=== PATIENT | female | born 1940 | race Caucasian/White ===

== ENCOUNTER 2016-07-20 22:42 | Inpatient (IN) ==
--- NOTE | 2016-07-20 23:07 | Emergency Department Note ---
Sp Vigil Brittany, am scribing for, and in the presence of, Callum Diaz MD 23:05. Joe Vigil Robert M, MD, personally performed the services described in this documentation, ascribed by Jocelyn Snowden in my presence, and it is both accurate and complete . Arrival - Arrival Chief Complaint: Shortness of Breath Stated Complaint: Shortness of Breath ED Nursing Triage Note: Patient is a transfer from [facility] for further evaluation of shortness of breath. Patient has a hx of CHF. Recieved 80mg lasix IV at [facility]. Patient has O2 saturation of 88% on 6L O2 and respiration rate of 22 upon triage. Mode of Arrival: Stretcher Limitations: No Limitations Source: Patient, RN Notes Reviewed - History of Present Illness HPI Narrative: Patient is a 75 y/o female presenting to the ED by EMS from [facility] ER for further evaluation of shortness of breath. Patient in room is unable to recall exactly where she was transferred from and is unable to provide much of any history. She does have a history significant for CHF. While at [facility] patient received 80 mg of Lasix IV. In room she has an oxygen saturation of 88% on 6L of oxygen via NC. She has a blood pressure of 151/90 mmHg. Patient in room appears to be in no acute distress. She denies having any associated chest pain with this. No other complaint/pain in the ED. Patient complains of shortness of breath. She was sent from [facility] for further evaluation of her respiratory failure. At that institution she was worked up and found to be in pulmonary edema but did not require intubation. She was given Lasix intravenously and has since begun to diurese. She denies any chest pain nausea or vomiting. She does seem slightly altered but history is overall relatively reliable. Date of Last Menstrual Period: hysterectomy Review of System - Review of System 12 point system: reviewed and no additional remarkable complaints except as stated - Review of System Constitutional: Absent: chills, fever Eyes: Absent: vision change Respiratory: Present: respiratory distress Cardiovascular: Absent: chest pain Gastrointestinal: Absent: abdominal pain, nausea, vomiting, diarrhea Genitourinary female: Absent: dysuria, frequency, urgency Musculoskeletal: Absent: arm pain, back pain, leg pain, neck pain Skin: Absent: rash Neurological: Absent: headache Psychiatric: Absent: anxiety, depression Endocrine: Absent: fatigue Hematological/Lymphatic: Absent: easy bleeding, easy bruising Medical,Surgical,& Family Hx - Medical History Cardio: History of: CHF, Hypertension - Surgical History Reproductive Surgeries: Surgical HX of;: Hysterectomy - Social History Smoking Status: Never smoker Frequency of Alcohol Use: None Type of Drug Use: None Exam Vital Signs: Vital Signs Temperature 97.8 F 07/20/16 22:43 Pulse Rate 90 07/20/16 22:43 Respiratory Rate 22 07/20/16 22:43 Blood Pressure 184/83 07/20/16 22:43 O2 Sat by Pulse Oximetry 88 L 07/20/16 22:43 - General General appearance: alert, in no apparent distress - Head Head exam: Present: atraumatic, normocephalic, normal inspection - Eye Eye exam: Present: normal appearance, PERRL, EOMI - ENT ENT exam: Present: normal exam, normal oropharynx - Neck Neck exam: Present: normal inspection, full ROM, trachea midline - Chest Chest inspection: Present: normal inspection, symmetric chest wall rise - Respiratory Respiratory exam: Present: rales (diffuse rales bilaterally), rhonchi (diffuse rhonchi bilaterally). Absent: normal lung sounds bilaterally - Cardiovascular Cardiovascular exam: Present: regular rate, normal rhythm, normal heart sounds. Absent: murmur, rubs, gallop - Abdominal Exam Abdominal exam: Present: soft, normal bowel sounds. Absent: distention, tenderness - Extremities Exam Extremities exam: Present: normal inspection - Back Exam Back exam: Present: normal inspection - Neurological Exam Neurological exam: Present: alert, oriented X3, CN II-XII intact. Absent: motor sensory deficit - Psychiatric Psychiatric exam: Present: normal affect - Skin Skin exam: Present: warm, dry Course - Consultations Consultation #1: Simran the family nurse practitioner for the hospitalist service will evaluate and admit the patient. Time: 23:06 Disposition Clinical Impression: Pulmonary edema, CHF (congestive heart failure) Case discussed with: patient, patient's family Disposition: Still a Patient Condition: Stable Time of Disposition: 23:07
[2016-07-20] MEDS ORDERED: ONDANSETRON 4 MG/2 ML VIAL IV PRN (23:25)
--- NOTE | 2016-07-20 23:37 | Hospitalist History & Physical ---
Assessment and Plan (1) CHF (congestive heart failure) Status: Acute Assessment and plan: Will most likely repeat Lasix in AM after BNP results. Will monitor UOP. Obtain labs and ECHO in AM. Current Visit: Yes (2) Pulmonary edema Status: Acute Assessment and plan: Continue diuresis; obtain CXR in AM. Current Visit: Yes History of Present Illness Chief complaint: CHF exacerbation History of present illness: This is a 75 year old female that presented to the ED as a lateral transfer from [facility] for CHF exacerbation. She has a rather impressive medical history of breast cancer, hypertension, congestive heart failure, overactive bladder, congestive heart failure, and dementia. Apparently, the patient presented to the ED on this afternoon with a chief complaint of shortness of breath. Chest radiograph at [facility] suggested pulmonary edema. She was given Lasix 80 mg IV and a lafleur catheter was inserted. She was transferred to [facility] for continuation of care. At the time of presentation, the patient was hypoxic with oxygen saturations in the low 80's; however she was arousable. Labs were obtained prior to her departure from [facility] which revealed a Pro-BNP of 4249.0. She is a poor historian. She is unable to give any information at the time of presentation. I am uncertain if this is her baseline. After speaking with Dr. Diaz; it was decided that the patient would be admitted under the hospitalists service for continuation of care. Home Medications Medication Instructions Recorded Confirmed Type Unable To Obtain [Unable to Obtain] 07/20/16 07/20/16 History Allergies Allergy/AdvReac Type Severity Reaction Status Date / Time No Known Allergies Allergy Unverified 07/20/16 23:49 Medical,Surgical,& Family Hx - Medical History Cardio: History of: CHF, Hypertension Psychological: History of: Psychiatric Problems (Dementia) Genitourinary: History of: Problems (Overactive Bladder) Reproductive: History of: Breast Cancer - Surgical History Reproductive Surgeries: Surgical HX of;: Hysterectomy - Social History Smoking Status: Never smoker Have you smoked in the last 12 months: No Frequency of Alcohol Use: Unknown Type of Drug Use: Unknown Marital Status: Single Lives With:: Alone ROS unobtainable: due to mental status Exam - Constitutional Vitals: Period Temp Pulse Resp BP Sys/Norman Pulse Ox Last 24 Hr 97.8 F-97.8 F 90-90 22-22 184-184/83-83 88-88 General appearance: normal weight, no acute distress - Head Head exam: Present: normal inspection, normocephalic - Eye Eye exam: Present: EOMI. Absent: conjunctival injection, nystagmus, scleral icterus, laceration to eyelids Pupils: Present: AR, normal accommodation - ENT ENT exam: Present: normal exam - Neck Neck exam: Absent: lymphadenopathy, meningismus, tenderness, thyromegaly - Respiratory Respiratory exam: Present: decreased breath sounds. Absent: rales, rhonchi, stridor, wheezes - Cardiovascular Cardiovascular exam: Present: regular rate and rhythm. Absent: diastolic murmur , gallop, JVD, systolic murmur, tachycardia - GI/Abdominal GI/Abdominal exam: Present: normal bowel sounds, soft. Absent: hyperactive bowel sounds, hypoactive bowel sounds, mass, Paul's sign, tenderness - Extremities Exam Extremities exam: Present: normal inspection, edema - Back Exam Back exam: Present: normal inspection - Neurological Exam Neurological exam: Present: alert, altered - Psychiatric Psychiatric exam: Present: flat affect - Skin Skin exam: Present: normal color, warm, dry Quality Measures - VTE Deep Vein Thrombosis/Pulmonary Embolism Present on Admission: No
[2016-07-21] MEDS: ENOXAPARIN 40 MG/0.4 ML SYRINGE SUBCUT SCH ×2 (01:59→23:35)
[2016-07-21 03:47] LABS: ABG HCO3 46.1 MMOL/L (20-26); ABG Oxygen Saturation 69.8 % (95-100); ABG PH 7.305 (7.35-7.45); ABG PO2 41.6 MM HG (80-95)
[2016-07-21] MEDS ORDERED: PROPOFOL 200 MG/20 ML VIAL IV ONE (03:52)
[2016-07-21] MEDS ORDERED: SUCCINYLCHOLINE 200 MG/10 ML VIAL ONE (03:52)
[2016-07-21] MEDS ORDERED: PROPOFOL 1,000 MG/100 ML BOTTLE IV ONE (03:52)
[2016-07-21] MEDS ORDERED: ETOMIDATE 20 MG/10 ML VIAL IV ONE (03:53)
[2016-07-21] MEDS: PROPOFOL 1,000 MG/100 ML BOTTLE IV SCH ×7 (04:00→20:51)
--- NOTE | 2016-07-21 04:08 | Event Note ---
Addendum entered and electronically signed by Eduardo Rose CNP 07/21/16 04 :25: Will obtain CT of the head to evaluate for altered mental status. Original Note: I was called by the nursing staff on the Telemetry unit regarding patient status. Per nursing staff; patient has become more confused; disrobing attempting to remove invasive lines; with noted decrease in SPO2. SPO2 74% at time of arrival. Decreased breath sounds noted; with labored respiratory effort. She is ashen and does not look well. She will eventually tire out. ABG obtained. She is grossly hypercapnic at 119.0. Transfer to ICU and electively intubate. Family at beside; spoke with them in great detail regarding the patient's status.
[2016-07-21 04:35] LABS: Basophils % 0.3 % (0.0-0.8); Hematocrit 56.8 VOL% (35.7-47.0); Hemoglobin 16.4 GM/DL (12.0-16.0); Immature Granulocytes % 0.4 %; Immature Granulocytes Absolute 0.04 #; Lymphocytes # 0.7 10*3/uL (1.4-4.0); Lymphocytes % 7.2 % (21.3-54.2); Mean Corpuscular HGB Conc 28.9 GM/DL (32-36); Mean Corpuscular Hemoglobin 27 PG (27-34); Mean Corpuscular Volume 94.2 FL (87-102); Mean Platelet Volume 11.3 FL (9.6-12.0); Monocytes # 0.7 10*3/uL (0.11-0.8); Monocytes % 6.8 % (1.7-12.7); Neutrophils # 8.2 10*3/uL (1.4-7.4); Neutrophils % 85.3 % (38.7-73.9); Platelet Count 182 T/CUMM (130-400); Red Blood Count 6.03 MC/CUMM (3.8-5.5); Red Cell Distribution Width 16.8 % (9.3-17.3); White Blood Count 9.6 T/CUMM (4-12)
[2016-07-21 05:07] LABS: Alanine Aminotransferase 32 U/L (13-56); Albumin 3.5 G/DL (3.4-5.0); Alkaline Phosphatase 89 U/L (45-117); Aspartate Amino Transferase 20 U/L (0-37); Calcium 9.2 MG/DL (8.5-10.1); Phosphorous 5.4 MG/DL (2.5-4.9); Total Protein 7.1 G/DL (6.4-8.3)
[2016-07-21 05:08] LABS: Blood Urea Nitrogen 16 MG/DL (7-18); Cholesterol 142 MG/DL (50-200); Glucose 154 MG/DL (74-106); HDL Cholesterol 55 MG/DL (40-60); Potassium 3.6 MMOL/L (3.5-5.1); Risk Ratio 2.58; Sodium 136 MMOL/L (136-145); Triglycerides 76 MG/DL (2-150); VLDL CHOLESTEROL 15.2 MG/DL
[2016-07-21] MEDS: PANTOPRAZOLE 40 MG VIAL IV SCH (05:30)
[2016-07-21 05:46] LABS: ABG Base Excess 23.8 MMOL/L (-2.5-2.5); ABG HCO3 49.3 MMOL/L (20-26); ABG Oxygen Saturation 97.7 % (95-100); ABG PCO2 57.8 MM HG (35-48); ABG PH 7.563 (7.35-7.45); ABG PO2 81.4 MM HG (80-95); ABG TCO2 42.7 MMOL/L (23-27); Allen Test Positive; Pt O2 Delivery Device Ventilator
[2016-07-21 06:03] LABS: Hypochromasia 1+
[2016-07-21 06:04] LABS: Macrocytosis Slight; Polychromasia Slight
[2016-07-21 06:05] LABS: Platelet Estimate Adequate
--- NOTE | 2016-07-21 07:08 | Pulmonology Consult Note ---
Assessment and Plan (1) Hypertension Status: Acute Assessment and plan: Patient apparently has a history of hypertension and may have some cardiac dysfunction Current Visit: Yes (2) Dementia Status: Acute Assessment and plan: Apparently the patient is developing dementia Current Visit: Yes (3) Acute hypercapnic respiratory failure Status: Acute Assessment and plan: Patient had worsening respiratory distress and she has significant CO2 retention. She has a metabolic alkalosis now. Current Visit: Yes (4) CHF (congestive heart failure) Status: Acute Assessment and plan: Her chest x-ray looks like a mild CHF. Her cardiac status will be evaluated Current Visit: Yes History of Present Illness Chief complaint: Ventilator management History of present illness: Ms. Fontana is a 75 year old female that was transferred from [facility] with increased shortness of breath. She apparently has a history of dementia and hypertension along with possible heart failure. She has a history of having breast cancer. She went to the hospital shortness of breath and was felt to have heart failure. She was transferred and admitted to telemetry. She developed worsening shortness of breath and hypoxemia and had to be moved to the ICU and intubated. She had a PCO2 of 119. She has no history of having any previous lung problems. She apparently is a non-smoker. She is stable on the ventilator at present Home Medications Medication Instructions Recorded Confirmed Type Acetaminophen 1,000 mg PO Q6H PRN 07/21/16 07/21/16 History Clopidogrel [Plavix] 75 mg PO DAILY 07/21/16 07/21/16 History Dexlansoprazole [Dexilant] 60 mg PO DAILY 07/21/16 07/21/16 History Digoxin Tab [Lanoxin Tab] 0.25 mg PO DAILY 07/21/16 07/21/16 History Docusate Sodium Cap [Colace Cap] 100 mg PO BID 07/21/16 07/21/16 History Ergocalciferol (Vitamin D2) 50,000 unit PO Q7D 07/21/16 07/21/16 History [Vitamin D2] Furosemide Tab [Lasix Tab] 40 mg PO BID DIURETIC 07/21/16 07/21/16 History Letrozole 2.5 mg PO DAILY 07/21/16 07/21/16 History Linagliptin [Tradjenta] 5 mg PO DAILY 07/21/16 07/21/16 History Lovastatin 40 mg PO DAILY W/SUPPER 07/21/16 07/21/16 History Magnesium Oxide [Magox 400] 2,000 mg PO BID 07/21/16 07/21/16 History Memantine HCl [Namenda XR] 28 mg PO DAILY 07/21/16 07/21/16 History Multivit-Min/FA/Lycopene/Lut 1 tablet PO DAILY 07/21/16 07/21/16 History [Centrum Silver Tablet] Solifenacin Succinate [Vesicare] 10 mg PO DAILY 07/21/16 07/21/16 History Spironolactone [Aldactone] 50 mg PO DAILY 07/21/16 07/21/16 History metOLazone [Metolazone] 10 mg PO BID 07/21/16 07/21/16 History Allergies Allergy/AdvReac Type Severity Reaction Status Date / Time No Known Allergies Allergy Unverified 07/20/16 23:49 ROS unobtainable: due to endotracheal tube (She is unable to give any history) Exam (Pulmonay) H&P - Constitutional Vitals: Period Temp Pulse Resp BP Sys/Norman Pulse Ox Last 24 Hr 97.8 F 65-94 14-20 117-181/50-88 90-95 General appearance: normal weight, no acute distress (She is sedated on the ventilator at present) - Head Head exam: Present: normal inspection, normocephalic - Eye Eye exam: Present: EOMI. Absent: scleral icterus Pupils: Present: AR - ENT ENT exam: Present: normal exam, other (ET tube is in good position) - Neck Neck exam: Present: normal inspection. Absent: lymphadenopathy, thyromegaly - Respiratory Respiratory exam: Present: decreased breath sounds, rhonchi (She has good breath sounds bilaterally with some mild rhonchi.). Absent: accessory muscle use - Cardiovascular Cardiovascular exam: Present: regular rate and rhythm. Absent: gallop, systolic murmur - GI/Abdominal GI/Abdominal exam: Present: normal bowel sounds, soft. Absent: organomegaly, tenderness - Extremities Exam Extremities exam: Absent: calf tenderness, edema - Neurological Exam Neurological exam: Present: altered (She is sedated on the ventilator at present ) - Skin Skin exam: Present: warm, dry Medical,Surgical,& Family Hx - Medical History Cardio: History of: CHF, Hypertension Psychological: History of: Psychiatric Problems (Dementia) Respiratory: History of: COPD Genitourinary: History of: Problems (Overactive Bladder) Reproductive: History of: Breast Cancer - Surgical History Thoracic Surgeries: Patient denies;: Lobectomy Reproductive Surgeries: Surgical HX of;: Hysterectomy - Social History Smoking Status: Never smoker Frequency of Alcohol Use: None Type of Drug Use: None Results - Labs CBC & BMP: 07/21/16 04:15 07/21/16 04:15 Labs: Her PO2 is 81 with a PCO2 of 57 and a pH of 7.56 - Diagnostic Findings Procedure: Chest x-ray: image reviewed by me, report reviewed by me (Chest x- ray shows cardiomegaly with some mild CHF) Quality Measures - VTE Deep Vein Thrombosis/Pulmonary Embolism Present on Admission: No
--- NOTE | 2016-07-21 07:41 | EKG Report ---
Stationary ECG Study [facility] ER Test Date: 07/20/2016 10:53:59 PM Pat Name: BRIT GRIJALVA Department: Room: 124 Gender: F [employer]: JOSHUA : 1940 Requested by: Callum Diaz Order Number: [id number] Reading MD: MARYBETH BARRERA Intervals [place] Rate: 88 P: 70 WV: 162 QRS: 99 QRSD: 101 T: 45 QT: 288 QTc: 333 Interpretive Statements SINUS RHYTHM RIGHT ATRIAL ENLARGEMENT BORDERLINE RIGHT AXIS DEVIATION Electronically Signed On 07-24-16 14:32:17 CDT by MARYBETH BARRERA [email or web address]
--- NOTE | 2016-07-21 07:43 | XRay Report ---
History short of breath ventilator management Comparison 07/20/2016 The heart is enlarged. An ET tube is in place with the tip at T4. The right Mediport remains There remained a mild diffuse bilateral interstitial opacities similar on the prior study. Elevation right diaphragm with blunting of the right costophrenic angle remains. Impression: 1. Interval intubation 2. Mild diffuse bilateral interstitial edema PROCEDURE INTERPRETED AT [facility] DEPARTMENT OF RADIOLOGY Final Report Signed by: Dr. Rebeca Jones
[2016-07-21] MEDS ORDERED: PANTOPRAZOLE 40 MG TABLET PO SCH (09:00)
[2016-07-21] MEDS: methylPREDNISolone SOD SUC 40 MG/1 ML VIAL IV SCH ×2 (10:34→19:18)
[2016-07-21] MEDS: FUROSEMIDE 40 MG/4 ML VIAL IV SCH (10:34)
[2016-07-21] MEDS ORDERED: GLUCAGON 1 MG VIAL IM PRN (10:54)
--- NOTE | 2016-07-21 10:55 | Hospitalist Progress Note ---
Assessment and Plan - Time spent with patient Time spent with patient: Greater than 30 minutes (Time spent 8.30am-10.10am) (1) Acute hypercapnic respiratory failure Status: Acute Assessment and plan: patient was intubated over night for respiratory distress and PCo2 of 119. Her obesity may also be contributing to this Plan continue vent support, steroids, will add IV antibiotics, nebs treatment panculture -follow Pulm consult ABGs, cardiac enzymes, D-dimers, CT chest Current Visit: Yes (2) CHF (congestive heart failure) Status: Acute Assessment and plan: will continue with IV diurese, give some ASA, ACEI and bblocker if bp permits -cardiac enzymes -Echocardiogram Current Visit: Yes (3) Altered mental status Status: Acute Assessment and plan: This is most likely due to the respiratory failurevs underlying Dementia. Follow CT head report. Current Visit: Yes (4) Hypertension Status: Acute Assessment and plan: stable Current Visit: Yes (5) History of breast cancer Status: Acute Assessment and plan: continue outpatient management Follow CT chest to r/o metastasis Current Visit: Yes (6) Dementia Status: Acute Assessment and plan: with some psychiatry issue. Plan We will address when patient is more stable. Current Visit: Yes Hospitalist: Subjective Interval history: 75yr old who was admitted for CHF exacerbation yesterday became short of breath overnight and was transferred to the unit and intubated. This am, she was stable on the vent.No new issues. Exam - Constitutional Vitals: Period Temp Pulse Resp BP Sys/Norman Pulse Ox Last 24 Hr 97.8 F-97.8 F 65-94 14-20 112-181/50-88 90-97 General appearance: no acute distress, morbidly obese, other (intubated and sedated) - Respiratory Respiratory exam: Present: decreased breath sounds - Cardiovascular Cardiovascular exam: Present: regular rate and rhythm - GI/Abdominal GI/Abdominal exam: Present: normal bowel sounds - Extremities Exam Extremities exam: Present: normal inspection - Neurological Exam Neurological exam: Present: alert, oriented X3 Results - Labs CBC & BMP: 07/21/16 04:15 07/21/16 04:15 Lab Results: I have reviewed the past 24 hour labs Quality Measures - VTE Deep Vein Thrombosis/Pulmonary Embolism Present on Admission: No
[2016-07-21] MEDS ORDERED: ALBUTEROL/IPRATROPIUM 3 ML NEB RESP TX PRN (10:58)
[2016-07-21] MEDS ORDERED: cefTRIAXone 1,000 MG in SODIUM CHLORIDE 0.9% 100 ML IV SCH (11:00)
[2016-07-21] MEDS: DOCUSATE SODIUM 100 MG CAPSULE PO SCH ×2 (11:21→20:44)
[2016-07-21 12:34] LABS: Troponin I Only 0.024 NG/ML (0.00-0.045)
--- NOTE | 2016-07-21 12:44 | Physician Query Form ---
CLICK EDIT DOCUMENT TO SELECT QUERY ANSWER --> OK --> SIGN Tami Sanchez RN Clinical Horticultural Farmworker W) [phone] (f) [phone] [email or web address] PROVIDERS: Make your selection(s) from the choices in EACH section by typing an "x" and enter comments in the comment section. Please use your independent medical judgment in providing your response. This request does not imply that any particular answer is desired or expected. CLINICAL INDICATORS: (Providers should not edit this section) Based on documentation of "unable to recall exactly where she was transferred from" "became more confused" "Disrobing. Attempting to remove invasive lines" History of dementia. Oxygen SATS 88% on Oxygen at 6L. Oxygen SATS down to 74%. "Acute hypercapnic respiratory failure" "Acute AMS most like to respiratory failure" ACUITY: (x ) Acute ( ) Acute on Chronic ( ) Chronic ( ) Clinically unable to determine NATURE: ( ) Delirium due to general medical condition ( ) Dementia (x ) Encephalopathy ( ) Unconscious ( ) Transient level of awareness ( ) Comatose ( ) Locked-in State ( ) Persistent Vegetative State ( ) Other, please specify: ( ) Clinically unable to determine Please indicate the underlying cause of the altered mental status (CHECK ALL THAT APPLY): (x ) Baseline dementia ( ) Alzheimer's disease ( ) Parkinson's disease ( ) Lewy body dementia ( ) Acute stroke ( ) Late effect of stroke ( ) Reactive (from emotional stress, psychological trauma) ( ) Due to narcotics/other drugs ( ) Post procedural delirium ( ) Transient ischemic attack ( ) Generalized cerebral edema ( ) Normal pressure hydrocephalus ( ) Psychiatric illness ( ) Other, please specify: ( ) Clinically unable to determine Please indicate if there is an infection, sepsis, dehydration or specific organ failure that is causing the dementia. Be specific with clarifying the relationship between that process and the mental status change. COMMENTS: Use of terms such as suspected, likely, or probable (associated with a specific diagnosis that is being evaluated, monitored, or treated as if it exists) are acceptable and can be restated in the discharge summary if not ruled out. MTDD
[2016-07-21] MEDS: DOXYCYCLINE HYCLATE INJ 100 MG in SODIUM CHLORIDE 0.9% 100 ML IV SCH (13:02)
[2016-07-21] MEDS: ASPIRIN 325 MG TABLET PO SCH (13:02)
[2016-07-21] MEDS: CARVEDILOL 3.125 MG TABLET PO SCH ×2 (13:02→20:44)
[2016-07-21] MEDS: LISINOPRIL 2.5 MG TABLET PO SCH (13:02)
[2016-07-21] MEDS: INSULIN REGULAR 100 UNIT/ML SUBCUT SCH ×2 (13:03→19:18)
--- NOTE | 2016-07-21 16:14 | CT Report ---
CT head/brain wo con Indication: Altered mental status. CT BRAIN WITHOUT CONTRAST DLP: 998 mGy*cm. One or more of the following dose reduction techniques was used: Automated exposure control, adjustment of the mA and/or kV according the patient size, or use of iterative reconstruction techniques. Comparison: None. Date of admission: 07/20/2016. Technique: Axial noncontrast CT images of the brain were obtained. Findings: Chronic lacunar infarct of the left anterior internal capsule noted. No acute ischemic change shown. Colon-white junction is maintained throughout. No hemorrhage, mass or mass effect. No volume loss. No bone lesions. Visualized sinuses and mastoid air cells are clear. Impression: No acute intracranial pathology. Chronic lacunar infarct left anterior internal capsule. PROCEDURE INTERPRETED AT [facility] DEPARTMENT OF RADIOLOGY Final Report Signed by: Truong Patrick M.D.
--- NOTE | 2016-07-21 16:18 | CT Report ---
CT chest PE study Indication: Shortness of breath. CT CHEST WITH CONTRAST, PE PROTOCOL DLP: 1695 mGy*cm. One or more of the following dose reduction techniques was used: Automated exposure control, adjustment of the mA and/or kV according the patient size, or use of iterative reconstruction techniques. Comparison: None Technique: Axial CT images of the chest were obtained during the pulmonary arterial phase of contrast injection. Coronal reconstructions were provided. Omnipaque 350, 80 cc. Findings: Endotracheal tube and NG tube are present. Endotracheal tube terminates just above the ramana and should be withdrawn slightly. No pulmonary artery filling defects are identified to the segmental level. Main pulmonary artery is 38 mm diameter, dilated, and there is pulmonary vascular congestion noted. Calcified atheromatous disease and tortuosity aorta noted. Cardiomegaly is present. No lymphadenopathy. Dependent atelectasis and bibasilar infiltrates are present with multiple air bronchograms. Trace pleural fluid on the right. Right hemidiaphragm is elevated and there is diffuse fatty infiltration of the liver. Upper abdomen is otherwise unremarkable. Impression: 1. No evidence of PE. 2. Cardiomegaly and pulmonary vascular congestion consistent with CHF. 3. Bibasilar pneumonia. 4. Fatty infiltration of the liver. 5. Endotracheal tube terminating just above the ramana. Consider withdrawing slightly. PROCEDURE INTERPRETED AT [facility] DEPARTMENT OF RADIOLOGY Final Report Signed by: Truong Patrick M.D.
--- NOTE | 2016-07-21 18:25 | ECHO Report ---
Akiko Fontana Exam Date: 07/21/2016 09:22 Referring Physician: Technologist: Destiny Busch RDCS Age: 75 Ht (in): 72 Wt (lb): 275 Gender: F Exam Location: [facility] Echo Indications: Essential (primary) hypertension, Dementia, Acute respiratory failure with hypercapnia, Heart failure, unspecified, Shortness of breath, COPD, hx Breast CA BP: 112 / 55 HR: 78 Rhythm: Sinus Technical Quality: IMPRESSIONS Normal left ventricular cavity size. Mild left ventricular hypertrophy. There is abnormal septal motion. Left ventricular ejection fraction is estimated at 55 %. Grade 1 diastolic dysfunction. The right ventricle is mildly dilated, with normal systolic function. Mild pulmonary hypertension. Mild biatrial enlargement. Mild aortic valve sclerosis, without stenosis or regurgitation. Trace pericardial effusion. MEASUREMENTS (Male / Female) Normal Values 2D ECHO LV Diastolic Diameter PLAX 4.2 cm 4.2 - 5.9 / 3.9 - 5.3 cm LV Systolic Diameter PLAX 2.2 cm LV Fractional Shortening PLAX 46.9 % IVS Diastolic Thickness 1.1 cm 0.6 - 1.0 / 0.6 - 0.9 cm LVPW Diastolic Thickness 1.2 cm 0.6 - 1.0 / 0.6 - 0.9 cm RV Internal Dim ED PLAX 3.6 cm Aortic Root Diameter 3.4 cm LA Systolic Diameter LX 4.7 cm 3.0 - 4.0 / 2.7 - 3.8 cm DOPPLER TR Peak Velocity 289.0 cm/s TR Peak Gradient 33.4 mmHg FINDINGS Left Ventricle Normal left ventricular cavity size. Mild left ventricular hypertrophy. There is abnormal septal motion. Left ventricular ejection fraction is estimated at 55 %. Grade 1 diastolic dysfunction. Right Ventricle The right ventricle is mildly dilated, with normal systolic function. Right Atrium Mild right atrial enlargement. Left Atrium Mild left atrial enlargement. Mitral Valve Morphologically normal mitral valve, without significant stenosis or prolapse. There is no mitral regurgitation. Aortic Valve Mild aortic valve sclerosis, without stenosis or regurgitation. Tricuspid Valve Morphologically normal tricuspid valve. Trace to mild tricuspid valve regurgitation. Tricuspid regurgitation velocities suggest a PAP of 43 mmHg. Pulmonic Valve Morphologically normal pulmonic valve without significant stenosis. There is no pulmonic regurgitation. Pericardium Trace pericardial effusion. Aorta Normal ascending aorta dimension. Raj Chaidez (Electronically Signed) Final Date: 21 July 2016 18:24
[2016-07-22] MEDS: DOXYCYCLINE HYCLATE INJ 100 MG in SODIUM CHLORIDE 0.9% 100 ML IV SCH (00:02)
[2016-07-22] MEDS: PROPOFOL 1,000 MG/100 ML BOTTLE IV SCH ×5 (00:03→20:37)
[2016-07-22] MEDS: methylPREDNISolone SOD SUC 40 MG/1 ML VIAL IV SCH ×3 (00:52→18:36)
[2016-07-22] MEDS: INSULIN REGULAR 100 UNIT/ML SUBCUT SCH ×4 (00:55→18:37)
[2016-07-22 03:37] LABS: Allen Test Positive; Pt O2 Delivery Device Ventilator
[2016-07-22 03:39] LABS: ABG Base Excess 17.8 MMOL/L (-2.5-2.5); ABG HCO3 42.2 MMOL/L (20-26); ABG Oxygen Saturation 95.8 % (95-100); ABG PCO2 46.4 MM HG (35-48); ABG PH 7.577 (7.35-7.45); ABG PO2 73.3 MM HG (80-95); ABG TCO2 35.2 MMOL/L (23-27)
[2016-07-22 04:35] LABS: Hematocrit 50.9 VOL% (35.7-47.0); Hemoglobin 15.9 GM/DL (12.0-16.0); Immature Granulocytes % 0.3 %; Immature Granulocytes Absolute 0.03 #; Lymphocytes # 0.4 10*3/uL (1.4-4.0); Lymphocytes % 4.8 % (21.3-54.2); Mean Corpuscular HGB Conc 31.2 GM/DL (32-36); Mean Corpuscular Hemoglobin 27 PG (27-34); Monocytes # 0.2 10*3/uL (0.11-0.8); Monocytes % 2.6 % (1.7-12.7); Neutrophils # 8.2 10*3/uL (1.4-7.4); Neutrophils % 92.3 % (38.7-73.9); Platelet Count 215 T/CUMM (130-400); Red Blood Count 5.99 MC/CUMM (3.8-5.5); Red Cell Distribution Width 17.7 % (9.3-17.3); White Blood Count 8.9 T/CUMM (4-12)
[2016-07-22 05:07] LABS: Calcium 8.6 MG/DL (8.5-10.1); Magnesium 2.2 MG/DL (1.8-2.4); Osmolality,Calculated 274.5 MOS/KG (273-304); Potassium 3.1 MMOL/L (3.5-5.1)
[2016-07-22 05:30] LABS: Hypochromasia 1+; Lymphocytes 5 % (20-55); Microcytosis 1+; Platelet Estimate Adequate; Polychromasia Slight; Segmented Neutrophils 94 % (50-85); Total Cells Counted 100
[2016-07-22] MEDS: PANTOPRAZOLE 40 MG VIAL IV SCH (05:40)
[2016-07-22] MEDS ORDERED: POTASSIUM CHLORIDE RIDER 20 MEQ in PREMIX 1 EACH IV ONE (09:24)
[2016-07-22] MEDS ORDERED: MAGNESIUM SULF RIDER 2 GM in PREMIX 1 EACH IV PRN (09:25)
[2016-07-22] MEDS: DOCUSATE SODIUM 100 MG CAPSULE PO SCH ×2 (09:44→20:15)
[2016-07-22] MEDS: LISINOPRIL 2.5 MG TABLET PO SCH (09:44)
[2016-07-22] MEDS: ASPIRIN 325 MG TABLET PO SCH (09:44)
[2016-07-22] MEDS: CARVEDILOL 3.125 MG TABLET PO SCH ×2 (09:44→20:15)
[2016-07-22] MEDS: FUROSEMIDE 40 MG/4 ML VIAL IV SCH (09:45)
[2016-07-22] MEDS: MULTIVITAMIN LIQUID (CENTRUM) 60 ML BOTTLE NG SCH (10:05)
--- NOTE | 2016-07-22 10:14 | Pulmonology Progress Note ---
Pulmonary - PN: Subj Interval history: This is a 75-year-old female whom I am seeing for Dr. Blake Miner. This patient's on mechanical ventilation. Chest x-ray admission (07/21/2016) showed pulmonary edema. There is no chest x- ray for today CT of the head is been reviewed. Patient has no pulmonary emboli. This is read as bibasilar infiltrates but it looks like pulmonary edema to me Doppler venograms. No evidence of deep venous CT head. Chronic lacunar infarcts in the anterior left internal capsule Microbiology. Gram-positive cocci in the blood culture from 07/21/2016. This is not been identified there are no sensitivity. Patient is on good antibiotic coverage. I have reviewed her medicines per Lab. White count is 8900 with 92 segs. H&H is 15.9/50.9. Platelets of 215, 000. Sodium is low at 132. Potassium is low at 3.1. Chloride is low at 81. Creatinine is 1.0 up from 0.75 BUN is 21. Admit nitrated peptide was elevated at 402. This is dropped to 73 Physical exam. Vital signs. See below Chest. Fairly clear. Heart. Lateral PMI Abdomen. Nondistended. Few bowel sounds were heard Extremities. Nothing to suggest deep venous thrombophlebitis. Neck. Symmetrical. No meningismus Lymphatics. No submandibular cervical supraclavicular or epitrochlear adenopathy. The remainder the exam is noncontributory. Plan. 1. Daily chest x-ray and ABGs and lab 2. Weaning protocol 3. Physical therapy protocol while on mechanical ventilation 4. Deep venous thrombophlebitis prevention protocol 5. Proton pump inhibitor protocol Exam (Progress Note) - Constitutional Vitals: Period Temp Pulse Resp BP Sys/Norman Pulse Ox Last 24 Hr 97.1 F-98.9 F 63-92 12-141 94-132/43-68 93-100 Results - Labs CBC & BMP: 07/22/16 03:44 07/22/16 03:44
--- NOTE | 2016-07-22 10:36 | Hospitalist Progress Note ---
Assessment and Plan (1) Bacteremia Status: Acute Assessment and plan: Patient has gram-positive bacteremia yet to be identified. Will repeat blood cultures one from the port one from peripheral draw. I have modified the antibiotic coverage to include vancomycin 1 g IV every 12 hours and cefepime 1 g IV every 8. Discontinue doxycycline and did not discontinue the Zosyn. Should mitigate salt overloading and avoid worsening of pulmonary edema. There were noted gram-positive cocci should be able to cover with antibiotics that have been introduced. Current Visit: Yes (2) Acute hypercapnic respiratory failure Status: Acute Assessment and plan: Follow ABGs Current Visit: Yes (3) Pulmonary edema Status: Acute Assessment and plan: We will judiciously use diuresis so the patient is in the unit and observe respiratory status. Vital signs closely. Current Visit: Yes Hospitalist: Subjective Interval history: Patient has been seen and examined. She is intubated on incommunicado. She is sedated. Hospital to this hospital with acute respiratory failure and pulmonary edema. Overnight she is found to have a positive blood cultures from the port. Peripheral culture did not grow. We will repeat blood cultures from the port and one peripheral to evaluate for possibility of line sepsis. She is currently on ceftriaxone 1 g IV every 24 hours may have to add antistaphylococcal treatment. Exam - Constitutional Vitals: Period Temp Pulse Resp BP Sys/Norman Pulse Ox Last 24 Hr 97.1 F-98.9 F 63-92 12-141 94-132/42-68 93-100 General appearance: over weight - Head Head exam: Present: normal inspection - Eye Eye exam: Present: EOMI Pupils: Present: AR - ENT ENT exam: Present: other (Intubated) - Neck Neck exam: Present: normal inspection - Respiratory Respiratory exam: Present: clear to auscultation bilaterally, other - Cardiovascular Cardiovascular exam: Present: regular rate and rhythm - GI/Abdominal GI/Abdominal exam: Present: normal bowel sounds, soft - Extremities Exam Extremities exam: Present: other (Patient does have LIVAN hose on no obvious edema no cyanosis) - Neurological Exam Neurological exam: Present: other (Patient is sedated and no obvious focal neurologic deficits) - Psychiatric Psychiatric exam: Present: other (Sedated) - Skin Skin exam: Present: normal color, warm, dry Results - Labs CBC & BMP: 07/22/16 03:44 07/22/16 03:44 Lab Results: I have reviewed the past 24 hour labs (Noted hypokalemia mild hyponatremia) Quality Measures - VTE Deep Vein Thrombosis/Pulmonary Embolism Present on Admission: No
[2016-07-22] MEDS: CEFEPIME 1,000 MG in SODIUM CHLORIDE 0.9% 100 ML IV SCH ×2 (14:29→21:19)
[2016-07-22] MEDS: VANCOMYCIN INJ 1,750 MG in SODIUM CHLORIDE 0.9% 500 ML IV SCH (16:19)
[2016-07-22] MEDS: DESITIN 4OZ/NYSTATIN 15 GRAM MIXTURE PASTE TOP SCH (20:19)
[2016-07-22] MEDS: ENOXAPARIN 40 MG/0.4 ML SYRINGE SUBCUT SCH (23:17)
[2016-07-23] MEDS: PROPOFOL 1,000 MG/100 ML BOTTLE IV SCH ×6 (00:16→22:38)
[2016-07-23] MEDS: INSULIN REGULAR 100 UNIT/ML SUBCUT SCH ×4 (00:37→18:11)
[2016-07-23] MEDS: methylPREDNISolone SOD SUC 40 MG/1 ML VIAL IV SCH ×3 (00:37→18:10)
[2016-07-23] MEDS: VANCOMYCIN INJ 1,750 MG in SODIUM CHLORIDE 0.9% 500 ML IV SCH ×2 (03:48→15:29)
[2016-07-23] MEDS: PANTOPRAZOLE 40 MG VIAL IV SCH (04:38)
[2016-07-23 04:45] LABS: ABG Base Excess 12.5 MMOL/L (-2.5-2.5); ABG Oxygen Saturation 98.5 % (95-100); ABG PCO2 40.8 MM HG (35-48); ABG PH 7.563 (7.35-7.45); ABG PO2 111.6 MM HG (80-95); ABG TCO2 37.2 MMOL/L (23-27); Pt O2 Delivery Device Ventilator
[2016-07-23] MEDS: CEFEPIME 1,000 MG in SODIUM CHLORIDE 0.9% 100 ML IV SCH ×3 (05:38→22:14)
[2016-07-23 05:40] LABS: Calcium 8.7 MG/DL (8.5-10.1); Osmolality,Calculated 274.7 MOS/KG (273-304); Potassium 3.2 MMOL/L (3.5-5.1)
[2016-07-23] MEDS ORDERED: INSULIN GLARGINE 100 UNIT/ML SUBCUT ONE (09:00)
--- NOTE | 2016-07-23 09:27 | XRay Report ---
XR chest 1V portable Indication: Intubated. Chest one view: Since 2 days ago, endotracheal tube has been advanced slightly, now 3 cm cephalad. NG tube and Mediport are stable. Cardiomegaly, calcified atheromatous disease, coarsened interstitial markings of the lungs and hazy bibasilar atelectasis or pneumonia appears unchanged. Impression: Slightly adjusted endotracheal tube position. Otherwise no change. PROCEDURE INTERPRETED AT [facility] DEPARTMENT OF RADIOLOGY Final Report Signed by: Truong Patrick M.D.
--- NOTE | 2016-07-23 09:33 | Hospitalist Progress Note ---
Assessment and Plan (1) Bacteremia Status: Acute Assessment and plan: Patient has gram-positive bacteremia yet to be identified. Will repeat blood cultures one from the port one from peripheral draw. I have modified the antibiotic coverage to include vancomycin 1 g IV every 12 hours and cefepime 1 g IV every 8. Discontinue doxycycline and did not discontinue the Zosyn. Should mitigate salt overloading and avoid worsening of pulmonary edema. There were noted gram-positive cocci should be able to cover with antibiotics that have been introduced. Current Visit: Yes (2) Acute hypercapnic respiratory failure Status: Acute Assessment and plan: Follow ABGs Current Visit: Yes (3) Pulmonary edema Status: Acute Assessment and plan: We will judiciously use diuresis so the patient is in the unit and observe respiratory status. Vital signs closely. Current Visit: Yes (4) Hypokalemia Status: Acute Assessment and plan: Supplement per protocol Current Visit: Yes (5) Hyperglycemia Status: Acute Assessment and plan: Start patient on Lantus insulin 10 units now and 15 units at bedtime. Continue with the intermediates NovoLog sliding scale every 6 hours Accu-Cheks Current Visit: Yes Hospitalist: Subjective Interval history: Patient has been seen and examined and chart has been reviewed Patient has gram- positive bacteremia yet to be identified. Will repeat blood cultures one from the port one from peripheral draw. I have modified the antibiotic coverage to include vancomycin 1 g IV every 12 hours and cefepime 1 g IV every 8. Discontinue doxycycline and did not discontinue the Zosyn. Should mitigate salt overloading and avoid worsening of pulmonary edema. There were noted gram- positive cocci should be able to cover with antibiotics that have been introduced. Exam - Constitutional Vitals: Period Temp Pulse Resp BP Sys/Norman Pulse Ox Last 24 Hr 97.1 F-98.2 F 61-73 12-37 94-129/42-64 100-100 General appearance: over weight - Head Head exam: Present: normal inspection - Eye Eye exam: Present: other (Sedated intubated) Pupils: Present: AR - ENT ENT exam: Present: other (Orally intubated) - Neck Neck exam: Present: normal inspection - Respiratory Respiratory exam: Present: clear to auscultation bilaterally - Cardiovascular Cardiovascular exam: Present: regular rate and rhythm - GI/Abdominal GI/Abdominal exam: Present: normal bowel sounds, soft - Extremities Exam Extremities exam: Present: other (Unable to assess patient is sedated) - Neurological Exam Neurological exam: Present: other (Patient is sedated) - Psychiatric Psychiatric exam: Present: other (Patient is sedated) - Skin Skin exam: Present: normal color, warm, dry Results - Labs CBC & BMP: 07/22/16 03:44 07/23/16 04:25 Lab Results: I have reviewed the past 24 hour labs (Noted hypokalemia patient will be supplemented per protocol endorses hyper glycemic is she is going to be started on her basal insulin dosing. Will have to use Lantus insulin) Quality Measures - VTE Deep Vein Thrombosis/Pulmonary Embolism Present on Admission: No
[2016-07-23] MEDS: CARVEDILOL 3.125 MG TABLET PO SCH ×2 (11:03→20:40)
[2016-07-23] MEDS: DOCUSATE SODIUM 100 MG CAPSULE PO SCH ×2 (11:03→20:40)
[2016-07-23] MEDS: FUROSEMIDE 40 MG/4 ML VIAL IV SCH (11:03)
[2016-07-23] MEDS: LISINOPRIL 2.5 MG TABLET PO SCH (11:03)
[2016-07-23] MEDS: ASPIRIN 325 MG TABLET PO SCH (11:03)
[2016-07-23] MEDS: DESITIN 4OZ/NYSTATIN 15 GRAM MIXTURE PASTE TOP SCH ×2 (11:04→20:41)
[2016-07-23] MEDS: MULTIVITAMIN LIQUID (CENTRUM) 60 ML BOTTLE NG SCH (11:06)
--- NOTE | 2016-07-23 12:22 | Pulmonology Progress Note ---
Pulmonary - PN: Subj Interval history: This is a 75-year-old female whom I am seeing for Dr. Blake Miner. This patient's on mechanical ventilation. Chest x-ray admission (07/21/2016) showed pulmonary edema. There is no chest x- ray for today CT of the head is been reviewed. Patient has no pulmonary emboli. This is read as bibasilar infiltrates but it looks like pulmonary edema to me Doppler venograms. No evidence of deep venous CT head. Chronic lacunar infarcts in the anterior left internal capsule Microbiology. Gram-positive cocci in the blood culture from 07/21/2016. This is not been identified there are no sensitivity. Patient is on good antibiotic coverage. I have reviewed her medicines per Lab. White count is 8900 with 92 segs. H&H is 15.9/50.9. Platelets of 215, 000. Sodium is low at 132. Potassium is low at 3.1. Chloride is low at 81. Creatinine is 1.0 up from 0.75 BUN is 21. Admit nitrated peptide was elevated at 402. This is dropped to 73 07/23/2016. Chest x-ray shows bilateral pleural effusions which have decreased in size. There is a left lower lung and left perihilar infiltrate compatible with pneumonia. The inferior right hilum is prominent. Endotracheal tube is in good position. ABGs on PEEP and pressure support and FiO2 of 100% shows a pH of 7.56. PCO2 of 40.8. PO2 of 111.6 and a bicarb of 36. This is acting like adult respiratory distress syndrome. Echocardiogram shows ejection fraction 5055% there is enlargement of the right atrium and right ventricle. Will check Doppler venograms for any evidence of deep venous thrombophlebitis. Pulmonary emboli could be an alternative explanation. Physical exam. Vital signs. See below Chest. Fairly clear. Heart. Lateral PMI Abdomen. Nondistended. Few bowel sounds were heard Extremities. Nothing to suggest deep venous thrombophlebitis. Neck. Symmetrical. No meningismus Lymphatics. No submandibular cervical supraclavicular or epitrochlear adenopathy. The remainder the exam is noncontributory. Plan. 1. Daily chest x-ray and ABGs and lab 2. Weaning protocol 3. Physical therapy protocol while on mechanical ventilation 4. Deep venous thrombophlebitis prevention protocol 5. Proton pump inhibitor protocol 6. 07/23/2016. See my note. Doppler venograms. Exam (Progress Note) - Constitutional Vitals: Period Temp Pulse Resp BP Sys/Norman Pulse Ox Last 24 Hr 97.4 F-98.2 F 61-73 12-22 94-129/43-64 100-100 Results - Labs CBC & BMP: 07/22/16 03:44 07/23/16 04:25
[2016-07-23] MEDS: POTASSIUM CHLORIDE RIDER 20 MEQ in PREMIX 1 EACH IV PRN ×2 (13:54→16:02)
--- NOTE | 2016-07-23 15:06 | Ultrasound Report ---
US venous doppler LE BI Indication: Respiratory distress and CHF. BILATERAL LOWER EXTREMITY VENOUS ULTRASOUND Comparison: 03/21/2012 Findings: Graded grayscale compression, color Doppler and pulsed Doppler ultrasound evaluation of the venous structures performed. Normal compressibility, augmentation and color saturation is present within bilateral common femoral, superficial femoral, popliteal and proximal greater saphenous veins. Impression: No evidence of DVT either lower extremity. PROCEDURE INTERPRETED AT [facility] DEPARTMENT OF RADIOLOGY Final Report Signed by: Truong Patrick M.D.
[2016-07-23] MEDS: LORazepam 2 MG/1 ML VIAL IV PRN (15:47)
[2016-07-23] MEDS: NYSTATIN 500,000 UNIT/5 ML UDCUP SWISH/SWAL SCH (20:41)
[2016-07-23] MEDS ORDERED: INSULIN GLARGINE 100 UNIT/ML SUBCUT SCH (21:00)
[2016-07-23] MEDS: ENOXAPARIN 40 MG/0.4 ML SYRINGE SUBCUT SCH (22:37)
[2016-07-24] MEDS: INSULIN REGULAR 100 UNIT/ML SUBCUT SCH ×5 (00:12→23:45)
[2016-07-24] MEDS: methylPREDNISolone SOD SUC 40 MG/1 ML VIAL IV SCH ×3 (00:12→16:49)
[2016-07-24] MEDS: POTASSIUM CHLORIDE RIDER 20 MEQ in PREMIX 1 EACH IV PRN ×2 (00:16→06:29)
[2016-07-24] MEDS: PROPOFOL 1,000 MG/100 ML BOTTLE IV SCH ×6 (03:06→20:25)
[2016-07-24 03:42] LABS: Allen Test Positive; Pt O2 Delivery Device Ventilator
[2016-07-24 03:43] LABS: ABG Base Excess 8.5 MMOL/L (-2.5-2.5); ABG HCO3 33.2 MMOL/L (20-26); ABG Oxygen Saturation 98.2 % (95-100); ABG PCO2 45.1 MM HG (35-48); ABG PH 7.485 (7.35-7.45); ABG PO2 109.8 MM HG (80-95); ABG TCO2 34.6 MMOL/L (23-27)
[2016-07-24] MEDS: VANCOMYCIN INJ 1,750 MG in SODIUM CHLORIDE 0.9% 500 ML IV SCH ×2 (03:50→16:55)
[2016-07-24] MEDS: PANTOPRAZOLE 40 MG VIAL IV SCH (03:51)
[2016-07-24 05:16] LABS: Calcium 8.1 MG/DL (8.5-10.1); Magnesium 2.2 MG/DL (1.8-2.4); Phosphorous 3.3 MG/DL (2.5-4.9); Potassium 3.5 MMOL/L (3.5-5.1); Prealbumin 23.8 MG/DL (20-40)
[2016-07-24] MEDS: CEFEPIME 1,000 MG in SODIUM CHLORIDE 0.9% 100 ML IV SCH ×3 (06:11→21:30)
--- NOTE | 2016-07-24 07:39 | XRay Report ---
Referring Physician: Franky Suarez Exam: XR chest 1V portable Date: July 24, 2016 at 3:28 AM Reason: Ventilator, respiratory failure Comparison: Chest one view portable July 23, 2016 Findings: A right-sided Mediport, endotracheal tube and feeding tube are again in place. The cardiac silhouette is again enlarged, and there may be mild elevation of the right hemidiaphragm. There are scattered opacities within both lungs. These opacities are most prominent at the lung bases and on the left. This is concerning for pulmonary edema, atelectasis and possibly pneumonia. No pneumothorax is identified, but there is mild bilateral pleural fluid. The osseous structures appear stable. Impression: There has been no significant change. PROCEDURE INTERPRETED AT [facility] DEPARTMENT OF RADIOLOGY Final Report Signed by: Dr. Sohail Burdick
--- NOTE | 2016-07-24 07:40 | Hospitalist Progress Note ---
Assessment and Plan (1) Bacteremia Status: Acute Assessment and plan: Patient has gram-positive bacteremia yet to be identified. Will repeat blood cultures one from the port one from peripheral draw. I have modified the antibiotic coverage to include vancomycin 1 g IV every 12 hours and cefepime 1 g IV every 8. Discontinue doxycycline and did not discontinue the Zosyn. Should mitigate salt overloading and avoid worsening of pulmonary edema. There were noted gram-positive cocci should be able to cover with antibiotics that have been introduced. Current Visit: Yes (2) Acute hypercapnic respiratory failure Status: Acute Assessment and plan: Follow ABGs Current Visit: Yes (3) Pulmonary edema Status: Acute Assessment and plan: We will judiciously use diuresis so the patient is in the unit and observe respiratory status. Vital signs closely. Current Visit: Yes (4) Hypokalemia Status: Acute Assessment and plan: Resolved on today's chemistry. Magnesium was also normal at 2.2 Current Visit: Yes (5) Hyperglycemia Status: Acute Assessment and plan: Raise Lantus to 24 units at bedtime. Continue with the intermediates NovoLog sliding scale every 6 hours Accu-Cheks Current Visit: Yes Hospitalist: Subjective Interval history: Patient has been seen and examined. She remains intubated. She is on SIMV mode with saturation 100% on 50% oxygen. ABGs pH 7.45 CO2 of 45 (patient suggests on chemistry that she must be on chronic CO2 retainer, high hematocrit suggesting secondary polycythemia possibly heavy smoker COPD) Exam - Constitutional Vitals: Period Temp Pulse Resp BP Sys/Norman Pulse Ox Last 24 Hr 97.0 F-98.4 F 60-75 13-26 92-175/20-79 95-100 General appearance: over weight - Head Head exam: Present: normal inspection, normocephalic - Eye Eye exam: Present: other (Sedated) Pupils: Present: AR - ENT ENT exam: Present: other (Orally intubated) - Neck Neck exam: Present: normal inspection - Respiratory Respiratory exam: Present: clear to auscultation bilaterally, other (No wheezing no rales mentating saturation of 100%) - GI/Abdominal GI/Abdominal exam: Present: normal bowel sounds, soft - Extremities Exam Extremities exam: Present: normal inspection - Back Exam Back exam: Present: normal inspection - Neurological Exam Neurological exam: Present: other (Patient is sedated) - Psychiatric Psychiatric exam: Present: other (Sedated) - Skin Skin exam: Present: normal color, warm, dry Results - Labs CBC & BMP: 07/22/16 03:44 07/24/16 04:27 Lab Results: I have reviewed the past 24 hour labs (Noted the polycythemia chronically high bicarbonate. Patient also has hyperglycemia) Quality Measures - VTE Deep Vein Thrombosis/Pulmonary Embolism Present on Admission: No
[2016-07-24] MEDS ORDERED: POTASSIUM CHLORIDE RIDER 100 ML IV ONE (08:49)
[2016-07-24] MEDS: ASPIRIN 325 MG TABLET PO SCH (09:31)
[2016-07-24] MEDS: MULTIVITAMIN LIQUID (CENTRUM) 60 ML BOTTLE NG SCH (09:31)
[2016-07-24] MEDS: FUROSEMIDE 40 MG/4 ML VIAL IV SCH (09:32)
[2016-07-24] MEDS: DESITIN 4OZ/NYSTATIN 15 GRAM MIXTURE PASTE TOP SCH ×2 (09:32→20:26)
[2016-07-24] MEDS: LISINOPRIL 2.5 MG TABLET PO SCH (09:32)
[2016-07-24] MEDS: CARVEDILOL 3.125 MG TABLET PO SCH ×2 (09:32→20:25)
[2016-07-24] MEDS: NYSTATIN 500,000 UNIT/5 ML UDCUP SWISH/SWAL SCH ×4 (09:32→20:25)
[2016-07-24] MEDS: DOCUSATE SODIUM 100 MG CAPSULE PO SCH ×2 (09:32→20:25)
[2016-07-24] MEDS: LORazepam 2 MG/1 ML VIAL IV PRN (09:33)
[2016-07-24] MEDS: ACETAMINOPHEN 325 MG TABLET PO PRN (09:33)
--- NOTE | 2016-07-24 09:56 | Pulmonology Progress Note ---
Pulmonary - PN: Subj Interval history: Patient is a 75-year-old lady that presented with shortness of breath and had to be intubated. She was felt to possibly have mild heart failure. She did have significant CO2 retention. Her PO2 is still on the low side. She has been stable on the ventilator but she does get very restless. She has had fairly good urine output. Her blood pressure has been stable. Exam (Progress Note) - Constitutional Vitals: Period Temp Pulse Resp BP Sys/Norman Pulse Ox Last 24 Hr 97.0 F-98.4 F 60-75 13-26 92-175/20-79 95-100 Exam: General appearance: normal weight, no acute distress (She is sedated on the ventilator but does get very agitated at times. ) - Head Head exam: Present: normal inspection, normocephalic - Eye Eye exam: Present: EOMI. Absent: scleral icterus Pupils: Present: AR - ENT ENT exam: Present: normal exam, other (ET tube is in good position) - Neck Neck exam: Present: normal inspection. Absent: lymphadenopathy, thyromegaly - Respiratory Respiratory exam: Present: She has fairly good air movement now without any definite wheezing. - Cardiovascular Cardiovascular exam: Present: regular rate and rhythm. Absent: gallop, systolic murmur - GI/Abdominal GI/Abdominal exam: Present: normal bowel sounds, soft. Absent: organomegaly, tenderness - Extremities Exam Extremities exam: Absent: calf tenderness, edema - Neurological Exam Neurological exam: Present: altered (She is sedated on the ventilator at present ) - Skin Skin exam: Present: warm, dry Results - Labs CBC & BMP: 07/22/16 03:44 07/24/16 04:27 Labs: PO2 is only 109 today. - Diagnostic Findings Procedure: Chest x-ray: image reviewed by me, report reviewed by me (Chest x- ray shows improving bibasilar infiltrates.) Assessment and Plan (1) Hypertension Status: Acute Assessment and plan: Patient apparently has a history of hypertension but her echo looks okay without significant cardiac dysfunction. Current Visit: Yes (2) Dementia Status: Acute Assessment and plan: Apparently the patient is developing dementia. She does get agitated at times. Current Visit: Yes (3) Acute hypercapnic respiratory failure Status: Acute Assessment and plan: Patient had worsening respiratory distress and she has significant CO2 retention. She has a metabolic alkalosis now. Her pH is better today. She continues to have some significant hypoxemia. Current Visit: Yes (4) CHF (congestive heart failure) Status: Acute Assessment and plan: Her chest x-ray looks like a mild CHF. She has had good urine output but is not clearing completely. Current Visit: Yes
[2016-07-24] MEDS: VANCOMYCIN INJ 1,500 MG in SODIUM CHLORIDE 0.9% 500 ML IV SCH (16:59)
[2016-07-24] MEDS: INSULIN GLARGINE 100 UNIT/ML SUBCUT SCH (20:25)
[2016-07-24] MEDS: ENOXAPARIN 40 MG/0.4 ML SYRINGE SUBCUT SCH (23:12)
[2016-07-25] MEDS: PROPOFOL 1,000 MG/100 ML BOTTLE IV SCH ×5 (00:26→21:00)
[2016-07-25] MEDS: methylPREDNISolone SOD SUC 40 MG/1 ML VIAL IV SCH ×3 (00:26→16:09)
[2016-07-25] MEDS: VANCOMYCIN INJ 1,500 MG in SODIUM CHLORIDE 0.9% 500 ML IV SCH ×2 (04:02→16:09)
[2016-07-25] MEDS: PANTOPRAZOLE 40 MG VIAL IV SCH (04:02)
[2016-07-25 04:18] LABS: ABG Base Excess 5.9 MMOL/L (-2.5-2.5); ABG HCO3 29.7 MMOL/L (20-26); ABG Oxygen Saturation 98.7 % (95-100); ABG PCO2 51.1 MM HG (35-48); ABG PH 7.409 (7.35-7.45); ABG TCO2 26.9 MMOL/L (23-27); Allen Test Positive; Pt O2 Delivery Device Ventilator
[2016-07-25 05:15] LABS: Calcium 8.2 MG/DL (8.5-10.1); Osmolality,Calculated 291.5 MOS/KG (273-304); Potassium 3.3 MMOL/L (3.5-5.1)
[2016-07-25] MEDS: POTASSIUM CHLORIDE RIDER 20 MEQ in PREMIX 1 EACH IV PRN (05:51)
[2016-07-25] MEDS: INSULIN REGULAR 100 UNIT/ML SUBCUT SCH ×3 (05:52→17:24)
[2016-07-25] MEDS: CEFEPIME 1,000 MG in SODIUM CHLORIDE 0.9% 100 ML IV SCH ×3 (06:21→22:40)
--- NOTE | 2016-07-25 06:42 | Pulmonology Progress Note ---
Pulmonary - PN: Subj Interval history: Patient is a 75-year-old lady that presented with shortness of breath and had to be intubated. She was felt to possibly have mild heart failure. She did have significant CO2 retention. Her PO2 is still on the low side. Her family says her O2 runs low at home and she uses home oxygen. She apparently has significant COPD. She is sedated and comfortable on the ventilator now. She still has a large A-a O2 gradient. Her chest x-ray shows mild bibasilar changes. Her vital signs have been fairly stable. Exam (Progress Note) - Constitutional Vitals: Period Temp Pulse Resp BP Sys/Norman Pulse Ox Last 24 Hr 97.8 F-98.1 F 66-113 10-20 103-131/45-70 86-100 Exam: General appearance: normal weight, no acute distress (She is sedated on the ventilator but does get very agitated at times. ) - Head Head exam: Present: normal inspection, normocephalic - Eye Eye exam: Present: EOMI. Absent: scleral icterus Pupils: Present: AR - ENT ENT exam: Present: normal exam, other (ET tube is in good position) - Neck Neck exam: Present: normal inspection. Absent: lymphadenopathy, thyromegaly - Respiratory Respiratory exam: Present: She has fairly good air movement now and her lungs sound a little clearer without definite rales or wheezing. - Cardiovascular Cardiovascular exam: Present: regular rate and rhythm. Absent: gallop, systolic murmur - GI/Abdominal GI/Abdominal exam: Present: normal bowel sounds, soft. Absent: organomegaly, tenderness - Extremities Exam Extremities exam: Absent: calf tenderness, edema - Neurological Exam Neurological exam: Present: altered (She is sedated on the ventilator at present ) - Skin Skin exam: Present: warm, dry Results - Labs CBC & BMP: 07/22/16 03:44 07/25/16 04:20 Labs: Her PO2 is 126 with a PCO2 of 51 and a pH of 7.40. This is on 80% oxygen and PEEP of 10 - Diagnostic Findings Procedure: Chest x-ray: image reviewed by me, report reviewed by me (Chest x- ray shows bibasilar infiltrates.) Assessment and Plan (1) Hypertension Status: Acute Assessment and plan: Patient apparently has a history of hypertension but her echo looks okay without significant cardiac dysfunction. Her blood pressure has been stable. Current Visit: Yes (2) Dementia Status: Acute Assessment and plan: Apparently the patient is developing dementia. She does get agitated at times. Current Visit: Yes (3) Acute hypercapnic respiratory failure Status: Acute Assessment and plan: Patient had worsening respiratory distress and she has significant CO2 retention. She has a metabolic alkalosis now. Her pH is better today. She still requires a large amount of oxygen. We will plan a therapeutic bronchoscopy today. Current Visit: Yes (4) CHF (congestive heart failure) Status: Acute Assessment and plan: Her chest x-ray looks like a mild CHF. She has had good urine output but is not clearing completely. She may have significant lung disease also. Current Visit: Yes
--- NOTE | 2016-07-25 07:06 | XRay Report ---
Referring Physician: Franky Suarez Exam: XR chest 1V portable Date: July 25, 2016 at 3:31 AM Reason: Ventilator, respiratory failure Comparison: Chest one view portable July 24, 2016 Findings: A right-sided Mediport, endotracheal tube and feeding tube are again in place. The cardiac silhouette is again enlarged. There are scattered opacities within both lungs, mainly at the lung bases. This is concerning for pulmonary edema, atelectasis and possibly pneumonia. No pneumothorax is identified, but there is mild bilateral pleural fluid. The osseous structures appear stable. Impression: There is slight improvement aeration of the left upper and mid lung zones. The study is otherwise similar to before. PROCEDURE INTERPRETED AT [facility] DEPARTMENT OF RADIOLOGY Final Report Signed by: Dr. Sohail Burdick
--- NOTE | 2016-07-25 07:40 | Operative Note ---
Date of procedure: 07/25/16 Pre-op diagnosis: Respiratory failure with bilateral infiltrates. Post-op diagnosis: same (Bronchitis with mucous plugging) Procedure: The patient is on the ventilator in ICU with respiratory failure. Bronchoscopy will be done to assess airways and clear airways. She is sedated on the ventilator at present. Procedure: The fiberoptic bronchoscope was passed of the ET tube into the airways. The bronchopulmonary signs were identified and a specimen was obtained. Findings: The ET tube is in good position of the trachea. The main bronchi are open and unremarkable. There is some thick mucus and plugs seen bilaterally. These were washed and cleared and sent for culture. The right upper lobe, right , right lower lobe are all open. The left upper lobe, lingula, and left lower lobe are all open. There are no endobronchial lesions seen. There is bronchitis present. Once the airways were cleared of the procedure was stopped. She tolerated the procedure fairly well without problems. Impression: Bronchitis with mucous plugging. Plan: We will continue weaning from the ventilator. Anesthesia: conscious sedation Surgeon / Physician: Alexi Miner Estimated blood loss: none Specimens: other (Washings were sent for culture.) Condition: stable Disposition: ICU Results - Labs CBC & BMP: 07/22/16 03:44 07/25/16 04:20 Discharge Plan - Discharge Medications No Action Docusate Sodium Cap [Colace Cap] 100 mg PO BID Dexlansoprazole [Dexilant] 60 mg PO DAILY Multivit-Min/FA/Lycopen/Lutein [Centrum Silver Tablet] 1 tablet PO DAILY Clopidogrel [Plavix] 75 mg PO DAILY Lovastatin 40 mg PO DAILY W/SUPPER Furosemide Tab [Lasix Tab] 40 mg PO BID DIURETIC Digoxin Tab [Lanoxin Tab] 0.25 mg PO DAILY Ergocalciferol (Vitamin D2) [Vitamin D2] 50,000 unit PO Q7D Letrozole 2.5 mg PO DAILY Spironolactone [Aldactone] 50 mg PO DAILY Magnesium Oxide [Magox 400] 2,000 mg PO BID Acetaminophen 1,000 mg PO Q6H PRN PRN Reason: Pain Linagliptin [Tradjenta] 5 mg PO DAILY metOLazone [Metolazone] 10 mg PO BID Memantine HCl [Namenda XR] 28 mg PO DAILY Solifenacin Succinate [Vesicare] 10 mg PO DAILY - Follow Up or Referral - Forms/Instructions
--- NOTE | 2016-07-25 11:50 | Hospitalist Progress Note ---
Assessment and Plan (1) Bacteremia Status: Acute Assessment and plan: [id number] bacteremia from admission blood culture turned out to staph epidermidis. Blood cultures have been negative. Because the patient remains tenuous mostly from the respiratory issues on intubation I will give the antibiotics for the meantime. Should reassess need of these antibiotics while the patient is extubated. New microbiologic specimen is sent to the lab is morning should be followed closely. Current Visit: Yes (2) Acute hypercapnic respiratory failure Status: Acute Assessment and plan: Follow ABGs Current Visit: Yes (3) Pulmonary edema Status: Acute Assessment and plan: We will judiciously use diuresis so the patient is in the unit and observe respiratory status. Vital signs closely. Current Visit: Yes (4) Hypokalemia Status: Acute Assessment and plan: Resolved on today's chemistry. Magnesium was also normal at 2.2 Current Visit: Yes (5) Hyperglycemia Status: Acute Assessment and plan: Raise Lantus to 24 units at bedtime. Continue with the intermediates NovoLog sliding scale every 6 hours Accu-Cheks Current Visit: Yes Hospitalist: Subjective Interval history: Patient has been seen and examined. She remains intubated and sedated. Patient had bronchoscopy with lavage is done this morning. Informed and tenacious endobronchial secretions that were taken out. Gram stain does not show any organisms. Moderate white cells noted. Fungal stains and not showing anything related to those elements. Patient admitted to the hospital for hypoxic and hypercapnic respiratory failure she has been difficult to wean. She has a history of CO2 retention most likely baseline COPD. She was transferred to this hospital from [facility]. Exam - Constitutional Vitals: Period Temp Pulse Resp BP Sys/Norman Pulse Ox Last 24 Hr 97.8 F-97.9 F 66-101 10-28 103-138/45-97 86-100 General appearance: over weight - Head Head exam: Present: normocephalic, atraumatic - Eye Pupils: Present: AR - ENT ENT exam: Present: other - Neck Neck exam: Present: normal inspection - Respiratory Respiratory exam: Present: clear to auscultation bilaterally, other (Wheezing rhonchi) - Cardiovascular Cardiovascular exam: Present: regular rate and rhythm - GI/Abdominal GI/Abdominal exam: Present: normal bowel sounds, soft - Extremities Exam Extremities exam: Present: other (No cyanosis no peripheral edema) - Neurological Exam Neurological exam: Present: other (If it is on Diprivan for sedation while intubated) - Psychiatric Psychiatric exam: Present: other (Sedated) - Skin Skin exam: Present: normal color, warm, dry Results - Labs CBC & BMP: 07/22/16 03:44 07/25/16 04:20 Lab Results: I have reviewed the past 24 hour labs (Noted hypokalemia of 3.3 patient will be supplemented per protocol. She also has relative hypoglycemia appropriate diabetes treatment with Nipride) Quality Measures - VTE Deep Vein Thrombosis/Pulmonary Embolism Present on Admission: No
[2016-07-25] MEDS: ASPIRIN 325 MG TABLET PO SCH (12:31)
[2016-07-25] MEDS: NYSTATIN 500,000 UNIT/5 ML UDCUP SWISH/SWAL SCH ×4 (12:32→20:20)
[2016-07-25] MEDS: DESITIN 4OZ/NYSTATIN 15 GRAM MIXTURE PASTE TOP SCH ×2 (12:32→20:21)
[2016-07-25] MEDS: MULTIVITAMIN LIQUID (CENTRUM) 60 ML BOTTLE NG SCH (12:32)
[2016-07-25] MEDS: LISINOPRIL 2.5 MG TABLET PO SCH (12:32)
[2016-07-25] MEDS: CARVEDILOL 3.125 MG TABLET PO SCH ×2 (12:32→20:20)
[2016-07-25] MEDS: DOCUSATE SODIUM 100 MG CAPSULE PO SCH ×2 (12:32→20:20)
[2016-07-25] MEDS: FUROSEMIDE 40 MG/4 ML VIAL IV SCH (12:32)
[2016-07-25] MEDS: INSULIN GLARGINE 100 UNIT/ML SUBCUT SCH (20:21)
[2016-07-26] MEDS: ENOXAPARIN 40 MG/0.4 ML SYRINGE SUBCUT SCH ×2 (00:04→22:55)
[2016-07-26] MEDS: INSULIN REGULAR 100 UNIT/ML SUBCUT SCH ×4 (00:04→18:36)
[2016-07-26] MEDS: methylPREDNISolone SOD SUC 40 MG/1 ML VIAL IV SCH ×3 (00:04→22:55)
[2016-07-26] MEDS: PROPOFOL 1,000 MG/100 ML BOTTLE IV SCH ×5 (02:08→21:52)
[2016-07-26 03:20] LABS: Allen Test Positive; Pt O2 Delivery Device Ventilator
[2016-07-26 03:21] LABS: ABG HCO3 31.7 MMOL/L (20-26); ABG Oxygen Saturation 98.4 % (95-100); ABG PCO2 44.5 MM HG (35-48); ABG PO2 107.6 MM HG (80-95)
[2016-07-26 03:53] LABS: Calcium 8.1 MG/DL (8.5-10.1); Osmolality,Calculated 295.4 MOS/KG (273-304); Potassium 3.7 MMOL/L (3.5-5.1)
[2016-07-26] MEDS: VANCOMYCIN INJ 1,500 MG in SODIUM CHLORIDE 0.9% 500 ML IV SCH (04:02)
[2016-07-26] MEDS: PANTOPRAZOLE 40 MG VIAL IV SCH (04:02)
[2016-07-26] MEDS: CEFEPIME 1,000 MG in SODIUM CHLORIDE 0.9% 100 ML IV SCH ×3 (06:14→22:57)
--- NOTE | 2016-07-26 06:14 | XRay Report ---
Referring Physician: Franky Suarez Exam: XR chest 1V portable Date: July 26, 2016 at 2:47 AM Reason: Ventilator Comparison: Chest one view portable July 25, 2016 Findings: An endotracheal tube, feeding tube and right sided Mediport are again in place. The cardiac silhouette is again enlarged. The interstitial markings are prominent bilaterally, and there are scattered opacities within both lower lung zones. This is concerning for pulmonary edema, atelectasis and possibly pneumonia. No pneumothorax is identified, but there is likely mild bilateral pleural fluid. The osseous structures appear stable. Impression: There may be slight decreased left pleural fluid. The study is otherwise similar to before. PROCEDURE INTERPRETED AT [facility] DEPARTMENT OF RADIOLOGY Final Report Signed by: Dr. Sohail Burdick
[2016-07-26] MEDS: POTASSIUM CHLORIDE RIDER 20 MEQ in PREMIX 1 EACH IV PRN (06:24)
--- NOTE | 2016-07-26 07:16 | Pulmonology Progress Note ---
Pulmonary - PN: Subj Interval history: Patient is a 75-year-old lady that presented with shortness of breath and had to be intubated. She was felt to possibly have mild heart failure. She did have significant CO2 retention. Her PO2 is still on the low side. Her family says her O2 runs low at home and she uses home oxygen. She apparently has significant COPD. She is a former smoker. She is sedated and comfortable on the ventilator now. She still has a very abnormal x-ray with some chronic changes. Her oxygenation is still on the low side. She is slowly getting a little better. Exam (Progress Note) - Constitutional Vitals: Period Temp Pulse Resp BP Sys/Norman Pulse Ox Last 24 Hr 97.3 F-97.6 F 59-92 10-28 103-172/52-97 86-100 Exam: General appearance: normal weight, no acute distress (She is sedated on the ventilator but does get very agitated at times. ) - Head Head exam: Present: normal inspection, normocephalic - Eye Eye exam: Present: EOMI. Absent: scleral icterus Pupils: Present: AR - ENT ENT exam: Present: normal exam, other (ET tube is in good position) - Neck Neck exam: Present: normal inspection. Absent: lymphadenopathy, thyromegaly - Respiratory Respiratory exam: Present: She has fairly good air movement now and her lung galicia are reasonably clear anteriorly. - Cardiovascular Cardiovascular exam: Present: regular rate and rhythm. Absent: gallop, systolic murmur - GI/Abdominal GI/Abdominal exam: Present: normal bowel sounds, soft. Absent: organomegaly, tenderness - Extremities Exam Extremities exam: Absent: calf tenderness, edema - Neurological Exam Neurological exam: Present: altered (She is sedated on the ventilator at present ) - Skin Skin exam: Present: warm, dry Results - Labs CBC & BMP: 07/22/16 03:44 07/26/16 02:59 Labs: Her PO2 is 107 with a PCO2 of 44 and a pH of 7.47 - Diagnostic Findings Procedure: Chest x-ray: image reviewed by me, report reviewed by me (Chest x- ray suggests significant COPD with scarring. She still has bibasilar infiltrates.) Assessment and Plan (1) Hypertension Status: Acute Assessment and plan: Patient apparently has a history of hypertension but her echo looks okay without significant cardiac dysfunction. Her blood pressure has been stable. Current Visit: Yes (2) Dementia Status: Acute Assessment and plan: Apparently the patient is developing dementia. She does get agitated at times. She is comfortable at present Current Visit: Yes (3) Acute hypercapnic respiratory failure Status: Acute Assessment and plan: Patient had worsening respiratory distress and she has significant CO2 retention. She has a metabolic alkalosis now. Her pH is better today. Her PO2 is still only 107 on 70%. She does have severe lung dysfunction. Current Visit: Yes (4) CHF (congestive heart failure) Status: Acute Assessment and plan: Her chest x-ray looks like a mild CHF. She has had good urine output but her oxygenation still is not that good. She does appear to be hemodynamically stable. Current Visit: Yes
[2016-07-26] MEDS ORDERED: methylPREDNISolone SOD SUC 40 MG/1 ML VIAL IV SCH ×2 (07:30→10:30)
--- NOTE | 2016-07-26 07:54 | Hospitalist Progress Note ---
Hospitalist: Subjective Interval history: Nurse reports pt is agitated during sedation holidays. She is weaning well off vent and starting 8-12h consecutive weaning trial today. No fever. No BM. Tolerating tubefeeds. Exam - Constitutional Vitals: Period Temp Pulse Resp BP Sys/Norman Pulse Ox Last 24 Hr 97.3 F-98.6 F 59-92 10-28 103-172/52-86 86-100 Exam: GEN: Pt is intubated and sedated on the vent HEENT: PERRL, sclera clear, conjunctiva pink, nares patent, no discharge or epistaxis noted. O/P small amount of whitish exudate noted more on the lateral aspects of the tongue. NECK: Supple, no JVD. Trachea midline. No LAD appreciated CV: RRR no M LUNGS: CTAB nonlabored ABDOMEN: Soft, NT, ND, +BS Warm no c/c/e. SCDs in place NEURO: Unable to fully assess due to sedation Results - Labs CBC & BMP: 07/22/16 03:44 07/26/16 02:59 Labs: 07/25 FOB- fungal and AFB pending MRSA swab negative Sputum culture x 2 negative 07/21 Blood culture x 2 Staph epi - Impressions * Acute hypoxic and hypercarbic respiratory failure- oxygen, bronchodilators, Wean IV steroids, Cont Cefepime but dc IV Vanc. Serial CXR. Pulm following * Acute exacerbation of COPD- IV steroids, oxygen, pulm toileting, Cont Cefepime but dc IV Vanc * Staph epidermidis bacteremia- Needs recheck of blood culture to ensure clearance of blood stream. Cont IV antibiotics as noted above. Probably ok with dc Vanc. Recent ECHO negative * Hyperglycemia- likely steroid induced. Cont Lantus, accuchecks q6h. Check HgbA1c * Chronic diastolic CHF- on IV Lasix. Cont lisinopril. Coreg. Strict I and O, Daily weights and serial labs * History of dementia presumed Alzheimer's disease * History of stroke * Constipation- Cont Colase. Start Dulcolax suppository. DVT prophylaxis- Lovenox D/W nurse and all questions answered. Will update family when available. less than 30 minutes of time spent with this patient. - Diagnostic Findings Procedure: Chest x-ray: image reviewed by me (slight amount of fluid at left lung base) Quality Measures - VTE Deep Vein Thrombosis/Pulmonary Embolism Present on Admission: No
[2016-07-26] MEDS: LORazepam 2 MG/1 ML VIAL IV PRN (08:45)
[2016-07-26] MEDS: FUROSEMIDE 40 MG/4 ML VIAL IV SCH (08:45)
[2016-07-26] MEDS: NYSTATIN 500,000 UNIT/5 ML UDCUP SWISH/SWAL SCH ×4 (08:45→22:54)
[2016-07-26] MEDS: ASPIRIN 325 MG TABLET PO SCH (08:46)
[2016-07-26] MEDS: DOCUSATE SODIUM 100 MG CAPSULE PO SCH ×2 (08:46→22:55)
[2016-07-26] MEDS: DESITIN 4OZ/NYSTATIN 15 GRAM MIXTURE PASTE TOP SCH ×2 (08:46→22:56)
[2016-07-26] MEDS: LISINOPRIL 2.5 MG TABLET PO SCH (08:46)
[2016-07-26] MEDS: CARVEDILOL 3.125 MG TABLET PO SCH ×2 (08:46→22:55)
[2016-07-26] MEDS: MULTIVITAMIN LIQUID (CENTRUM) 60 ML BOTTLE NG SCH (08:46)
[2016-07-26] MEDS ORDERED: BISACODYL 10 MG SUPP RECTAL ONE (08:49)
[2016-07-26] MEDS ORDERED: BISACODYL 10 MG SUPP RECTAL PRN (08:49)
[2016-07-26] MEDS: ALBUTEROL/IPRATROPIUM 3 ML NEB RESP TX SCH ×3 (11:20→20:20)
[2016-07-26] MEDS: INSULIN GLARGINE 100 UNIT/ML SUBCUT SCH (22:55)
[2016-07-27] MEDS: ALBUTEROL/IPRATROPIUM 3 ML NEB RESP TX SCH ×6 (00:04→20:18)
[2016-07-27] MEDS: PROPOFOL 1,000 MG/100 ML BOTTLE IV SCH ×6 (01:00→19:32)
[2016-07-27] MEDS: INSULIN REGULAR 100 UNIT/ML SUBCUT SCH ×4 (01:20→18:06)
[2016-07-27 03:44] LABS: ABG Base Excess 9.5 MMOL/L (-2.5-2.5); ABG HCO3 33.3 MMOL/L (20-26); ABG Oxygen Saturation 98.1 % (95-100); ABG PCO2 43.3 MM HG (35-48); ABG PH 7.503 (7.35-7.45); ABG PO2 93.1 MM HG (80-95); ABG TCO2 28.2 MMOL/L (23-27); Allen Test Positive; Pt O2 Delivery Device Ventilator
[2016-07-27] MEDS: PANTOPRAZOLE 40 MG VIAL IV SCH (04:19)
[2016-07-27] MEDS: methylPREDNISolone SOD SUC 40 MG/1 ML VIAL IV SCH ×4 (04:19→22:42)
[2016-07-27 05:44] LABS: Calcium 8.4 MG/DL (8.5-10.1); Osmolality,Calculated 296.4 MOS/KG (273-304); Potassium 3.6 MMOL/L (3.5-5.1)
[2016-07-27 06:02] LABS: Magnesium 2.5 MG/DL (1.8-2.4)
[2016-07-27] MEDS: CEFEPIME 1,000 MG in SODIUM CHLORIDE 0.9% 100 ML IV SCH ×3 (06:10→22:43)
--- NOTE | 2016-07-27 06:51 | XRay Report ---
Referring Physician: Alexi Miner MD Exam: XR chest 1V portable Date: July 27, 2016 at 3:23 AM Reason: Ventilator Comparison: Chest one view portable July 26, 2016 Findings: A right-sided Mediport, endotracheal tube and feeding tube are again in place. The cardiac silhouette is again enlarged. The interstitial markings are prominent bilaterally, and there are scattered opacities within both lungs, mainly at the lower lung zones. This is concerning for pulmonary edema, atelectasis and possibly pneumonia. No pneumothorax is identified, but mild bilateral pleural fluid is suspected. The osseous structures appear stable. Impression: There is slight increased haziness at the left lung, which may be related to layering pleural fluid. However, there is decreased atelectasis at the left lower lung zone. The study is otherwise similar to before. PROCEDURE INTERPRETED AT [facility] DEPARTMENT OF RADIOLOGY Final Report Signed by: Dr. Sohail Burdick
--- NOTE | 2016-07-27 08:04 | Pulmonology Progress Note ---
Pulmonary - PN: Subj Interval history: Patient is a 75-year-old lady that presented with shortness of breath and had to be intubated. She was felt to possibly have mild heart failure. She did have significant CO2 retention. Her PO2 is still on the low side. Her family says her O2 runs low at home and she uses home oxygen. She apparently has significant COPD. She is a former smoker. She is sedated and comfortable on the ventilator now. Her oxygenation continues to be on the low side but is better today. Her FiO2 has been decreased a little and she had a fairly good night. Her lungs do look a little better. She is still not ready to come off the ventilator yet. Exam (Progress Note) - Constitutional Vitals: Period Temp Pulse Resp BP Sys/Norman Pulse Ox Last 24 Hr 97.1 F-97.8 F 58-86 10-31 106-136/49-76 94-119 Exam: General appearance: normal weight, no acute distress (She is sedated on the ventilator but does get very agitated at times. She had a fairly comfortable night.) - Head Head exam: Present: normal inspection, normocephalic - Eye Eye exam: Present: EOMI. Absent: scleral icterus Pupils: Present: AR - ENT ENT exam: Present: normal exam, other (ET tube is in good position) - Neck Neck exam: Present: normal inspection. Absent: lymphadenopathy, thyromegaly - Respiratory Respiratory exam: Present: She has fairly good air movement now she still has some rhonchi and coarse breath sounds bilaterally. - Cardiovascular Cardiovascular exam: Present: regular rate and rhythm. Absent: gallop, systolic murmur - GI/Abdominal GI/Abdominal exam: Present: normal bowel sounds, soft. Absent: organomegaly, tenderness - Extremities Exam Extremities exam: Absent: calf tenderness, edema - Neurological Exam Neurological exam: Present: altered (She is sedated on the ventilator at present ) - Skin Skin exam: Present: warm, dry Results - Labs CBC & BMP: 07/22/16 03:44 07/27/16 05:00 Labs: PO2 is 93 on 60% O2 and 10 of PEEP. - Diagnostic Findings Procedure: Chest x-ray: image reviewed by me, report reviewed by me (Chest x- ray still shows bilateral infiltrates.) Assessment and Plan (1) Hypertension Status: Acute Assessment and plan: Patient apparently has a history of hypertension but her echo looks okay without significant cardiac dysfunction. Her blood pressure has been stable. Current Visit: Yes (2) Dementia Status: Acute Assessment and plan: Apparently the patient is developing dementia. She does get agitated at times. She is comfortable at present Current Visit: Yes (3) Acute hypercapnic respiratory failure Status: Acute Assessment and plan: Patient had worsening respiratory distress and she has significant CO2 retention. She has a metabolic alkalosis now. Her pH is 7.5 today. Her PO2 is still on the low side. She is relatively stable at present. Current Visit: Yes (4) CHF (congestive heart failure) Status: Acute Assessment and plan: Her chest x-ray looks like a mild CHF. She has been hard to diurese. Her weight is actually up today. Current Visit: Yes
[2016-07-27] MEDS: ASPIRIN 325 MG TABLET PO SCH (08:33)
[2016-07-27] MEDS: MULTIVITAMIN LIQUID (CENTRUM) 60 ML BOTTLE NG SCH (08:34)
[2016-07-27] MEDS: CARVEDILOL 3.125 MG TABLET PO SCH ×2 (08:34→22:41)
[2016-07-27] MEDS: DOCUSATE SODIUM 100 MG CAPSULE PO SCH ×2 (08:34→22:41)
[2016-07-27] MEDS: LORazepam 2 MG/1 ML VIAL IV PRN (08:35)
[2016-07-27] MEDS: NYSTATIN 500,000 UNIT/5 ML UDCUP SWISH/SWAL SCH ×4 (08:35→22:42)
[2016-07-27] MEDS: FUROSEMIDE 40 MG/4 ML VIAL IV SCH (08:35)
[2016-07-27] MEDS: LISINOPRIL 2.5 MG TABLET PO SCH (08:35)
[2016-07-27] MEDS: DESITIN 4OZ/NYSTATIN 15 GRAM MIXTURE PASTE TOP SCH ×2 (08:36→22:42)
--- NOTE | 2016-07-27 10:33 | Hospitalist Progress Note ---
Hospitalist: Subjective Interval history: Pt doing well on weaning trials per nursing. No fever. She awakens off sedation. Nurse reports she still gets anxious but is consolable. + BM 07/26. Tolerating tubefeeds. Exam - Constitutional Vitals: Period Temp Pulse Resp BP Sys/Norman Pulse Ox Last 24 Hr 97.1 F-97.8 F 58-87 10-31 106-145/49-76 94-100 Exam: GEN: Pt is intubated and sedated on the vent, moving all extremities but is sedated HEENT: PERRL, sclera clear, conjunctiva pink, nares patent, no discharge or epistaxis noted. O/P small amount of whitish exudate noted more on the lateral aspects of the tongue. NECK: Supple, no JVD. Trachea midline. No LAD appreciated CV: RRR no M LUNGS: CTAB nonlabored, diminished at the bases ABDOMEN: Soft, NT, ND, +BS Warm no c/c/e. SCDs in place NEURO: Unable to fully assess due to sedation Results - Labs CBC & BMP: 07/22/16 03:44 07/27/16 05:00 Labs: 07/25 FOB- fungal and AFB pending; Culture negative MRSA swab negative Sputum culture x 2 negative 07/21 Blood culture x 2 Staph epi 07/22 Blood culture x 2- NGTD 07/26 Blood culture x 2- NGTD x 1 day - Impressions - Impressions * Acute hypoxic and hypercarbic respiratory failure- oxygen, bronchodilators, Probably could start to wean IV steroids, Cont Cefepime. Serial CXR. Pulm following * Acute exacerbation of COPD- IV steroids, oxygen, pulm toileting, Cont Cefepime (IV Vanc d/c'd 07/26) * Staph epidermidis bacteremia- Cont IV antibiotics as noted above. F/U repeat Blood cultures 07/26. Recent ECHO negative * DM2 uncontrolled with HgbA1c 8.2/ Steroid induced Hyperglycemia- Increase Lantus to BID, Cont accuchecks q6h. * Chronic diastolic CHF- BNP was normal. Repeat BNP. on IV Lasix/ Diurel. Check albumin level. Cont Lisinopril. Coreg. Strict I and O, Daily weights and serial labs. * History of dementia presumed Alzheimer's disease * History of stroke * Constipation- improved s/p suppository. Cont Colase. DVT prophylaxis- Lovenox D/W nurse and all questions answered. Called at [phone] and left a message. 36 minutes of time spent with this patient. Quality Measures - VTE Deep Vein Thrombosis/Pulmonary Embolism Present on Admission: No
[2016-07-27] MEDS: INSULIN GLARGINE 100 UNIT/ML SUBCUT SCH ×2 (11:46→22:42)
[2016-07-27] MEDS: POTASSIUM CHLORIDE 20 MEQ/15 ML UDCUP PER TUBE PRN ×2 (14:40→18:07)
[2016-07-27] MEDS: ENOXAPARIN 40 MG/0.4 ML SYRINGE SUBCUT SCH (22:41)
[2016-07-28] MEDS: PROPOFOL 1,000 MG/100 ML BOTTLE IV SCH ×5 (00:21→20:30)
[2016-07-28] MEDS: ALBUTEROL/IPRATROPIUM 3 ML NEB RESP TX SCH ×7 (00:46→23:07)
[2016-07-28] MEDS: INSULIN REGULAR 100 UNIT/ML SUBCUT SCH ×5 (02:05→23:40)
[2016-07-28] MEDS: methylPREDNISolone SOD SUC 40 MG/1 ML VIAL IV SCH ×4 (04:18→20:29)
[2016-07-28] MEDS: PANTOPRAZOLE 40 MG VIAL IV SCH (04:18)
[2016-07-28 05:01] LABS: Calcium 8.8 MG/DL (8.5-10.1); Magnesium 2.5 MG/DL (1.8-2.4); Osmolality,Calculated 298.3 MOS/KG (273-304); Potassium 3.9 MMOL/L (3.5-5.1)
[2016-07-28 05:13] LABS: Pt O2 Delivery Device Ventilator
[2016-07-28 05:16] LABS: ABG HCO3 32.7 MMOL/L (20-26); ABG Oxygen Saturation 96.2 % (95-100); ABG PCO2 47.5 MM HG (35-48); ABG PH 7.467 (7.35-7.45); ABG PO2 75.4 MM HG (80-95); ABG TCO2 28.8 MMOL/L (23-27)
[2016-07-28] MEDS: CEFEPIME 1,000 MG in SODIUM CHLORIDE 0.9% 100 ML IV SCH ×3 (06:21→22:29)
--- NOTE | 2016-07-28 07:21 | XRay Report ---
XR chest 1V portable Indication: Ventilator patient Comparison: 27 July 2016 Findings: The heart and mediastinum are stable in size and configuration. Lines and tubes are unchanged in position. The pulmonary vascularity is slightly decreased with improving interstitial lung density. No other lung infiltrates, effusions, pneumothorax or other abnormality is demonstrated. Impression: Findings suggest improving cardiac decompensation. PROCEDURE INTERPRETED AT [facility] DEPARTMENT OF RADIOLOGY Final Report Signed by: Dr. Blayne Aguirre
--- NOTE | 2016-07-28 08:27 | Pulmonology Progress Note ---
Pulmonary - PN: Subj Interval history: Patient is a 75-year-old lady that presented with shortness of breath and had to be intubated. She was felt to possibly have mild heart failure. She did have significant CO2 retention. Her PO2 is still on the low side. Her family says her O2 runs low at home and she uses home oxygen. She apparently has significant COPD. She is a former smoker. She is sedated and comfortable on the ventilator now. She has been reasonably comfortable on the ventilator but her oxygenation is still on the low side. She is still requiring a high FiO2 and PEEP. We will try to adjust this today. Her chest x-ray still shows bilateral infiltrates. She needs to continue ventilatory support for now. Exam (Progress Note) - Constitutional Vitals: Period Temp Pulse Resp BP Sys/Norman Pulse Ox Last 24 Hr 97.2 F-99.7 F 55-89 10-86 102-155/47-80 91-100 Exam: General appearance: normal weight, no acute distress (She is sedated on the ventilator and looks comfortable at present.) - Head Head exam: Present: normal inspection, normocephalic - Eye Eye exam: Present: EOMI. Absent: scleral icterus Pupils: Present: AR - ENT ENT exam: Present: normal exam, other (ET tube is in good position) - Neck Neck exam: Present: normal inspection. Absent: lymphadenopathy, thyromegaly - Respiratory Respiratory exam: Present: She has fairly good air movement now she still has some rhonchi and coarse breath sounds bilaterally. Her lung compliance is okay. - Cardiovascular Cardiovascular exam: Present: regular rate and rhythm. Absent: gallop, systolic murmur - GI/Abdominal GI/Abdominal exam: Present: normal bowel sounds, soft. Absent: organomegaly, tenderness - Extremities Exam Extremities exam: Absent: calf tenderness, edema - Neurological Exam Neurological exam: Present: altered (She is sedated on the ventilator at present ) - Skin Skin exam: Present: warm, dry Results - Labs CBC & BMP: 07/22/16 03:44 07/28/16 04:15 Labs: Her PO2 is 75 with a PCO2 of 47 and pH of 7.46 - Diagnostic Findings Procedure: Chest x-ray: image reviewed by me, report reviewed by me (Chest x- ray shows cardiomegaly and chronic lung disease. She still has bilateral infiltrates.) Assessment and Plan (1) Hypertension Status: Acute Assessment and plan: Patient apparently has a history of hypertension but her echo looks okay without significant cardiac dysfunction. Her blood pressure has been stable. Current Visit: Yes (2) Dementia Status: Acute Assessment and plan: Apparently the patient is developing dementia. She does get agitated at times. She is comfortable at present Current Visit: Yes (3) Acute hypercapnic respiratory failure Status: Acute Assessment and plan: Patient had worsening respiratory distress and she has significant CO2 retention. She has been on the ventilator all week and is slowly improving. She still has bilateral infiltrates and requires considerable oxygen. Will adjust her ventilator. She is not ready to extubate yet. Current Visit: Yes (4) CHF (congestive heart failure) Status: Acute Assessment and plan: Her chest x-ray looks like a mild CHF. She has been hard to diurese. Her weight is actually up today. Her renal function has been stable. Current Visit: Yes (5) Bilateral pulmonary infiltrates on chest x-ray Status: Acute Assessment and plan: Patient may have some pneumonia and she did have positive blood cultures. We may need to adjust her antibiotics. Current Visit: Yes
[2016-07-28] MEDS: LISINOPRIL 2.5 MG TABLET PO SCH (09:51)
[2016-07-28] MEDS: INSULIN GLARGINE 100 UNIT/ML SUBCUT SCH ×2 (09:51→20:28)
[2016-07-28] MEDS: CARVEDILOL 3.125 MG TABLET PO SCH ×2 (09:51→20:29)
[2016-07-28] MEDS: FUROSEMIDE 40 MG/4 ML VIAL IV SCH (09:51)
[2016-07-28] MEDS: ASPIRIN 325 MG TABLET PO SCH (09:51)
[2016-07-28] MEDS: MULTIVITAMIN LIQUID (CENTRUM) 60 ML BOTTLE NG SCH (09:51)
[2016-07-28] MEDS: NYSTATIN 500,000 UNIT/5 ML UDCUP SWISH/SWAL SCH ×4 (09:51→20:28)
[2016-07-28] MEDS: DOCUSATE SODIUM 100 MG CAPSULE PO SCH ×2 (09:51→20:29)
[2016-07-28] MEDS: ACETAMINOPHEN 325 MG TABLET PO PRN (09:52)
[2016-07-28] MEDS: DESITIN 4OZ/NYSTATIN 15 GRAM MIXTURE PASTE TOP SCH ×2 (09:52→20:29)
[2016-07-28] MEDS: POTASSIUM CHLORIDE 20 MEQ/15 ML UDCUP PER TUBE PRN (09:52)
--- NOTE | 2016-07-28 16:03 | Hospitalist Progress Note ---
Hospitalist: Subjective Interval history: Patient still sedated and on the vent. She is having liquid bowel movements and rectal tube is in place. Vent changes have been made due to patient blood gases this morning. Her left arm is swollen today due to IV infiltration. No fever. She did go 12 hours yesterday with the vent weaning trials. Exam - Constitutional Vitals: Period Temp Pulse Resp BP Sys/Norman Pulse Ox Last 24 Hr 97.2 F-99.7 F 55-98 10-34 101-155/45-77 91-100 Exam: GEN: Pt is intubated and sedated on the vent HEENT: PERRL, sclera clear, conjunctiva pink, nares patent, no discharge or epistaxis noted. O/P minimal amount of whitish exudate noted more on the lateral aspects of the tongue. NECK: Supple, no JVD. Trachea midline. No LAD appreciated CV: RRR no M LUNGS: Coarse with decreased breath sounds more on the right than the left, nonlabored breathing noted ABDOMEN: Soft, ND, +BS Warm no c/c/e. SCDs in place NEURO: Unable to fully assess due to sedation Results - Labs CBC & BMP: 07/22/16 03:44 07/28/16 04:15 Labs: 07/25 FOB- fungal and AFB pending; Culture negative MRSA swab negative Sputum culture x 2 negative 07/21 Blood culture x 2 Staph epi 07/22 Blood culture x 2- NGTD 07/26 Blood culture x 2- NGTD x 2 day - Impressions * Acute hypoxic and hypercarbic respiratory failure- oxygen, bronchodilators, IV steroids, IV Cefepime. Serial CXR. Pulm following and managing vent * Acute exacerbation of COPD- IV steroids, oxygen, pulm toileting, Cont Cefepime (IV Vanc d/c'd 07/26) * Staph epidermidis bacteremia- Cont IV antibiotics as noted above. F/U repeat Blood cultures 07/26 (negative so far). Recent ECHO negative * DM2 uncontrolled with HgbA1c 8.2/ Steroid induced Hyperglycemia- Increased Lantus to BID. Cont accuchecks q6h with insulin sliding scale. * Chronic diastolic CHF- BNP was normal. Repeat BNP. on IV Lasix/ Diurel. Cont Lisinopril. Coreg. Strict I and O, Daily weights and serial labs. * History of dementia presumed Alzheimer's disease * History of stroke * Constipation- improved s/p suppository. hold Colase. DVT prophylaxis- Lovenox D/W nurse and all questions answered. No family at bedside. Quality Measures - VTE Deep Vein Thrombosis/Pulmonary Embolism Present on Admission: No
[2016-07-28] MEDS: ENOXAPARIN 40 MG/0.4 ML SYRINGE SUBCUT SCH (23:40)
[2016-07-29] MEDS: ALBUTEROL/IPRATROPIUM 3 ML NEB RESP TX SCH ×5 (02:15→19:36)
[2016-07-29] MEDS: PROPOFOL 1,000 MG/100 ML BOTTLE IV SCH ×4 (03:18→20:32)
[2016-07-29] MEDS: methylPREDNISolone SOD SUC 40 MG/1 ML VIAL IV SCH ×2 (03:40→08:42)
[2016-07-29] MEDS: PANTOPRAZOLE 40 MG VIAL IV SCH (03:40)
[2016-07-29] MEDS: INSULIN REGULAR 100 UNIT/ML SUBCUT SCH ×3 (05:58→18:07)
[2016-07-29] MEDS: CEFEPIME 1,000 MG in SODIUM CHLORIDE 0.9% 100 ML IV SCH ×3 (05:58→22:30)
--- NOTE | 2016-07-29 08:22 | XRay Report ---
Portable chest Date: 07/29/2016 Clinical history: Ventilator Comparison: 07/28/2016 Technique: Portable AP sitting chest Findings: Stable cardiomegaly and support devices. Progressive pleural and parenchymal findings especially at the right lung base. Stable mediastinum and osseous structures. Impression: Progressive CHF/bibasilar pneumonia especially on the right. Stable supportive devices. PROCEDURE INTERPRETED AT [facility] DEPARTMENT OF RADIOLOGY Final Report Signed by: Dr. Katrina Hall
--- NOTE | 2016-07-29 08:26 | Hospitalist Progress Note ---
Hospitalist: Subjective Interval history: Pt diuresed 2L overnight per nurse. Pt has been extubated this am. She is awake and alert and following commands. She was anxious but consolable. No fever. Sats are 87-88% on FM. Exam - Constitutional Vitals: Period Temp Pulse Resp BP Sys/Norman Pulse Ox Last 24 Hr 98.0 F-99.0 F 64-98 10-34 101-162/45-86 63-98 Exam: GEN: Pt is awake, on face mask, weak appearing. HEENT: PERRL, sclera clear, conjunctiva pink, nares patent, no discharge or epistaxis noted. O/P minimal amount of whitish exudate noted more on the lateral aspects of the tongue. NECK: Supple, no JVD. Trachea midline. No LAD appreciated CV: RRR no M LUNGS: Less coarse with better aeration, mild abd retractions ABDOMEN: Soft, ND, +BS, NT Warm no c/c/e. SCDs in place NEURO: 4/5 strength of upper and lower extremities bilaterally. Sensory exam intact. Gait not assessed. Results - Labs CBC & BMP: 07/22/16 03:44 07/28/16 04:15 Labs: 07/25 FOB- fungal and AFB pending; Culture negative MRSA swab negative Sputum culture x 2 negative 07/21 Blood culture x 2 Staph epi 07/22 Blood culture x 2- NGTD 07/26 Blood culture x 2- NGTD x 3 day - Impressions * Acute hypoxic and hypercarbic respiratory failure- oxygen, bronchodilators, IV steroids, IV Cefepime. Serial CXR. Pulm following and managing vent * Acute exacerbation of COPD- IV steroids, oxygen, pulm toileting, Cont Cefepime (IV Vanc d/c'd 07/26). Add IPPB as pt is able to tolerate * Staph epidermidis bacteremia- Cont IV antibiotics as noted above. F/U repeat Blood cultures 07/26 (negative so far). Recent ECHO negative * DM2 uncontrolled with HgbA1c 8.2/ Steroid induced Hyperglycemia- BS controlled on increased Lantus to BID. Cont accuchecks q6h with insulin sliding scale. * Chronic diastolic CHF- BNP was normal. Repeat BNP 238. on IV Lasix/ Diurel. Cont Lisinopril. Coreg. Strict I and O, Daily weights and serial labs. * History of dementia presumed Alzheimer's disease * History of stroke * Constipation- improved s/p suppository. Now has diarrhea but improving with changing tubefeedings yesterday. hold Colase. C Diff and stool culture pending. * Anxiety- wean steroids as clinically possibly Consult PT/OT/ST. NPO for now and cont tubefeeds. Serial labs. DVT prophylaxis- Lovenox D/W nurse and all questions answered. No family at bedside. I will be away several days. One of my associates will follow in my absence. Quality Measures - VTE Deep Vein Thrombosis/Pulmonary Embolism Present on Admission: No
[2016-07-29] MEDS: CARVEDILOL 3.125 MG TABLET PO SCH ×2 (08:41→20:31)
[2016-07-29] MEDS: ASPIRIN 325 MG TABLET PO SCH (08:41)
[2016-07-29] MEDS: MULTIVITAMIN LIQUID (CENTRUM) 60 ML BOTTLE NG SCH (08:41)
[2016-07-29] MEDS: DOCUSATE SODIUM 100 MG CAPSULE PO SCH (08:41)
[2016-07-29] MEDS: LISINOPRIL 2.5 MG TABLET PO SCH (08:42)
[2016-07-29] MEDS: POTASSIUM CHLORIDE 20 MEQ/15 ML UDCUP PER TUBE PRN (08:42)
[2016-07-29] MEDS: ACETAMINOPHEN 325 MG TABLET PO PRN ×2 (08:42→14:26)
[2016-07-29] MEDS: INSULIN GLARGINE 100 UNIT/ML SUBCUT SCH ×2 (08:42→20:31)
[2016-07-29] MEDS: DESITIN 4OZ/NYSTATIN 15 GRAM MIXTURE PASTE TOP SCH ×2 (08:42→20:32)
[2016-07-29] MEDS: FUROSEMIDE 40 MG/4 ML VIAL IV SCH (08:42)
[2016-07-29] MEDS: NYSTATIN 500,000 UNIT/5 ML UDCUP SWISH/SWAL SCH ×4 (08:42→20:31)
--- NOTE | 2016-07-29 09:30 | Pulmonology Progress Note ---
Pulmonary - PN: Subj Interval history: Patient with severe COPD by report, intubated for CHF exacerbation vs COPD exacerbation. Doing well this morning, passed SBT, was awake, extubated without difficulty Exam (Progress Note) - Constitutional Vitals: Period Temp Pulse Resp BP Sys/Norman Pulse Ox Last 24 Hr 98.0 F-99.0 F 64-98 10-34 108-162/49-86 63-98 General appearance: no acute distress, over weight - Head Head exam: Present: normal inspection - ENT ENT exam: Present: normal exam - Neck Neck exam: Present: normal inspection - Respiratory Respiratory exam: Present: clear to auscultation bilaterally - Cardiovascular Cardiovascular exam: Present: regular rate and rhythm Results - Labs CBC & BMP: 07/22/16 03:44 07/28/16 04:15 Lab Results: I have reviewed the past 24 hour labs Assessment and Plan (1) Acute hypercapnic respiratory failure Status: Resolved Assessment and plan: Patient passed SBT this morning, extubated with problems and doing well on oxygen. If able to get NG tube out, can switch oxygen to NC, with goal to keep SpO2 88-92% Current Visit: Yes
[2016-07-29] MEDS: LORazepam 2 MG/1 ML VIAL IV PRN ×2 (10:00→12:57)
[2016-07-29 13:22] LABS: ABG Base Excess 7.2 MMOL/L (-2.5-2.5); ABG HCO3 30.5 MMOL/L (20-26); ABG Oxygen Saturation 82.9 % (95-100); ABG PH 7.324 (7.35-7.45); ABG PO2 52.7 MM HG (80-95); ABG TCO2 31.8 MMOL/L (23-27); Allen Test Positive; Pt O2 Delivery Device Venturi Mask
[2016-07-29 13:25] LABS: ABG PCO2 71.7 MM HG (35-48)
[2016-07-29 14:48] LABS: ABG Base Excess 7.3 MMOL/L (-2.5-2.5); ABG HCO3 30.8 MMOL/L (20-26); ABG Oxygen Saturation 87.3 % (95-100); ABG PCO2 63.8 MM HG (35-48); ABG PH 7.359 (7.35-7.45); ABG PO2 56.5 MM HG (80-95); ABG TCO2 30.6 MMOL/L (23-27)
[2016-07-29] MEDS ORDERED: ETOMIDATE 20 MG/10 ML VIAL IV ONE ×2 (16:06→17:41)
[2016-07-29] MEDS ORDERED: PROPOFOL 1,000 MG/100 ML BOTTLE IV ONE (16:16)
[2016-07-29] MEDS ORDERED: SUCCINYLCHOLINE 200 MG/10 ML VIAL ONE (16:39)
--- NOTE | 2016-07-29 17:00 | Anesthesia ---
Anesthesia Procedures - Intubation Sedative: Etomidate Mg given sedative: 16 Paralytic: Succinylcholine Mg given paralytic: 140 Laryngoscope: Juan ET Tube Size: 7.5 Tube Secured Depth (cm): 23 Tube Secured Location: lips Tube Placement Confirmation: visualized tube passing through cords, equal breath sounds bilaterally, no breath sounds over epigastrium, confirmation by capnometry, confirmation detector color change Patient tolerated procedure intubation: well Intubation Complications: none Additional Commets: I was called by an [employer]LECT[employer] to intubate this pt, which was requested by Dr. Zaldivar.
--- NOTE | 2016-07-29 17:40 | XRay Report ---
Portable chest Date: 07/29/2016 Clinical history: Endotracheal tube placement Comparison: 07/29/2016 Technique: Portable AP sitting chest Findings: Stable cardiomegaly with the supportive devices remaining in satisfactory position. Progressive parenchymal findings with larger pleural effusions. Stable mediastinum and osseous structures. Impression: Progressive CHF/bilateral pneumonia with enlarging pleural effusions. The support devices are in satisfactory position. PROCEDURE INTERPRETED AT [facility] DEPARTMENT OF RADIOLOGY Final Report Signed by: Dr. Katrina Hall
[2016-07-29] MEDS ORDERED: LIDOCAINE 2%/EPI 20 ML VIAL MISC INJ ONE (17:41)
[2016-07-29] MEDS ORDERED: SUCCINYLCHOLINE 200 MG/10 ML VIAL IV ONE (17:43)
[2016-07-29 17:54] LABS: ABG HCO3 32.6 MMOL/L (20-26); ABG PCO2 48.1 MM HG (35-48); ABG PH 7.464 (7.35-7.45); ABG PO2 56.9 MM HG (80-95); ABG TCO2 29.1 MMOL/L (23-27); Allen Test Positive; Pt O2 Delivery Device Ventilator
[2016-07-29] MEDS ORDERED: FUROSEMIDE 40 MG/4 ML VIAL IV ONE (18:05)
[2016-07-29] MEDS: ENOXAPARIN 40 MG/0.4 ML SYRINGE SUBCUT SCH (22:31)
[2016-07-30] MEDS: ALBUTEROL/IPRATROPIUM 3 ML NEB RESP TX SCH ×6 (00:05→20:35)
[2016-07-30] MEDS: ALBUTEROL 2.5 MG/3 ML NEB RESP TX PRN (00:12)
[2016-07-30] MEDS: INSULIN REGULAR 100 UNIT/ML SUBCUT SCH ×4 (00:57→18:11)
[2016-07-30] MEDS: PROPOFOL 1,000 MG/100 ML BOTTLE IV SCH ×7 (01:14→20:43)
[2016-07-30] MEDS: PANTOPRAZOLE 40 MG VIAL IV SCH (05:11)
[2016-07-30] MEDS: CEFEPIME 1,000 MG in SODIUM CHLORIDE 0.9% 100 ML IV SCH ×3 (05:12→22:43)
[2016-07-30 06:26] LABS: Basophils % 0.2 % (0.0-0.8); Eosinophils # 0.1 10*3/uL (0.0-0.87); Eosinophils % 1.1 % (0.00-10.9); Hemoglobin 14.9 GM/DL (12.0-16.0); Immature Granulocytes % 0.6 %; Immature Granulocytes Absolute 0.06 #; Lymphocytes # 1.3 10*3/uL (1.4-4.0); Lymphocytes % 12.1 % (21.3-54.2); Mean Corpuscular HGB Conc 30.4 GM/DL (32-36); Mean Corpuscular Hemoglobin 27 PG (27-34); Mean Corpuscular Volume 88.9 FL (87-102); Monocytes # 0.9 10*3/uL (0.11-0.8); Monocytes % 8.3 % (1.7-12.7); Neutrophils # 8.3 10*3/uL (1.4-7.4); Neutrophils % 77.7 % (38.7-73.9); Platelet Count 143 T/CUMM (130-400); Red Blood Count 5.51 MC/CUMM (3.8-5.5); Red Cell Distribution Width 17.6 % (9.3-17.3); White Blood Count 10.6 T/CUMM (4-12)
[2016-07-30 06:29] LABS: Albumin 2.8 G/DL (3.4-5.0); Calcium 8.5 MG/DL (8.5-10.1); Osmolality,Calculated 300.8 MOS/KG (273-304); Potassium 2.9 MMOL/L (3.5-5.1)
[2016-07-30] MEDS: POTASSIUM CHLORIDE 20 MEQ/15 ML UDCUP PER TUBE PRN ×3 (06:35→10:11)
--- NOTE | 2016-07-30 07:27 | Pulmonology Progress Note ---
Pulmonary - PN: Subj Interval history: Patient extubated yesterday morning without difficulty, did well for most of the day. Got called by nursing later that afternoon that patient was tiring out and using accessory muscles to breath, she was trialed on bipap, didn't recover and decision was made to intubate Exam (Progress Note) - Constitutional Vitals: Period Temp Pulse Resp BP Sys/Norman Pulse Ox Last 24 Hr 97.8 F-98.7 F 61-118 10-34 99-142/47-79 83-96 General appearance: no acute distress, over weight - Head Head exam: Present: normal inspection - ENT ENT exam: Present: normal exam - Respiratory Respiratory exam: Present: clear to auscultation bilaterally - Cardiovascular Cardiovascular exam: Present: regular rate and rhythm - GI/Abdominal GI/Abdominal exam: Present: soft Results - Labs CBC & BMP: 07/30/16 05:45 07/30/16 05:45 Lab Results: I have reviewed the past 24 hour labs - Diagnostic Findings Procedure: Chest x-ray: image reviewed by me (mild blunting of costophrenic angles. mild cephalization) Assessment and Plan (1) Acute hypercapnic respiratory failure Status: Resolved Assessment and plan: Patient with severe COPD, tired out yesterday after extubation, less than 12 hours. She has significant anxiety and this likely played a role in this. Will try and diuerese her a little more, and potentially attempt again tomorrow. However if she fails again, will need to consider trach Current Visit: Yes
--- NOTE | 2016-07-30 08:01 | XRay Report ---
Portable chest Date: 07/30/2016 Clinical history: Respiratory failure Comparison: 07/29/2016 Technique: Portable AP sitting chest Findings: Stable cardiomegaly and supporting devices. Improved pleural-parenchymal findings especially at the lung bases. Decreased hilar density with degenerative changes. Impression: Improved CHF/bilateral pneumonia with smaller pleural effusions. The supportive devices remain in satisfactory position. PROCEDURE INTERPRETED AT [facility] DEPARTMENT OF RADIOLOGY Final Report Signed by: Dr. Katrina Hall
[2016-07-30 08:24] LABS: Hypochromasia Slight
[2016-07-30] MEDS: CARVEDILOL 3.125 MG TABLET PO SCH ×2 (08:24→20:36)
[2016-07-30] MEDS: predniSONE 20 MG TABLET PO SCH (08:24)
[2016-07-30] MEDS: FUROSEMIDE 40 MG/4 ML VIAL IV SCH (08:24)
[2016-07-30] MEDS: ASPIRIN 325 MG TABLET PO SCH (08:24)
[2016-07-30] MEDS: NYSTATIN 500,000 UNIT/5 ML UDCUP SWISH/SWAL SCH ×4 (08:24→20:36)
[2016-07-30] MEDS: MULTIVITAMIN LIQUID (CENTRUM) 60 ML BOTTLE NG SCH (08:24)
[2016-07-30] MEDS: INSULIN GLARGINE 100 UNIT/ML SUBCUT SCH ×2 (08:24→20:36)
[2016-07-30] MEDS: LISINOPRIL 2.5 MG TABLET PO SCH (08:25)
[2016-07-30] MEDS: DESITIN 4OZ/NYSTATIN 15 GRAM MIXTURE PASTE TOP SCH ×2 (08:25→21:04)
[2016-07-30] MEDS: ACETAMINOPHEN 325 MG TABLET PO PRN (08:25)
--- NOTE | 2016-07-30 11:01 | Hospitalist Progress Note ---
Assessment and Plan - Time spent with patient Time spent with patient: Less than 30 minutes (1) Altered mental status Status: Acute Assessment and plan: * Acute hypoxic and hypercarbic respiratory failure- oxygen, bronchodilators, IV steroids, IV Cefepime. Pulm following and managing vent * Acute exacerbation of COPD- IV steroids, oxygen, pulm toileting, Cont Cefepime (IV Vanc d/c'd 07/26). Add IPPB as pt is able to tolerate * Staph epidermidis bacteremia- Cont IV antibiotics as noted above. F/U repeat Blood cultures 07/26 (negative so far). Recent ECHO negative for endocarditis or other source of infection * DM2 uncontrolled with HgbA1c 8.2/ Steroid induced Hyperglycemia- BS controlled on increased Lantus to BID. Cont accuchecks q6h with insulin sliding scale. * Chronic diastolic CHF- BNP was normal. Repeat BNP 238. on IV diuretic therapy. Cont Lisinopril. Coreg. Strict I and O, Daily weights and serial labs. * History of dementia presumed Alzheimer's disease * History of stroke * Anxiety- wean steroids as clinically possibly Consult PT/OT/ST. cont tubefeeds. Serial labs. DVT prophylaxis- Lovenox dispO remains in ICU Current Visit: Yes (2) History of breast cancer Status: Acute Current Visit: Yes (3) Bilateral pulmonary infiltrates on chest x-ray Status: Acute Current Visit: Yes (4) Acute hypercapnic respiratory failure Status: Resolved Current Visit: Yes Hospitalist: Subjective Interval history: pt reintubated yesterday no events overnight appears comfortable on vent case discussed with RN at bedside Exam - Constitutional Vitals: Period Temp Pulse Resp BP Sys/Norman Pulse Ox Last 24 Hr 97.8 F-98.9 F 61-118 10-28 99-142/47-78 87-96 General appearance: no acute distress, other (intubated, sedated) - Head Head exam: Present: normal inspection, normocephalic, atraumatic - Eye Pupils: Present: AR - ENT ENT exam: Present: normal exam - Neck Neck exam: Present: normal inspection - Respiratory Respiratory exam: Present: rales, rhonchi - Cardiovascular Cardiovascular exam: Present: regular rate and rhythm. Absent: irregular rhythm , JVD - GI/Abdominal GI/Abdominal exam: Present: normal bowel sounds, soft. Absent: psoas sign, tenderness, rebound - Extremities Exam Extremities exam: Present: normal inspection, normal capillary refill - Back Exam Back exam: Present: normal inspection - Neurological Exam Neurological exam: Present: altered - Psychiatric Psychiatric exam: Present: flat affect, other - Skin Skin exam: Present: normal color, warm Results - Labs CBC & BMP: 07/30/16 05:45 07/30/16 05:45 Lab Results: I have reviewed the past 24 hour labs Quality Measures - VTE Deep Vein Thrombosis/Pulmonary Embolism Present on Admission: No
[2016-07-30] MEDS: ENOXAPARIN 40 MG/0.4 ML SYRINGE SUBCUT SCH (22:43)
[2016-07-31] MEDS: INSULIN REGULAR 100 UNIT/ML SUBCUT SCH ×4 (00:03→18:54)
[2016-07-31] MEDS: ALBUTEROL/IPRATROPIUM 3 ML NEB RESP TX SCH ×7 (00:15→23:55)
[2016-07-31] MEDS: PROPOFOL 1,000 MG/100 ML BOTTLE IV SCH ×5 (01:58→18:55)
[2016-07-31] MEDS: CEFEPIME 1,000 MG in SODIUM CHLORIDE 0.9% 100 ML IV SCH ×3 (05:00→21:44)
[2016-07-31] MEDS: PANTOPRAZOLE 40 MG VIAL IV SCH (05:01)
[2016-07-31 05:33] LABS: Magnesium 2.3 MG/DL (1.8-2.4); Osmolality,Calculated 304.4 MOS/KG (273-304); Potassium 3.5 MMOL/L (3.5-5.1)
[2016-07-31 05:44] LABS: Phosphorous 3.3 MG/DL (2.5-4.9); Prealbumin 32.4 MG/DL (20-40)
[2016-07-31 06:20] LABS: Basophils % 0.1 % (0.0-0.8); Eosinophils % 0.3 % (0.00-10.9); Hematocrit 50.4 VOL% (35.7-47.0); Hemoglobin 15.3 GM/DL (12.0-16.0); Immature Granulocytes % 0.5 %; Immature Granulocytes Absolute 0.08 #; Lymphocytes # 0.9 10*3/uL (1.4-4.0); Lymphocytes % 6.2 % (21.3-54.2); Mean Corpuscular HGB Conc 30.4 GM/DL (32-36); Mean Corpuscular Hemoglobin 27 PG (27-34); Mean Corpuscular Volume 88.3 FL (87-102); Monocytes # 1.2 10*3/uL (0.11-0.8); Monocytes % 7.9 % (1.7-12.7); Neutrophils # 12.4 10*3/uL (1.4-7.4); Platelet Count 151 T/CUMM (130-400); Red Blood Count 5.71 MC/CUMM (3.8-5.5); Red Cell Distribution Width 18.4 % (9.3-17.3); White Blood Count 14.6 T/CUMM (4-12)
[2016-07-31 06:42] LABS: Platelet Estimate Adequate
--- NOTE | 2016-07-31 08:39 | Hospitalist Progress Note ---
Assessment and Plan (1) CHF (congestive heart failure) Status: Acute Assessment and plan: Impression: 1. Acute on chronic diastolic congestive heart failure 2. Acute respiratory failure 3. Staph epidermidis bacteremia; blood cultures sterile 5 days. Plan: She remains ventilator dependent. Chest x-ray looks congested despite aggressive diuresis. She is becoming azotemic and hypernatremic. We will continue diuretics at current levels. She may require tracheostomy if we are not able to get her weaned from the ventilator in the next day or so. Current Visit: Yes Qualifiers: Congestive heart failure type: diastolic Congestive heart failure chronicity: acute on chronic Qualified Code(s): I50.33 - Acute on chronic diastolic (congestive) heart failure Hospitalist: Subjective Interval history: Follow-up acute on chronic respiratory failure and probable pulmonary vascular congestion. The patient apparently was extubated yesterday, but required reintubation after several hours. Review of the old records shows that an echocardiogram was performed about a week and a half ago. This revealed an ejection fraction of 55 % and some diastolic dysfunction. He is currently on assist control and is breathing over the set rate of 10. She is sleepy, and does not respond to vocal stimulation. Pulmonary is apparently considering tracheostomy if we are not able to get her weaned. Exam - Constitutional Vitals: Period Temp Pulse Resp BP Sys/Norman Pulse Ox Last 24 Hr 97.9 F-100.6 F 63-86 12-22 100-137/50-69 92-97 Heart is regular with distant tones and no loud murmur. She has rhonchi in the chest, but appears to be moving air fairly well bilaterally. Abdomen is soft with no significant mass or tenderness. She does not have significant peripheral edema. Results - Labs CBC & BMP: 07/31/16 04:45 07/31/16 04:45 Lab Results: I have reviewed the past 24 hour labs (She is relatively hypernatremic and hemoconcentrated. BUN is also elevated.) Quality Measures - VTE Deep Vein Thrombosis/Pulmonary Embolism Present on Admission: No
[2016-07-31] MEDS: FUROSEMIDE 40 MG/4 ML VIAL IV SCH (08:42)
[2016-07-31] MEDS: MULTIVITAMIN LIQUID (CENTRUM) 60 ML BOTTLE NG SCH (08:43)
[2016-07-31] MEDS: NYSTATIN 500,000 UNIT/5 ML UDCUP SWISH/SWAL SCH ×4 (08:43→21:43)
[2016-07-31] MEDS: CARVEDILOL 3.125 MG TABLET PO SCH ×2 (08:43→21:43)
[2016-07-31] MEDS: predniSONE 20 MG TABLET PO SCH (08:43)
[2016-07-31] MEDS: ASPIRIN 325 MG TABLET PO SCH (08:43)
[2016-07-31] MEDS: LISINOPRIL 2.5 MG TABLET PO SCH (08:43)
[2016-07-31] MEDS: DESITIN 4OZ/NYSTATIN 15 GRAM MIXTURE PASTE TOP SCH ×2 (08:44→21:43)
[2016-07-31] MEDS: INSULIN GLARGINE 100 UNIT/ML SUBCUT SCH ×2 (08:49→21:43)
[2016-07-31] MEDS: POTASSIUM CHLORIDE 20 MEQ/15 ML UDCUP PER TUBE PRN (08:49)
--- NOTE | 2016-07-31 09:33 | Pulmonology Progress Note ---
Pulmonary - PN: Subj Interval history: Patient is a 75-year-old lady that presented with shortness of breath and had to be intubated. She was felt to possibly have mild heart failure. She did have significant CO2 retention. Her PO2 is still on the low side. Her family says her O2 runs low at home and she uses home oxygen. She apparently has significant COPD. She is a former smoker. Over the weekend she was tried off the ventilator but did not do very well. She had to be reintubated. She is reasonably stable at present on the ventilator now. She still has bibasilar infiltrates. She ultimately may need a tracheostomy tube. Will adjust her ventilator and continue supportive care. Exam (Progress Note) - Constitutional Vitals: Period Temp Pulse Resp BP Sys/Norman Pulse Ox Last 24 Hr 97.9 F-100.6 F 63-86 12-22 102-137/50-69 92-97 Exam: General appearance: normal weight, no acute distress (She is sedated on the ventilator and looks comfortable at present. Her vital signs are stable.) - Head Head exam: Present: normal inspection, normocephalic - Eye Eye exam: Present: EOMI. Absent: scleral icterus Pupils: Present: AR - ENT ENT exam: Present: normal exam, other (ET tube is in good position) - Neck Neck exam: Present: normal inspection. Absent: lymphadenopathy, thyromegaly - Respiratory Respiratory exam: Present: She has fairly good air movement now is moving air fairly well with only some minimal rhonchi. - Cardiovascular Cardiovascular exam: Present: regular rate and rhythm. Absent: gallop, systolic murmur - GI/Abdominal GI/Abdominal exam: Present: normal bowel sounds, soft. Absent: organomegaly, tenderness - Extremities Exam Extremities exam: Absent: calf tenderness, edema - Neurological Exam Neurological exam: Present: altered (She is sedated on the ventilator at present ) - Skin Skin exam: Present: warm, dry Results - Labs CBC & BMP: 07/31/16 04:45 07/31/16 04:45 Assessment and Plan (1) Hypertension Status: Acute Assessment and plan: Patient apparently has a history of hypertension but her echo looks okay without significant cardiac dysfunction. Her blood pressure has been stable. Current Visit: Yes (2) Dementia Status: Acute Assessment and plan: Apparently the patient is developing dementia. She does get agitated at times. She is comfortable at present Current Visit: Yes (3) Acute hypercapnic respiratory failure Status: Resolved Assessment and plan: Patient had worsening respiratory distress and she has significant CO2 retention. She has been on the ventilator all week and is slowly improving. She still has bilateral infiltrates and requires considerable oxygen. Will discuss possibility of a tracheostomy tube. She may also need another therapeutic bronchoscopy. Current Visit: Yes (4) CHF (congestive heart failure) Status: Acute Assessment and plan: Her chest x-ray looks like a mild CHF. She has been hard to diurese. Her weight is actually up today. Her renal function has been stable. She has been somewhat hard to diurese. Current Visit: Yes Qualifiers: Congestive heart failure type: diastolic Congestive heart failure chronicity: acute on chronic Qualified Code(s): I50.33 - Acute on chronic diastolic (congestive) heart failure (5) Bilateral pulmonary infiltrates on chest x-ray Status: Acute Assessment and plan: Patient may have some pneumonia and she did have positive blood cultures. She still has nothing growing on washings. She is getting antibiotics okay. Current Visit: Yes
[2016-07-31] MEDS: ACETAMINOPHEN 325 MG TABLET PO PRN (14:56)
[2016-07-31] MEDS: LORazepam 2 MG/1 ML VIAL IV PRN (14:56)
[2016-07-31 19:25] LABS: Apearance,Urine CLEAR (Clear); Bilirubin,Urine Negative (Negative); Blood, Urine Negative (Negative); Glucose,Urine (UA) Negative (Negative); Ketones,Urine Negative (Negative); Nitrite,Urine Negative (Negative); Protein,Urine 30 MG/DL; RBC,Urine 2 /HPF (0-4); Squamous Epithelial Cell,Urine Occasional /HPF (0-10); Urine Color Amber (Yellow); Urine Specific Gravity 1.028 (1.001-1.035); Urine Urobilinogen < 2.0 EU/DL (0.2-1.0); WBC,Urine 1 /HPF (0-6)
--- NOTE | 2016-07-31 23:10 | EKG Report ---
Stationary ECG Study [facility] Test Date: 07/31/2016 11:10:12 PM Pat Name: BRIT GRIJALVA Department: Room: 124 Gender: F [employer]: LINDA : 1940 Requested by: Juan Manuel Fuentes Order Number: [id number] Reading MD: JYOTHI BOLES Intervals [place] Rate: 113 P: 999 NM: 0 QRS: 93 QRSD: 98 T: 94 QT: 301 QTc: 368 Interpretive Statements ATRIAL FIBRILLATION WITH RAPID VENTRICULAR RESPONSE at 113 bpm BORDERLINE RIGHT AXIS DEVIATION [address] DEVIATION AND MODERATE T-WAVE ABNORMALITY, CONSIDER ANTERIOR ISCHEMIA Previous tracing July 20 showed normal sinus rhythm Electronically Signed On 08-04-16 16:38:23 CDT by JYOTHI BOLES [email or web address]
[2016-07-31 23:27] LABS: Albumin 2.9 G/DL (3.4-5.0); Bilirubin,Total 1.4 MG/DL (0.2-1.0); Calcium 8.2 MG/DL (8.5-10.1); Osmolality,Calculated 304.6 MOS/KG (273-304); Potassium 3.5 MMOL/L (3.5-5.1); Total Protein 5.9 G/DL (6.4-8.3)
[2016-07-31] MEDS: ENOXAPARIN 40 MG/0.4 ML SYRINGE SUBCUT SCH (23:49)
[2016-07-31] MEDS: ENOXAPARIN 120 MG/0.8 ML SYRINGE SUBCUT SCH (23:55)
[2016-08-01] MEDS: INSULIN REGULAR 100 UNIT/ML SUBCUT SCH ×5 (00:05→23:59)
[2016-08-01 00:10] LABS: Troponin I Only 0.016 NG/ML (0.00-0.045)
[2016-08-01] MEDS: PROPOFOL 1,000 MG/100 ML BOTTLE IV SCH ×3 (00:26→18:27)
[2016-08-01 03:27] LABS: Basophils % 0.2 % (0.0-0.8); Hemoglobin 14.6 GM/DL (12.0-16.0); Immature Granulocytes % 0.5 %; Immature Granulocytes Absolute 0.06 #
[2016-08-01 03:50] LABS: Eosinophils % 0.2 % (0.00-10.9); Hematocrit 48.2 VOL% (35.7-47.0); Mean Corpuscular HGB Conc 30.3 GM/DL (32-36); Mean Corpuscular Hemoglobin 27 PG (27-34); Mean Corpuscular Volume 88.3 FL (87-102); Monocytes # 0.8 10*3/uL (0.11-0.8); Monocytes % 6.6 % (1.7-12.7); Neutrophils # 10.8 10*3/uL (1.4-7.4); Neutrophils % 84.5 % (38.7-73.9); Platelet Count 136 T/CUMM (130-400); Red Blood Count 5.46 MC/CUMM (3.8-5.5); White Blood Count 12.8 T/CUMM (4-12)
[2016-08-01] MEDS: ALBUTEROL/IPRATROPIUM 3 ML NEB RESP TX SCH ×6 (03:57→23:24)
[2016-08-01 04:03] LABS: ABG Base Excess 5.9 MMOL/L (-2.5-2.5); ABG HCO3 29.7 MMOL/L (20-26); ABG Oxygen Saturation 96.5 % (95-100); ABG PH 7.488 (7.35-7.45); ABG TCO2 30.9 MMOL/L (23-27); Allen Test Positive; Pt O2 Delivery Device Ventilator
[2016-08-01 04:05] LABS: Albumin 2.6 G/DL (3.4-5.0); Bilirubin,Total 1.5 MG/DL (0.2-1.0); Calcium 7.9 MG/DL (8.5-10.1); Osmolality,Calculated 304.6 MOS/KG (273-304); Potassium 3.2 MMOL/L (3.5-5.1); Total Protein 5.6 G/DL (6.4-8.3)
[2016-08-01] MEDS: POTASSIUM CHLORIDE 20 MEQ/15 ML UDCUP PER TUBE PRN ×4 (04:38→19:06)
[2016-08-01] MEDS: PANTOPRAZOLE 40 MG VIAL IV SCH (04:38)
[2016-08-01] MEDS: CEFEPIME 1,000 MG in SODIUM CHLORIDE 0.9% 100 ML IV SCH ×3 (05:05→21:33)
--- NOTE | 2016-08-01 06:56 | Pulmonology Progress Note ---
Pulmonary - PN: Subj Interval history: Patient is a 75-year-old lady that presented with shortness of breath and had to be intubated. She was felt to possibly have mild heart failure. She did have significant CO2 retention. Her PO2 is still on the low side. Her family says her O2 runs low at home and she uses home oxygen. She apparently has significant COPD. She is a former smoker. Over the weekend she was tried off the ventilator but did not do very well. She had to be reintubated. She is reasonably stable at present on the ventilator now. She still has somewhat of a low PO2 and her chest x-ray still shows bibasilar changes. She has gone into atrial fibrillation during the night. Her blood pressure is stable however. She has good urine output but her weight is not down. Exam (Progress Note) - Constitutional Vitals: Period Temp Pulse Resp BP Sys/Norman Pulse Ox Last 24 Hr 98.6 F-101.0 F 70-119 10-29 96-141/48-78 91-100 Exam: General appearance: normal weight, no acute distress (She is sedated on the ventilator and looks comfortable at present. She has atrial fibrillation now. Her blood pressure stable.) - Head Head exam: Present: normal inspection, normocephalic - Eye Eye exam: Present: EOMI. Absent: scleral icterus Pupils: Present: AR - ENT ENT exam: Present: normal exam, other (ET tube is in good position) - Neck Neck exam: Present: normal inspection. Absent: lymphadenopathy, thyromegaly - Respiratory Respiratory exam: Present: She has good breath sounds bilaterally with some mild rhonchi present. - Cardiovascular Cardiovascular exam: Present: She has an irregular rhythm at present but the heart rate is reasonable. - GI/Abdominal GI/Abdominal exam: Present: normal bowel sounds, soft. Absent: organomegaly, tenderness - Extremities Exam Extremities exam: Absent: calf tenderness, edema - Neurological Exam Neurological exam: Present: altered (She is sedated on the ventilator at present ) - Skin Skin exam: Present: warm, dry Results - Labs CBC & BMP: 08/01/16 03:20 08/01/16 03:20 Labs: Her PO2 is 86 with a PCO2 of 40 and a pH of 7.48 - Diagnostic Findings Procedure: Chest x-ray: image reviewed by me, report reviewed by me (Chest x- ray shows bibasilar infiltrate still) Assessment and Plan (1) Hypertension Status: Acute Assessment and plan: Patient apparently has a history of hypertension but her echo looks okay without significant cardiac dysfunction. She does have some diastolic dysfunction. Her blood pressure has been stable. Current Visit: Yes (2) Dementia Status: Acute Assessment and plan: Apparently the patient is developing dementia. She does get agitated at times. She is comfortable at present Current Visit: Yes (3) Acute hypercapnic respiratory failure Status: Resolved Assessment and plan: Patient had worsening respiratory distress and she has significant CO2 retention. She has been on the ventilator all week and is slowly improving. She still has bilateral infiltrates and requires considerable oxygen. We will continue weaning trials. We will plan a therapeutic bronchoscopy tomorrow and will talk to the family about a tracheostomy. Current Visit: Yes (4) CHF (congestive heart failure) Status: Acute Assessment and plan: Her chest x-ray looks like a mild CHF. She has been hard to diurese. Her weight is actually up today. Her renal function has been stable. She has been somewhat hard to diurese. Current Visit: Yes Qualifiers: Congestive heart failure type: diastolic Congestive heart failure chronicity: acute on chronic Qualified Code(s): I50.33 - Acute on chronic diastolic (congestive) heart failure (5) Bilateral pulmonary infiltrates on chest x-ray Status: Acute Assessment and plan: Patient may have some pneumonia and she did have positive blood cultures. She still has nothing growing on washings. She is getting antibiotics okay. Current Visit: Yes (6) Atrial fibrillation Status: Acute Assessment and plan: She is in atrial fibrillation now and may need further evaluation by cardiology Current Visit: Yes
--- NOTE | 2016-08-01 07:33 | XRay Report ---
XR chest 1V portable Indication: Ventilator patient Comparison: 30 July 2016 Findings: The heart and mediastinum are stable in size and configuration. The lines and tubes are unchanged in position. The pulmonary vascularity is normal in caliber. There is increased lower lung densities similar to previous exam. No other lung infiltrates, effusions, pneumothorax or other abnormality is demonstrated. Impression: No significant change PROCEDURE INTERPRETED AT [facility] DEPARTMENT OF RADIOLOGY Final Report Signed by: Dr. Blayne Aguirre
[2016-08-01 08:18] LABS: Troponin I Only 0.022 NG/ML (0.00-0.045)
[2016-08-01] MEDS: MULTIVITAMIN LIQUID (CENTRUM) 60 ML BOTTLE NG SCH (08:48)
[2016-08-01] MEDS: ASPIRIN 325 MG TABLET PO SCH (08:48)
[2016-08-01] MEDS: predniSONE 20 MG TABLET PO SCH (08:49)
[2016-08-01] MEDS: CARVEDILOL 3.125 MG TABLET PO SCH ×2 (08:49→21:46)
[2016-08-01] MEDS: LISINOPRIL 2.5 MG TABLET PO SCH (08:49)
[2016-08-01] MEDS: NYSTATIN 500,000 UNIT/5 ML UDCUP SWISH/SWAL SCH ×4 (08:49→21:36)
[2016-08-01] MEDS: LORazepam 2 MG/1 ML VIAL IV PRN ×3 (08:50→19:43)
[2016-08-01] MEDS: FUROSEMIDE 40 MG/4 ML VIAL IV SCH (08:50)
[2016-08-01] MEDS: INSULIN GLARGINE 100 UNIT/ML SUBCUT SCH ×2 (08:50→21:33)
[2016-08-01] MEDS: DESITIN 4OZ/NYSTATIN 15 GRAM MIXTURE PASTE TOP SCH ×2 (08:58→21:34)
[2016-08-01 11:27] LABS: Troponin I Only 0.025 NG/ML (0.00-0.045)
--- NOTE | 2016-08-01 12:27 | Hospitalist Progress Note ---
Assessment and Plan (1) CHF (congestive heart failure) Status: Acute Assessment and plan: Impression: 1. Acute on chronic diastolic congestive heart failure 2. Acute respiratory failure 3. Staph epidermidis bacteremia; blood cultures sterile 5 days. 4. Paroxysmal atrial fibrillation Plan: She remains ventilator dependent. Chest x-ray looks congested despite aggressive diuresis. She is becoming azotemic and hypernatremic. We will continue diuretics at current levels. Ventilator weaning per pulmonary. I will resume her digoxin. If she does not convert, we will ask cardiology for their opinion. This note was completed using [employer] voice recognition software. There may be manager creative services errors as a result. Current Visit: Yes Qualifiers: Congestive heart failure type: diastolic Congestive heart failure chronicity: acute on chronic Qualified Code(s): I50.33 - Acute on chronic diastolic (congestive) heart failure Hospitalist: Subjective Interval history: Follow-up respiratory failure and atrial fibrillation. The patient went into atrial fibrillation last night. She apparently has a history of this. She remains on the ventilator, and has been on pressure support now for several hours. She is tolerating this well. Pulmonary is planning on repeat bronchoscopy in the morning. Exam - Constitutional Vitals: Period Temp Pulse Resp BP Sys/Norman Pulse Ox Last 24 Hr 98.3 F-101.0 F 70-119 10-29 91-141/48-77 91-100 Heart is irregular with no murmur. Her rate is controlled at about 100. She has a few rhonchi in the chest. Abdomen is soft with no mass. Results - Labs CBC & BMP: 08/01/16 03:20 08/01/16 03:20 Lab Results: I have reviewed the past 24 hour labs (Potassium has been supplemented) Quality Measures - VTE Deep Vein Thrombosis/Pulmonary Embolism Present on Admission: No
[2016-08-01] MEDS: ENOXAPARIN 120 MG/0.8 ML SYRINGE SUBCUT SCH (13:00)
[2016-08-01] MEDS: DIGOXIN 0.25 MG TABLET PO SCH (13:00)
--- NOTE | 2016-08-01 20:56 | ECHO Report ---
Akiko Fontana 08/01/2016 Exam Date: 08:44 Referring Physician: Paloma Siu Technologist: MAYNOR Age: 75 Ht (in): 72 Wt (lb): 253 FExam Location: [facility] Gender: Echo [id number]: HTN, Bacteremia, Hypokalemia, hypergIndications:lycemia, A fib, CHF, pulmonary edema BP: 96 / 53 HR: 113 Atrial fibrillationRhythm: Technically difficult studyTechnical Quality: IMPRESSIONS 1. The patient is tachycardic and this is a very limited study. 2. The patient's online rhythm is atrial fibrillation. 3. The left ventricle is normal size with estimated ejection fraction 5055%. 4. Right ventricle and right atrium are probably dilated. 5. Left atrium is mildly dilated. 6. Valve structures are not adequately visualized but there is no gross Doppler abnormalities appreciated. 7. Based on Doppler there is no significant elevated right-sided pressures. MEASUREMENTS (Male / Female) Normal Values 2D ECHO LV Diastolic Diameter PLAX 4.2 cm 4.2 - 5.9 / 3.9 - 5.3 cm LV Systolic Diameter PLAX 3.1 cm LV Fractional Shortening PLAX 27.0 % IVS Diastolic Thickness 1.5 cm 0.6 - 1.0 / 0.6 - 0.9 cm LVPW Diastolic Thickness 1.7 cm 0.6 - 1.0 / 0.6 - 0.9 cm RV Internal Dim ED PLAX 3.0 cm Aortic Root Diameter 2.9 cm LA Systolic Diameter LX 5.1 cm 3.0 - 4.0 / 2.7 - 3.8 cm DOPPLER TR Peak Velocity 271.0 cm/s TR Peak Gradient 29.4 mmHg FINDINGS Left Ventricle Left ventricle is normal size with ejection fraction estimated at 50- 55%. Right Ventricle Right ventricle is at least mildly dilated and hypokinetic. Right Atrium Right atrium is probably upper less normal size. Left Atrium Left atrium is at least mildly dilated. Mitral Valve It worst the mitral may be a little thickened. Aortic Valve Aortic valve is never after visualized. There is no gross Doppler abnormalities appreciated. Tricuspid Valve Tricuspid valve sac visualized. No gross Doppler abnormalities. Pulmonic Valve Pulmonic valve is not adequately visualized. There is no gross Doppler abnormalities. Pericardium No pericardial effusion. Aorta Normal size aortic root and proximal ascending aorta. Truong Galan MD (Electronically Signed) 01 August 2016 Final Date: 20:55
[2016-08-02] MEDS: ENOXAPARIN 120 MG/0.8 ML SYRINGE SUBCUT SCH ×2 (00:08→12:10)
[2016-08-02] MEDS: PROPOFOL 1,000 MG/100 ML BOTTLE IV SCH ×5 (01:03→17:59)
[2016-08-02] MEDS: ALBUTEROL/IPRATROPIUM 3 ML NEB RESP TX SCH ×6 (03:18→23:45)
[2016-08-02] MEDS: PANTOPRAZOLE 40 MG VIAL IV SCH (05:29)
[2016-08-02] MEDS: INSULIN REGULAR 100 UNIT/ML SUBCUT SCH ×3 (05:30→20:05)
[2016-08-02] MEDS: CEFEPIME 1,000 MG in SODIUM CHLORIDE 0.9% 100 ML IV SCH ×3 (05:30→22:23)
--- NOTE | 2016-08-02 07:32 | XRay Report ---
XR chest 1V portable Indication: Ventilator patient Comparison: 01 August 2016 Findings: The heart and mediastinum are stable in size and configuration. The lines and tubes are unchanged in position. The pulmonary vascularity increase but appears improved when compared to previous. No lung infiltrates, effusions, pneumothorax or other abnormality is demonstrated. Impression: Improved pulmonary vascularity. No other significant changes. PROCEDURE INTERPRETED AT [facility] DEPARTMENT OF RADIOLOGY Final Report Signed by: Dr. Blayne Aguirre
--- NOTE | 2016-08-02 07:49 | Hospitalist Progress Note ---
Assessment and Plan - Time spent with patient Time spent with patient: Greater than 30 minutes (1) Acute hypercapnic respiratory failure Status: Resolved Assessment and plan: Bronch today per Pulm. Continue Vent support. Current Visit: Yes (2) Bacteremia Status: Acute Assessment and plan: Afebrile. Continue IV cefepime. Repeated culture results negative. Current Visit: Yes (3) Bilateral pulmonary infiltrates on chest x-ray Status: Acute Assessment and plan: Continue IV cefepime. Current Visit: Yes (4) Atrial fibrillation Status: Acute Assessment and plan: Consult Cards today. HR ok today. Current Visit: Yes (5) CHF (congestive heart failure) Status: Acute Assessment and plan: Monitor daily weight. Monitor I&O. Continue other current treatment regimen. Current Visit: Yes Qualifiers: Congestive heart failure type: diastolic Congestive heart failure chronicity: acute on chronic Qualified Code(s): I50.33 - Acute on chronic diastolic (congestive) heart failure Hospitalist: Subjective Interval history: No overnight acute event. On sedation but respond to pain stimuli. No fever reported per RN. Good UOP. Plan to have bronch today per Pulm. On IV cefepime. Exam - Constitutional Vitals: Period Temp Pulse Resp BP Sys/Norman Pulse Ox Last 24 Hr 99.3 F-100.4 F 93-117 10-30 91-146/55-80 91-100 Exam: GENERAL: Lying in bed. Sedated and intubated. HEENT: Pupils equally round and reactive to light, conjunctivae clear.ET tube in place. NECK: Supple without mass. CHEST: Normal shape, fair air movement, no retractions. CV: RRR, irregularly irregular, 2+ peripheral pulses LUNGS: Clear to auscultation; decreased breath sound at b/l lower lobes. ABDOMEN: Soft, nontender, and no hepatosplenomegaly. SKIN: No rash or edema. NEURO: No gross motor deficits noted. Results - Labs CBC & BMP: 08/01/16 03:20 08/01/16 18:15 Quality Measures - VTE Deep Vein Thrombosis/Pulmonary Embolism Present on Admission: No
--- NOTE | 2016-08-02 07:59 | Pulmonology Progress Note ---
Pulmonary - PN: Subj Interval history: Patient is a 75-year-old lady that presented with shortness of breath and had to be intubated. She was felt to possibly have mild heart failure. She did have significant CO2 retention. Her PO2 is still on the low side. Her family says her O2 runs low at home and she uses home oxygen. She apparently has significant COPD. She is a former smoker. Over the weekend she was tried off the ventilator but did not do very well. She had to be reintubated. She is reasonably stable at present on the ventilator now. She still has somewhat of a low PO2 and her chest x-ray still shows bibasilar changes. She is still in atrial fibrillation with a fairly rapid heart rate. She was unable to do much CPAP because of her heart rate. Her chest x-ray still shows bibasilar infiltrates. She likely will need a tracheostomy tube Exam (Progress Note) - Constitutional Vitals: Period Temp Pulse Resp BP Sys/Norman Pulse Ox Last 24 Hr 99.3 F-100.4 F 93-117 10-30 91-146/55-80 91-100 Exam: General appearance: normal weight, no acute distress (She is sedated on the ventilator and looks comfortable at present. She has atrial fibrillation now. Her blood pressure stable.) - Head Head exam: Present: normal inspection, normocephalic - Eye Eye exam: Present: EOMI. Absent: scleral icterus Pupils: Present: AR - ENT ENT exam: Present: normal exam, other (ET tube is in good position) - Neck Neck exam: Present: normal inspection. Absent: lymphadenopathy, thyromegaly - Respiratory Respiratory exam: Present: She has good breath sounds bilaterally with some mild rhonchi present. She has fairly good air movement. - Cardiovascular Cardiovascular exam: Present: She has an irregular rhythm at present but the heart rate is reasonable. - GI/Abdominal GI/Abdominal exam: Present: normal bowel sounds, soft. Absent: organomegaly, tenderness - Extremities Exam Extremities exam: Absent: calf tenderness, edema - Neurological Exam Neurological exam: Present: altered (She is sedated on the ventilator at present ) - Skin Skin exam: Present: warm, dry Results - Labs CBC & BMP: 08/01/16 03:20 08/01/16 18:15 - Diagnostic Findings Procedure: Chest x-ray: image reviewed by me, report reviewed by me (Chest x- ray still shows cardiomegaly and bibasilar infiltrates.) Assessment and Plan (1) Hypertension Status: Acute Assessment and plan: Patient apparently has a history of hypertension but her echo looks okay without significant cardiac dysfunction. She does have some diastolic dysfunction. Her blood pressure has been stable. Current Visit: Yes (2) Dementia Status: Acute Assessment and plan: Apparently the patient is developing dementia. She does get agitated at times. She is comfortable at present Current Visit: Yes (3) Acute hypercapnic respiratory failure Status: Resolved Assessment and plan: Patient had worsening respiratory distress and she has significant CO2 retention. X-ray looks like chronic lung disease and she has bibasilar infiltrates. She has had significant hypoxemia and has been slow to wean. She likely will benefit from a tracheostomy tube. Current Visit: Yes (4) CHF (congestive heart failure) Status: Acute Assessment and plan: Her chest x-ray looks like a mild CHF. She has been hard to diurese. Her weight is stable. Her chest x-ray is very slow to clear. Current Visit: Yes Qualifiers: Qualified Code(s): I50.33 - Acute on chronic diastolic (congestive) heart failure (5) Bilateral pulmonary infiltrates on chest x-ray Status: Acute Assessment and plan: Patient may have some pneumonia and she did have positive blood cultures. She still has nothing growing on washings. She is getting antibiotics okay. Her repeat blood cultures have been negative. Current Visit: Yes (6) Atrial fibrillation Status: Acute Assessment and plan: She is in atrial fibrillation now and may need further evaluation by cardiology. Current Visit: Yes
--- NOTE | 2016-08-02 08:02 | Operative Note ---
Date of procedure: 08/02/16 Pre-op diagnosis: Respiratory failure with bibasilar infiltrate Post-op diagnosis: same Procedure: The patient is on the ventilator with respiratory failure and slow to wean. She continues to have bilateral infiltrates. A bronchoscopy will be done to clear airways and assess airways. Procedure: The patient is on the ventilator in the ICU. The fiberoptic bronchoscope was passed to the ET tube into the airways. The bronchopulmonary segments were identified but no specimens obtained. Findings: The ET tube is in good position in the trachea. The main bronchi are open. Bronchial mucosa looks better than it did. There is only a small amount of white thick secretions that were washed and cleared easily. There were no endobronchial lesions seen. The airways looked much better than he did before. She tolerated the procedure well without any problems. Impression: Respiratory failure with bilateral infiltrates but unremarkable airways. Plan: We will continue treatment but she will probably need a tracheostomy tube soon. Anesthesia: conscious sedation Surgeon / Physician: Alexi Miner Estimated blood loss: none Specimens: none sent Condition: stable Disposition: ICU Results - Labs CBC & BMP: 08/01/16 03:20 08/01/16 18:15 Discharge Plan - Discharge Medications No Action Docusate Sodium Cap [Colace Cap] 100 mg PO BID Dexlansoprazole [Dexilant] 60 mg PO DAILY Multivit-Min/FA/Lycopen/Lutein [Centrum Silver Tablet] 1 tablet PO DAILY Clopidogrel [Plavix] 75 mg PO DAILY Lovastatin 40 mg PO DAILY W/SUPPER Furosemide Tab [Lasix Tab] 40 mg PO BID DIURETIC Digoxin Tab [Lanoxin Tab] 0.25 mg PO DAILY Ergocalciferol (Vitamin D2) [Vitamin D2] 50,000 unit PO Q7D Letrozole 2.5 mg PO DAILY Spironolactone [Aldactone] 50 mg PO DAILY Magnesium Oxide [Magox 400] 2,000 mg PO BID Acetaminophen 1,000 mg PO Q6H PRN PRN Reason: Pain Linagliptin [Tradjenta] 5 mg PO DAILY metOLazone [Metolazone] 10 mg PO BID Memantine HCl [Namenda XR] 28 mg PO DAILY Solifenacin Succinate [Vesicare] 10 mg PO DAILY - Follow Up or Referral - Forms/Instructions
--- NOTE | 2016-08-02 08:56 | Cardiology Consult Note ---
<Maribel Downing - Last Filed: 08/02/16 08:22> Assessment and Plan - Time spent with patient Time spent with patient: Greater than 30 minutes (1) Atrial fibrillation Status: Acute Assessment and plan: It appears that patient went into atrial fibrillation/flutter Sunday evening. Patient was placed on therapeutic dose of Lovenox yesterday. She is currently in what appears to be atrial flutter. Her heart rates have been reasonably controlled, ranging from 90s-105. She is currently on digoxin and Coreg. TSH was normal on admission. Electrolytes are stable. Will continue to replace as needed. Patient has been in atrial fibrillation for less than 48 hours. It may be reasonable for cardioversion. We will continue with therapeutic Lovenox at this time and further discuss with Dr. Galan. Further recommendations to follow. Current Visit: Yes (2) Hypertension Status: Chronic Assessment and plan: This is clinically stable. Continue current plan of care. Current Visit: Yes (3) History of breast cancer Status: Chronic Current Visit: Yes (4) Bacteremia Status: Acute Assessment and plan: Patient has been afebrile. White blood cell count is trending down. She is hemodynamically stable. Will continue with current IV antibiotics. Repeat blood cultures are underway. Current Visit: Yes (5) Bilateral pulmonary infiltrates on chest x-ray Status: Acute Assessment and plan: Management per pulmonary. Current Visit: Yes (6) CHF (congestive heart failure) Status: Acute Assessment and plan: It is questionable that patient may be in diastolic heart failure. Echocardiogram this admission reveals preserved ejection fraction of 55% with grade 1 diastolic dysfunction. We will continue NOLBERTO inhibitor, beta-elvira and Lasix at this time. Will increase doses as patient's blood pressure tolerates. May consider adding spironolactone. We will continue with daily weights and strict I's and O's. Further plan and addendum to follow per Dr. Galan. Current Visit: Yes Qualifiers: Congestive heart failure type: diastolic Congestive heart failure chronicity: acute on chronic Qualified Code(s): I50.33 - Acute on chronic diastolic (congestive) heart failure (7) COPD (chronic obstructive pulmonary disease) Status: Acute Assessment and plan: Management per pulmonary. Current Visit: Yes History of Present Illness - Data of Consult Patient: new to practice Consult date: 08/02/16 Requesting Physician: Anderson Isabel - Consult Narrative Reason for consult: Atrial flutter History of present illness: [employer] Detective: None Cardiology consult note: Atrial fibrillation/flutter Ms. Fontana is a 75 year old female patient without known history of coronary artery disease, not routinely followed by local cardiology. Patient is ventilated and sedated in the CCU. No family available. Unable to obtain review of systems. Majority of information obtained from medical personnel and patient's medical records. Patient was transferred from [facility] for further evaluation of shortness of breath. Patient has cardiac risk factors significant for hypertension, hyperlipidemia, diabetes and obesity. Unaware if patient is an active smoker has smoked in the past. Also unaware of patient's family history and past surgical history. According to medical records, her past medical history includes: Congestive heart failure, breast cancer and dementia. Patient has never been seen by [facility] cardiology. Unaware patient has never undergone left heart catheterization or stress testing. Patient transferred from [facility] with chief complaint of shortness of breath 07/20/16. Apparently, the chest x-ray at [facility] was suggestive of pulmonary edema. IV diuretics were initiated at that time. Chest CT was negative for pulmonary embolus. And venous Doppler bilateral lower extremities was negative for DVT. Head CT revealed chronic lacunar infarcts. She was admitted to the telemetry floor. Overnight, she became more dyspneic and required transfer to the CCU and intubation. Pulmonary was then consulted. Chest x-ray at [facility] was suggestive of mild CHF. BNP was noted to be 402. Repeat chest x-ray was suggestive of possible pneumonia. Blood cultures were positive for Staphylococcus Epidermidis. Patient was started on appropriate antibiotics at that time. She was extubated on July 30. However, several hours later she required reintubation due to respiratory distress. It appears that at some point Sunday evening patient went into atrial fibrillation/flutter. She has remained in age fibrillation/flutter since that time. Her heart rates have been reasonably controlled, ranging from 90-105. Patient was placed on therapeutic dose of Lovenox yesterday. Cardiology has been consulted to further assist. Echocardiogram July 21, 2016 revealed normal left ventricular cavity size with mild left ventricular hypertrophy. Ejection fraction was estimated at 55% with grade 1 diastolic dysfunction. Right ventricle is mildly dilated with normal systolic function. Mild pulmonary hypertension noted. Mild biatrial enlargement. Mild aortic valve sclerosis without stenosis or regurgitation and trace pericardial effusion. Repeat echocardiogram was done August 01, 2016. This revealed ejection fraction of 50-55% with normal left ventricular size. Dilated right ventricle and right atrium. Left atrium was mildly dilated. Patient was seen and examined in the CCU. She remains intubated and ventilated. Unable to obtain review of systems. She is currently in atrial flutter with heart rate ranging from 90s-105. Heart rate is currently reasonably controlled with Coreg and digoxin. Patient is on therapeutic dose of Lovenox, initiated yesterday. She is currently receiving Lasix 40 mg IV daily. According to her I's and O's, she is diuresing well with this and has lost 20 pounds since admission. BNP was rechecked July 27. At that time, it did trend down from 402 to 236. Chest x-ray continues to show bilateral infiltrates. Patient underwent fiberoptic bronchoscopy today per Dr. Miner. Patient had unremarkable airways with by lateral infiltrates noted. He feels that patient will need a tracheostomy tube soon. No BMP to review today. Yesterday, her renal function was stable with a creatinine of 0.6. Electrolytes were stable. Magnesium 2.3 and potassium 3.9. Will continue to monitor these daily and replace as needed. TSH was within normal limits on admission. Troponin has been negative 4 checks. Vital signs are stable. I will discuss this further with Dr. Galan. Further recommendations to follow. CC: Anderson Isabel MD - Home Medications and Allergies Home Medications: Home Medications Medication Instructions Recorded Confirmed Type Acetaminophen 1,000 mg PO Q6H PRN 07/21/16 07/21/16 History Clopidogrel [Plavix] 75 mg PO DAILY 07/21/16 07/21/16 History Dexlansoprazole [Dexilant] 60 mg PO DAILY 07/21/16 07/21/16 History Digoxin Tab [Lanoxin Tab] 0.25 mg PO DAILY 07/21/16 07/21/16 History Docusate Sodium Cap [Colace Cap] 100 mg PO BID 07/21/16 07/21/16 History Ergocalciferol (Vitamin D2) 50,000 unit PO Q7D 07/21/16 07/21/16 History [Vitamin D2] Furosemide Tab [Lasix Tab] 40 mg PO BID DIURETIC 07/21/16 07/21/16 History Letrozole 2.5 mg PO DAILY 07/21/16 07/21/16 History Linagliptin [Tradjenta] 5 mg PO DAILY 07/21/16 07/21/16 History Lovastatin 40 mg PO DAILY W/SUPPER 07/21/16 07/21/16 History Magnesium Oxide [Magox 400] 2,000 mg PO BID 07/21/16 07/21/16 History Memantine HCl [Namenda XR] 28 mg PO DAILY 07/21/16 07/21/16 History Multivit-Min/FA/Lycopen/Lutein 1 tablet PO DAILY 07/21/16 07/21/16 History [Centrum Silver Tablet] Solifenacin Succinate [Vesicare] 10 mg PO DAILY 07/21/16 07/21/16 History Spironolactone [Aldactone] 50 mg PO DAILY 07/21/16 07/21/16 History metOLazone [Metolazone] 10 mg PO BID 07/21/16 07/21/16 History Allergies/Adverse Reactions: Allergies Allergy/AdvReac Type Severity Reaction Status Date / Time No Known Allergies Allergy Unverified 07/20/16 23:49 ROS unobtainable: due to endotracheal tube Medical,Surgical,& Family Hx - Medical History Cardio: History of: CHF, Hypertension Psychological: History of: Psychiatric Problems (Dementia) Endocrine: History of: Diabetes Mellitus (NIDDM), Dyslipidemia Respiratory: History of: COPD Genitourinary: History of: Problems (Overactive Bladder) Reproductive: History of: Breast Cancer - Surgical History Surgical History: noncontributory - Family History Family History: noncontributory - Social History Smoking Status: Unknown if ever smoked Frequency of Alcohol Use: Unknown Type of Drug Use: Unknown Physical Examination Vital Signs Temp Pulse Resp BP Pulse Ox 97.8 F 90 22 184/83 88 L 07/20/16 22:43 07/20/16 22:43 07/20/16 22:43 07/20/16 22:43 07/20/16 22:43 General: Present: Other (Patient is currently sedated on the ventilator.) Neck: Present: Supple Neck, Midline Trachea Cardiac: Present: Irregularly Regular, Tachycardia. Absent: Gallop Lungs: Present: Decreased Breath Sounds, Other (Coarse breath sounds. Patient on ventilator.) Neuro: Present: Other (Unable to assess. Patient sedated on ventilator.) Abdomen: Present: Soft, Decreased Bowel Sounds, Other (Nasogastric tube noted.) . Absent: Firm, Distended Extremities: Present: Normal Gait, No Clubbing, No Cyanosis, No Edema, Normal Upper Extr. Pulses, Normal Lower Extr. Pulses Result/EKG - Labs CBC & BMP: 08/01/16 03:20 08/01/16 18:15 Lab Results: I have reviewed the past 24 hour labs Labs: Laboratory Results - last 24 hr 08/01/16 08/01/16 08/01/16 10:25 11:17 17:28 Potassium POC Glucose 165 H 190 H Total Creatine Kinase 35 CK-MB (CK-2) < 1.0 Troponin I 0.025 08/01/16 08/01/16 08/02/16 18:15 23:23 05:21 Potassium 3.9 POC Glucose 127 H 89 Total Creatine Kinase CK-MB (CK-2) Troponin I Quality Measures - VTE Deep Vein Thrombosis/Pulmonary Embolism Present on Admission: No <Truong Galan - Last Filed: 08/02/16 10:59> History of Present Illness - Consult Narrative History of present illness: Patient was personally examined by me. She is on the ventilator and sedated so interview is not possible. Her chart was reviewed. I discussed the case with Maribel Downing RECEPTION INTERVIEWER. I agree with her history as well as examination evaluation. Estimation in addition Ms. Fontana is a 75 year old female who apparently with pneumonia. She was intubated for restaurant failure and had to be reintubated after a trial of extubation shortly thereafter. She is progressing but still. Having issues trotting off the ventilator. Less than 48 hours ago she she went into atrial fibrillation with RVR. The patient is on anticoagulation appropriately with Lovenox for stroke prevention. I think this patient certainly is a candidate to add amiodarone IV. We will order this and pursue monitoring the patient. I reviewed her echo reports. Certainly with her risk for distress it may make it more difficult to get her in normal sinus rhythm. CC: Anderson Isabel MD Physical Examination Vital Signs Temp Pulse Resp BP Pulse Ox 97.8 F 90 22 184/83 88 L 07/20/16 22:43 07/20/16 22:43 07/20/16 22:43 07/20/16 22:43 07/20/16 22:43 Result/EKG - Labs CBC & BMP: 08/01/16 03:20 08/01/16 18:15 Labs: Laboratory Results - last 24 hr 08/01/16 08/01/16 08/01/16 10:25 11:17 17:28 Potassium POC Glucose 165 H 190 H Total Creatine Kinase 35 CK-MB (CK-2) < 1.0 Troponin I 0.025 08/01/16 08/01/16 08/02/16 18:15 23:23 05:21 Potassium 3.9 POC Glucose 127 H 89 Total Creatine Kinase CK-MB (CK-2) Troponin I
[2016-08-02] MEDS: FUROSEMIDE 40 MG/4 ML VIAL IV SCH (09:02)
[2016-08-02] MEDS: MULTIVITAMIN LIQUID (CENTRUM) 60 ML BOTTLE NG SCH (09:02)
[2016-08-02] MEDS: DIGOXIN 0.25 MG TABLET PO SCH (09:02)
[2016-08-02] MEDS: LISINOPRIL 2.5 MG TABLET PO SCH (09:02)
[2016-08-02] MEDS: DESITIN 4OZ/NYSTATIN 15 GRAM MIXTURE PASTE TOP SCH ×2 (09:02→22:22)
[2016-08-02] MEDS: ASPIRIN 325 MG TABLET PO SCH (09:02)
[2016-08-02] MEDS: CARVEDILOL 3.125 MG TABLET PO SCH ×2 (09:02→22:22)
[2016-08-02] MEDS: predniSONE 20 MG TABLET PO SCH (09:02)
[2016-08-02] MEDS: INSULIN GLARGINE 100 UNIT/ML SUBCUT SCH ×2 (09:02→22:21)
[2016-08-02] MEDS: NYSTATIN 500,000 UNIT/5 ML UDCUP SWISH/SWAL SCH ×4 (09:02→22:22)
[2016-08-02] MEDS: ACETAMINOPHEN 325 MG TABLET PO PRN ×2 (09:03→15:20)
[2016-08-02] MEDS ORDERED: AMIODARONE INJ 150 MG in DEXTROSE 5% 100 ML IV ONE (10:59)
[2016-08-02] MEDS ORDERED: AMIODARONE INJ 450 MG in DEXTROSE 5% 241 ML IV SCH (11:30)
[2016-08-02] MEDS: AMIODARONE INJ 450 MG in DEXTROSE 5% 241 ML IV SCH (17:13)
[2016-08-03] MEDS: INSULIN REGULAR 100 UNIT/ML SUBCUT SCH ×4 (00:46→17:19)
[2016-08-03] MEDS: ENOXAPARIN 120 MG/0.8 ML SYRINGE SUBCUT SCH ×2 (00:47→11:44)
[2016-08-03] MEDS: PROPOFOL 1,000 MG/100 ML BOTTLE IV SCH ×4 (01:03→18:08)
[2016-08-03 04:18] LABS: Basophils % 0.4 % (0.0-0.8); Eosinophils % 0.2 % (0.00-10.9); Immature Granulocytes % 0.4 %; Immature Granulocytes Absolute 0.04 #; Lymphocytes # 1.4 10*3/uL (1.4-4.0); Lymphocytes % 12.3 % (21.3-54.2); Mean Corpuscular HGB Conc 30.5 GM/DL (32-36); Mean Corpuscular Hemoglobin 27 PG (27-34); Mean Corpuscular Volume 87.8 FL (87-102); Monocytes # 0.7 10*3/uL (0.11-0.8); Monocytes % 5.9 % (1.7-12.7); Neutrophils # 8.9 10*3/uL (1.4-7.4); Neutrophils % 80.8 % (38.7-73.9); Platelet Count 151 T/CUMM (130-400); Red Blood Count 5.56 MC/CUMM (3.8-5.5); Red Cell Distribution Width 18.3 % (9.3-17.3)
[2016-08-03] MEDS: ALBUTEROL 2.5 MG/3 ML NEB RESP TX PRN (04:24)
[2016-08-03 04:26] LABS: Hematocrit 48.1 VOL% (35.7-47.0); Hemoglobin 14.7 GM/DL (12.0-16.0)
[2016-08-03] MEDS: ALBUTEROL/IPRATROPIUM 3 ML NEB RESP TX SCH ×6 (04:26→23:19)
[2016-08-03 04:34] LABS: Magnesium 2.3 MG/DL (1.8-2.4); Osmolality,Calculated 299.6 MOS/KG (273-304); Potassium 3.5 MMOL/L (3.5-5.1)
[2016-08-03 04:58] LABS: Magnesium 2.3 MG/DL (1.8-2.4); Phosphorous 2.5 MG/DL (2.5-4.9); Prealbumin 24.5 MG/DL (20-40)
[2016-08-03 05:43] LABS: Anisocytosis 1+
[2016-08-03 05:44] LABS: Hypochromasia Slight; Platelet Estimate Adequate
[2016-08-03] MEDS: CEFEPIME 1,000 MG in SODIUM CHLORIDE 0.9% 100 ML IV SCH ×3 (06:01→21:49)
[2016-08-03] MEDS: PANTOPRAZOLE 40 MG VIAL IV SCH (06:01)
[2016-08-03 06:03] LABS: Allen Test Positive; Pt O2 Delivery Device Ventilator
[2016-08-03 06:06] LABS: ABG HCO3 26.7 MMOL/L (20-26); ABG Oxygen Saturation 98.1 % (95-100); ABG PCO2 37.9 MM HG (35-48); ABG PH 7.465 (7.35-7.45); ABG PO2 109.7 MM HG (80-95); ABG TCO2 27.8 MMOL/L (23-27)
--- NOTE | 2016-08-03 07:45 | Hospitalist Progress Note ---
Assessment and Plan - Time spent with patient Time spent with patient: Greater than 30 minutes (1) Acute hypercapnic respiratory failure Status: Resolved Assessment and plan: Continue Vent support. Weaning trial per Pulm. Current Visit: Yes (2) Bacteremia Status: Acute Assessment and plan: Afebrile. Continue IV cefepime. Repeated culture results negative. Current Visit: Yes (3) Bilateral pulmonary infiltrates on chest x-ray Status: Acute Assessment and plan: Continue IV cefepime. Current Visit: Yes (4) Atrial fibrillation Status: Acute Assessment and plan: On IV amiodarone per Cards for now. Current Visit: Yes (5) CHF (congestive heart failure) Status: Acute Assessment and plan: Monitor daily weight. Monitor I&O. Continue other current treatment regimen. Current Visit: Yes Qualifiers: Congestive heart failure type: diastolic Congestive heart failure chronicity: acute on chronic Qualified Code(s): I50.33 - Acute on chronic diastolic (congestive) heart failure Hospitalist: Subjective Interval history: No overnight acute event. Off sedation this morning and respond to pain stimuli. No fever reported per RN. Good UOP. Tolerated Bronch well yesterday. On IV cefepime. On IV amiodarone per Cardiology since yesterday. Interval history: Pt is a 75yo female on Vent due to acute resp failure, acute on chronic diastolic CHF, Staph epidermidis bacteremia, repeated blood culture negative, Pneumonia and paroxysmal afib. Pulm and Cards f/u. On IV cefepime now, IV VCN discontinued. Exam - Constitutional Vitals: Period Temp Pulse Resp BP Sys/Norman Pulse Ox Last 24 Hr 97.7 F-100.6 F 75-113 10-32 92-154/59-105 93-100 Exam: GENERAL: Lying in bed. Intubated. HEENT: Pupils equally round and reactive to light, conjunctivae clear.ET tube in place. NECK: Supple without mass. CHEST: Normal shape, fair air movement, no retractions. CV: RRR, irregularly irregular, 2+ peripheral pulses LUNGS: Clear to auscultation; decreased breath sound at b/l lower lobes. ABDOMEN: Soft, nontender, and no hepatosplenomegaly. SKIN: No rash or edema. NEURO: No gross motor deficits noted. Results - Labs CBC & BMP: 08/03/16 03:56 08/03/16 03:56 Quality Measures - VTE Deep Vein Thrombosis/Pulmonary Embolism Present on Admission: No
--- NOTE | 2016-08-03 08:21 | XRay Report ---
XR chest 1V portable Indication: Ventilator patient Comparison: 02 August 2016 Findings: The heart and mediastinum are stable in size and configuration. The lines and tubes are unchanged in position. The pulmonary vascularity is increased. There is right lower lung density and effusion similar to previous. No other lung infiltrates, effusions, pneumothorax or other abnormality is demonstrated. Impression: Increasing vascularity, could indicate cardiac decompensation. PROCEDURE INTERPRETED AT [facility] DEPARTMENT OF RADIOLOGY Final Report Signed by: Dr. Blayne Aguirre
--- NOTE | 2016-08-03 08:23 | Pulmonology Progress Note ---
Pulmonary - PN: Subj Interval history: Patient is a 75-year-old lady that presented with shortness of breath and had to be intubated. She was felt to possibly have mild heart failure. She did have significant CO2 retention. Her PO2 is still on the low side. Her family says her O2 runs low at home and she uses home oxygen. She apparently has significant COPD. She is a former smoker. Over the weekend she was tried off the ventilator but did not do very well. She had to be reintubated. She is reasonably stable at present on the ventilator now. Her oxygenation is a little better and she does appear to be stable. She was started on amiodarone for atrial fibrillation. She is doing CPAP a little better now. She can probably move to an LTAC and will decide on a trach later. Hopefully we can try her off the ventilator next week. Exam (Progress Note) - Constitutional Vitals: Period Temp Pulse Resp BP Sys/Norman Pulse Ox Last 24 Hr 97.7 F-100.6 F 75-113 10-32 92-154/59-105 93-99 Exam: General appearance: normal weight, no acute distress (She is sedated on the ventilator and looks comfortable at present. She does arouse okay.) - Head Head exam: Present: normal inspection, normocephalic - Eye Eye exam: Present: EOMI. Absent: scleral icterus Pupils: Present: AR - ENT ENT exam: Present: normal exam, other (ET tube is in good position) - Neck Neck exam: Present: normal inspection. Absent: lymphadenopathy, thyromegaly - Respiratory Respiratory exam: Present: She has good breath sounds bilaterally and she has better breath sounds with less rhonchi. - Cardiovascular Cardiovascular exam: Present: She has an irregular rhythm at present but the heart rate is reasonable. - GI/Abdominal GI/Abdominal exam: Present: normal bowel sounds, soft. Absent: organomegaly, tenderness - Extremities Exam Extremities exam: Absent: calf tenderness, edema - Neurological Exam Neurological exam: Present: altered (She is sedated on the ventilator at present ) - Skin Skin exam: Present: warm, dry Results - Labs CBC & BMP: 08/03/16 03:56 08/03/16 03:56 Labs: Her PO2 is 109 with a PCO2 of 37 and pH 7.46 - Diagnostic Findings Procedure: Chest x-ray: image reviewed by me, report reviewed by me (Chest x- ray shows right lung infiltrates to be better is still some consolidation in the left base.) Assessment and Plan (1) Hypertension Status: Chronic Assessment and plan: Patient apparently has a history of hypertension but her echo looks okay without significant cardiac dysfunction. She does have some diastolic dysfunction. Her blood pressure has been stable. Current Visit: Yes (2) Dementia Status: Acute Assessment and plan: Apparently the patient is developing dementia. She does get agitated at times. She is comfortable at present Current Visit: Yes (3) Acute hypercapnic respiratory failure Status: Resolved Assessment and plan: Patient had worsening respiratory distress and she has significant CO2 retention. X-ray looks like chronic lung disease and she has bibasilar infiltrates. Her oxygenation is a little better and her chest x-ray is improving. [facility] and hopefully extubate next week. Current Visit: Yes (4) CHF (congestive heart failure) Status: Acute Assessment and plan: Her chest x-ray looks like a mild CHF. She is diuresing a little better and her weight is down. She has atrial fibrillation that is controlled Current Visit: Yes Qualifiers: Congestive heart failure type: diastolic Congestive heart failure chronicity: acute on chronic Qualified Code(s): I50.33 - Acute on chronic diastolic (congestive) heart failure (5) Bilateral pulmonary infiltrates on chest x-ray Status: Acute Assessment and plan: Patient may have some pneumonia and she did have positive blood cultures. She still has nothing growing on washings. She is getting antibiotics okay. Her repeat blood cultures have been negative. Overall she seems to be responding. Current Visit: Yes (6) Atrial fibrillation Status: Acute Assessment and plan: She has been placed on amiodarone therapy and seems to be stable. Current Visit: Yes
[2016-08-03] MEDS ORDERED: AMIODARONE 450 MG/9 ML VIAL IV ONE ×2 (09:07→09:08)
[2016-08-03] MEDS: predniSONE 20 MG TABLET PO SCH (09:19)
[2016-08-03] MEDS: INSULIN GLARGINE 100 UNIT/ML SUBCUT SCH ×2 (09:19→21:48)
[2016-08-03] MEDS: MULTIVITAMIN LIQUID (CENTRUM) 60 ML BOTTLE NG SCH (09:19)
[2016-08-03] MEDS: CARVEDILOL 3.125 MG TABLET PO SCH (09:19)
[2016-08-03] MEDS: AMIODARONE INJ 450 MG in DEXTROSE 5% 241 ML IV SCH (09:19)
[2016-08-03] MEDS: DESITIN 4OZ/NYSTATIN 15 GRAM MIXTURE PASTE TOP SCH ×2 (09:19→21:49)
[2016-08-03] MEDS: FUROSEMIDE 40 MG/4 ML VIAL IV SCH (09:19)
[2016-08-03] MEDS: NYSTATIN 500,000 UNIT/5 ML UDCUP SWISH/SWAL SCH ×4 (09:19→21:49)
[2016-08-03] MEDS: ASPIRIN 325 MG TABLET PO SCH (09:19)
[2016-08-03] MEDS: DIGOXIN 0.25 MG TABLET PO SCH (09:19)
[2016-08-03] MEDS: LISINOPRIL 2.5 MG TABLET PO SCH (09:19)
--- NOTE | 2016-08-03 09:55 | Cardiology Progress Note ---
<Maribel Downing - Last Filed: 08/03/16 10:32> Assessment and Plan (1) Atrial fibrillation Status: Acute Assessment and plan: It appears that patient went into atrial fibrillation/flutter Sunday evening. Patient was placed on therapeutic dose of Lovenox yesterday. She is currently in what appears to be atrial flutter. Her heart rates have been reasonably controlled, ranging from 90s-105. She is currently on digoxin and Coreg. TSH was normal on admission. Electrolytes are stable. Will continue to replace as needed. Patient continues to be in atrial flutter this morning with a controlled ventricular response. Heart rate is currently 97. We will transition patient to p.o. amiodarone today. Going to increase patient's beta elvira and continue therapeutic Lovenox. Further recommendations to follow per Dr. Galan. Current Visit: Yes (2) Hypertension Status: Chronic Assessment and plan: This is clinically stable. Continue current plan of care. Current Visit: Yes (3) History of breast cancer Status: Chronic Current Visit: Yes (4) Bacteremia Status: Acute Assessment and plan: Patient has been afebrile. White blood cell count is trending down. She is hemodynamically stable. Will continue with current IV antibiotics. Repeat blood cultures negative at 1 day. Current Visit: Yes (5) Bilateral pulmonary infiltrates on chest x-ray Status: Acute Assessment and plan: Management per pulmonary. Current Visit: Yes (6) CHF (congestive heart failure) Status: Acute Assessment and plan: It is questionable that patient may be in diastolic heart failure. Echocardiogram this admission reveals preserved ejection fraction of 55% with grade 1 diastolic dysfunction. Weight is unchanged overnight. We will continue NOLBERTO inhibitor and Lasix at this time. I have increased his beta- elvira dose this morning. We will continue with daily weights and strict I's and O's. Further plan and addendum to follow per Dr. Galan. Current Visit: Yes Qualifiers: Congestive heart failure type: diastolic Congestive heart failure chronicity: acute on chronic Qualified Code(s): I50.33 - Acute on chronic diastolic (congestive) heart failure (7) COPD (chronic obstructive pulmonary disease) Status: Acute Assessment and plan: Management per pulmonary. Current Visit: Yes Cardiology - PN: Subj Interval history: Assistant Program Director: None Cardiology consult note: Atrial fibrillation/flutter Ms. Fontana is a 75 year old female patient without known history of coronary artery disease, not routinely followed by local cardiology. Patient is ventilated and sedated in the CCU. No family available. Patient has cardiac risk factors significant for hypertension, hyperlipidemia, diabetes and obesity. Unaware if patient is an active smoker has smoked in the past. Also unaware of patient's family history and past surgical history. According to medical records, her past medical history includes: Congestive heart failure, breast cancer and dementia. Patient has never been seen by [facility] cardiology. Unaware if patient has never undergone left heart catheterization or stress testing. Patient was transferred from [facility] with chief complaint of shortness of breath 07/20/16. Apparently, the chest x-ray at [facility] was suggestive of pulmonary edema. IV diuretics were initiated at that time. Chest CT was negative for pulmonary embolus. And venous Doppler bilateral lower extremities was negative for DVT. Head CT revealed chronic lacunar infarcts. She was admitted to the telemetry floor. Overnight, she became more dyspneic and required transfer to the CCU and intubation. Pulmonary was then consulted. Chest x-ray at [facility] was suggestive of mild CHF. BNP was noted to be 402. Repeat chest x-ray suggestive for possible pneumonia. Blood cultures were positive for Staphylococcus Epidermidis. Patient was started on appropriate antibiotics at that time. She was extubated on July 30. However, several hours later she required reintubation due to respiratory distress. It appears that at some point Sunday evening patient went into atrial fibrillation/flutter. She has remained in atrial fibrillation/flutter since that time. Her heart rates have been reasonably controlled, ranging from 90-105. Patient was placed on therapeutic dose of Lovenox Sunday. Cardiology has been consulted to further assist. Echocardiogram July 21, 2016 revealed normal left ventricular cavity size with mild left ventricular hypertrophy. Ejection fraction was estimated at 55% with grade 1 diastolic dysfunction. Right ventricle is mildly dilated with normal systolic function. Mild pulmonary hypertension noted. Mild biatrial enlargement. Mild aortic valve sclerosis without stenosis or regurgitation and trace pericardial effusion. Repeat echocardiogram was done August 01, 2016. This revealed ejection fraction of 50-55% with normal left ventricular size. Dilated right ventricle and right atrium. Left atrium was mildly dilated. Patient was seen and examined in the CCU. She remains sedated and ventilated. She remains in atrial flutter with a controlled ventricular response. Heart rate is currently 97. We will transition patient to p.o. amiodarone today. We will also increase her beta-elvira. Vital signs are stable. Electrolytes are stable. Potassium 3.5 and magnesium 2.3. Continue to wean patient from ventilator as tolerates. We will continue to monitor. Further plan and addendum to follow per Dr. Galan. Exam (Progress Note) - Constitutional Vitals: Period Temp Pulse Resp BP Sys/Norman Pulse Ox Last 24 Hr 97.7 F-100.6 F 75-113 10-32 84-154/59-105 93-99 Exam: General: Present: Other (Patient is currently sedated on the ventilator.) Neck: Present: Supple Neck, Midline Trachea Cardiac: Present: Irregularly Regular, Tachycardia. Absent: Gallop Lungs: Present: Decreased Breath Sounds, Other (Coarse breath sounds. Patient on ventilator.) Neuro: Present: Other (Unable to assess. Patient sedated on ventilator.) Abdomen: Present: Soft, Decreased Bowel Sounds, Other (Nasogastric tube noted.) . Absent: Firm, Distended Extremities: Present: Normal Gait, No Clubbing, No Cyanosis, No Edema, Normal Upper Extr. Pulses, Normal Lower Extr. Pulses Result/EKG - Labs CBC & BMP: 08/03/16 03:56 08/03/16 03:56 Lab Results: I have reviewed the past 24 hour labs Labs: Laboratory Results - last 24 hr 08/02/16 08/02/16 08/03/16 11:19 17:22 00:34 WBC RBC Hgb Hct MCV MCH MCHC RDW Plt Count Neut % (Auto) Lymph % (Auto) [place] % (Auto) Eos % (Auto) Baso % (Auto) Neut # (Auto) Lymph # (Auto) [place] # (Auto) Eos # (Auto) Baso # (Auto) Immature Gran % Nucleated RBC % Immature Gran # Nucleated RBCs # Platelet Estimate Hypochromasia Anisocytosis ABG pH ABG pCO2 ABG pO2 ABG HCO3 ABG Total CO2 ABG O2 Saturation ABG Base Excess FiO2 Sodium Potassium Chloride Carbon Dioxide Anion Gap BUN Creatinine GFR Calculation BUN/Creatinine Ratio Glucose POC Glucose 154 H 191 H 108 H Calculated Osmolality Calcium Phosphorus Magnesium Prealbumin 08/03/16 08/03/16 08/03/16 03:56 03:56 03:56 WBC 11.0 RBC 5.56 H Hgb 14.7 Hct 48.1 H MCV 87.8 MCH 27 MCHC 30.5 L RDW 18.3 H Plt Count 151 Neut % (Auto) 80.8 H Lymph % (Auto) 12.3 L [place] % (Auto) 5.9 Eos % (Auto) 0.2 Baso % (Auto) 0.4 Neut # (Auto) 8.9 H Lymph # (Auto) 1.4 [place] # (Auto) 0.7 Eos # (Auto) 0.0 Baso # (Auto) 0.0 Immature Gran % 0.4 Nucleated RBC % 0.0 Immature Gran # 0.04 Nucleated RBCs # 0.00 Platelet Estimate Adequate Hypochromasia Slight Anisocytosis 1+ ABG pH ABG pCO2 ABG pO2 ABG HCO3 ABG Total CO2 ABG O2 Saturation ABG Base Excess FiO2 Sodium 146 H Potassium 3.5 Chloride 109 H Carbon Dioxide 28 Anion Gap 12.5 BUN 40 H Creatinine 0.60 GFR Calculation 121 BUN/Creatinine Ratio 66.00 H Glucose 106 POC Glucose Calculated Osmolality 299.6 Calcium 8.0 L Phosphorus 2.5 Magnesium 2.3 2.3 Prealbumin 24.5 08/03/16 08/03/16 05:50 05:59 WBC RBC Hgb Hct MCV MCH MCHC RDW Plt Count Neut % (Auto) Lymph % (Auto) [place] % (Auto) Eos % (Auto) Baso % (Auto) Neut # (Auto) Lymph # (Auto) [place] # (Auto) Eos # (Auto) Baso # (Auto) Immature Gran % Nucleated RBC % Immature Gran # Nucleated RBCs # Platelet Estimate Hypochromasia Anisocytosis ABG pH 7.465 H ABG pCO2 37.9 ABG pO2 109.7 H ABG HCO3 26.7 H ABG Total CO2 27.8 H ABG O2 Saturation 98.1 ABG Base Excess 3.0 H FiO2 50.00 Sodium Potassium Chloride Carbon Dioxide Anion Gap BUN Creatinine GFR Calculation BUN/Creatinine Ratio Glucose POC Glucose 117 H Calculated Osmolality Calcium Phosphorus Magnesium Prealbumin Quality Measures - VTE Deep Vein Thrombosis/Pulmonary Embolism Present on Admission: No <GalanTruong - Last Filed: 08/03/16 12:34> Cardiology - PN: Subj Interval history: The patient is on propofol was unable to be interviewed. The patient though was examined by me and chart reviewed. Discussed case with Maribel Downing ELECTRICAL TECHNOLOGY INSTRUCTOR. Agree with the patient's history as well as examination and assessment. The patient's had adequate amiodarone loading. Her ventricular rates are still above 100. Her chemistries are stable and adequate. She's been adequately anticoagulated ever since she went and atrial fibrillation. I think at this point we can Look to cardioversion safely R Bautista we can. She is adequately sedated with propofol and on the ventilator. This is typically an ideal situation. I have discussed this with her daughter and she agrees to proceed. We will plan on carry out sick denies cardioversion this morning. Exam (Progress Note) - Constitutional Vitals: Period Temp Pulse Resp BP Sys/Norman Pulse Ox Last 24 Hr 97.7 F-100.6 F 75-113 10-31 84-154/53-105 94-99 Result/EKG - Labs CBC & BMP: 08/03/16 03:56 08/03/16 03:56 Labs: Laboratory Results - last 24 hr 08/02/16 08/03/16 08/03/16 17:22 00:34 03:56 WBC RBC Hgb Hct MCV MCH MCHC RDW Plt Count Neut % (Auto) Lymph % (Auto) [place] % (Auto) Eos % (Auto) Baso % (Auto) Neut # (Auto) Lymph # (Auto) [place] # (Auto) Eos # (Auto) Baso # (Auto) Immature Gran % Nucleated RBC % Immature Gran # Nucleated RBCs # Platelet Estimate Hypochromasia Anisocytosis ABG pH ABG pCO2 ABG pO2 ABG HCO3 ABG Total CO2 ABG O2 Saturation ABG Base Excess FiO2 Sodium Potassium Chloride Carbon Dioxide Anion Gap BUN Creatinine GFR Calculation BUN/Creatinine Ratio Glucose POC Glucose 191 H 108 H Calculated Osmolality Calcium Phosphorus 2.5 Magnesium 2.3 Prealbumin 24.5 08/03/16 08/03/16 08/03/16 03:56 03:56 05:50 WBC 11.0 RBC 5.56 H Hgb 14.7 Hct 48.1 H MCV 87.8 MCH 27 MCHC 30.5 L RDW 18.3 H Plt Count 151 Neut % (Auto) 80.8 H Lymph % (Auto) 12.3 L [place] % (Auto) 5.9 Eos % (Auto) 0.2 Baso % (Auto) 0.4 Neut # (Auto) 8.9 H Lymph # (Auto) 1.4 Surry # (Auto) 0.7 Eos # (Auto) 0.0 Baso # (Auto) 0.0 Immature Gran % 0.4 Nucleated RBC % 0.0 Immature Gran # 0.04 Nucleated RBCs # 0.00 Platelet Estimate Adequate Hypochromasia Slight Anisocytosis 1+ ABG pH 7.465 H ABG pCO2 37.9 ABG pO2 109.7 H ABG HCO3 26.7 H ABG Total CO2 27.8 H ABG O2 Saturation 98.1 ABG Base Excess 3.0 H FiO2 50.00 Sodium 146 H Potassium 3.5 Chloride 109 H Carbon Dioxide 28 Anion Gap 12.5 BUN 40 H Creatinine 0.60 GFR Calculation 121 BUN/Creatinine Ratio 66.00 H Glucose 106 POC Glucose Calculated Osmolality 299.6 Calcium 8.0 L Phosphorus Magnesium 2.3 Prealbumin 08/03/16 08/03/16 05:59 11:10 WBC RBC Hgb Hct MCV MCH MCHC RDW Plt Count Neut % (Auto) Lymph % (Auto) [place] % (Auto) Eos % (Auto) Baso % (Auto) Neut # (Auto) Lymph # (Auto) [place] # (Auto) Eos # (Auto) Baso # (Auto) Immature Gran % Nucleated RBC % Immature Gran # Nucleated RBCs # Platelet Estimate Hypochromasia Anisocytosis ABG pH ABG pCO2 ABG pO2 ABG HCO3 ABG Total CO2 ABG O2 Saturation ABG Base Excess FiO2 Sodium Potassium Chloride Carbon Dioxide Anion Gap BUN Creatinine GFR Calculation BUN/Creatinine Ratio Glucose POC Glucose 117 H 159 H Calculated Osmolality Calcium Phosphorus Magnesium Prealbumin
[2016-08-03] MEDS ORDERED: CARVEDILOL 12.5 MG TABLET PO SCH (10:18)
[2016-08-03] MEDS: AMIODARONE 200 MG TABLET PO SCH ×2 (12:25→21:48)
--- NOTE | 2016-08-03 12:52 | Event Note ---
Procedure: Synchronized electrocardioversion. Indications: Patient with persistent atrial fibrillation with RVR. Patient on IV amiodarone and oral amiodarone. Results: Successful cardioversion from atrial fibrillation to normal sinus rhythm. Sedation/anesthesia: Patient already on propofol and this was increased slightly just prior to cardioversion.. She is on ventilator. Cardioversion shocks: One shock at 200 J synchronized. Complications: No immediate complications. Description of procedure: After informed consent the patient was connected to the monitor equipment for cardioversion. Patient already sedated on IV propofol on ventilator. Patient was appropriately sedated they underwent electrocardioversion with one electrocardioversion attempt synchronized at 200 Joules. Patient successfully cardioverted from atrial fibrillation to normal sinus rhythm. Patient had no immediate complication or dysrhythmias.
--- NOTE | 2016-08-03 13:00 | EKG Report ---
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
[2016-08-04] MEDS: ENOXAPARIN 120 MG/0.8 ML SYRINGE SUBCUT SCH ×2 (00:36→12:07)
[2016-08-04] MEDS: INSULIN REGULAR 100 UNIT/ML SUBCUT SCH ×4 (00:36→18:33)
[2016-08-04] MEDS: PROPOFOL 1,000 MG/100 ML BOTTLE IV SCH ×2 (00:50→17:08)
[2016-08-04] MEDS: ALBUTEROL/IPRATROPIUM 3 ML NEB RESP TX SCH ×6 (02:48→23:43)
[2016-08-04 06:04] LABS: Calcium 8.1 MG/DL (8.5-10.1); Magnesium 2.3 MG/DL (1.8-2.4); Osmolality,Calculated 297.7 MOS/KG (273-304); Potassium 3.7 MMOL/L (3.5-5.1)
[2016-08-04] MEDS: PANTOPRAZOLE 40 MG VIAL IV SCH (06:35)
[2016-08-04] MEDS: CEFEPIME 1,000 MG in SODIUM CHLORIDE 0.9% 100 ML IV SCH ×3 (06:36→21:58)
[2016-08-04 06:38] LABS: Basophils % 0.5 % (0.0-0.8); Eosinophils % 0.2 % (0.00-10.9); Hematocrit 48.4 VOL% (35.7-47.0); Lymphocytes % 11.4 % (21.3-54.2); Mean Corpuscular Hemoglobin 27 PG (27-34); Mean Corpuscular Volume 87.2 FL (87-102); Monocytes % 7.1 % (1.7-12.7); Neutrophils % 80.2 % (38.7-73.9); Platelet Count 131 T/CUMM (130-400); Red Blood Count 5.55 MC/CUMM (3.8-5.5); Red Cell Distribution Width 17.7 % (9.3-17.3); White Blood Count 9.6 T/CUMM (4-12)
[2016-08-04 06:39] LABS: Basophils # 0.1 10*3/uL (0.0-0.2); Immature Granulocytes % 0.6 %; Lymphocytes # 1.1 10*3/uL (1.4-4.0); Monocytes # 0.7 10*3/uL (0.11-0.8); Neutrophils # 7.7 10*3/uL (1.4-7.4)
[2016-08-04 06:52] LABS: Hypochromasia 1+; Platelet Estimate Normal
--- NOTE | 2016-08-04 08:14 | Cardiology Progress Note ---
<Maribel Downing - Last Filed: 08/04/16 08:07> Assessment and Plan (1) Atrial fibrillation Status: Acute Assessment and plan: Patient is status post cardioversion yesterday. Patient remains in a normal sinus rhythm with heart rates in the 70s. Continue amiodarone, digoxin and beta -elvira. Further recommendations to follow per Dr. Galan. Current Visit: Yes (2) Hypertension Status: Chronic Assessment and plan: This is clinically stable. Continue current plan of care. Current Visit: Yes (3) History of breast cancer Status: Chronic Current Visit: Yes (4) Bacteremia Status: Acute Assessment and plan: Patient has been afebrile. White blood cell count is now within normal limits. She is hemodynamically stable. Will continue with current IV antibiotics. Repeat blood cultures negative at 3 days. Current Visit: Yes (5) Bilateral pulmonary infiltrates on chest x-ray Status: Acute Assessment and plan: Management per pulmonary. Current Visit: Yes (6) CHF (congestive heart failure) Status: Acute Assessment and plan: It is questionable that patient may be in diastolic heart failure. Echocardiogram this admission reveals preserved ejection fraction of 55% with grade 1 diastolic dysfunction. Weight is unchanged overnight. We will continue NOLBERTO inhibitor, beta-elvira and Lasix at this time. We will continue with daily weights and strict I's and O's. Further plan and addendum to follow per Dr. Galan. Current Visit: Yes Qualifiers: Congestive heart failure type: diastolic Congestive heart failure chronicity: acute on chronic Qualified Code(s): I50.33 - Acute on chronic diastolic (congestive) heart failure (7) COPD (chronic obstructive pulmonary disease) Status: Acute Assessment and plan: Management per pulmonary. Current Visit: Yes Cardiology - PN: Subj Interval history: Admeasurer: None Ms. Fontana is a 75 year old female patient without known history of coronary artery disease, not routinely followed by local cardiology. Patient is ventilated and sedated in the CCU. No family available. Patient has cardiac risk factors significant for hypertension, hyperlipidemia, diabetes and obesity. Unaware if patient is an active smoker has smoked in the past. Also unaware of patient's family history and past surgical history. According to medical records, her past medical history includes: Congestive heart failure, breast cancer and dementia. Patient has never been seen by [facility] cardiology. Unaware if patient has never undergone left heart catheterization or stress testing. Patient was transferred from [facility] with chief complaint of shortness of breath 07/20/16. Apparently, the chest x-ray at [facility] was suggestive of pulmonary edema. IV diuretics were initiated at that time. Chest CT was negative for pulmonary embolus. And venous Doppler bilateral lower extremities was negative for DVT. Head CT revealed chronic lacunar infarcts. She was admitted to the telemetry floor. Overnight, she became more dyspneic and required transfer to the CCU and intubation. Pulmonary was then consulted. Chest x-ray at [facility] was suggestive of mild CHF. BNP was noted to be 402. Repeat chest x-ray suggestive for possible pneumonia. Blood cultures were positive for Staphylococcus Epidermidis. Patient was started on appropriate antibiotics at that time. She was extubated on July 30. However, several hours later she required reintubation due to respiratory distress. It appears that at some point Sunday evening patient went into atrial fibrillation/flutter. She has remained in atrial fibrillation/flutter since that time. Her heart rates have been reasonably controlled, ranging from 90-105. Patient was placed on therapeutic dose of Lovenox Jacqueline. Cardiology has been consulted to further assist. Echocardiogram July 21, 2016 revealed normal left ventricular cavity size with mild left ventricular hypertrophy. Ejection fraction was estimated at 55% with grade 1 diastolic dysfunction. Right ventricle is mildly dilated with normal systolic function. Mild pulmonary hypertension noted. Mild biatrial enlargement. Mild aortic valve sclerosis without stenosis or regurgitation and trace pericardial effusion. Repeat echocardiogram was done August 01, 2016. This revealed ejection fraction of 50-55% with normal left ventricular size. Dilated right ventricle and right atrium. Left atrium was mildly dilated. Patient was seen and examined in the CCU. She remains sedated and ventilated. She was successfully cardioverted yesterday per Dr. Galan. This morning, she remains in a normal sinus rhythm with heart rates in the 70s. Electrolytes are stable with potassium of 3.7 and magnesium 2.3. We will continue patient on amiodarone, beta-elvira and digoxin. Will continue to monitor patient in the CCU. Further plan and addendum to follow per Dr. Galan. Exam (Progress Note) - Constitutional Vitals: Period Temp Pulse Resp BP Sys/Nroman Pulse Ox Last 24 Hr 97.8 F-100.9 F 70-110 10-30 105-138/53-74 92-99 Exam: General: Present: Other (Patient is currently sedated on the ventilator.) Neck: Present: Supple Neck, Midline Trachea Cardiac: Present: Irregularly Regular, Tachycardia. Absent: Gallop Lungs: Present: Decreased Breath Sounds, Other (Coarse breath sounds. Patient on ventilator.) Neuro: Present: Other (Unable to assess. Patient sedated on ventilator.) Abdomen: Present: Soft, Decreased Bowel Sounds, Other (Nasogastric tube noted.) . Absent: Firm, Distended Extremities: Present: Normal Gait, No Clubbing, No Cyanosis, No Edema, Normal Upper Extr. Pulses, Normal Lower Extr. Pulses Result/EKG - Labs CBC & BMP: 08/04/16 05:15 08/04/16 05:15 Lab Results: I have reviewed the past 24 hour labs Labs: Laboratory Results - last 24 hr 08/03/16 08/03/16 08/04/16 11:10 17:01 00:26 WBC RBC Hgb Hct MCV MCH MCHC RDW Plt Count Neut % (Auto) Lymph % (Auto) [place] % (Auto) Eos % (Auto) Baso % (Auto) Neut # (Auto) Lymph # (Auto) [place] # (Auto) Eos # (Auto) Baso # (Auto) Immature Gran % Nucleated RBC % Immature Gran # Nucleated RBCs # Platelet Estimate Hypochromasia Morphology Comment Sodium Potassium Chloride Carbon Dioxide Anion Gap BUN Creatinine GFR Calculation BUN/Creatinine Ratio Glucose POC Glucose 159 H 140 H 132 H Calculated Osmolality Calcium Magnesium 08/04/16 08/04/16 08/04/16 05:15 05:15 06:14 WBC 9.6 RBC 5.55 H Hgb 15.0 Hct 48.4 H MCV 87.2 MCH 27 MCHC 31.0 L RDW 17.7 H Plt Count 131 Neut % (Auto) 80.2 H Lymph % (Auto) 11.4 L [place] % (Auto) 7.1 Eos % (Auto) 0.2 Baso % (Auto) 0.5 Neut # (Auto) 7.7 H Lymph # (Auto) 1.1 L [place] # (Auto) 0.7 Eos # (Auto) 0.0 Baso # (Auto) 0.1 Immature Gran % 0.6 Nucleated RBC % 0.0 Immature Gran # 0.60 Nucleated RBCs # 0.00 Platelet Estimate Normal Hypochromasia 1+ Morphology Comment Sodium 145 Potassium 3.7 Chloride 109 H Carbon Dioxide 30 Anion Gap 9.7 BUN 39 H Creatinine 0.60 GFR Calculation 121 BUN/Creatinine Ratio 65.00 H Glucose 116 H POC Glucose 114 H Calculated Osmolality 297.7 Calcium 8.1 L Magnesium 2.3 Quality Measures - VTE Deep Vein Thrombosis/Pulmonary Embolism Present on Admission: No <Truong Galan - Last Filed: 08/04/16 11:00> Cardiology - PN: Subj Interval history: Patient is to be on the ventilator. She was personally examined by me and chart reviewed. I discussed case with Maribel Downing FISHING ROD MECHANIC. Agree with assessment. The patient continues now to be in sinus rhythm and hemodynamically overall fairly stable. Continue present therapy. Exam (Progress Note) - Constitutional Vitals: Period Temp Pulse Resp BP Sys/Norman Pulse Ox Last 24 Hr 97.8 F-100.9 F 68-110 10-29 101-140/48-70 92-99 Exam: The patient is a regular rhythm at the time of my examination with systolic murmur. Breasts examination is as noted. Result/EKG - Labs CBC & BMP: 08/04/16 05:15 08/04/16 05:15 Labs: Laboratory Results - last 24 hr 08/03/16 08/03/16 08/04/16 11:10 17:01 00:26 WBC RBC Hgb Hct MCV MCH MCHC RDW Plt Count Neut % (Auto) Lymph % (Auto) [place] % (Auto) Eos % (Auto) Baso % (Auto) Neut # (Auto) Lymph # (Auto) [place] # (Auto) Eos # (Auto) Baso # (Auto) Immature Gran % Nucleated RBC % Immature Gran # Nucleated RBCs # Platelet Estimate Hypochromasia Morphology Comment Sodium Potassium Chloride Carbon Dioxide Anion Gap BUN Creatinine GFR Calculation BUN/Creatinine Ratio Glucose POC Glucose 159 H 140 H 132 H Calculated Osmolality Calcium Magnesium 08/04/16 08/04/16 08/04/16 05:15 05:15 06:14 WBC 9.6 RBC 5.55 H Hgb 15.0 Hct 48.4 H MCV 87.2 MCH 27 MCHC 31.0 L RDW 17.7 H Plt Count 131 Neut % (Auto) 80.2 H Lymph % (Auto) 11.4 L [place] % (Auto) 7.1 Eos % (Auto) 0.2 Baso % (Auto) 0.5 Neut # (Auto) 7.7 H Lymph # (Auto) 1.1 L [place] # (Auto) 0.7 Eos # (Auto) 0.0 Baso # (Auto) 0.1 Immature Gran % 0.6 Nucleated RBC % 0.0 Immature Gran # 0.60 Nucleated RBCs # 0.00 Platelet Estimate Normal Hypochromasia 1+ Morphology Comment Sodium 145 Potassium 3.7 Chloride 109 H Carbon Dioxide 30 Anion Gap 9.7 BUN 39 H Creatinine 0.60 GFR Calculation 121 BUN/Creatinine Ratio 65.00 H Glucose 116 H POC Glucose 114 H Calculated Osmolality 297.7 Calcium 8.1 L Magnesium 2.3
--- NOTE | 2016-08-04 08:50 | Pulmonology Progress Note ---
Pulmonary - PN: Subj Interval history: Patient is a 75-year-old lady that presented with shortness of breath and had to be intubated. She was felt to possibly have mild heart failure. She did have significant CO2 retention. Her PO2 is still on the low side. Her family says her O2 runs low at home and she uses home oxygen. She apparently has significant COPD. She is a former smoker. Over the weekend she was tried off the ventilator but did not do very well. She had to be reintubated. She is reasonably stable at present on the ventilator now. Her oxygenation is a little better and she does appear to be stable. She was started on amiodarone for atrial fibrillation. Yesterday she was cardioverted to sinus rhythm. She has done CPAP fairly well. Her chest x-ray still has bibasilar changes and significant COPD. Her oxygenation is fair. We will probably decide about a tracheostomy tube or extubation next week Exam (Progress Note) - Constitutional Vitals: Period Temp Pulse Resp BP Sys/Norman Pulse Ox Last 24 Hr 97.8 F-100.9 F 70-110 10-30 105-140/53-74 92-99 Exam: General appearance: normal weight, no acute distress (She is sedated on the ventilator and looks comfortable at present. She does arouse okay.) - Head Head exam: Present: normal inspection, normocephalic - Eye Eye exam: Present: EOMI. Absent: scleral icterus Pupils: Present: AR - ENT ENT exam: Present: normal exam, other (ET tube is in good position) - Neck Neck exam: Present: normal inspection. Absent: lymphadenopathy, thyromegaly - Respiratory Respiratory exam: Present: She has good breath sounds bilaterally but she does have prolonged expiration with mild rhonchi. - Cardiovascular Cardiovascular exam: Present: She has a regular sinus rhythm now. - GI/Abdominal GI/Abdominal exam: Present: normal bowel sounds, soft. Absent: organomegaly, tenderness - Extremities Exam Extremities exam: Absent: calf tenderness, edema - Neurological Exam Neurological exam: Present: altered (She is sedated on the ventilator at present ) - Skin Skin exam: Present: warm, dry Results - Labs CBC & BMP: 08/04/16 05:15 08/04/16 05:15 - Diagnostic Findings Procedure: Chest x-ray: image reviewed by me, report reviewed by me (Chest x- ray shows COPD changes and bibasilar infiltrates worse on the left) Assessment and Plan (1) Hypertension Status: Chronic Assessment and plan: Patient apparently has a history of hypertension but her echo looks okay without significant cardiac dysfunction. She does have some diastolic dysfunction. Her blood pressure has been stable. Current Visit: Yes (2) Dementia Status: Acute Assessment and plan: Apparently the patient is developing dementia. She does get agitated at times. She is comfortable at present Current Visit: Yes (3) Acute hypercapnic respiratory failure Status: Resolved Assessment and plan: Patient had worsening respiratory distress and she has significant CO2 retention. X-ray looks like chronic lung disease and she has bibasilar infiltrates. Her oxygenation is a little better and her chest x-ray is improving. She is doing CPAP fairly well. She still has problems with oxygenation. We will continue weaning trials over the weekend Current Visit: Yes (4) CHF (congestive heart failure) Status: Acute Assessment and plan: Her chest x-ray looks like a mild CHF. She has really not diuresed that well. Current Visit: Yes Qualifiers: Congestive heart failure type: diastolic Congestive heart failure chronicity: acute on chronic Qualified Code(s): I50.33 - Acute on chronic diastolic (congestive) heart failure (5) Bilateral pulmonary infiltrates on chest x-ray Status: Acute Assessment and plan: Patient may have some pneumonia and she did have positive blood cultures. She still has nothing growing on washings. She is getting antibiotics okay. Her repeat blood cultures have been negative. Her chest x-ray has improved but still not clear. She will continue present therapy. Current Visit: Yes (6) Atrial fibrillation Status: Acute Assessment and plan: She has been placed on amiodarone therapy and seems to be stable. She was cardioverted yesterday and is back in a sinus rhythm. Current Visit: Yes
--- NOTE | 2016-08-04 09:00 | Hospitalist Progress Note ---
Assessment and Plan (1) Bacteremia Status: Acute Assessment and plan: Apoa-frqg-irnjzzlm bacteremia from admission blood culture turned out to staph epidermidis. Blood cultures have been negative. Because the patient remains tenuous mostly from the respiratory issues on intubation I will continue cefepime for the meantime. Should reassess need of these antibiotics while the patient is extubated. Current Visit: Yes (2) Acute hypercapnic respiratory failure Status: Resolved Assessment and plan: Follow ABGs. I am concerned that this patient who has COPD and on my previous experience with a heart very difficult to extubate should not be on NOLBERTO inhibitors and nonselective beta-blockers. I discussed with cardiology service going to change lisinopril to an ARB and carvedilol to metoprolol. Give valsartan 80 mg p.o. daily and metoprolol 50 mg p.o. twice daily. Current Visit: Yes (3) Pulmonary edema Status: Acute Assessment and plan: We will judiciously use diuresis so the patient is in the unit and observe respiratory status. Vital signs closely. Current Visit: Yes (4) Hypokalemia Status: Acute Assessment and plan: Resolved on today's chemistry. Magnesium was also normal at 2.3 Current Visit: Yes (5) Hyperglycemia Status: Acute Assessment and plan: The raising of Lantus 24 units at bedtime, morning blood sugars are below 120 mg percent. Continue the current management Current Visit: Yes Hospitalist: Subjective Interval history: And has been seen interviewed and examined and chart has been reviewed. Admitted to the hospital with acute hypercapnic respiratory failure. She is known to have COPD on admission this time found to have a coag negative staph bacteremia. There is been no other isolates from the blood. He did have a bronchoscopy at 1. bronchoalveolar lavage did isolated Juliane albicans however this patient did not have any fungal elements on Gram stain. That was a true infection. She does use aerosolized steroids at home. 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 Exam - Constitutional Vitals: Period Temp Pulse Resp BP Sys/Norman Pulse Ox Last 24 Hr 97.8 F-100.9 F 70-110 10-30 105-140/53-74 92-99 General appearance: over weight - Head Head exam: Present: normocephalic, atraumatic - Eye Eye exam: Present: EOMI Pupils: Present: AR - ENT ENT exam: Present: other - Respiratory Respiratory exam: Present: clear to auscultation bilaterally, other (No wheezing no rales) - Cardiovascular Cardiovascular exam: Present: other (Regular rhythm with ectopy and has a history of atrial fibrillation in the past that is post electro cardioversion during this admission) - GI/Abdominal GI/Abdominal exam: Present: normal bowel sounds, soft - Extremities Exam Extremities exam: Present: other (Patient is sedated. I notice a foot drop on the left foot. I discussed that with the nurse and she is in the process of trying to get a foot support) - Neurological Exam Neurological exam: Present: other (Patient is sedated and orally intubated) - Psychiatric Psychiatric exam: Present: other (Shunt is sedated and orally intubated) - Skin Skin exam: Present: normal color, warm, dry Results - Labs CBC & BMP: 08/04/16 05:15 08/04/16 05:15 Lab Results: I have reviewed the past 24 hour labs Quality Measures - VTE Deep Vein Thrombosis/Pulmonary Embolism Present on Admission: No
[2016-08-04] MEDS: LORazepam 2 MG/1 ML VIAL IV PRN (09:29)
[2016-08-04] MEDS: FUROSEMIDE 40 MG/4 ML VIAL IV SCH (09:30)
[2016-08-04] MEDS: NYSTATIN 500,000 UNIT/5 ML UDCUP SWISH/SWAL SCH ×4 (09:31→21:58)
[2016-08-04] MEDS: VALSARTAN 80 MG TABLET PO SCH (09:31)
[2016-08-04] MEDS: DIGOXIN 0.25 MG TABLET PO SCH (09:31)
[2016-08-04] MEDS: predniSONE 20 MG TABLET PO SCH (09:31)
[2016-08-04] MEDS: ASPIRIN 325 MG TABLET PO SCH (09:31)
[2016-08-04] MEDS: INSULIN GLARGINE 100 UNIT/ML SUBCUT SCH ×2 (09:31→21:58)
[2016-08-04] MEDS: METOPROLOL TARTRATE 50 MG TABLET PO SCH ×2 (09:31→21:58)
[2016-08-04] MEDS: AMIODARONE 200 MG TABLET PO SCH ×2 (09:32→21:58)
[2016-08-04] MEDS: DESITIN 4OZ/NYSTATIN 15 GRAM MIXTURE PASTE TOP SCH ×2 (09:32→23:33)
[2016-08-04] MEDS: ACETAMINOPHEN 325 MG TABLET PO PRN ×2 (09:40→20:35)
[2016-08-04] MEDS: POTASSIUM CHLORIDE RIDER 10 MEQ in PREMIX 1 EACH IV PRN ×2 (09:45→12:08)
--- NOTE | 2016-08-04 09:52 | Case Mgmt Physician Query Form ---
LONG STAY PHYSICIAN RECERTIFICATION *This form is to be completed for all Medicare patients before they reach day 20 of their hospitalization. Please complete each section as appropriate.* I certify that hospitalization, and continued hospitalization, for this patient is medically necessary as follows: 1) Reasons of either continued hospitalization of the patient for medical treatment or medically required diagnostic study or special or unusual services for cost outlier cases are as follows: Acute respiratory failure with hypercapnia; patient is on the ventilator 2) Estimated time patient will need to remain in hospital: I expect the patient to be in the hospital for at least 6 more days if she can be extubated 3) Plan for Post Hospital Care: ( ) Home with Primary Care Follow up ( x) Home with Home Health Follow up ( ) LTACH/ Acute Care Rehab/ SNF/Jail ( ) Other: If you have any questions, please contact me. Thank you, Rebeca Mckenzie RN Case Management P: [phone] F [phone] E: [email or web address]
[2016-08-04] MEDS: MULTIVITAMIN LIQUID (CENTRUM) 60 ML BOTTLE NG SCH (12:07)
[2016-08-05] MEDS: ENOXAPARIN 120 MG/0.8 ML SYRINGE SUBCUT SCH ×3 (00:31→23:32)
[2016-08-05] MEDS: INSULIN REGULAR 100 UNIT/ML SUBCUT SCH ×4 (00:31→18:25)
[2016-08-05] MEDS: ALBUTEROL/IPRATROPIUM 3 ML NEB RESP TX SCH ×6 (03:23→23:59)
[2016-08-05 04:28] LABS: Pt O2 Delivery Device Ventilator
[2016-08-05 04:31] LABS: ABG Base Excess 2.4 MMOL/L (-2.5-2.5); ABG HCO3 25.9 MMOL/L (20-26); ABG Oxygen Saturation 94.8 % (95-100); ABG PCO2 36.6 MM HG (35-48); ABG PH 7.467 (7.35-7.45); ABG PO2 73.6 MM HG (80-95)
[2016-08-05 04:49] LABS: Basophils % 0.2 % (0.0-0.8); Eosinophils % 0.1 % (0.00-10.9); Hematocrit 46.1 VOL% (35.7-47.0); Hemoglobin 14.3 GM/DL (12.0-16.0); Immature Granulocytes % 0.6 %; Lymphocytes # 1.2 10*3/uL (1.4-4.0); Lymphocytes % 7.9 % (21.3-54.2); Mean Corpuscular Hemoglobin 26 PG (27-34); Mean Corpuscular Volume 84.9 FL (87-102); Monocytes % 6.1 % (1.7-12.7); Neutrophils # 13.1 10*3/uL (1.4-7.4); Neutrophils % 85.1 % (38.7-73.9); Platelet Count 121 T/CUMM (130-400); Red Blood Count 5.43 MC/CUMM (3.8-5.5); Red Cell Distribution Width 17.9 % (9.3-17.3); White Blood Count 15.5 T/CUMM (4-12)
[2016-08-05 05:21] LABS: Magnesium 2.5 MG/DL (1.8-2.4); Osmolality,Calculated 303.8 MOS/KG (273-304); Potassium 3.4 MMOL/L (3.5-5.1)
[2016-08-05] MEDS: CEFEPIME 1,000 MG in SODIUM CHLORIDE 0.9% 100 ML IV SCH (06:53)
[2016-08-05] MEDS: PANTOPRAZOLE 40 MG VIAL IV SCH (06:53)
[2016-08-05] MEDS: PROPOFOL 1,000 MG/100 ML BOTTLE IV SCH ×3 (06:54→23:32)
--- NOTE | 2016-08-05 08:03 | Hospitalist Progress Note ---
Assessment and Plan (1) Bacteremia Status: Acute Assessment and plan: Rzia-orqh-olaozkhg bacteremia from admission blood culture turned out to staph epidermidis. Blood cultures have been negative. Because the patient remains tenuous mostly from the respiratory issues on intubation I will continue cefepime for the meantime. Should reassess need of these antibiotics while the patient is extubated. There is a new rise in white count in the last 2 days. Please now 15,500. A chest x-ray shows left-sided opacity suggesting a pleural effusion. Recommendation at this point is to repeat blood cultures from the Port-A-Cath. See if this is a fluid on the left side of the lung and the best the case the patient should have a thoracentesis. Also check UA and reflex urine culture. Antibiotics are going to be changed today as continue the cefepime. Start the patient on meropenem 1 g IV every 8 hours also give linezolid 600 mg IV every 12 hours. Would benefit from quinolone added to meropenem probably but because of untoward interaction between levofloxacin and they do provide as well as amiodarone I would prefer to withholding this empiric decision. Current Visit: Yes (2) Acute hypercapnic respiratory failure Status: Resolved Assessment and plan: Follow ABGs. I am concerned that this patient who has COPD and on my previous experience with a heart very difficult to extubate should not be on NOLBERTO inhibitors and nonselective beta-blockers. I discussed with cardiology service going to change lisinopril to an ARB and carvedilol to metoprolol. Give valsartan 80 mg p.o. daily and metoprolol 50 mg p.o. twice daily. Patient has been intubated for some time may be tending to was a tracheostomy if she fails extubation. Current Visit: Yes (3) Pulmonary edema Status: Acute Assessment and plan: We will judiciously use diuresis so the patient is in the unit and observe respiratory status. Vital signs closely. I discussed with the primary care nurse regarding the chest x-ray today. Radiology report seems to see nothing that is significant on the chest x-ray. I am concerned that it may be a pleural effusion on the left side Current Visit: Yes (4) Hypokalemia Status: Acute Assessment and plan: This is a recurrent situation. We will supplement potassium accordingly. Magnesium today was 2.4 Current Visit: Yes (5) Hyperglycemia Status: Acute Assessment and plan: The raising of Lantus 24 units at bedtime, morning blood sugars are below 120 mg percent. Continue the current management Current Visit: Yes Hospitalist: Subjective Interval history: Patient has been seen and examined. Very poor means of communication she remains intubated. Extubation has been a problem. There is thought of getting her to a long-term acute care however vitals that the patient will be ENT she gets a tracheostomy if she fails to be extubated. Initial concern at this point that her white count jumped up again suggesting possibility of another acute infectious process going on. Chest x-ray was done today shows a left- sided pleural effusion that looks to be quite sizable at least by the x-ray done. Should attempt to obtain fluid from it for microbiologic evaluation just in case there is a parapneumonic effusion. Patient has been on cefepime. I will recycle decided on antibiotics at this point and replaced the cefepime with meropenem 1 g IV every 8 hours, linezolid 600 mg IV every 12 hours. Will be with a white blood levofloxacin however for drug interaction reasons I would not do it unless it is absolutely necessary as driven by microbiologic datas. Exam - Constitutional Vitals: Period Temp Pulse Resp BP Sys/Norman Pulse Ox Last 24 Hr 99.3 F-102.3 F 62-83 10-32 93-125/36-70 93-99 General appearance: over weight - Head Head exam: Present: normocephalic, atraumatic - Eye Eye exam: Present: other (Patient is sedated eyes are closed) Pupils: Present: AR - ENT ENT exam: Present: other (Her intubated) - Neck Neck exam: Present: other (No JVD no stridor no adenopathy midline trachea) - Respiratory Respiratory exam: Present: other (The heart auscultation on the left and the lung sounds on the right anteriorly) - Cardiovascular Cardiovascular exam: Present: regular rate and rhythm, other (Murmur at the base of the heart) - GI/Abdominal GI/Abdominal exam: Present: normal bowel sounds, soft - Extremities Exam Extremities exam: Present: other (Sedated noted yesterday foot drop but patient has a support 100 sent to the foot at this time) - Neurological Exam Neurological exam: Present: other (And is sedated) - Psychiatric Psychiatric exam: Present: other (Patient is sedated) - Skin Skin exam: Present: normal color, warm, dry Results - Labs CBC & BMP: 08/05/16 04:33 08/05/16 04:33 Lab Results: I have reviewed the past 24 hour labs (Is a rising white count to 15,500. Patient also has a modest hypokalemia 3.4 mmol/L blood sugar was 165 mg percentKidney function is optimal with a creatinine of 0.8) - Diagnostic Findings Procedure: Chest x-ray: report reviewed by me (Chest x-ray reports that there is no new findings however noticed that there is cloudiness on the left basilar lung field suggesting possibility of pleural effusion. Unless this is old I would be constrained since the white count is gone up now.) Quality Measures - VTE Deep Vein Thrombosis/Pulmonary Embolism Present on Admission: No
--- NOTE | 2016-08-05 10:07 | Cardiology Progress Note ---
Assessment and Plan (1) Atrial fibrillation Status: Acute Assessment and plan: Patient remains in sinus rhythm post cardioversion. We'll continue to monitor. Continue present medications. We'll decrease amiodarone dosing. Current Visit: Yes Cardiology - PN: Subj Interval history: For cardiac standpoint the patient is doing well. Rhythm is remained sinus. Hemodynamically she remained stable. Cardiac status remained stable. Exam (Progress Note) - Constitutional Vitals: Period Temp Pulse Resp BP Sys/Norman Pulse Ox Last 24 Hr 98.7 F-102.3 F 62-83 10-32 93-147/36-70 92-100 Exam: Gen. appearance: Patient intubated and sedated stable. Ejection: Oral intubated. Neck: Trachea midline. Lungs: Quiet anteriorly. Cardiovascular: Regular rate and rhythm. Faint systolic murmur. Abdomen: Obese soft. Extremities: Warm. Neurologic: Sedated. Skin: Warm. Result/EKG - Labs CBC & BMP: 08/05/16 04:33 08/05/16 04:33 Lab Results: I have reviewed the past 24 hour labs Labs: Laboratory Results - last 24 hr 08/04/16 08/04/16 08/04/16 11:35 17:52 23:54 WBC RBC Hgb Hct MCV MCH MCHC RDW Plt Count Neut % (Auto) Lymph % (Auto) Ida % (Auto) Eos % (Auto) Baso % (Auto) Neut # (Auto) Lymph # (Auto) Ida # (Auto) Eos # (Auto) Baso # (Auto) Immature Gran % Nucleated RBC % Immature Gran # Nucleated RBCs # ABG pH ABG pCO2 ABG pO2 ABG HCO3 ABG Total CO2 ABG O2 Saturation ABG Base Excess FiO2 Sodium Potassium Chloride Carbon Dioxide Anion Gap BUN Creatinine GFR Calculation BUN/Creatinine Ratio Glucose POC Glucose 139 H 204 H 181 H Calculated Osmolality Calcium Magnesium 08/05/16 08/05/16 08/05/16 04:18 04:33 04:33 WBC 15.5 H D RBC 5.43 Hgb 14.3 Hct 46.1 MCV 84.9 L MCH 26 L MCHC 31.0 L RDW 17.9 H Plt Count 121 L Neut % (Auto) 85.1 H Lymph % (Auto) 7.9 L Ida % (Auto) 6.1 Eos % (Auto) 0.1 Baso % (Auto) 0.2 Neut # (Auto) 13.1 H Lymph # (Auto) 1.2 L Ida # (Auto) 1.0 H Eos # (Auto) 0.0 Baso # (Auto) 0.0 Immature Gran % 0.6 Nucleated RBC % 0.0 Immature Gran # 0.10 Nucleated RBCs # 0.00 ABG pH 7.467 H ABG pCO2 36.6 ABG pO2 73.6 L ABG HCO3 25.9 ABG Total CO2 27.0 ABG O2 Saturation 94.8 L ABG Base Excess 2.4 FiO2 50.00 Sodium 144 Potassium 3.4 L Chloride 108 H Carbon Dioxide 28 Anion Gap 11.4 BUN 52 H D Creatinine 0.70 GFR Calculation 116 BUN/Creatinine Ratio 74.00 H Glucose 165 H POC Glucose Calculated Osmolality 303.8 Calcium 8.0 L Magnesium 2.5 H 08/05/16 06:36 WBC RBC Hgb Hct MCV MCH MCHC RDW Plt Count Neut % (Auto) Lymph % (Auto) Ida % (Auto) Eos % (Auto) Baso % (Auto) Neut # (Auto) Lymph # (Auto) Ida # (Auto) Eos # (Auto) Baso # (Auto) Immature Gran % Nucleated RBC % Immature Gran # Nucleated RBCs # ABG pH ABG pCO2 ABG pO2 ABG HCO3 ABG Total CO2 ABG O2 Saturation ABG Base Excess FiO2 Sodium Potassium Chloride Carbon Dioxide Anion Gap BUN Creatinine GFR Calculation BUN/Creatinine Ratio Glucose POC Glucose 145 H Calculated Osmolality Calcium Magnesium - Impressions Impressions: Telemetry reveals sinus rhythm. Quality Measures - VTE Deep Vein Thrombosis/Pulmonary Embolism Present on Admission: No
--- NOTE | 2016-08-05 10:12 | XRay Report ---
History: Patient on ventilator Date: 08/05/2016 Study: Chest x-ray AP portable Comparison exam: August 03, 2016 The endotracheal tube, nasogastric tube, and right subclavian Mediport-type catheter remain in stable position. There is continued cardiomegaly. The pulmonary vasculature is slightly prominent. There is continued dense parenchymal and pleural disease in the lower left hemithorax. Patchy and hazy right basilar infiltrate/edema is grossly similar. There is mild patient rotation to the left. There is no pneumothorax. Osseous structures are similar. Impression: Continued left greater than right bibasilar edema/infiltrate without gross overall change. PROCEDURE INTERPRETED AT [facility] DEPARTMENT OF RADIOLOGY Final Report Signed by: Dr. Nery Diaz
[2016-08-05] MEDS: VALSARTAN 80 MG TABLET PO SCH (10:17)
[2016-08-05] MEDS: ASPIRIN 325 MG TABLET PO SCH (10:17)
[2016-08-05] MEDS: METOPROLOL TARTRATE 50 MG TABLET PO SCH ×2 (10:18→21:37)
[2016-08-05] MEDS: predniSONE 20 MG TABLET PO SCH (10:18)
[2016-08-05] MEDS: AMIODARONE 200 MG TABLET PO SCH ×2 (10:19→21:36)
[2016-08-05] MEDS: NYSTATIN 500,000 UNIT/5 ML UDCUP SWISH/SWAL SCH ×4 (10:19→21:36)
[2016-08-05] MEDS: FUROSEMIDE 40 MG/4 ML VIAL IV SCH (10:20)
[2016-08-05] MEDS: LORazepam 2 MG/1 ML VIAL IV PRN (10:20)
[2016-08-05] MEDS: DIGOXIN 0.25 MG TABLET PO SCH (10:22)
[2016-08-05] MEDS: INSULIN GLARGINE 100 UNIT/ML SUBCUT SCH ×2 (10:22→21:37)
[2016-08-05] MEDS: POTASSIUM CHLORIDE RIDER 10 MEQ in PREMIX 1 EACH IV PRN (10:23)
[2016-08-05] MEDS: MEROPENEM 1,000 MG in SODIUM CHLORIDE 0.9% 100 ML IV SCH ×3 (10:23→23:33)
[2016-08-05] MEDS: DESITIN 4OZ/NYSTATIN 15 GRAM MIXTURE PASTE TOP SCH ×2 (10:42→21:42)
[2016-08-05] MEDS: MULTIVITAMIN LIQUID (CENTRUM) 60 ML BOTTLE NG SCH (10:42)
[2016-08-05] MEDS: LINEZOLID INJ 600 MG in PREMIX 1 EACH IV SCH ×2 (11:11→20:15)
--- NOTE | 2016-08-05 13:35 | Pulmonology Progress Note ---
Pulmonary - PN: Subj Interval history: 75y/o F admitted for respiratory failure requiring mechanical ventilation. Overnight pt continued to have intermittent fevers and a CXR this AM showed increased Left lower lobe consolidation vs. effusion. Bedside thoracic ultrasound performed today by myself showed no evidence of pleural effusion but evidence of atelectasis. Additionally, her antibiotics have been changed for broader coverage given her intermittent fevers. Lastly, her mental status has changed (increased somnolence), so a CT head is planned for later this afternoon. Exam (Progress Note) - Constitutional Vitals: Period Temp Pulse Resp BP Sys/Norman Pulse Ox Last 24 Hr 98.7 F-101.1 F 62-83 10-32 94-147/38-70 92-100 General appearance: over weight - Head Head exam: Present: normal inspection - Eye Pupils: Present: AR - ENT ENT exam: Present: normal exam - Neck Neck exam: Present: normal inspection - Respiratory Respiratory exam: Present: clear to auscultation bilaterally, decreased breath sounds (left base), rhonchi (scattered, mild) - Cardiovascular Cardiovascular exam: Present: regular rate and rhythm - GI/Abdominal GI/Abdominal exam: Present: normal bowel sounds, soft - Extremities Exam Extremities exam: Present: normal inspection, edema - Neurological Exam Neurological exam: Present: other (sedated on ventilator) - Skin Skin exam: Present: warm, dry Results - Labs CBC & BMP: 08/05/16 04:33 08/05/16 04:33 - Diagnostic Findings Procedure: Chest x-ray: image reviewed by me (increased left basilar opacification - effusion vs. atelectasis/infiltrate), Ultrasound: other ( bedside thoracic ultrasound: left posterior thorax without any evidence of effusion, +atelectasis/consolidation noted) Assessment and Plan (1) Bilateral pulmonary infiltrates on chest x-ray Status: Acute Assessment and plan: CXR this AM showed increasing left lower lobe opacification. Bedside U/S showed no evidence of effusion, indicating the abnormality is likely atelectasis vs. developing pneumonia. Recommend the addition of chest physiotherapy with nebs ( focus on left lower lobe) and repeat CXR in the AM. If opacification persists, then will plan for bronchscopy for airway clearance & to obtain cultures given her rising WBC & intermittent fevers. Current Visit: Yes (2) Acute hypercapnic respiratory failure Status: Resolved Assessment and plan: Continue CPAP trials, pt continues to do well. As above, will add CPT to nebs for airway clearance and consdier bronchoscopy tomorrow based on results. Extubation vs. trach early next week (family wants everything done, including trach if required). Current Visit: Yes (3) Leukocytosis Status: Acute Assessment and plan: Unclear source with infectious etiologies of highest concern. Agree with changing antibiotics. If left lung opacification persists tomorrow will bronch. Otherwise, ensure repeat cultures are sent from blood/urine/sputum/stool (c. diff). Current Visit: Yes Qualifiers: Leukocytosis type: unspecified Qualified Code(s): D72.829 - Elevated white blood cell count, unspecified (4) Altered mental status Status: Acute Assessment and plan: Agree with plan for CT Head and try to minimize sedation. Pt is likely developing ICU delirium, but must r/o organic etiology. Current Visit: Yes Qualifiers: Altered mental status type: somnolence Qualified Code(s): R40.0 - Somnolence
[2016-08-05 13:45] LABS: Apearance,Urine Slightly Hazy (Clear); Bacteria,Urine Occasional /HPF (Few); Bilirubin,Urine Negative (Negative); Blood, Urine Small mg/dL (Negative); Glucose,Urine (UA) Negative (Negative); Hyaline Casts,Urine 4 /LPF (0-3); Ketones,Urine Negative (Negative); Mucus,Urine Occasional /LPF (Occasional); Nitrite,Urine Negative (Negative); Protein,Urine Negative; RBC,Urine 15 /HPF (0-4); Squamous Epithelial Cell,Urine Occasional /HPF (0-10); Urine Color Yellow (Yellow); Urine Specific Gravity 1.014 (1.001-1.035); Urine Urobilinogen < 2.0 EU/DL (0.2-1.0); WBC,Urine <1 /HPF (0-6)
--- NOTE | 2016-08-05 16:16 | CT Report ---
History: Increased somnolence. Change in neurologic status Date: 08/05/2016 Study: CT head without contrast Comparison exam: July 21, [address] sections were obtained through the head without IV contrast. Total DLP measures 1103.6 mGy*cm. This CT exam was performed using one or more the following dose reduction techniques: Automated exposure control, adjustment of the MA and/or KV according to patient size, or use of iterative reconstruction technique. The ventricles are midline in position without evidence of hydrocephalus. There is no mass or parenchymal hemorrhage. There is no gross CT evidence of acute cortical stroke. There is a small amount of ill-defined low density in the periventricular white matter without mass effect compatible with changes of small vessel disease. There is no extra-axial hematoma. There is moderate distal carotid artery calcification. There is a moderate fluid level in the right sphenoid sinus. The mastoid air cells are clear. Impression: No acute intracranial process. Chronic ischemic changes. Right sphenoid sinusitis PROCEDURE INTERPRETED AT [facility] DEPARTMENT OF RADIOLOGY Final Report Signed by: Dr. Nery Diaz
[2016-08-05] MEDS: POTASSIUM CHLORIDE RIDER 20 MEQ in PREMIX 1 EACH IV PRN (16:55)
[2016-08-06] MEDS: INSULIN REGULAR 100 UNIT/ML SUBCUT SCH ×4 (01:21→18:13)
[2016-08-06] MEDS: ALBUTEROL/IPRATROPIUM 3 ML NEB RESP TX SCH ×5 (03:46→19:39)
[2016-08-06] MEDS: PANTOPRAZOLE 40 MG VIAL IV SCH (05:28)
[2016-08-06 05:52] LABS: Basophils % 0.2 % (0.0-0.8); Eosinophils % 0.2 % (0.00-10.9); Hematocrit 44.2 VOL% (35.7-47.0); Hemoglobin 13.6 GM/DL (12.0-16.0); Immature Granulocytes % 0.6 %; Immature Granulocytes Absolute 0.07 #; Lymphocytes # 1.2 10*3/uL (1.4-4.0); Lymphocytes % 9.4 % (21.3-54.2); Mean Corpuscular HGB Conc 30.8 GM/DL (32-36); Mean Corpuscular Hemoglobin 27 PG (27-34); Mean Corpuscular Volume 86.5 FL (87-102); Monocytes # 0.7 10*3/uL (0.11-0.8); Monocytes % 5.3 % (1.7-12.7); Neutrophils # 10.5 10*3/uL (1.4-7.4); Neutrophils % 84.3 % (38.7-73.9); Platelet Count 115 T/CUMM (130-400); Red Blood Count 5.11 MC/CUMM (3.8-5.5); Red Cell Distribution Width 17.8 % (9.3-17.3); White Blood Count 12.5 T/CUMM (4-12)
[2016-08-06 06:20] LABS: Albumin 2.5 G/DL (3.4-5.0); Calcium 7.9 MG/DL (8.5-10.1); Hypochromasia Slight; Magnesium 2.4 MG/DL (1.8-2.4); Ovalocytes Slight; Platelet Estimate Adequate; Potassium 3.5 MMOL/L (3.5-5.1); Total Protein 5.1 G/DL (6.4-8.3)
--- NOTE | 2016-08-06 08:09 | Hospitalist Progress Note ---
Assessment and Plan (1) Bacteremia Status: Acute Assessment and plan: [id number] bacteremia from admission blood culture turned out to staph epidermidis. Blood cultures have been negative. Because the patient remains tenuous mostly from the respiratory issues on intubation I will continue cefepime for the meantime. Should reassess need of these antibiotics while the patient is extubated. There is a new rise in white count in the last 2 days. Please now 15,500. A chest x-ray shows left-sided opacity suggesting a pleural effusion. Recommendation at this point is to repeat blood cultures from the Port-A-Cath. See if this is a fluid on the left side of the lung and the best the case the patient should have a thoracentesis. Also check UA and reflex urine culture. Antibiotics have been changed. Started the patient on meropenem 1 g IV every 8 hours also give linezolid 600 mg IV every 12 hours. Would benefit from quinolone added to meropenem probably but because of untoward interaction between levofloxacin and they do provide as well as amiodarone I would prefer to withholding this empiric decision. Current Visit: Yes (2) Acute hypercapnic respiratory failure Status: Resolved Assessment and plan: Doing better in this regard. We will continue to follow arterial blood gases. And is on weaning process at this point. Current Visit: Yes (3) Pulmonary edema Status: Acute Assessment and plan: We will judiciously use diuresis so the patient is in the unit and observe respiratory status. Vital signs closely. I discussed with the primary care nurse regarding the chest x-ray today. Radiology report seems to see nothing that is significant on the chest x-ray. I am concerned that it may be a pleural effusion on the left side Current Visit: Yes (4) Hypokalemia Status: Acute Assessment and plan: Numbers are optimal today. However this is been a recurrent issue and will supplement as needed. Current Visit: Yes (5) Hyperglycemia Status: Acute Assessment and plan: The raising of Lantus 24 units at bedtime, morning blood sugars are below 120 mg percent. Continue the current management Current Visit: Yes Hospitalist: Subjective Interval history: Patient has been seen and examined she is much more awake today she follows commands to squeeze my fingers. No respiratory distress patient remains intubated with good oxygenation. Patient is on CPAP 50% oxygen. She is saturating 96% at this point. Most recent consent was an elevation in white count and low-grade fevers. Chest x-ray done yesterday did reveal opacity on the left side I was suspicious of either pleural effusion or pneumonia however subsequent ultrasound at the bedside did reveal some atelectasis but no fluid. I did broaden the antibiotics yesterday today's white count is down to 12,500. Is also much more awake. CT done yesterday to evaluate her somnolence just showed small vessel disease no acute stroke. This is CT without contrast but the clinical picture that was of concern been going on for a long time I do not believe would be that we need to do anymore imaging at this point. Our hope is that patient can be weaned off the vent soon. The chest x-ray today just shows atelectasis at the left base of the heart also of low cardiac border suggesting possibly involvement of the lingular lobe. Exam - Constitutional Vitals: Period Temp Pulse Resp BP Sys/Norman Pulse Ox Last 24 Hr 98.0 F-99.5 F 59-92 10-75 92-140/40-66 92-100 General appearance: over weight - Head Head exam: Present: normocephalic, atraumatic - Eye Eye exam: Present: EOMI Pupils: Present: AR - ENT ENT exam: Present: other (Orally intubated) - Neck Neck exam: Present: other (No JVD no adenopathy midline trachea) - Respiratory Respiratory exam: Present: clear to auscultation bilaterally - Cardiovascular Cardiovascular exam: Present: regular rate and rhythm - GI/Abdominal GI/Abdominal exam: Present: normal bowel sounds, soft - Extremities Exam Extremities exam: Present: other (Move all 4 extremities will squeeze her hand to command.) - Neurological Exam Neurological exam: Present: alert, CN II-XII intact, other (Follows simple commands) - Psychiatric Psychiatric exam: Present: normal mood, other (orally intubated) - Skin Skin exam: Present: normal color, warm, dry Results - Labs CBC & BMP: 08/06/16 05:18 08/06/16 05:18 Lab Results: I have reviewed the past 24 hour labs Quality Measures - VTE Deep Vein Thrombosis/Pulmonary Embolism Present on Admission: No
[2016-08-06] MEDS: MEROPENEM 1,000 MG in SODIUM CHLORIDE 0.9% 100 ML IV SCH ×2 (08:51→16:30)
[2016-08-06] MEDS: LINEZOLID INJ 600 MG in PREMIX 1 EACH IV SCH ×2 (08:52→22:00)
[2016-08-06] MEDS: FUROSEMIDE 40 MG/4 ML VIAL IV SCH (08:52)
[2016-08-06] MEDS: INSULIN GLARGINE 100 UNIT/ML SUBCUT SCH ×2 (08:53→22:01)
[2016-08-06] MEDS: POTASSIUM CHLORIDE RIDER 20 MEQ in PREMIX 1 EACH IV PRN (08:53)
[2016-08-06] MEDS: NYSTATIN 500,000 UNIT/5 ML UDCUP SWISH/SWAL SCH ×4 (08:54→22:00)
[2016-08-06] MEDS: ASPIRIN 325 MG TABLET PO SCH (08:54)
[2016-08-06] MEDS: DIGOXIN 0.25 MG TABLET PO SCH (08:54)
[2016-08-06] MEDS: predniSONE 20 MG TABLET PO SCH (08:54)
[2016-08-06] MEDS: METOPROLOL TARTRATE 50 MG TABLET PO SCH ×2 (08:55→22:00)
[2016-08-06] MEDS: MULTIVITAMIN LIQUID (CENTRUM) 60 ML BOTTLE NG SCH (08:55)
[2016-08-06] MEDS: AMIODARONE 200 MG TABLET PO SCH ×2 (08:55→22:01)
[2016-08-06] MEDS: VALSARTAN 80 MG TABLET PO SCH (08:55)
--- NOTE | 2016-08-06 08:57 | Cardiology Progress Note ---
Assessment and Plan (1) Atrial fibrillation Status: Acute Assessment and plan: Patient remains in sinus rhythm post cardioversion. We'll continue to monitor her status after she is extubated. Current Visit: Yes Cardiology - PN: Subj Interval history: Last the patient is improving. She is off her sedation and waking up well. She remains in sinus rhythm without any further atrial fibrillation. Her vital signs remained stable. Exam (Progress Note) - Constitutional Vitals: Period Temp Pulse Resp BP Sys/Norman Pulse Ox Last 24 Hr 98.0 F-99.5 F 59-92 10-75 92-140/40-66 92-100 Exam: Gen. appearance: Patient intubated but also patient waking up. Ejection: Oral intubated. Neck: Trachea midline. Lungs: Quiet anteriorly. Good air movement. Cardiovascular: Regular rate and rhythm. Faint systolic murmur. Abdomen: Obese soft. Extremities: Warm. Neurologic: Sedated. Skin: Warm. Result/EKG - Labs CBC & BMP: 08/06/16 05:18 08/06/16 05:18 Lab Results: I have reviewed the past 24 hour labs Labs: Laboratory Results - last 24 hr 08/05/16 08/05/16 08/05/16 11:40 13:30 17:56 WBC RBC Hgb Hct MCV MCH MCHC RDW Plt Count Neut % (Auto) Lymph % (Auto) [place] % (Auto) Eos % (Auto) Baso % (Auto) Neut # (Auto) Lymph # (Auto) [place] # (Auto) Eos # (Auto) Baso # (Auto) Immature Gran % Nucleated RBC % Immature Gran # Nucleated RBCs # Platelet Estimate Hypochromasia Ovalocytes Sodium Potassium Chloride Carbon Dioxide Anion Gap BUN Creatinine GFR Calculation BUN/Creatinine Ratio Glucose POC Glucose 176 H 158 H Calculated Osmolality Calcium Magnesium Total Bilirubin AST ALT Alkaline Phosphatase Total Protein Albumin Globulin Albumin/Globulin Ratio Urine Color Yellow Urine Appearance Slightly hazy Urine pH 5.0 Ur Specific [place] 1.014 Urine Protein Negative Urine Glucose (UA) Negative Urine Ketones Negative Urine Blood Small Urine Nitrate Negative Urine Bilirubin Negative Urine Urobilinogen < 2.0 H Urine Leukocytes Negative Urine RBC 15 Urine WBC <1 Ur Squamous Epith Cells Occasional Urine Bacteria Occasional Hyaline Casts 4 Urine Mucus Occasional Ur Culture Indicated? Not indicated 08/06/16 08/06/16 08/06/16 01:12 05:18 05:18 WBC 12.5 H RBC 5.11 Hgb 13.6 Hct 44.2 MCV 86.5 L MCH 27 MCHC 30.8 L RDW 17.8 H Plt Count 115 L Neut % (Auto) 84.3 H Lymph % (Auto) 9.4 L [place] % (Auto) 5.3 Eos % (Auto) 0.2 Baso % (Auto) 0.2 Neut # (Auto) 10.5 H Lymph # (Auto) 1.2 L [place] # (Auto) 0.7 Eos # (Auto) 0.0 Baso # (Auto) 0.0 Immature Gran % 0.6 Nucleated RBC % 0.0 Immature Gran # 0.07 Nucleated RBCs # 0.00 Platelet Estimate Adequate Hypochromasia Slight Ovalocytes Slight Sodium 143 Potassium 3.5 Chloride 108 H Carbon Dioxide 31 Anion Gap 7.5 BUN 47 H Creatinine 0.60 GFR Calculation 122 BUN/Creatinine Ratio 78.00 H Glucose 125 H POC Glucose 146 H Calculated Osmolality 297.0 Calcium 7.9 L Magnesium 2.4 Total Bilirubin 1.00 AST 31 ALT 80 H Alkaline Phosphatase 44 L Total Protein 5.1 L Albumin 2.5 L Globulin 2.6 Albumin/Globulin Ratio 0.9 L Urine Color Urine Appearance Urine pH Ur Specific [place] Urine Protein Urine Glucose (UA) Urine Ketones Urine Blood Urine Nitrate Urine Bilirubin Urine Urobilinogen Urine Leukocytes Urine RBC Urine WBC Ur Squamous Epith Cells Urine Bacteria Hyaline Casts Urine Mucus Ur Culture Indicated? 08/06/16 06:16 WBC RBC Hgb Hct MCV MCH MCHC RDW Plt Count Neut % (Auto) Lymph % (Auto) [place] % (Auto) Eos % (Auto) Baso % (Auto) Neut # (Auto) Lymph # (Auto) [place] # (Auto) Eos # (Auto) Baso # (Auto) Immature Gran % Nucleated RBC % Immature Gran # Nucleated RBCs # Platelet Estimate Hypochromasia Ovalocytes Sodium Potassium Chloride Carbon Dioxide Anion Gap BUN Creatinine GFR Calculation BUN/Creatinine Ratio Glucose POC Glucose 121 H Calculated Osmolality Calcium Magnesium Total Bilirubin AST ALT Alkaline Phosphatase Total Protein Albumin Globulin Albumin/Globulin Ratio Urine Color Urine Appearance Urine pH Ur Specific [place] Urine Protein Urine Glucose (UA) Urine Ketones Urine Blood Urine Nitrate Urine Bilirubin Urine Urobilinogen Urine Leukocytes Urine RBC Urine WBC Ur Squamous Epith Cells Urine Bacteria Hyaline Casts Urine Mucus Ur Culture Indicated? - Impressions Impressions: Telemetry with normal sinus rhythm Quality Measures - VTE Deep Vein Thrombosis/Pulmonary Embolism Present on Admission: No
--- NOTE | 2016-08-06 09:21 | XRay Report ---
History: Patient on ventilator Date: 08/06/2016 Study: Chest x-ray AP portable Comparison exam: 08/05/2016 The endotracheal and nasogastric tubes remain in satisfactory position. Right subclavian Mediport-type catheter is again noted. There is continued cardiomegaly. The mediastinal contours are unchanged. The pulmonary vasculature is upper normal. Left greater than right bibasilar atelectasis/infiltrate persists without gross change. Left pleural effusion is again noted. The osseous structures are similar. Impression: No gross interval change from the previous exam. Continued left greater than right bibasilar atelectasis/infiltrate and left pleural effusion PROCEDURE INTERPRETED AT [facility] DEPARTMENT OF RADIOLOGY Final Report Signed by: Dr. Nery Diaz
[2016-08-06] MEDS: PROPOFOL 1,000 MG/100 ML BOTTLE IV SCH ×2 (11:11→17:54)
[2016-08-06] MEDS: POTASSIUM CHLORIDE RIDER 10 MEQ in PREMIX 1 EACH IV PRN (11:13)
[2016-08-06] MEDS ORDERED: fentaNYL 100 MCG/2 ML VIAL IV ONE ×3 (12:31→13:05)
[2016-08-06] MEDS ORDERED: MIDAZOLAM 2 MG/2 ML VIAL IV ONE ×3 (12:32→13:05)
[2016-08-06] MEDS ORDERED: MIDAZOLAM 10 MG/2 ML VIAL ONE (12:39)
[2016-08-06] MEDS: ENOXAPARIN 120 MG/0.8 ML SYRINGE SUBCUT SCH (12:50)
--- NOTE | 2016-08-06 13:17 | Operative Note ---
Date of procedure: 08/06/16 Pre-op diagnosis: Bloody secretions from ET tube Post-op diagnosis: same Procedure: Bronchoscopy: Patient was sedated using fentanyl 50 g and Versed 2 mg. Bronchoscope was advanced through the ET tube. There is evidence of dried blood throughout the ET tube. The bronchoscope was then advanced to the ramana and the airways were inspected. There is no evidence of active bleeding or mucosal abnormalities that would explain the bloody output from the ET tube. Minimal secretions were noted throughout the airways. No significant abnormalities. Patient tolerated the procedure well. Blood loss was minimal. Anesthesia: conscious sedation Surgeon / Physician: Nery Perez Estimated blood loss: minimal Specimens: none sent Condition: stable Disposition: no change Results - Labs CBC & BMP: 08/06/16 05:18 08/06/16 05:18 Discharge Plan - Discharge Medications No Action Docusate Sodium Cap [Colace Cap] 100 mg PO BID Dexlansoprazole [Dexilant] 60 mg PO DAILY Multivit-Min/FA/Lycopen/Lutein [Centrum Silver Tablet] 1 tablet PO DAILY Clopidogrel [Plavix] 75 mg PO DAILY Lovastatin 40 mg PO DAILY W/SUPPER Furosemide Tab [Lasix Tab] 40 mg PO BID DIURETIC Digoxin Tab [Lanoxin Tab] 0.25 mg PO DAILY Ergocalciferol (Vitamin D2) [Vitamin D2] 50,000 unit PO Q7D Letrozole 2.5 mg PO DAILY Spironolactone [Aldactone] 50 mg PO DAILY Magnesium Oxide [Magox 400] 2,000 mg PO BID Acetaminophen 1,000 mg PO Q6H PRN PRN Reason: Pain Linagliptin [Tradjenta] 5 mg PO DAILY metOLazone [Metolazone] 10 mg PO BID Memantine HCl [Namenda XR] 28 mg PO DAILY Solifenacin Succinate [Vesicare] 10 mg PO DAILY - Follow Up or Referral - Forms/Instructions
--- NOTE | 2016-08-06 13:21 | Pulmonology Progress Note ---
Pulmonary - PN: Subj Interval history: 75y/o F admitted for respiratory failure requiring mechanical ventilation. Yesterday patient's antibiotics were changed and she has since defervesced. She underwent a CT head with no remarkable findings. She remained stable on the ventilator and chest x-ray this morning shows improvement in aeration of the left lung base with initiation of CPT. Today nursing noted development of bloody output from her ET tube so bronchoscopy was pursued. Bronchoscopy showed no abnormality to explain the bloody secretions. Nursing also noted epistaxis that could be the etiology of the bloody ETT output. Exam (Progress Note) - Constitutional Vitals: Period Temp Pulse Resp BP Sys/Norman Pulse Ox Last 24 Hr 98.0 F-99.5 F 57-92 10-75 92-140/42-66 93-100 General appearance: over weight - Head Head exam: Present: normal inspection - Eye Eye exam: Present: EOMI Pupils: Present: AR - ENT ENT exam: Present: other (Dried blood noted from left nare) - Neck Neck exam: Present: normal inspection - Respiratory Respiratory exam: Present: clear to auscultation bilaterally, decreased breath sounds (Left base). Absent: rales, rhonchi, wheezes - Cardiovascular Cardiovascular exam: Present: regular rate and rhythm - GI/Abdominal GI/Abdominal exam: Present: normal bowel sounds, soft. Absent: tenderness - Extremities Exam Extremities exam: Present: normal inspection - Neurological Exam Neurological exam: Present: alert, CN II-XII intact - Skin Skin exam: Present: warm, dry Results - Labs CBC & BMP: 08/06/16 05:18 08/06/16 05:18 - Diagnostic Findings Procedure: Chest x-ray: image reviewed by me (Improved aeration of left lower lung. ET tube in good position.) Assessment and Plan (1) Bilateral pulmonary infiltrates on chest x-ray Status: Acute Assessment and plan: Chest x-ray this morning shows improvement. Continue current therapies. Anticipate extubation soon. Daily ABG and chest x-ray. Current Visit: Yes (2) Acute hypercapnic respiratory failure Status: Resolved Assessment and plan: Continue CPAP trials, pt continues to do well. Extubation vs. trach early next week (family wants everything done, including trach if required). Current Visit: Yes (3) Leukocytosis Status: Acute Assessment and plan: Improved this morning with adjustment of antibiotics. Continue current therapies and await culture results. Current Visit: Yes Qualifiers: Leukocytosis type: unspecified Qualified Code(s): D72.829 - Elevated white blood cell count, unspecified (4) Altered mental status Status: Acute Assessment and plan: Significantly improved this morning with patient following commands and interacting normally with interview. CT head unremarkable yesterday. Current Visit: Yes Qualifiers: Altered mental status type: somnolence Qualified Code(s): R40.0 - Somnolence (5) Hemoptysis Status: Acute Assessment and plan: Bloody secretions noted from ET tube today. Bronchoscopy was unrevealing. Will hold today's Lovenox dose and monitor. If bloody secretions improve can restart Lovenox later today. Etiology of bloody secretions is likely upper airway in nature given the dried blood noted around the ET tube on bronchoscopy without evidence of active bleeding in the airways. Current Visit: Yes
[2016-08-06] MEDS: DESITIN 4OZ/NYSTATIN 15 GRAM MIXTURE PASTE TOP SCH ×2 (13:47→22:02)
[2016-08-07] MEDS: PROPOFOL 1,000 MG/100 ML BOTTLE IV SCH ×2 (00:01→17:38)
[2016-08-07] MEDS: ALBUTEROL/IPRATROPIUM 3 ML NEB RESP TX SCH ×6 (00:35→19:11)
[2016-08-07] MEDS: MEROPENEM 1,000 MG in SODIUM CHLORIDE 0.9% 100 ML IV SCH ×4 (00:51→23:47)
[2016-08-07] MEDS: INSULIN REGULAR 100 UNIT/ML SUBCUT SCH ×5 (00:54→23:48)
[2016-08-07 03:38] LABS: ABG Base Excess 4.1 MMOL/L (-2.5-2.5); ABG HCO3 27.3 MMOL/L (20-26); ABG Oxygen Saturation 97.8 % (95-100); ABG PCO2 36.3 MM HG (35-48); ABG PH 7.494 (7.35-7.45); ABG PO2 97.2 MM HG (80-95); ABG TCO2 28.4 MMOL/L (23-27); Allen Test Positive; Pt O2 Delivery Device Ventilator
[2016-08-07 03:38] LABS: Eosinophils % 0.4 % (0.00-10.9); Hematocrit 41.2 VOL% (35.7-47.0); Hemoglobin 12.5 GM/DL (12.0-16.0); Immature Granulocytes % 0.5 %; Immature Granulocytes Absolute 0.06 #; Mean Corpuscular HGB Conc 30.3 GM/DL (32-36); Mean Corpuscular Hemoglobin 26 PG (27-34); Mean Corpuscular Volume 86.7 FL (87-102); Monocytes # 0.5 10*3/uL (0.11-0.8); Monocytes % 4.7 % (1.7-12.7); Neutrophils # 9.7 10*3/uL (1.4-7.4); Neutrophils % 85.4 % (38.7-73.9); Platelet Count 111 T/CUMM (130-400); Red Blood Count 4.75 MC/CUMM (3.8-5.5); Red Cell Distribution Width 17.8 % (9.3-17.3); White Blood Count 11.4 T/CUMM (4-12)
[2016-08-07 04:08] LABS: Calcium 7.5 MG/DL (8.5-10.1); Magnesium 2.2 MG/DL (1.8-2.4); Osmolality,Calculated 300.8 MOS/KG (273-304); Potassium 3.6 MMOL/L (3.5-5.1)
[2016-08-07 04:20] LABS: Phosphorous 2.1 MG/DL (2.5-4.9); Prealbumin 22.1 MG/DL (20-40)
[2016-08-07] MEDS: PANTOPRAZOLE 40 MG VIAL IV SCH (06:11)
[2016-08-07] MEDS: LORazepam 2 MG/1 ML VIAL IV PRN (06:12)
--- NOTE | 2016-08-07 07:27 | XRay Report ---
XR chest 1V portable Indication: Ventilator Comparison: Chest x-ray 08/06/2016 Technique: Portable AP chest was performed. Findings: Multiple tubes and medical support devices appear stable. Small left-sided pleural effusion is suggested. Bibasilar airspace opacities are unchanged. Chest is otherwise stable. Impression: 1. No adverse interval change. 08/07/2016 7:24 AM PROCEDURE INTERPRETED AT [facility] DEPARTMENT OF RADIOLOGY Final Report Signed by: Dr. Jeffery Diaz
--- NOTE | 2016-08-07 08:27 | Cardiology Progress Note ---
<Maribel Downing - Last Filed: 08/07/16 08:12> Assessment and Plan (1) Atrial fibrillation Status: Acute Assessment and plan: Patient is status post cardioversion 08/03/16. Patient remains in a normal sinus rhythm with heart rates in the 50s. Continue amiodarone, digoxin and beta -elvira. Further recommendations to follow per Dr. Rolle. Current Visit: Yes (2) Hypertension Status: Chronic Assessment and plan: Patient is borderline hypotensive this morning. I have decreased patient's dose of Diovan. Will make further adjustments as needed. Current Visit: Yes (3) History of breast cancer Status: Chronic Current Visit: Yes (4) Bacteremia Status: Acute Assessment and plan: Admission blood cultures revealed gram-positive bacteria, staph epidermidis. Repeat blood cultures currently reveal no growth at 1 day. Continue current plan of care. Defer further management to hospital medicine. Current Visit: Yes (5) Bilateral pulmonary infiltrates on chest x-ray Status: Acute Assessment and plan: Management per pulmonary. Current Visit: Yes (6) CHF (congestive heart failure) Status: Suspected Assessment and plan: It is questionable that patient may be in diastolic heart failure. Echocardiogram this admission reveals preserved ejection fraction of 55% with grade 1 diastolic dysfunction. According to I's and O's, patient is down 1 pound overnight. We will continue ARB, beta-elvira and Lasix at this time. We will continue with daily weights and strict I's and O's. Further plan and addendum to follow per Dr. Rolle. Current Visit: Yes Qualifiers: Congestive heart failure type: diastolic Congestive heart failure chronicity: acute on chronic Qualified Code(s): I50.33 - Acute on chronic diastolic (congestive) heart failure (7) COPD (chronic obstructive pulmonary disease) Status: Acute Assessment and plan: Management per pulmonary. Current Visit: Yes (8) Hemoptysis Status: Acute Assessment and plan: Patient was noted to have bloody secretions over the weekend. Subsequently, she underwent bronchoscopy which was unrevealing. Patient's Lovenox is currently on hold. H&H is stable at this time. 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 Fontana is a 75 year old female patient without known history of coronary artery disease, not routinely followed by local cardiology. Patient is ventilated and sedated in the CCU. No family available. Patient has cardiac risk factors significant for hypertension, hyperlipidemia, diabetes and obesity. Unaware if patient is an active smoker or has ever smoked in the past. Also, unaware of patient's family history and past surgical history. According to medical records, her past medical history includes: Congestive heart failure, breast cancer and dementia. Patient has never been seen by [facility] cardiology. Unaware if patient has never undergone left heart catheterization or stress testing. Patient was transferred from [facility] with chief complaint of shortness of breath 07/20/16. Apparently, the chest x-ray at [facility] was suggestive of pulmonary edema. IV diuretics were initiated at that time. Chest CT was negative for pulmonary embolus. And venous Doppler bilateral lower extremities was negative for DVT. Head CT revealed chronic lacunar infarcts. She was admitted to the telemetry floor. Overnight, she became more dyspneic and required transfer to the CCU and intubation. Pulmonary was then consulted. Chest x-ray at [facility] was suggestive of mild CHF. BNP was noted to be 402. Blood cultures were positive for Staphylococcus Epidermidis. Patient was started on appropriate antibiotics at that time. She was extubated on July 30. However, several hours later she required reintubation due to respiratory distress. It appears that at some point on 07/31/16 patient went into atrial fibrillation/flutter. Cardiology was then consulted to further assist. Patient was then started on IV amiodarone. On August 03, 2016, patient was successfully cardioverted per Dr. Gaaln. Since that time, patient has remained in a normal sinus rhythm. Amiodarone dose was decreased to 200 mg twice daily August 05, 2016. Lovenox is currently on hold due to hemoptysis and decreased platelet count. Over the weekend, patient was noted to have altered mental status. She underwent head CT which revealed small vessel disease, no acute stroke. Chest x-ray revealed opacity on the left side, suspicious for either pleural effusion or pneumonia. Subsequent ultrasound revealed atelectasis but no fluid. Chest x-ray today reveals no interval change from previous x-ray. Patient was seen and examined in the CCU. Sedation is currently on hold. Patient is awake and able to follow all commands. She has remained in normal sinus rhythm post cardioversion. She is borderline hypotensive this morning with a systolic blood pressure of 86 noted. We will monitor this closely and adjust medications as needed. Platelet count is trending down at 111. Lovenox is currently on hold. Stool has tested negative for occult blood 2. H&H is stable. Electrolytes are stable this morning with potassium of 3.6 and magnesium of 2.2. White blood cell count is back within normal limits at 11.4. Will anticipate tracheostomy or extubation soon. Patient is currently normal sinus rhythm with heart rates in the 50s without any overt arrhythmias or ectopy noted. Will continue to wean patient from ventilator as she tolerates. Further plan and addendum to follow per Dr. Rolle. Exam (Progress Note) - Constitutional Vitals: Period Temp Pulse Resp BP Sys/Norman Pulse Ox Last 24 Hr 97.5 F-99.4 F 54-66 10-30 71-144/32-59 95-100 Exam: General: Present: Other (Patient is currently intubated in the CCU. She is awake and able to follow commands.) Neck: Present: Supple Neck, Midline Trachea Cardiac: Present: Regular rate and rhythm. Bradycardia. No rub or gallop noted. Lungs: Present: Coarse ventilator breath sounds throughout. Neuro: Present: Patient is currently on the ventilator. Sedation is on hold patient is awake and alert and able to follow all commands. Abdomen: Present: Soft, Decreased Bowel Sounds, Other (Nasogastric tube noted.) . Absent: Firm, Distended Extremities: Present No Clubbing, No Cyanosis, No Edema, Normal Upper Extr. Pulses, Normal Lower Extr. Pulses Result/EKG - Labs CBC & BMP: 08/07/16 03:00 08/07/16 03:00 Lab Results: I have reviewed the past 24 hour labs Labs: Laboratory Results - last 24 hr 08/06/16 08/06/16 08/07/16 11:20 17:47 00:48 WBC RBC Hgb Hct MCV MCH MCHC RDW Plt Count Neut % (Auto) Lymph % (Auto) Wright % (Auto) Eos % (Auto) Baso % (Auto) Neut # (Auto) Lymph # (Auto) Wright # (Auto) Eos # (Auto) Baso # (Auto) Immature Gran % Nucleated RBC % Immature Gran # Nucleated RBCs # ABG pH ABG pCO2 ABG pO2 ABG HCO3 ABG Total CO2 ABG O2 Saturation ABG Base Excess FiO2 Sodium Potassium Chloride Carbon Dioxide Anion Gap BUN Creatinine GFR Calculation BUN/Creatinine Ratio Glucose POC Glucose 171 H 157 H 146 H Calculated Osmolality Calcium Phosphorus Magnesium Prealbumin 08/07/16 08/07/16 08/07/16 03:00 03:00 03:00 WBC 11.4 RBC 4.75 Hgb 12.5 Hct 41.2 MCV 86.7 L MCH 26 L MCHC 30.3 L RDW 17.8 H Plt Count 111 L Neut % (Auto) 85.4 H Lymph % (Auto) 9.0 L Wright % (Auto) 4.7 Eos % (Auto) 0.4 Baso % (Auto) 0.0 Neut # (Auto) 9.7 H Lymph # (Auto) 1.0 L Wright # (Auto) 0.5 Eos # (Auto) 0.0 Baso # (Auto) 0.0 Immature Gran % 0.5 Nucleated RBC % 0.0 Immature Gran # 0.06 Nucleated RBCs # 0.00 ABG pH ABG pCO2 ABG pO2 ABG HCO3 ABG Total CO2 ABG O2 Saturation ABG Base Excess FiO2 Sodium 144 Potassium 3.6 Chloride 107 Carbon Dioxide 30 Anion Gap 10.6 BUN 46 H Creatinine 0.60 GFR Calculation 122 BUN/Creatinine Ratio 76.00 H Glucose 160 H POC Glucose Calculated Osmolality 300.8 Calcium 7.5 L Phosphorus 2.1 L Magnesium 2.2 Prealbumin 22.1 08/07/16 08/07/16 03:28 06:01 WBC RBC Hgb Hct MCV MCH MCHC RDW Plt Count Neut % (Auto) Lymph % (Auto) Wright % (Auto) Eos % (Auto) Baso % (Auto) Neut # (Auto) Lymph # (Auto) Wright # (Auto) Eos # (Auto) Baso # (Auto) Immature Gran % Nucleated RBC % Immature Gran # Nucleated RBCs # ABG pH 7.494 H ABG pCO2 36.3 ABG pO2 97.2 H ABG HCO3 27.3 H ABG Total CO2 28.4 H ABG O2 Saturation 97.8 ABG Base Excess 4.1 H FiO2 50.00 Sodium Potassium Chloride Carbon Dioxide Anion Gap BUN Creatinine GFR Calculation BUN/Creatinine Ratio Glucose POC Glucose 152 H Calculated Osmolality Calcium Phosphorus Magnesium Prealbumin Quality Measures - VTE Deep Vein Thrombosis/Pulmonary Embolism Present on Admission: No <Gretchen Rolle - Last Filed: 08/07/16 09:59> Cardiology - PN: Subj Interval history: I personally interviewed and examined the patient, reviewed the chart and discussed medical decision-making with practitioner Chang. I have read this note and agree with the findings herein. Clinically her presentation seems most consistent with pneumonia and bacteremia. Her hemodynamics are stable. Exam (Progress Note) - Constitutional Vitals: Period Temp Pulse Resp BP Sys/Norman Pulse Ox Last 24 Hr 97.5 F-99.4 F 54-65 10-30 71-144/32-59 95-100 Result/EKG - Labs CBC & BMP: 08/07/16 03:00 08/07/16 03:00 Labs: Laboratory Results - last 24 hr 08/06/16 08/06/16 08/07/16 11:20 17:47 00:48 WBC RBC Hgb Hct MCV MCH MCHC RDW Plt Count Neut % (Auto) Lymph % (Auto) Wright % (Auto) Eos % (Auto) Baso % (Auto) Neut # (Auto) Lymph # (Auto) Wright # (Auto) Eos # (Auto) Baso # (Auto) Immature Gran % Nucleated RBC % Immature Gran # Nucleated RBCs # ABG pH ABG pCO2 ABG pO2 ABG HCO3 ABG Total CO2 ABG O2 Saturation ABG Base Excess FiO2 Sodium Potassium Chloride Carbon Dioxide Anion Gap BUN Creatinine GFR Calculation BUN/Creatinine Ratio Glucose POC Glucose 171 H 157 H 146 H Calculated Osmolality Calcium Phosphorus Magnesium Prealbumin 08/07/16 08/07/16 08/07/16 03:00 03:00 03:00 WBC 11.4 RBC 4.75 Hgb 12.5 Hct 41.2 MCV 86.7 L MCH 26 L MCHC 30.3 L RDW 17.8 H Plt Count 111 L Neut % (Auto) 85.4 H Lymph % (Auto) 9.0 L Wright % (Auto) 4.7 Eos % (Auto) 0.4 Baso % (Auto) 0.0 Neut # (Auto) 9.7 H Lymph # (Auto) 1.0 L Wright # (Auto) 0.5 Eos # (Auto) 0.0 Baso # (Auto) 0.0 Immature Gran % 0.5 Nucleated RBC % 0.0 Immature Gran # 0.06 Nucleated RBCs # 0.00 ABG pH ABG pCO2 ABG pO2 ABG HCO3 ABG Total CO2 ABG O2 Saturation ABG Base Excess FiO2 Sodium 144 Potassium 3.6 Chloride 107 Carbon Dioxide 30 Anion Gap 10.6 BUN 46 H Creatinine 0.60 GFR Calculation 122 BUN/Creatinine Ratio 76.00 H Glucose 160 H POC Glucose Calculated Osmolality 300.8 Calcium 7.5 L Phosphorus 2.1 L Magnesium 2.2 Prealbumin 22.1 08/07/16 08/07/16 03:28 06:01 WBC RBC Hgb Hct MCV MCH MCHC RDW Plt Count Neut % (Auto) Lymph % (Auto) Wright % (Auto) Eos % (Auto) Baso % (Auto) Neut # (Auto) Lymph # (Auto) Wright # (Auto) Eos # (Auto) Baso # (Auto) Immature Gran % Nucleated RBC % Immature Gran # Nucleated RBCs # ABG pH 7.494 H ABG pCO2 36.3 ABG pO2 97.2 H ABG HCO3 27.3 H ABG Total CO2 28.4 H ABG O2 Saturation 97.8 ABG Base Excess 4.1 H FiO2 50.00 Sodium Potassium Chloride Carbon Dioxide Anion Gap BUN Creatinine GFR Calculation BUN/Creatinine Ratio Glucose POC Glucose 152 H Calculated Osmolality Calcium Phosphorus Magnesium Prealbumin
[2016-08-07] MEDS: MULTIVITAMIN LIQUID (CENTRUM) 60 ML BOTTLE NG SCH (09:08)
[2016-08-07] MEDS: VALSARTAN 80 MG TABLET PO SCH (09:08)
[2016-08-07] MEDS: AMIODARONE 200 MG TABLET PO SCH ×2 (09:08→21:07)
[2016-08-07] MEDS: ASPIRIN 325 MG TABLET PO SCH (09:08)
[2016-08-07] MEDS: LINEZOLID INJ 600 MG in PREMIX 1 EACH IV SCH ×2 (09:08→21:06)
[2016-08-07] MEDS: METOPROLOL TARTRATE 50 MG TABLET PO SCH ×2 (09:09→21:07)
[2016-08-07] MEDS: predniSONE 20 MG TABLET PO SCH (09:09)
[2016-08-07] MEDS: DESITIN 4OZ/NYSTATIN 15 GRAM MIXTURE PASTE TOP SCH ×2 (09:09→21:07)
[2016-08-07] MEDS: DIGOXIN 0.25 MG TABLET PO SCH (09:09)
[2016-08-07] MEDS: INSULIN GLARGINE 100 UNIT/ML SUBCUT SCH ×2 (09:09→21:06)
[2016-08-07] MEDS: POTASSIUM CHLORIDE RIDER 20 MEQ in PREMIX 1 EACH IV PRN (09:09)
[2016-08-07] MEDS: NYSTATIN 500,000 UNIT/5 ML UDCUP SWISH/SWAL SCH ×4 (09:09→21:06)
[2016-08-07] MEDS: ACETAMINOPHEN 325 MG TABLET PO PRN (09:09)
[2016-08-07] MEDS: FUROSEMIDE 40 MG/4 ML VIAL IV SCH (09:09)
--- NOTE | 2016-08-07 09:54 | Pulmonology Progress Note ---
Pulmonary - PN: Subj Interval history: Patient is a 75-year-old lady that presented with shortness of breath and had to be intubated. She was felt to possibly have mild heart failure. She did have significant CO2 retention. Her PO2 is still on the low side. Her family says her O2 runs low at home and she uses home oxygen. She apparently has significant COPD. She is a former smoker. Over the weekend she was tried off the ventilator but did not do very well. She had to be reintubated. She is reasonably stable at present on the ventilator now. Her oxygenation is a little better and she does appear to be stable. She was started on amiodarone for atrial fibrillation. She was cardioverted to sinus rhythm. She has done CPAP over the weekend and has done fairly well. Her chest x-ray actually looks much better. Will try her off the ventilator today. Exam (Progress Note) - Constitutional Vitals: Period Temp Pulse Resp BP Sys/Norman Pulse Ox Last 24 Hr 97.5 F-99.4 F 54-65 10-30 71-144/32-59 95-100 Exam: General appearance: normal weight, no acute distress (She is alert and reasonably comfortable on the ventilator. ) - Head Head exam: Present: normal inspection, normocephalic - Eye Eye exam: Present: EOMI. Absent: scleral icterus Pupils: Present: AR - ENT ENT exam: Present: normal exam, other (ET tube is in good position) - Neck Neck exam: Present: normal inspection. Absent: lymphadenopathy, thyromegaly - Respiratory Respiratory exam: Present: She has good breath sounds bilaterally and her lungs sound better with less wheezing. - Cardiovascular Cardiovascular exam: Present: She has a regular sinus rhythm now. - GI/Abdominal GI/Abdominal exam: Present: normal bowel sounds, soft. Absent: organomegaly, tenderness - Extremities Exam Extremities exam: Absent: calf tenderness, edema - Neurological Exam Neurological exam: Present: altered (She is alert now and responding.) - Skin Skin exam: Present: warm, dry Results - Labs CBC & BMP: 08/07/16 03:00 08/07/16 03:00 Labs: PO2 is 97 with a PCO2 of 36 and a pH of 7.49 - Diagnostic Findings Procedure: Chest x-ray: image reviewed by me, report reviewed by me (Her chest x -ray looks better with less infiltrates.) Assessment and Plan (1) Hypertension Status: Chronic Assessment and plan: Patient apparently has a history of hypertension but her echo looks okay without significant cardiac dysfunction. She does have some diastolic dysfunction. Her blood pressure has been stable. Current Visit: Yes (2) Dementia Status: Acute Assessment and plan: Apparently the patient is developing dementia. She does get agitated at times. She is comfortable at present Current Visit: Yes (3) Acute hypercapnic respiratory failure Status: Resolved Assessment and plan: Patient had worsening respiratory distress and she has significant CO2 retention. X-ray looks like chronic lung disease and she has bibasilar infiltrates. Her oxygenation is a little better and her chest x-ray is improving. She is doing CPAP fairly well. She still has problems with oxygenation. We will continue weaning trials over the weekend Current Visit: Yes (4) CHF (congestive heart failure) Status: Suspected Assessment and plan: Her chest x-ray looks like a mild CHF. She has really not diuresed that well. Current Visit: Yes Qualifiers: Congestive heart failure type: diastolic Congestive heart failure chronicity: acute on chronic Qualified Code(s): I50.33 - Acute on chronic diastolic (congestive) heart failure (5) Bilateral pulmonary infiltrates on chest x-ray Status: Acute Assessment and plan: Patient may have some pneumonia and she did have positive blood cultures. She still has nothing growing on washings. She is getting antibiotics okay. Her repeat blood cultures have been negative. Her chest x-ray has improved but still not clear. She will continue present therapy. Current Visit: Yes (6) Atrial fibrillation Status: Acute Assessment and plan: She has been placed on amiodarone therapy and seems to be stable. She was cardioverted yesterday and is back in a sinus rhythm. Current Visit: Yes
--- NOTE | 2016-08-07 11:30 | Hospitalist Progress Note ---
Assessment and Plan (1) Bacteremia Status: Acute Assessment and plan: [id number] bacteremia from admission blood culture turned out to staph epidermidis. Blood cultures have been negative. Because the patient remains tenuous mostly from the respiratory issues on intubation I will continue cefepime for the meantime. Should reassess need of these antibiotics while the patient is extubated. There is a new rise in white count in the last 2 days. Please now 15,500. A chest x-ray shows left-sided opacity suggesting a pleural effusion. Recommendation at this point is to repeat blood cultures from the Port-A-Cath. See if this is a fluid on the left side of the lung and the best the case the patient should have a thoracentesis. Also check UA and reflex urine culture. Antibiotics have been changed. Started the patient on meropenem 1 g IV every 8 hours also give linezolid 600 mg IV every 12 hours. Would benefit from quinolone added to meropenem probably but because of untoward interaction between levofloxacin and they do provide as well as amiodarone I would prefer to withholding this empiric decision. Current Visit: Yes (2) Acute hypercapnic respiratory failure Status: Resolved Assessment and plan: Doing better in this regard. We will continue to follow arterial blood gases. And is on weaning process at this point. Seems to be doing better with the current vent settings. Office can be extubated today Current Visit: Yes (3) Pulmonary edema Status: Acute Assessment and plan: This does not seem to be too much of an issue especially looking at yesterday's chest x-ray Current Visit: Yes (4) Hypokalemia Status: Acute Assessment and plan: Numbers are optimal today. However this is been a recurrent issue and will supplement as needed. Current Visit: Yes (5) Hyperglycemia Status: Acute Assessment and plan: The raising of Lantus 24 units at bedtime, morning blood sugars are below 120 mg percent. Continue the current management Current Visit: Yes Hospitalist: Subjective Interval history: Patient been seen and examined. She is awake and able to follow simple commands. Is on weaning parameters at this point on CPAP. I understand there will be an attempt to extubate her today. Exam - Constitutional Vitals: Period Temp Pulse Resp BP Sys/Norman Pulse Ox Last 24 Hr 97.5 F-99.4 F 54-66 10-26 71-144/32-59 92-100 General appearance: over weight - Head Head exam: Present: normocephalic, atraumatic - Eye Eye exam: Present: EOMI Pupils: Present: AR - ENT ENT exam: Present: other (Orally intubated) - Respiratory Respiratory exam: Present: other - Cardiovascular Cardiovascular exam: Present: regular rate and rhythm - GI/Abdominal GI/Abdominal exam: Present: normal bowel sounds, soft - Extremities Exam Extremities exam: Present: other (And is intubated generalized weakness with some element of sedation) - Back Exam Back exam: Present: normal inspection - Neurological Exam Neurological exam: Present: other (Arousable and follows simple commands. No focal neurologic deficits noted) - Psychiatric Psychiatric exam: Present: other (Patient is intubated and arousable able to follow simple commands) - Skin Skin exam: Present: normal color, warm, dry Results - Labs CBC & BMP: 08/07/16 03:00 08/07/16 03:00 Lab Results: I have reviewed the past 24 hour labs Quality Measures - VTE Deep Vein Thrombosis/Pulmonary Embolism Present on Admission: No
[2016-08-08] MEDS: ALBUTEROL/IPRATROPIUM 3 ML NEB RESP TX SCH ×7 (00:31→23:25)
[2016-08-08] MEDS: PANTOPRAZOLE 40 MG VIAL IV SCH (03:38)
[2016-08-08 04:53] LABS: Eosinophils # 0.1 10*3/uL (0.0-0.87); Eosinophils % 0.6 % (0.00-10.9); Hematocrit 42.9 VOL% (35.7-47.0); Hemoglobin 13.1 GM/DL (12.0-16.0); Immature Granulocytes % 0.5 %; Immature Granulocytes Absolute 0.05 #; Lymphocytes % 10.6 % (21.3-54.2); Mean Corpuscular HGB Conc 30.5 GM/DL (32-36); Mean Corpuscular Hemoglobin 27 PG (27-34); Mean Corpuscular Volume 87.4 FL (87-102); Monocytes # 0.5 10*3/uL (0.11-0.8); Monocytes % 4.7 % (1.7-12.7); Neutrophils # 8.1 10*3/uL (1.4-7.4); Neutrophils % 83.6 % (38.7-73.9); Platelet Count 121 T/CUMM (130-400); Red Blood Count 4.91 MC/CUMM (3.8-5.5); Red Cell Distribution Width 17.7 % (9.3-17.3); White Blood Count 9.7 T/CUMM (4-12)
[2016-08-08 05:10] LABS: Calcium 7.7 MG/DL (8.5-10.1); Magnesium 2.2 MG/DL (1.8-2.4); Osmolality,Calculated 295.8 MOS/KG (273-304); Potassium 3.6 MMOL/L (3.5-5.1)
[2016-08-08 05:12] LABS: Platelet Estimate Normal
[2016-08-08] MEDS: INSULIN REGULAR 100 UNIT/ML SUBCUT SCH ×4 (05:49→23:39)
[2016-08-08] MEDS: POTASSIUM CHLORIDE RIDER 10 MEQ in PREMIX 1 EACH IV PRN (06:31)
--- NOTE | 2016-08-08 08:31 | Pulmonology Progress Note ---
Pulmonary - PN: Subj Interval history: Patient is a 75-year-old lady that presented with shortness of breath and had to be intubated. She was felt to possibly have mild heart failure. She did have significant CO2 retention. Her PO2 is still on the low side. Her family says her O2 runs low at home and she uses home oxygen. She apparently has significant COPD. She is a former smoker. Over the weekend she was tried off the ventilator but did not do very well. She had to be reintubated. She is reasonably stable at present on the ventilator now. Her oxygenation is a little better and she does appear to be stable. She was started on amiodarone for atrial fibrillation. She was cardioverted to sinus rhythm. For several days she did CPAP well. Her chest x-ray has improved. Yesterday she was extubated and has done quite well. She is very weak and has a weak cough. She does not seem to be in any respiratory distress now however. Her heart rate and blood pressure are stable. Overall she is looking better. Exam (Progress Note) - Constitutional Vitals: Period Temp Pulse Resp BP Sys/Norman Pulse Ox Last 24 Hr 97.5 F-98.4 F 58-73 11-28 90-121/36-55 89-98 Exam: General appearance: normal weight, no acute distress (She is alert but is very weak. She does not have any respiratory distress.) - Head Head exam: Present: normal inspection, normocephalic - Eye Eye exam: Present: EOMI. Absent: scleral icterus Pupils: Present: AR - ENT ENT exam: Present: normal exam - Neck Neck exam: Present: normal inspection. Absent: lymphadenopathy, thyromegaly - Respiratory Respiratory exam: Present: She has good breath sounds bilaterally and her lungs sound better with less wheezing. She is moving air okay at present. - Cardiovascular Cardiovascular exam: Present: She has a regular sinus rhythm now. Her heart rate is in the 60s. - GI/Abdominal GI/Abdominal exam: Present: normal bowel sounds, soft. Absent: organomegaly, tenderness - Extremities Exam Extremities exam: Absent: calf tenderness, edema - Neurological Exam Neurological exam: Present: altered (She is alert and talking a little bit.) - Skin Skin exam: Present: warm, dry Results - Labs CBC & BMP: 08/08/16 04:40 08/08/16 04:40 Assessment and Plan (1) Hypertension Status: Chronic Assessment and plan: Patient apparently has a history of hypertension but her echo looks okay without significant cardiac dysfunction. She does have some diastolic dysfunction. Her blood pressure has been stable. Current Visit: Yes (2) Dementia Status: Acute Assessment and plan: Apparently the patient is developing dementia. She does get agitated at times. She is comfortable at present. She does seem to be fairly alert now. Current Visit: Yes (3) Acute hypercapnic respiratory failure Status: Resolved Assessment and plan: Patient was extubated yesterday and seems to be breathing comfortably at present. We will continue vigorous respiratory therapy. Current Visit: Yes (4) CHF (congestive heart failure) Status: Suspected Assessment and plan: Her chest x-ray has improved and she has no signs of heart failure now. Current Visit: Yes Qualifiers: Congestive heart failure type: diastolic Congestive heart failure chronicity: acute on chronic Qualified Code(s): I50.33 - Acute on chronic diastolic (congestive) heart failure (5) Bilateral pulmonary infiltrates on chest x-ray Status: Acute Assessment and plan: Patient may have some pneumonia and she did have positive blood cultures. She still has nothing growing on washings. She is getting antibiotics okay. Her repeat blood cultures have been negative. Chest x-ray is better and she is extubated and breathing okay now. Current Visit: Yes (6) Atrial fibrillation Status: Acute Assessment and plan: She has been placed on amiodarone therapy and seems to be stable. She was cardioverted yesterday and is back in a sinus rhythm. She has a slow heart rate now. Current Visit: Yes
--- NOTE | 2016-08-08 08:36 | Cardiology Progress Note ---
<Maribel Downing - Last Filed: 08/08/16 08:33> Assessment and Plan (1) Atrial fibrillation Status: Acute Assessment and plan: Patient is status post cardioversion 08/03/16. Patient remains in a normal sinus rhythm with heart rates in the 50s and 60s. Continue amiodarone. Will decrease patient's beta-elvira dose at this time due to reported episodes of mild bradycardia and hypotension. Will further adjust as needed throughout her hospital stay. Further recommendations to follow per Dr. Rolle. Current Visit: Yes (2) Hypertension Status: Chronic Assessment and plan: This is clinically stable today. Continue with current plan of care. Current Visit: Yes (3) History of breast cancer Status: Chronic Current Visit: Yes (4) Bacteremia Status: Acute Assessment and plan: Admission blood cultures revealed gram-positive bacteria, staph epidermidis. Continue current plan of care with antibiotics. Defer further management to hospital medicine. Current Visit: Yes (5) Bilateral pulmonary infiltrates on chest x-ray Status: Acute Assessment and plan: Management per pulmonary. Current Visit: Yes (6) CHF (congestive heart failure) Status: Suspected Assessment and plan: This is clinically stable. Patient is without any overt signs of heart failure. Will continue current plan of care. Current Visit: Yes (7) COPD (chronic obstructive pulmonary disease) Status: Acute Assessment and plan: Management per pulmonary. Current Visit: Yes (8) Hemoptysis Status: Acute Assessment and plan: Patient was noted to have bloody secretions over the weekend. Subsequently, she underwent bronchoscopy which was unrevealing. H&H is stable at this time. Continue to hold Lovenox. Current Visit: Yes Cardiology - PN: Subj Interval history: Hospitality Aide: None Ms. Fontana is a 75 year old female patient without known history of coronary artery disease, not routinely followed by local cardiology. Patient has cardiac risk factors significant for hypertension, hyperlipidemia, diabetes and obesity. Past medical history includes: Congestive heart failure, breast cancer and dementia. Patient has never been seen by [facility] cardiology. Unaware if patient has never undergone left heart catheterization or stress testing. Patient was transferred from [facility] with chief complaint of shortness of breath on 07/20/16. Apparently, the chest x-ray at [facility] was suggestive of pulmonary edema. IV diuretics were initiated at that time. Chest CT was negative for pulmonary embolus. Venous Doppler bilateral lower extremities was negative for DVT. Head CT revealed chronic lacunar infarcts. She was admitted to the telemetry floor. Overnight, she became more dyspneic and required transfer to the CCU and intubation. Pulmonary was then consulted. It is possible that patient had mild diastolic heart failure. BNP was noted to be 402. Blood cultures were positive for Staphylococcus Epidermidis. Patient was started on appropriate antibiotics at that time. She was extubated on July 30. However, several hours later she required reintubation due to respiratory distress. It appears that at some point on 07/31/16 patient went into atrial fibrillation/flutter. Cardiology was then consulted to further assist. Patient was then started on IV amiodarone. On August 03, 2016, patient was successfully cardioverted per Dr. Galan. Since that time, patient has remained in a normal sinus rhythm. Amiodarone dose was decreased to 200 mg twice daily August 05, 2016. Lovenox is currently on hold due to hemoptysis and decreased platelet count. Over the weekend, patient was noted to have altered mental status. She underwent head CT which revealed small vessel disease, no acute stroke. Chest x-ray revealed opacity on the left side, suspicious for pneumonia. Patient was seen and examined in the CCU. She was extubated yesterday afternoon. Patient remains extremely weak. She is able to follow commands appropriately. She is currently requiring oxygen via nasal cannula. No respiratory distress is observed. She has remained in normal sinus rhythm with heart rates in the 50s and 60s. Blood pressure is stable. Nurse reports that patient has been mildly bradycardic throughout the night. Will decrease patient 's dose of beta-elvira at this time and continue to monitor. Electrolytes are stable. Platelet count remains low at 121. H&H is stable. Stool has tested negative for occult blood. Lovenox remains on hold. Further plan and addendum to follow per Dr. Rolle. Exam (Progress Note) - Constitutional Vitals: Period Temp Pulse Resp BP Sys/Norman Pulse Ox Last 24 Hr 97.5 F-98.4 F 58-73 11-28 90-121/36-55 89-98 General appearance: no acute distress, over weight - Head Head exam: Present: normal inspection, normocephalic, atraumatic - Neck Neck exam: Present: normal inspection. Absent: lymphadenopathy, tenderness, thyromegaly - Respiratory Respiratory exam: Present: clear to auscultation bilaterally. Absent: accessory muscle use, chest wall tenderness, rales, rhonchi - Cardiovascular Cardiovascular exam: Present: bradycardia, regular rate and rhythm. Absent: carotid bruit, gallop, rubs - GI/Abdominal GI/Abdominal exam: Present: normal bowel sounds, soft, other (Nasogastric tube noted. Tube feedings infusing.). Absent: distended, firm, mass, tenderness - Extremities Exam Extremities exam: Present: normal inspection, normal capillary refill. Absent: calf tenderness, edema - Neurological Exam Neurological exam: Present: other (Patient is awake and able to follow commands appropriately.) - Skin Skin exam: Present: normal color, warm, dry Result/EKG - Labs CBC & BMP: 08/08/16 04:40 08/08/16 04:40 Lab Results: I have reviewed the past 24 hour labs Labs: Laboratory Results - last 24 hr 08/07/16 08/07/16 08/07/16 11:22 15:53 23:37 WBC RBC Hgb Hct MCV MCH MCHC RDW Plt Count Neut % (Auto) Lymph % (Auto) [place] % (Auto) Eos % (Auto) Baso % (Auto) Neut # (Auto) Lymph # (Auto) [place] # (Auto) Eos # (Auto) Baso # (Auto) Immature Gran % Nucleated RBC % Immature Gran # Nucleated RBCs # Platelet Estimate Anisocytosis Sodium Potassium Chloride Carbon Dioxide Anion Gap BUN Creatinine GFR Calculation BUN/Creatinine Ratio Glucose POC Glucose 189 H 193 H 182 H Calculated Osmolality Calcium Magnesium 08/08/16 08/08/16 08/08/16 04:40 04:40 05:47 WBC 9.7 RBC 4.91 Hgb 13.1 Hct 42.9 MCV 87.4 MCH 27 MCHC 30.5 L RDW 17.7 H Plt Count 121 L Neut % (Auto) 83.6 H Lymph % (Auto) 10.6 L [place] % (Auto) 4.7 Eos % (Auto) 0.6 Baso % (Auto) 0.0 Neut # (Auto) 8.1 H Lymph # (Auto) 1.0 L [place] # (Auto) 0.5 Eos # (Auto) 0.1 Baso # (Auto) 0.0 Immature Gran % 0.5 Nucleated RBC % 0.0 Immature Gran # 0.05 Nucleated RBCs # 0.00 Platelet Estimate Normal Anisocytosis Sodium 144 Potassium 3.6 Chloride 108 H Carbon Dioxide 31 Anion Gap 8.6 BUN 37 H Creatinine 0.40 L GFR Calculation 139 BUN/Creatinine Ratio 92.00 H Glucose 113 H POC Glucose 105 Calculated Osmolality 295.8 Calcium 7.7 L Magnesium 2.2 Quality Measures - VTE Deep Vein Thrombosis/Pulmonary Embolism Present on Admission: No <Gretchen Rolle - Last Filed: 08/08/16 13:34> Cardiology - PN: Subj Interval history: I personally interviewed and examined the patient, reviewed the chart and discussed medical decision-making with practitioner Chang. I have read this note and agree with the findings herein. The patient has remained in sinus rhythm with some bradycardia, we will stop the metoprolol and decrease the amiodarone. Exam (Progress Note) - Constitutional Vitals: Period Temp Pulse Resp BP Sys/Norman Pulse Ox Last 24 Hr 97.5 F-98.4 F 56-73 11-28 98-121/36-61 89-96 Result/EKG - Labs CBC & BMP: 08/08/16 04:40 08/08/16 04:40 Labs: Laboratory Results - last 24 hr 08/07/16 08/07/16 08/08/16 15:53 23:37 04:40 WBC 9.7 RBC 4.91 Hgb 13.1 Hct 42.9 MCV 87.4 MCH 27 MCHC 30.5 L RDW 17.7 H Plt Count 121 L Neut % (Auto) 83.6 H Lymph % (Auto) 10.6 L [place] % (Auto) 4.7 Eos % (Auto) 0.6 Baso % (Auto) 0.0 Neut # (Auto) 8.1 H Lymph # (Auto) 1.0 L [place] # (Auto) 0.5 Eos # (Auto) 0.1 Baso # (Auto) 0.0 Immature Gran % 0.5 Nucleated RBC % 0.0 Immature Gran # 0.05 Nucleated RBCs # 0.00 Platelet Estimate Normal Anisocytosis ABG pH ABG pCO2 ABG pO2 ABG HCO3 ABG Total CO2 ABG O2 Saturation ABG Base Excess FiO2 Sodium Potassium Chloride Carbon Dioxide Anion Gap BUN Creatinine GFR Calculation BUN/Creatinine Ratio Glucose POC Glucose 193 H 182 H Calculated Osmolality Calcium Magnesium 08/08/16 08/08/16 08/08/16 04:40 05:47 09:55 WBC RBC Hgb Hct MCV MCH MCHC RDW Plt Count Neut % (Auto) Lymph % (Auto) [place] % (Auto) Eos % (Auto) Baso % (Auto) Neut # (Auto) Lymph # (Auto) [place] # (Auto) Eos # (Auto) Baso # (Auto) Immature Gran % Nucleated RBC % Immature Gran # Nucleated RBCs # Platelet Estimate Anisocytosis ABG pH 7.343 L ABG pCO2 57.6 H ABG pO2 89.3 ABG HCO3 30.6 H ABG Total CO2 32.4 H ABG O2 Saturation 96.1 ABG Base Excess 3.4 H FiO2 36.00 Sodium 144 Potassium 3.6 Chloride 108 H Carbon Dioxide 31 Anion Gap 8.6 BUN 37 H Creatinine 0.40 L GFR Calculation 139 BUN/Creatinine Ratio 92.00 H Glucose 113 H POC Glucose 105 Calculated Osmolality 295.8 Calcium 7.7 L Magnesium 2.2 08/08/16 08/08/16 11:50 12:34 WBC RBC Hgb Hct MCV MCH MCHC RDW Plt Count Neut % (Auto) Lymph % (Auto) [place] % (Auto) Eos % (Auto) Baso % (Auto) Neut # (Auto) Lymph # (Auto) [place] # (Auto) Eos # (Auto) Baso # (Auto) Immature Gran % Nucleated RBC % Immature Gran # Nucleated RBCs # Platelet Estimate Anisocytosis ABG pH 7.396 ABG pCO2 47.6 ABG pO2 64.2 L ABG HCO3 27.3 H ABG Total CO2 25.2 ABG O2 Saturation 92.3 L ABG Base Excess 3.4 H FiO2 30.00 Sodium Potassium Chloride Carbon Dioxide Anion Gap BUN Creatinine GFR Calculation BUN/Creatinine Ratio Glucose POC Glucose 194 H Calculated Osmolality Calcium Magnesium
[2016-08-08] MEDS ORDERED: METOPROLOL TARTRATE 50 MG TABLET PO SCH (09:00)
--- NOTE | 2016-08-08 09:46 | Hospitalist Progress Note ---
Assessment and Plan (1) Dementia Status: Chronic Current Visit: Yes (2) Acute hypercapnic respiratory failure Status: Resolved Assessment and plan: Continued intermittent oxygen desaturation. Variable hypercapnia with body habitus suggesting potential for sleep disordered breathing pattern. Her initial echocardiogram showed preserved left ventricular systolic performance without evidence of pulmonary hypertension. Current Visit: Yes Hospitalist: Subjective Interval history: 75-year-old female presenting with a chronic history of hypoxemia with acute CO2 retention requiring intubation and mechanical ventilation on July 21. Patient has been extubated and required reintubation previously. She was extubated yesterday. She required an augmentation in her oxygen supplementation last night. Current oxygen saturation is 94%. She is lethargic this morning and responds to stimulation with eye opening only. Her chest x-rays have demonstrated variable infiltrates in the right lower lung field with what appeared to be an area of new atelectasis on the x-ray performed yesterday. Her vital signs are stable. Exam - Constitutional Vitals: Period Temp Pulse Resp BP Sys/Norman Pulse Ox Last 24 Hr 97.5 F-98.4 F 58-73 11-28 90-121/36-55 89-98 General appearance: over weight - Respiratory Respiratory exam: Present: clear to auscultation bilaterally (Low tidal volume is present). Absent: rales, rhonchi, wheezes - Cardiovascular Cardiovascular exam: Present: regular rate and rhythm - GI/Abdominal GI/Abdominal exam: Present: normal bowel sounds - Extremities Exam Extremities exam: Present: edema (Interstitial only) - Neurological Exam Neurological exam: Absent: alert Results - Labs CBC & BMP: 08/08/16 04:40 08/08/16 04:40 Labs: Magnesium 2.2 Quality Measures - VTE Deep Vein Thrombosis/Pulmonary Embolism Present on Admission: No
[2016-08-08 10:02] LABS: Allen Test Positive
[2016-08-08 10:03] LABS: ABG Base Excess 3.4 MMOL/L (-2.5-2.5); ABG HCO3 30.6 MMOL/L (20-26); ABG Oxygen Saturation 96.1 % (95-100); ABG PCO2 57.6 MM HG (35-48); ABG PH 7.343 (7.35-7.45); ABG PO2 89.3 MM HG (80-95); ABG TCO2 32.4 MMOL/L (23-27)
[2016-08-08] MEDS: AMIODARONE 200 MG TABLET PO SCH (10:16)
[2016-08-08] MEDS: MEROPENEM 1,000 MG in SODIUM CHLORIDE 0.9% 100 ML IV SCH ×2 (10:16→15:37)
[2016-08-08] MEDS: LINEZOLID INJ 600 MG in PREMIX 1 EACH IV SCH ×2 (10:16→20:29)
[2016-08-08] MEDS: MULTIVITAMIN LIQUID (CENTRUM) 60 ML BOTTLE NG SCH (10:16)
[2016-08-08] MEDS: ASPIRIN 325 MG TABLET PO SCH (10:16)
[2016-08-08] MEDS: predniSONE 20 MG TABLET PO SCH (10:17)
[2016-08-08] MEDS: VALSARTAN 80 MG TABLET PO SCH (10:17)
[2016-08-08] MEDS: DIGOXIN 0.25 MG TABLET PO SCH (10:17)
[2016-08-08] MEDS: FUROSEMIDE 40 MG/4 ML VIAL IV SCH (10:17)
[2016-08-08] MEDS: INSULIN GLARGINE 100 UNIT/ML SUBCUT SCH ×2 (10:17→20:28)
[2016-08-08] MEDS: NYSTATIN 500,000 UNIT/5 ML UDCUP SWISH/SWAL SCH ×4 (10:17→20:29)
[2016-08-08] MEDS: DESITIN 4OZ/NYSTATIN 15 GRAM MIXTURE PASTE TOP SCH ×2 (10:18→20:39)
[2016-08-08] MEDS: ACETAMINOPHEN 325 MG TABLET PO PRN (10:19)
[2016-08-08 11:54] LABS: Allen Test Positive; Pt O2 Delivery Device BIPAP
[2016-08-08 11:55] LABS: ABG Base Excess 3.4 MMOL/L (-2.5-2.5); ABG HCO3 27.3 MMOL/L (20-26); ABG Oxygen Saturation 92.3 % (95-100); ABG PCO2 47.6 MM HG (35-48); ABG PH 7.396 (7.35-7.45); ABG PO2 64.2 MM HG (80-95); ABG TCO2 25.2 MMOL/L (23-27)
[2016-08-08] MEDS ORDERED: DIGOXIN 0.25 MG TABLET PO SCH (13:35)
[2016-08-08] MEDS: DIGOXIN 0.125 MG TABLET PO SCH (14:50)
[2016-08-08] MEDS: PROPOFOL 1,000 MG/100 ML BOTTLE IV SCH (17:39)
[2016-08-08] MEDS ORDERED: CLORAZEPATE 7.5 MG TABLET PO ONE (22:41)
[2016-08-09] MEDS: MEROPENEM 1,000 MG in SODIUM CHLORIDE 0.9% 100 ML IV SCH ×3 (01:12→15:01)
[2016-08-09] MEDS: ALBUTEROL/IPRATROPIUM 3 ML NEB RESP TX SCH ×6 (03:50→23:59)
[2016-08-09] MEDS: PANTOPRAZOLE 40 MG VIAL IV SCH (04:04)
[2016-08-09 05:20] LABS: Basophils % 0.1 % (0.0-0.8); Eosinophils # 0.2 10*3/uL (0.0-0.87); Eosinophils % 1.4 % (0.00-10.9); Hematocrit 45.9 VOL% (35.7-47.0); Hemoglobin 14.2 GM/DL (12.0-16.0); Immature Granulocytes % 0.5 %; Immature Granulocytes Absolute 0.06 #; Lymphocytes # 1.3 10*3/uL (1.4-4.0); Lymphocytes % 9.9 % (21.3-54.2); Mean Corpuscular HGB Conc 30.9 GM/DL (32-36); Mean Corpuscular Hemoglobin 26 PG (27-34); Mean Corpuscular Volume 84.8 FL (87-102); Monocytes # 0.6 10*3/uL (0.11-0.8); Monocytes % 4.2 % (1.7-12.7); Neutrophils # 11.1 10*3/uL (1.4-7.4); Neutrophils % 83.9 % (38.7-73.9); Platelet Count 136 T/CUMM (130-400); Red Blood Count 5.41 MC/CUMM (3.8-5.5); Red Cell Distribution Width 17.5 % (9.3-17.3); White Blood Count 13.2 T/CUMM (4-12)
[2016-08-09 05:48] LABS: Calcium 8.1 MG/DL (8.5-10.1); Magnesium 2.1 MG/DL (1.8-2.4); Osmolality,Calculated 285.3 MOS/KG (273-304); Potassium 3.4 MMOL/L (3.5-5.1)
[2016-08-09] MEDS: INSULIN REGULAR 100 UNIT/ML SUBCUT SCH ×3 (05:53→18:19)
--- NOTE | 2016-08-09 09:03 | Hospitalist Progress Note ---
Assessment and Plan (1) Dementia Status: Chronic Current Visit: Yes (2) Acute hypercapnic respiratory failure Status: Resolved Assessment and plan: Continued intermittent oxygen desaturation. Variable hypercapnia with body habitus suggesting potential for sleep disordered breathing pattern. Her initial echocardiogram showed preserved left ventricular systolic performance without evidence of pulmonary hypertension. Current Visit: Yes Hospitalist: Subjective Interval history: 75-year-old female presenting with chronic hypoxemia with acute CO2 retention respiratory acidosis requiring intubation and mechanical ventilation. She had presented on 21 July and initial extubation attempts were unsuccessful. She was successfully extubated on 07 August however yesterday developed some CO2 retention with a course of BiPAP. She continues to show what appears to be nocturnal desaturation with body habitus raising the possibility of obstructive sleep apnea component. She is currently much more awake and alert oxygen saturation on nasal cannula is 96% she is in sinus rhythm. Vitals are stable and she is afebrile. The patient's most recent blood culture is positive for staph hominis this is methicillin-resistant but covered by her current antibiotic regimen. Exam - Constitutional Vitals: Period Temp Pulse Resp BP Sys/Norman Pulse Ox Last 24 Hr 97.8 F-98.4 F 55-99 12-26 90-144/40-75 89-97 General appearance: over weight - Respiratory Respiratory exam: Absent: rales, rhonchi, wheezes - Cardiovascular Cardiovascular exam: Present: regular rate and rhythm, systolic murmur (Low- frequency 1-2/6 basal systolic murmur) - GI/Abdominal GI/Abdominal exam: Present: normal bowel sounds. Absent: distended - Extremities Exam Extremities exam: Absent: edema - Neurological Exam Neurological exam: Present: alert (More so than yesterday but still somewhat lethargic. She does open her eyes with conversation and appears to nod appropriately) Results - Labs CBC & BMP: 08/09/16 05:00 08/09/16 05:00 Quality Measures - VTE Deep Vein Thrombosis/Pulmonary Embolism Present on Admission: No
--- NOTE | 2016-08-09 09:14 | Pulmonology Progress Note ---
Pulmonary - PN: Subj Interval history: Patient is a 75-year-old lady that presented with shortness of breath and had to be intubated. She was felt to possibly have mild heart failure. She did have significant CO2 retention. Her PO2 is still on the low side. Her family says her O2 runs low at home and she uses home oxygen. She apparently has significant COPD. She is a former smoker. Over the weekend she was tried off the ventilator but did not do very well. She had to be reintubated. She is reasonably stable at present on the ventilator now. Her oxygenation is a little better and she does appear to be stable. She was started on amiodarone for atrial fibrillation. She was cardioverted to sinus rhythm. For several days she did CPAP well. Her chest x-ray has improved. She was extubated and has done reasonably well the last day or 2. She is more alert today and looks more comfortable. She is not having any respiratory distress now. She is talking a little more today. Exam (Progress Note) - Constitutional Vitals: Period Temp Pulse Resp BP Sys/Norman Pulse Ox Last 24 Hr 97.8 F-98.4 F 55-99 12- 90-144/40-75 89-97 Exam: General appearance: normal weight, no acute distress (She is comfortable and in no distress now.) - Head Head exam: Present: normal inspection, normocephalic - Eye Eye exam: Present: EOMI. Absent: scleral icterus Pupils: Present: AR - ENT ENT exam: Present: normal exam, she has an NG tube in place. - Neck Neck exam: Present: normal inspection. Absent: lymphadenopathy, thyromegaly - Respiratory Respiratory exam: Present: She has good breath sounds bilaterally and her lungs sound better with less wheezing. She is moving air okay at present. - Cardiovascular Cardiovascular exam: Present: She has a regular sinus rhythm now. Her heart rate is in the 60s. - GI/Abdominal GI/Abdominal exam: Present: normal bowel sounds, soft. Absent: organomegaly, tenderness - Extremities Exam Extremities exam: Absent: calf tenderness, edema - Neurological Exam Neurological exam: Present: She responds a little better and is moving around a little more. - Skin Skin exam: Present: warm, dry Results - Labs CBC & BMP: 08/09/16 05:00 04/26/17 05:00 Assessment and Plan (1) Hypertension Status: Chronic Assessment and plan: Patient apparently has a history of hypertension but her echo looks okay without significant cardiac dysfunction. She does have some diastolic dysfunction. Her blood pressure has been stable. She does not have any signs of heart failure now. Current Visit: Yes (2) Dementia Status: Chronic Assessment and plan: Apparently the patient is developing dementia. She does get agitated at times. She is comfortable at present. She does seem to be fairly alert now. Current Visit: Yes (3) Acute hypercapnic respiratory failure Status: Resolved Assessment and plan: Patient was extubated yesterday and seems to be breathing comfortably at present. We will continue vigorous respiratory therapy. She did have a better night and looks more comfortable today. Current Visit: Yes (4) CHF (congestive heart failure) Status: Suspected Assessment and plan: Her chest x-ray has improved and she has no signs of heart failure now. Current Visit: Yes Qualifiers: Congestive heart failure type: diastolic Congestive heart failure chronicity: acute on chronic Qualified Code(s): I50.33 - Acute on chronic diastolic (congestive) heart failure (5) Bilateral pulmonary infiltrates on chest x-ray Status: Acute Assessment and plan: Patient may have some pneumonia and she did have positive blood cultures. She still has nothing growing on washings. She is getting antibiotics okay. Clinically she is doing much better and her x-ray has improved nicely. Her breathing is much better. Current Visit: Yes (6) Atrial fibrillation Status: Acute Assessment and plan: She has been placed on amiodarone therapy and seems to be stable. She was cardioverted yesterday and is back in a sinus rhythm. She has a slow heart rate now. Current Visit: Yes
--- NOTE | 2016-08-09 10:04 | Cardiology Progress Note ---
<Maribel Downing - Last Filed: 08/09/16 10:00> Assessment and Plan (1) Atrial fibrillation Status: Acute Assessment and plan: Patient is status post cardioversion 08/03/16. Patient remains in a normal sinus rhythm with heart rates in the 70's. Continue amiodarone. Further recommendations to follow per Dr. Rolle. Current Visit: Yes (2) Hypertension Status: Chronic Assessment and plan: This is clinically stable today. Continue with current plan of care. Current Visit: Yes (3) History of breast cancer Status: Chronic Current Visit: Yes (4) Bacteremia Status: Acute Assessment and plan: Admission blood cultures revealed gram-positive bacteria, staph epidermidis. Continue current plan of care with antibiotics. Defer further management to hospital medicine. Current Visit: Yes (5) Bilateral pulmonary infiltrates on chest x-ray Status: Acute Assessment and plan: Management per pulmonary. Current Visit: Yes (6) CHF (congestive heart failure) Status: Suspected Assessment and plan: This is clinically stable. Patient is without any overt signs of heart failure. Will continue current plan of care. Current Visit: Yes Qualifiers: Congestive heart failure type: diastolic Congestive heart failure chronicity: acute on chronic Qualified Code(s): I50.33 - Acute on chronic diastolic (congestive) heart failure (7) COPD (chronic obstructive pulmonary disease) Status: Acute Assessment and plan: Management per pulmonary. Current Visit: Yes (8) Hemoptysis Status: Resolved Current Visit: Yes Cardiology - PN: Subj Interval history: Kitchen Hand: None Ms. Fontana is a 75 year old female patient without known history of coronary artery disease, not routinely followed by local cardiology. Patient has cardiac risk factors significant for hypertension, hyperlipidemia, diabetes and obesity. Past medical history includes: Congestive heart failure, breast cancer and dementia. Patient has never been seen by [facility] cardiology. Unaware if patient has never undergone left heart catheterization or stress testing. Patient was transferred from [facility] with chief complaint of shortness of breath on 07/20/16. Apparently, the chest x-ray at [facility] was suggestive of pulmonary edema. IV diuretics were initiated at that time. Chest CT was negative for pulmonary embolus. Venous Doppler bilateral lower extremities was negative for DVT. Head CT revealed chronic lacunar infarcts. She was admitted to the telemetry floor. Overnight, she became more dyspneic and required transfer to the CCU and intubation. Pulmonary was then consulted. It is possible that patient had mild diastolic heart failure. BNP was noted to be 402. Blood cultures were positive for Staphylococcus Epidermidis. Patient was started on appropriate antibiotics at that time. She was extubated on July 30. However, several hours later she required reintubation due to respiratory distress. It appears that at some point on 07/31/16 patient went into atrial fibrillation/flutter. Cardiology was then consulted to further assist. Patient was then started on IV amiodarone. On August 03, 2016, patient was successfully cardioverted per Dr. Galan. Since that time, patient has remained in a normal sinus rhythm. Amiodarone dose was decreased to 200 mg twice daily August 05, 2016. Lovenox is currently on hold due to hemoptysis and decreased platelet count. Over the weekend, patient was noted to have altered mental status. She underwent head CT which revealed small vessel disease, no acute stroke. Chest x-ray revealed opacity on the left side, suspicious for pneumonia. Patient was seen and examined in the CCU. She continues to do well post extubation. She is awake and alert and able to answer questions and follow commands appropriately. Currently requiring oxygen at 2 L via nasal cannula. She continues to be in normal sinus rhythm heart rates in the 70s without any overt arrhythmias or ectopy noted. Bradycardi is better today after beta elvira was discontinued yesterday and amiodarone was decreased. Potassium is noted to be 3.4. Potassium replaced per protocol as ordered. Magnesium 2.1 noted. Platelets have trended up overnight at 136. Vital signs are stable. Exam (Progress Note) - Constitutional Vitals: Period Temp Pulse Resp BP Sys/Norman Pulse Ox Last 24 Hr 97.8 F-98.4 F 55-99 12-26 90-144/40-75 89-97 Exam: General appearance: no acute distress, over weight - Head Head exam: Present: normal inspection, normocephalic, atraumatic - Neck Neck exam: Present: normal inspection. Absent: lymphadenopathy, tenderness, thyromegaly - Respiratory Respiratory exam: Present: clear to auscultation bilaterally. Absent: accessory muscle use, chest wall tenderness, rales, rhonchi - Cardiovascular Cardiovascular exam: Present: regular rate and rhythm. Absent: carotid bruit, gallop, rubs, bradycardia - GI/Abdominal GI/Abdominal exam: Present: normal bowel sounds, soft, other (Nasogastric tube noted.). Absent: distended, firm, mass, tenderness - Extremities Exam Extremities exam: Present: normal inspection, normal capillary refill. Absent: calf tenderness, edema - Neurological Exam Neurological exam: Present: other (Patient is awake and able to follow commands appropriately.) - Skin Skin exam: Present: normal color, warm, dry Result/EKG - Labs CBC & BMP: 08/09/16 05:00 08/09/16 05:00 Lab Results: I have reviewed the past 24 hour labs Labs: Laboratory Results - last 24 hr 08/08/16 08/08/16 08/08/16 09:55 11:50 12:34 WBC RBC Hgb Hct MCV MCH MCHC RDW Plt Count Neut % (Auto) Lymph % (Auto) [place] % (Auto) Eos % (Auto) Baso % (Auto) Neut # (Auto) Lymph # (Auto) [place] # (Auto) Eos # (Auto) Baso # (Auto) Immature Gran % Nucleated RBC % Immature Gran # Nucleated RBCs # ABG pH 7.343 L 7.396 ABG pCO2 57.6 H 47.6 ABG pO2 89.3 64.2 L ABG HCO3 30.6 H 27.3 H ABG Total CO2 32.4 H 25.2 ABG O2 Saturation 96.1 92.3 L ABG Base Excess 3.4 H 3.4 H FiO2 36.00 30.00 Sodium Potassium Chloride Carbon Dioxide Anion Gap BUN Creatinine GFR Calculation BUN/Creatinine Ratio Glucose POC Glucose 194 H Calculated Osmolality Calcium Magnesium Digoxin 08/08/16 08/08/16 08/09/16 16:21 23:35 05:00 WBC 13.2 H D RBC 5.41 Hgb 14.2 Hct 45.9 MCV 84.8 L MCH 26 L MCHC 30.9 L RDW 17.5 H Plt Count 136 Neut % (Auto) 83.9 H Lymph % (Auto) 9.9 L [place] % (Auto) 4.2 Eos % (Auto) 1.4 Baso % (Auto) 0.1 Neut # (Auto) 11.1 H Lymph # (Auto) 1.3 L [place] # (Auto) 0.6 Eos # (Auto) 0.2 Baso # (Auto) 0.0 Immature Gran % 0.5 Nucleated RBC % 0.0 Immature Gran # 0.06 Nucleated RBCs # 0.00 ABG pH ABG pCO2 ABG pO2 ABG HCO3 ABG Total CO2 ABG O2 Saturation ABG Base Excess FiO2 Sodium Potassium Chloride Carbon Dioxide Anion Gap BUN Creatinine GFR Calculation BUN/Creatinine Ratio Glucose POC Glucose 155 H 90 Calculated Osmolality Calcium Magnesium Digoxin 08/09/16 08/09/16 05:00 05:00 WBC RBC Hgb Hct MCV MCH MCHC RDW Plt Count Neut % (Auto) Lymph % (Auto) [place] % (Auto) Eos % (Auto) Baso % (Auto) Neut # (Auto) Lymph # (Auto) [place] # (Auto) Eos # (Auto) Baso # (Auto) Immature Gran % Nucleated RBC % Immature Gran # Nucleated RBCs # ABG pH ABG pCO2 ABG pO2 ABG HCO3 ABG Total CO2 ABG O2 Saturation ABG Base Excess FiO2 Sodium 141 Potassium 3.4 L Chloride 106 Carbon Dioxide 29 Anion Gap 9.4 BUN 29 H Creatinine 0.40 L GFR Calculation 141 BUN/Creatinine Ratio 72.00 H Glucose 88 POC Glucose Calculated Osmolality 285.3 Calcium 8.1 L Magnesium 2.1 Digoxin 0.40 L Quality Measures - VTE Deep Vein Thrombosis/Pulmonary Embolism Present on Admission: No Specialty Discharge - Follow Up or Referrals Follow up with: Angely Kraft MD [Physician] - (Schedule Sleep study at [facility] after discharge ) <Gretchen Rolle - Last Filed: 08/09/16 20:56> Cardiology - PN: Subj Interval history: I personally interviewed and examined the patient, reviewed the chart and discussed medical decision-making with practitioner Chang. I have read this note and agree with the findings herein. Exam (Progress Note) - Constitutional Vitals: Period Temp Pulse Resp BP Sys/Norman Pulse Ox Last 24 Hr 97.4 F-98.4 F 64-99 12-26 90-144/38-75 90-100 Result/EKG - Labs CBC & BMP: 08/09/16 05:00 08/09/16 05:00 Labs: Laboratory Results - last 24 hr 08/08/16 08/09/16 08/09/16 23:35 05:00 05:00 WBC 13.2 H D RBC 5.41 Hgb 14.2 Hct 45.9 MCV 84.8 L MCH 26 L MCHC 30.9 L RDW 17.5 H Plt Count 136 Neut % (Auto) 83.9 H Lymph % (Auto) 9.9 L [place] % (Auto) 4.2 Eos % (Auto) 1.4 Baso % (Auto) 0.1 Neut # (Auto) 11.1 H Lymph # (Auto) 1.3 L [place] # (Auto) 0.6 Eos # (Auto) 0.2 Baso # (Auto) 0.0 Immature Gran % 0.5 Nucleated RBC % 0.0 Immature Gran # 0.06 Nucleated RBCs # 0.00 Sodium 141 Potassium 3.4 L Chloride 106 Carbon Dioxide 29 Anion Gap 9.4 BUN 29 H Creatinine 0.40 L GFR Calculation 141 BUN/Creatinine Ratio 72.00 H Glucose 88 POC Glucose 90 Calculated Osmolality 285.3 Calcium 8.1 L Magnesium 2.1 Digoxin 08/09/16 08/09/16 08/09/16 05:00 12:17 18:12 WBC RBC Hgb Hct MCV MCH MCHC RDW Plt Count Neut % (Auto) Lymph % (Auto) [place] % (Auto) Eos % (Auto) Baso % (Auto) Neut # (Auto) Lymph # (Auto) [place] # (Auto) Eos # (Auto) Baso # (Auto) Immature Gran % Nucleated RBC % Immature Gran # Nucleated RBCs # Sodium Potassium Chloride Carbon Dioxide Anion Gap BUN Creatinine GFR Calculation BUN/Creatinine Ratio Glucose POC Glucose 112 H 178 H Calculated Osmolality Calcium Magnesium Digoxin 0.40 L
[2016-08-09] MEDS: predniSONE 20 MG TABLET PO SCH (10:56)
[2016-08-09] MEDS: LINEZOLID INJ 600 MG in PREMIX 1 EACH IV SCH ×2 (10:56→21:43)
[2016-08-09] MEDS: DIGOXIN 0.125 MG TABLET PO SCH (10:57)
[2016-08-09] MEDS: ASPIRIN 325 MG TABLET PO SCH (10:57)
[2016-08-09] MEDS: FUROSEMIDE 40 MG/4 ML VIAL IV SCH (10:57)
[2016-08-09] MEDS: VALSARTAN 80 MG TABLET PO SCH (10:57)
[2016-08-09] MEDS: AMIODARONE 200 MG TABLET PO SCH (10:58)
[2016-08-09] MEDS: POTASSIUM CHLORIDE RIDER 20 MEQ in PREMIX 1 EACH IV PRN (11:04)
[2016-08-09] MEDS: NYSTATIN 500,000 UNIT/5 ML UDCUP SWISH/SWAL SCH ×4 (11:05→21:45)
[2016-08-09] MEDS: DESITIN 4OZ/NYSTATIN 15 GRAM MIXTURE PASTE TOP SCH ×2 (11:05→21:45)
[2016-08-09] MEDS: INSULIN GLARGINE 100 UNIT/ML SUBCUT SCH ×2 (11:37→21:44)
[2016-08-09] MEDS: MULTIVITAMIN LIQUID (CENTRUM) 60 ML BOTTLE NG SCH (15:01)
[2016-08-09] MEDS: POTASSIUM CHLORIDE RIDER 10 MEQ in PREMIX 1 EACH IV PRN (15:36)
--- NOTE | 2016-08-09 17:31 | Sleep Medicine Consult ---
Assessment and Plan (1) Unspecified sleep apnea Status: Acute Assessment and plan: This patient does have a history of snoring and does have significant medical comorbidities that could be associated with untreated sleep apnea. She is not stable medically enough for HST evaluation and if her status does improve significantly, we can potentially evaluate her with HST. If not, and she requires discharge to a swing bed or LTAC, we can set her up for outpatient sleep study at [facility] sleep center, since she lives near [place]. Thank you for this consult and the opportunity to participate in her care. Current Visit: Yes (2) Hypertension Status: Chronic Assessment and plan: The prevalence rate for obstructive sleep apnea patients with hypertension is 35 %. That rate can be as high as 80% in patients who require 4 or more medications for blood pressure control. Current Visit: Yes (3) Atrial fibrillation Status: Acute Assessment and plan: The prevalence for obstructive sleep apnea patients with atrial fibrillation can be as high as 80%. Treating the underlying sleep apnea often can improve control by reducing recurrence by almost 50%. Current Visit: Yes (4) COPD (chronic obstructive pulmonary disease) Status: Acute Assessment and plan: Patient does seem to be improving after recent extubation. She is on BiPAP currently. She may have some significant leak with a nasogastric tube in place and I will defer management to Dr. Miner. If the nasogastric tube is removed, it may be worthwhile to consider a nasal pillows mask given what the daughter describes as intolerance of the nasal mask that she currently has. If needed, contact sleep lab and 1 of the sleep techs can come and try fitting her with this device. The tolerance of the nasal mass though may improve significantly when that nasogastric tube is removed, with improvement of her swallowing. I explained that this is something that primary service and pulmonary would just have to do the best they can with until the nasogastric tube is able to be removed. Current Visit: Yes History of Present Illness Chief complaint: Sleep apnea History of present illness: Ms. Fontana is a 75 year old female admitted with acute respiratory failure. She has had a prolonged hospital course and has been intubated at least twice during this hospital stay. She has been extubated again and is being followed by Dr. Miner from a pulmonary standpoint. She has been utilizing BiPAP 12/ 5 with 30% in-line O2 at night but tolerance has been poor at times though she does seem to improve with its usage. She does have a nasogastric tube in place because she did fail her swallowing test. She does have a history of snoring and some symptoms of daytime fatigue and sleepiness. She has a varied sleep time and is not on a regular schedule. She does have some problems with her legs at times when she has been up on them for a good bit of the day. Home Medications Medication Instructions Recorded Confirmed Type Acetaminophen 1,000 mg PO Q6H PRN 07/21/16 07/21/16 History Clopidogrel [Plavix] 75 mg PO DAILY 07/21/16 07/21/16 History Dexlansoprazole [Dexilant] 60 mg PO DAILY 07/21/16 07/21/16 History Digoxin Tab [Lanoxin Tab] 0.25 mg PO DAILY 07/21/16 07/21/16 History Docusate Sodium Cap [Colace Cap] 100 mg PO BID 07/21/16 07/21/16 History Ergocalciferol (Vitamin D2) 50,000 unit PO Q7D 07/21/16 07/21/16 History [Vitamin D2] Furosemide Tab [Lasix Tab] 40 mg PO BID DIURETIC 07/21/16 07/21/16 History Letrozole 2.5 mg PO DAILY 07/21/16 07/21/16 History Linagliptin [Tradjenta] 5 mg PO DAILY 07/21/16 07/21/16 History Lovastatin 40 mg PO DAILY W/SUPPER 07/21/16 07/21/16 History Magnesium Oxide [Magox 400] 2,000 mg PO BID 07/21/16 07/21/16 History Memantine HCl [Namenda XR] 28 mg PO DAILY 07/21/16 07/21/16 History Multivit-Min/FA/Lycopen/Lutein 1 tablet PO DAILY 07/21/16 07/21/16 History [Centrum Silver Tablet] Solifenacin Succinate [Vesicare] 10 mg PO DAILY 07/21/16 07/21/16 History Spironolactone [Aldactone] 50 mg PO DAILY 07/21/16 07/21/16 History metOLazone [Metolazone] 10 mg PO BID 07/21/16 07/21/16 History Allergies Allergy/AdvReac Type Severity Reaction Status Date / Time No Known Allergies Allergy Unverified 04/06/17 23:49 Review of systems: Otherwise unremarkable other than as stated in HPI from a sleep medicine standpoint. Exam (Pulmonay) H&P - Constitutional Vitals: Period Temp Pulse Resp BP Sys/Norman Pulse Ox Last 24 Hr 97.4 F-98.4 F 55-99 12-26 90-144/38-75 90-100 Exam: Patient is alert and responsive. She has a nasogastric tube in place and nasal cannula O2. She answers and responds to questions appropriately. Pupils equal round reactive to light and accommodation. Extraocular movements intact. Oropharynx with a class IV Mallampati exam. Neck supple without adenopathy or thyromegaly. No supraclavicular adenopathy is noted. Chest with symmetrical breath sounds without focal wheeze, rhonchi, or rales. Cardiac exam reveals a regular rhythm without murmur or gallop. Abdomen soft nontender without palpable hepatosplenomegaly or mass. Extremities are without increased edema or clubbing. Neurologically she seems to be grossly intact at this point. Medical,Surgical,& Family Hx - Medical History Cardio: History of: CHF, Hypertension Psychological: History of: Psychiatric Problems (Dementia) Endocrine: History of: Diabetes Mellitus (NIDDM), Dyslipidemia Respiratory: History of: COPD Genitourinary: History of: Problems (Overactive Bladder) Reproductive: History of: Breast Cancer - Surgical History Thoracic Surgeries: Patient denies;: Lobectomy Reproductive Surgeries: Surgical HX of;: Hysterectomy - Social History Smoking Status: Unknown if ever smoked Frequency of Alcohol Use: Unknown Type of Drug Use: Unknown Results - Labs CBC & BMP: 08/09/16 05:00 08/09/16 05:00 Lab Results: I have reviewed the past 24 hour labs Quality Measures - VTE Deep Vein Thrombosis/Pulmonary Embolism Present on Admission: No
[2016-08-10] MEDS: MEROPENEM 1,000 MG in SODIUM CHLORIDE 0.9% 100 ML IV SCH ×3 (00:41→16:49)
[2016-08-10] MEDS: INSULIN REGULAR 100 UNIT/ML SUBCUT SCH ×4 (00:41→18:01)
[2016-08-10 04:45] LABS: ABG Base Excess 3.3 MMOL/L (-2.5-2.5); ABG HCO3 27.3 MMOL/L (20-26); ABG Oxygen Saturation 95.2 % (95-100); ABG PCO2 43.1 MM HG (35-48); ABG PH 7.424 (7.35-7.45); ABG PO2 76.7 MM HG (80-95)
[2016-08-10] MEDS: PANTOPRAZOLE 40 MG VIAL IV SCH (04:52)
[2016-08-10] MEDS: ALBUTEROL/IPRATROPIUM 3 ML NEB RESP TX SCH ×5 (05:12→20:04)
--- NOTE | 2016-08-10 07:58 | Pulmonology Progress Note ---
Pulmonary - PN: Subj Interval history: Patient is a 75-year-old lady that presented with shortness of breath and had to be intubated. She was felt to possibly have mild heart failure. She did have significant CO2 retention. Her PO2 is still on the low side. Her family says her O2 runs low at home and she uses home oxygen. She apparently has significant COPD. She is a former smoker. Over the weekend she was tried off the ventilator but did not do very well. She had to be reintubated. She is reasonably stable at present on the ventilator now. Her oxygenation is a little better and she does appear to be stable. She was started on amiodarone for atrial fibrillation. She was cardioverted to sinus rhythm. For several days she did CPAP well. Her chest x-ray has improved. She was extubated and has done reasonably well the last day or 2. She had a fairly good night and is not having much trouble with her breathing. She still does not say much. Her heart rate is been doing well. Her oxygenation has been stable. She can go to a regular room and increase her activity Exam (Progress Note) - Constitutional Vitals: Period Temp Pulse Resp BP Sys/Norman Pulse Ox Last 24 Hr 97.4 F-98.4 F 64-102 12-24 94-156/38-103 88-936 Exam: General appearance: normal weight, no acute distress (She is comfortable and in no distress now. She does talk a little.) - Head Head exam: Present: normal inspection, normocephalic - Eye Eye exam: Present: EOMI. Absent: scleral icterus Pupils: Present: AR - ENT ENT exam: Present: normal exam, she has an NG tube in place. - Neck Neck exam: Present: normal inspection. Absent: lymphadenopathy, thyromegaly - Respiratory Respiratory exam: Present: She has good breath sounds bilaterally and her lungs sound better with less wheezing. She is moving air okay at present. She has a fair cough. - Cardiovascular Cardiovascular exam: Present: She has a regular sinus rhythm now. Her heart rate is in the 60s. - GI/Abdominal GI/Abdominal exam: Present: normal bowel sounds, soft. Absent: organomegaly, tenderness - Extremities Exam Extremities exam: Absent: calf tenderness, edema - Neurological Exam Neurological exam: Present: She responds a little better and is moving around a little more. - Skin Skin exam: Present: warm, dry Results - Labs CBC & BMP: 08/09/16 05:00 08/09/16 05:00 Labs: The PO2 of 76 with a PCO2 of 43 and a pH of 7.42 Assessment and Plan (1) Hypertension Status: Chronic Assessment and plan: Patient apparently has a history of hypertension but her echo looks okay without significant cardiac dysfunction. She does have some diastolic dysfunction. Her blood pressure has been stable. She does not have any signs of heart failure now. Current Visit: Yes (2) Dementia Status: Chronic Assessment and plan: Apparently the patient is developing dementia. She does get agitated at times. She is comfortable at present. She does seem to be fairly alert now. Current Visit: Yes (3) Acute hypercapnic respiratory failure Status: Resolved Assessment and plan: Patient was extubated yesterday and seems to be breathing comfortably at present. We will continue vigorous respiratory therapy. Her ABGs are stable and she is not having any respiratory distress now. She can move to a regular room. Current Visit: Yes (4) CHF (congestive heart failure) Status: Suspected Assessment and plan: Her chest x-ray has improved and she has no signs of heart failure now. Current Visit: Yes Qualifiers: Congestive heart failure type: diastolic Congestive heart failure chronicity: acute on chronic Qualified Code(s): I50.33 - Acute on chronic diastolic (congestive) heart failure (5) Bilateral pulmonary infiltrates on chest x-ray Status: Acute Assessment and plan: Patient may have some pneumonia and she did have positive blood cultures. She still has nothing growing on washings. She is getting antibiotics okay. Clinically she is doing much better and her x-ray has improved nicely. Her breathing is much better. Current Visit: Yes (6) Atrial fibrillation Status: Acute Assessment and plan: She has been placed on amiodarone therapy and seems to be stable. She was cardioverted yesterday and is back in a sinus rhythm. She has a slow heart rate now. Current Visit: Yes Specialty Discharge - Follow Up or Referrals Follow up with: Angely Kraft MD [Physician] - (Schedule Sleep study at [facility] after discharge )
[2016-08-10 08:01] LABS: Magnesium 2.2 MG/DL (1.8-2.4); Phosphorous 2.7 MG/DL (2.5-4.9); Prealbumin 29.2 MG/DL (20-40)
[2016-08-10 08:04] LABS: Calcium 7.7 MG/DL (8.5-10.1); Magnesium 2.2 MG/DL (1.8-2.4); Potassium 3.7 MMOL/L (3.5-5.1)
[2016-08-10 08:23] LABS: Basophils % 0.2 % (0.0-0.8); Eosinophils # 0.2 10*3/uL (0.0-0.87); Hematocrit 45.2 VOL% (35.7-47.0); Hemoglobin 14.1 GM/DL (12.0-16.0); Immature Granulocytes % 0.5 %; Immature Granulocytes Absolute 0.05 #; Lymphocytes # 1.3 10*3/uL (1.4-4.0); Lymphocytes % 12.2 % (21.3-54.2); Mean Corpuscular HGB Conc 31.2 GM/DL (32-36); Mean Corpuscular Hemoglobin 27 PG (27-34); Mean Corpuscular Volume 85.3 FL (87-102); Monocytes # 0.4 10*3/uL (0.11-0.8); Monocytes % 4.1 % (1.7-12.7); Neutrophils # 8.4 10*3/uL (1.4-7.4); Platelet Count 145 T/CUMM (130-400); Red Cell Distribution Width 17.9 % (9.3-17.3); White Blood Count 10.4 T/CUMM (4-12)
[2016-08-10] MEDS: MULTIVITAMIN LIQUID (CENTRUM) 60 ML BOTTLE NG SCH (08:37)
[2016-08-10] MEDS: NYSTATIN 500,000 UNIT/5 ML UDCUP SWISH/SWAL SCH ×4 (08:37→21:20)
[2016-08-10] MEDS: INSULIN GLARGINE 100 UNIT/ML SUBCUT SCH ×2 (08:37→21:20)
[2016-08-10] MEDS: AMIODARONE 200 MG TABLET PO SCH (08:38)
[2016-08-10] MEDS: DIGOXIN 0.125 MG TABLET PO SCH (08:38)
[2016-08-10] MEDS: FUROSEMIDE 20 MG TABLET PO SCH (08:38)
[2016-08-10] MEDS: VALSARTAN 80 MG TABLET PO SCH (08:38)
[2016-08-10] MEDS: predniSONE 20 MG TABLET PO SCH (08:39)
[2016-08-10] MEDS: ASPIRIN 325 MG TABLET PO SCH (08:39)
[2016-08-10] MEDS: DESITIN 4OZ/NYSTATIN 15 GRAM MIXTURE PASTE TOP SCH ×2 (08:39→22:15)
[2016-08-10] MEDS: LINEZOLID INJ 600 MG in PREMIX 1 EACH IV SCH ×2 (08:41→21:19)
--- NOTE | 2016-08-10 09:59 | Hospitalist Progress Note ---
Assessment and Plan (1) Dementia Status: Chronic Current Visit: Yes (2) Acute hypercapnic respiratory failure Status: Resolved Assessment and plan: Continued intermittent oxygen desaturation. Variable hypercapnia with body habitus suggesting potential for sleep disordered breathing pattern. Her initial echocardiogram showed preserved left ventricular systolic performance without evidence of pulmonary hypertension. Pulmonary status is continued to improve with arterial blood gases today showing no CO2 retention adequate oxygenation. Current Visit: Yes (3) Atrial fibrillation Status: Acute Assessment and plan: This may well have been related to the acute respiratory condition. She is maintaining sinus rhythm on amiodarone and anticoagulation has been discontinued. Current Visit: Yes Qualifiers: Atrial fibrillation type: paroxysmal Qualified Code(s): I48.0 - Paroxysmal atrial fibrillation Hospitalist: Subjective Interval history: 5-year-old female with history of chronic hypoxemia presenting with acute CO2 retention respiratory acidosis requiring intubation and mechanical ventilation. Initial extubation efforts were unsuccessful. She was finally transitioned from the mechanical ventilation with BiPAP as a bridge on 07 August. She is continued to improve gradually is receiving physical therapy and appears to be oxygenating adequately without CO2 retention over the last several day she is afebrile and vital signs are stable. She did have approximately atrial fibrillation addressed by cardiology with cardioversion and is currently on amiodarone with adequate suppression of atrial arrhythmias. She is felt to be adequate for a transfer from the ICU anticipating the patient will require extended rehab care. Exam - Constitutional Vitals: Period Temp Pulse Resp BP Sys/Norman Pulse Ox Last 24 Hr 97.4 F-97.8 F 64-102 12-24 94-156/38-103 88-100 General appearance: over weight - Respiratory Respiratory exam: Absent: rales, rhonchi, wheezes - Cardiovascular Cardiovascular exam: Present: regular rate and rhythm, systolic murmur (2/6 basilar systolic murmur) - GI/Abdominal GI/Abdominal exam: Present: normal bowel sounds. Absent: distended, tenderness - Extremities Exam Extremities exam: Absent: edema - Neurological Exam Neurological exam: Absent: alert Results - Labs CBC & BMP: 08/10/16 08:15 08/10/16 06:00 Labs: 2 L per nasal cannula pH 7.42 PCO2 43 PO2 77 (08/10/2016) Quality Measures - VTE Deep Vein Thrombosis/Pulmonary Embolism Present on Admission: No Specialty Discharge - Follow Up or Referrals Follow up with: Angely Kraft MD [Physician] - (Schedule Sleep study at [facility] after discharge )
[2016-08-10] MEDS: POTASSIUM CHLORIDE RIDER 20 MEQ in PREMIX 1 EACH IV PRN (11:00)
--- NOTE | 2016-08-10 12:36 | Sleep Medicine Progress Note ---
Assessment and Plan (1) Unspecified sleep apnea Status: Acute Assessment and plan: It does not appear that she will be a candidate for HST for the near future. We will set her up for outpatient polysomnography in [facility] sleep center after discharge. Thank you for this consult and the opportunity to participate in her care. Current Visit: Yes (2) Hypertension Status: Chronic Current Visit: Yes (3) Atrial fibrillation Status: Acute Current Visit: Yes Qualifiers: Atrial fibrillation type: paroxysmal Qualified Code(s): I48.0 - Paroxysmal atrial fibrillation (4) COPD (chronic obstructive pulmonary disease) Status: Acute Current Visit: Yes Sleep Medicine Subjective Interval history: Patient is doing okay but still has an NG tube in place and is on supplemental oxygen. She refused BiPAP last night. Nurses observed her while sleeping with nasal cannula O2 and had only mild O2 desats into the upper 80s. No significant snoring was noted. She is feeling okay and voices no new problems or complaints. Exam (Progress Note) - Constitutional Vitals: Period Temp Pulse Resp BP Sys/Norman Pulse Ox Last 24 Hr 97.5 F-97.8 F 68-102 12-24 91-156/37-103 68-100 Exam: She is alert and responsive in no acute distress. Chest with good air movement and no focal wheeze, rhonchi, or rales. Cardiac exam reveals a regular rhythm without murmur or gallop. Abdomen soft nontender extremities without increased edema. Neurologically, grossly intact. Results - Labs CBC & BMP: 08/10/16 08:15 08/10/16 06:00 Lab Results: I have reviewed the past 24 hour labs Specialty Discharge - Follow Up or Referrals Follow up with: Angely Kraft MD [Physician] - (Schedule Sleep study at [facility] after discharge )
--- NOTE | 2016-08-10 14:55 | Cardiology Progress Note ---
<Maribel Downing - Last Filed: 08/10/16 14:45> Assessment and Plan (1) Atrial fibrillation Status: Acute Assessment and plan: Patient is status post cardioversion 08/03/16. Patient has remained in normal sinus rhythm post cardioversion. Discussed with Gretchen Rolle and patient has now maintained in normal sinus rhythm for 7 days, due to patient's episode of thrombocytopenia and hemoptysis will hold off on advancing patient's anticoagulation at this time. This may be considered on an outpatient basis. Recommend continuing aspirin 325 p.o. daily at this time. Continue amiodarone. Patient will be given a follow-up appointment with Dr. Galan approximately 2-3 weeks post discharge with BMP, magnesium and EKG. Patient is stable from a cardiac standpoint. At this time cardiology will sign off. Reconsult as needed. Further recommendations to follow per Dr. Rolle. Current Visit: Yes Qualifiers: Atrial fibrillation type: paroxysmal Qualified Code(s): I48.0 - Paroxysmal atrial fibrillation (2) Hypertension Status: Chronic Assessment and plan: This is clinically stable today. Continue with current plan of care. Current Visit: Yes (3) History of breast cancer Status: Chronic Current Visit: Yes (4) Bacteremia Status: Acute Assessment and plan: Admission blood cultures revealed gram-positive bacteria, staph epidermidis. Continue current plan of care with antibiotics. Defer further management to hospital medicine. Current Visit: Yes (5) Bilateral pulmonary infiltrates on chest x-ray Status: Acute Assessment and plan: Management per pulmonary. Current Visit: Yes (6) CHF (congestive heart failure) Status: Suspected Assessment and plan: This is clinically stable. Patient is without any overt signs of heart failure. Will continue current plan of care. Current Visit: Yes Qualifiers: Congestive heart failure type: diastolic Congestive heart failure chronicity: acute on chronic Qualified Code(s): I50.33 - Acute on chronic diastolic (congestive) heart failure (7) COPD (chronic obstructive pulmonary disease) Status: Acute Assessment and plan: Management per pulmonary. Current Visit: Yes (8) Hemoptysis Status: Resolved Current Visit: Yes Cardiology - PN: Subj Interval history: Scraper Burrer: None Ms. Fontana is a 75 year old female patient without known history of coronary artery disease, not routinely followed by local cardiology. Patient has cardiac risk factors significant for hypertension, hyperlipidemia, diabetes and obesity. Past medical history includes: Congestive heart failure, breast cancer and dementia. Patient has never been seen by [facility] cardiology. Unaware if patient has never undergone left heart catheterization or stress testing. Patient was transferred from [facility] with chief complaint of shortness of breath on 07/20/16. Apparently, the chest x-ray at [facility] was suggestive of pulmonary edema. IV diuretics were initiated at that time. Chest CT was negative for pulmonary embolus. Venous Doppler bilateral lower extremities was negative for DVT. Head CT revealed chronic lacunar infarcts. She was admitted to the telemetry floor. Overnight, she became more dyspneic and required transfer to the CCU and intubation. Pulmonary was then consulted. It is possible that patient had mild diastolic heart failure. BNP was noted to be 402. Blood cultures were positive for Staphylococcus Epidermidis. Patient was started on appropriate antibiotics at that time. She was extubated on July 30. However, several hours later she required reintubation due to respiratory distress. It appears that at some point on 07/31/16 patient went into atrial fibrillation/flutter. Cardiology was then consulted to further assist. Patient was then started on IV amiodarone. On August 03, 2016, patient was successfully cardioverted per Dr. Galan. Since that time, patient has remained in a normal sinus rhythm. Amiodarone dose was decreased to 200 mg twice daily August 05, 2016. Lovenox is currently on hold due to hemoptysis and decreased platelet count. Over the weekend, patient was noted to have altered mental status. She underwent head CT which revealed small vessel disease, no acute stroke. Chest x-ray revealed opacity on the left side, suspicious for pneumonia. Patient was seen and examined in the CCU. She has continued to do well postextubation and has plans for transfer upstairs this afternoon. She is awake and alert and able to answer all questions appropriately. She continues to be mildly weak but is able to follow all commands. Patient remained in normal sinus rhythm after being cardioverted last . Vital signs are stable today. Labs have been reviewed. Further plan and addendum to follow per Dr. Rolle. Exam (Progress Note) - Constitutional Vitals: Period Temp Pulse Resp BP Sys/Norman Pulse Ox Last 24 Hr 97.2 F-97.8 F 68-102 12-24 91-156/37-103 68-100 Exam: General appearance: no acute distress, over weight - Head Head exam: Present: normal inspection, normocephalic, atraumatic - Neck Neck exam: Present: normal inspection. Absent: lymphadenopathy, tenderness, thyromegaly - Respiratory Respiratory exam: Present: clear to auscultation bilaterally. Absent: accessory muscle use, chest wall tenderness, rales, rhonchi - Cardiovascular Cardiovascular exam: Present: regular rate and rhythm, faint systolic murmur. Absent: carotid bruit, gallop, rubs, bradycardia - GI/Abdominal GI/Abdominal exam: Present: normal bowel sounds, soft, other (Nasogastric tube noted.). Absent: distended, firm, mass, tenderness - Extremities Exam Extremities exam: Present: normal inspection, normal capillary refill. Absent: calf tenderness, edema - Neurological Exam Neurological exam: Present: other (Patient is awake and able to follow commands appropriately.) - Skin Skin exam: Present: normal color, warm, dry Result/EKG - Labs CBC & BMP: 08/10/16 08:15 08/10/16 06:00 Lab Results: I have reviewed the past 24 hour labs Labs: Laboratory Results - last 24 hr 08/09/16 08/10/16 08/10/16 18:12 00:22 04:30 WBC RBC Hgb Hct MCV MCH MCHC RDW Plt Count Neut % (Auto) Lymph % (Auto) [place] % (Auto) Eos % (Auto) Baso % (Auto) Neut # (Auto) Lymph # (Auto) [place] # (Auto) Eos # (Auto) Baso # (Auto) Immature Gran % Nucleated RBC % Immature Gran # Nucleated RBCs # ABG pH 7.424 ABG pCO2 43.1 ABG pO2 76.7 L ABG HCO3 27.3 H ABG Total CO2 24.0 ABG O2 Saturation 95.2 ABG Base Excess 3.3 H FiO2 28.00 Sodium Potassium Chloride Carbon Dioxide Anion Gap BUN Creatinine GFR Calculation BUN/Creatinine Ratio Glucose POC Glucose 178 H 169 H Calculated Osmolality Calcium Phosphorus Magnesium Prealbumin 08/10/16 08/10/16 08/10/16 06:00 06:00 06:12 WBC RBC Hgb Hct MCV MCH MCHC RDW Plt Count Neut % (Auto) Lymph % (Auto) [place] % (Auto) Eos % (Auto) Baso % (Auto) Neut # (Auto) Lymph # (Auto) [place] # (Auto) Eos # (Auto) Baso # (Auto) Immature Gran % Nucleated RBC % Immature Gran # Nucleated RBCs # ABG pH ABG pCO2 ABG pO2 ABG HCO3 ABG Total CO2 ABG O2 Saturation ABG Base Excess FiO2 Sodium 143 Potassium 3.7 Chloride 105 Carbon Dioxide 31 Anion Gap 10.7 BUN 24 H Creatinine 0.40 L GFR Calculation 139 BUN/Creatinine Ratio 60.00 H Glucose 85 POC Glucose 81 Calculated Osmolality 287.0 Calcium 7.7 L Phosphorus 2.7 Magnesium 2.2 2.2 Prealbumin 29.2 08/10/16 08/10/16 08:15 11:54 WBC 10.4 RBC 5.30 Hgb 14.1 Hct 45.2 MCV 85.3 L MCH 27 MCHC 31.2 L RDW 17.9 H Plt Count 145 Neut % (Auto) 81.0 H Lymph % (Auto) 12.2 L [place] % (Auto) 4.1 Eos % (Auto) 2.0 Baso % (Auto) 0.2 Neut # (Auto) 8.4 H Lymph # (Auto) 1.3 L [place] # (Auto) 0.4 Eos # (Auto) 0.2 Baso # (Auto) 0.0 Immature Gran % 0.5 Nucleated RBC % 0.0 Immature Gran # 0.05 Nucleated RBCs # 0.00 ABG pH ABG pCO2 ABG pO2 ABG HCO3 ABG Total CO2 ABG O2 Saturation ABG Base Excess FiO2 Sodium Potassium Chloride Carbon Dioxide Anion Gap BUN Creatinine GFR Calculation BUN/Creatinine Ratio Glucose POC Glucose 162 H Calculated Osmolality Calcium Phosphorus Magnesium Prealbumin Quality Measures - VTE Deep Vein Thrombosis/Pulmonary Embolism Present on Admission: No Specialty Discharge - Follow Up or Referrals Follow up with: Angely Kraft MD [Physician] - (Schedule Sleep study at [facility] after discharge ) Truong Galan MD [Physician] - (Patient will need a follow-up appointment with Dr. Johnson Galan 2-3 weeks post discharge with BMP, magnesium and EKG.) <Gretchen Rolle - Last Filed: 08/12/16 08:30> Cardiology - PN: Subj Interval history: I have personally interviewed and examined the patient, reviewed the chart and discussed medical decision-making with practitioner Chang. I have read this note and agree with the documentation herein. Exam (Progress Note) - Constitutional Vitals: Period Temp Pulse Resp BP Sys/Norman Pulse Ox Last 24 Hr 97.7 F-98.4 F 70-102 18-25 101-128/54-68 91-99 Result/EKG - Labs CBC & BMP: 08/10/16 08:15 08/10/16 06:00 Labs: Laboratory Results - last 24 hr 08/11/16 08/11/16 08/11/16 00:38 11:22 17:20 POC Glucose 136 H 125 H Urine Color Selena Urine Appearance Slightly hazy Urine pH 5.0 Ur Specific [place] 1.021 Urine Protein Negative Urine Glucose (UA) 50 Urine Ketones Negative Urine Blood Negative Urine Nitrate Negative Urine Bilirubin Negative Urine Urobilinogen 2.0 H Urine Leukocytes Small H Urine RBC 13 Urine WBC 29 Ur Squamous Epith Cells Occasional Calcium Oxalate Crystal Occasional Urine Bacteria Occasional Urine Mucus Occasional Urine Yeast (Budding) Few Ur Culture Indicated? Ordered separately 08/11/16 08/11/16 08/11/16 17:48 20:33 23:14 POC Glucose 189 H 150 H 179 H Urine Color Urine Appearance Urine pH Ur Specific [place] Urine Protein Urine Glucose (UA) Urine Ketones Urine Blood Urine Nitrate Urine Bilirubin Urine Urobilinogen Urine Leukocytes Urine RBC Urine WBC Ur Squamous Epith Cells Calcium Oxalate Crystal Urine Bacteria Urine Mucus Urine Yeast (Budding) Ur Culture Indicated? 08/12/16 08/12/16 05:45 07:12 POC Glucose 75 90 Urine Color Urine Appearance Urine pH Ur Specific [place] Urine Protein Urine Glucose (UA) Urine Ketones Urine Blood Urine Nitrate Urine Bilirubin Urine Urobilinogen Urine Leukocytes Urine RBC Urine WBC Ur Squamous Epith Cells Calcium Oxalate Crystal Urine Bacteria Urine Mucus Urine Yeast (Budding) Ur Culture Indicated?
[2016-08-11] MEDS: ALBUTEROL/IPRATROPIUM 3 ML NEB RESP TX SCH ×7 (00:24→23:26)
[2016-08-11] MEDS: MEROPENEM 1,000 MG in SODIUM CHLORIDE 0.9% 100 ML IV SCH ×4 (00:37→23:16)
[2016-08-11] MEDS: INSULIN REGULAR 100 UNIT/ML SUBCUT SCH ×5 (01:07→23:27)
[2016-08-11] MEDS: PANTOPRAZOLE 40 MG VIAL IV SCH (04:02)
[2016-08-11] MEDS: predniSONE 20 MG TABLET PO SCH (10:30)
[2016-08-11] MEDS: VALSARTAN 80 MG TABLET PO SCH (10:30)
[2016-08-11] MEDS: ASPIRIN 325 MG TABLET PO SCH (10:31)
[2016-08-11] MEDS: DIGOXIN 0.125 MG TABLET PO SCH (10:31)
[2016-08-11] MEDS: AMIODARONE 200 MG TABLET PO SCH (10:31)
[2016-08-11] MEDS: INSULIN GLARGINE 100 UNIT/ML SUBCUT SCH ×2 (10:32→20:34)
[2016-08-11] MEDS: FUROSEMIDE 20 MG TABLET PO SCH (10:32)
[2016-08-11] MEDS: NYSTATIN 500,000 UNIT/5 ML UDCUP SWISH/SWAL SCH ×4 (10:33→20:35)
[2016-08-11] MEDS: DESITIN 4OZ/NYSTATIN 15 GRAM MIXTURE PASTE TOP SCH ×2 (10:33→20:46)
--- NOTE | 2016-08-11 10:33 | Pulmonology Progress Note ---
Pulmonary - PN: Subj Interval history: Patient is a 75-year-old lady that presented with shortness of breath and had to be intubated. She was felt to possibly have mild heart failure. She did have significant CO2 retention. Her PO2 is still on the low side. Her family says her O2 runs low at home and she uses home oxygen. She apparently has significant COPD. She is a former smoker. Over the weekend she was tried off the ventilator but did not do very well. She had to be reintubated. She is reasonably stable at present on the ventilator now. Her oxygenation is a little better and she does appear to be stable. She was started on amiodarone for atrial fibrillation. She was cardioverted to sinus rhythm. For several days she did CPAP well. Her chest x-ray has improved. She was extubated and has done reasonably well the last day or 2. She was moved to a regular room yesterday and had a fairly restless night. Her family says she gets confused easily. She want to try to eat. She has not done well on her swallowing evaluations. Her breathing has been relatively stable. Exam (Progress Note) - Constitutional Vitals: Period Temp Pulse Resp BP Sys/Norman Pulse Ox Last 24 Hr 97.2 F-99.1 F 69-83 16-22 94-138/49-67 89-99 Exam: General appearance: normal weight, no acute distress (She is comfortable and in no distress now. She does talk a little.) - Head Head exam: Present: normal inspection, normocephalic - Eye Eye exam: Present: EOMI. Absent: scleral icterus Pupils: Present: AR - ENT ENT exam: Present: normal exam, she has an NG tube in place. She does have dry mucous membranes - Neck Neck exam: Present: normal inspection. Absent: lymphadenopathy, thyromegaly - Respiratory Respiratory exam: Present: She has good breath sounds bilaterally and her lungs sound better with less wheezing. She is not having any increased shortness of breath now. - Cardiovascular Cardiovascular exam: Present: She has a regular sinus rhythm now. Her heart rate is in the 60s. - GI/Abdominal GI/Abdominal exam: Present: normal bowel sounds, soft. Absent: organomegaly, tenderness - Extremities Exam Extremities exam: Absent: calf tenderness, edema, she is weak but is moving her extremities. - Neurological Exam Neurological exam: Present: She responds a little better and is moving around a little more. - Skin Skin exam: Present: warm, dry Results - Labs CBC & BMP: 08/10/16 08:15 08/10/16 06:00 Assessment and Plan (1) Hypertension Status: Chronic Assessment and plan: Patient apparently has a history of hypertension but her echo looks okay without significant cardiac dysfunction. She does have some diastolic dysfunction. Her blood pressure has been stable. She does not have any signs of heart failure now. Current Visit: Yes (2) Dementia Status: Chronic Assessment and plan: Apparently the patient is developing dementia. She does get agitated at times. Her family says she was confused last night. Current Visit: Yes (3) Acute hypercapnic respiratory failure Status: Resolved Assessment and plan: Patient was extubated and seems to be breathing comfortably at present. She has a fair cough. She looks comfortable today. She is tolerating her respiratory therapy fairly well. Current Visit: Yes (4) CHF (congestive heart failure) Status: Suspected Assessment and plan: Her chest x-ray has improved and she has no signs of heart failure now. Current Visit: Yes Qualifiers: Congestive heart failure type: diastolic Congestive heart failure chronicity: acute on chronic Qualified Code(s): I50.33 - Acute on chronic diastolic (congestive) heart failure (5) Bilateral pulmonary infiltrates on chest x-ray Status: Acute Assessment and plan: Patient may have some pneumonia and she did have positive blood cultures. She still has nothing growing on washings. She is getting antibiotics okay. Clinically she is doing much better and her x-ray has improved nicely. Her breathing is much better. Clinically she is doing much better Current Visit: Yes (6) Atrial fibrillation Status: Acute Assessment and plan: She has been placed on amiodarone therapy and seems to be stable. She was cardioverted yesterday and is back in a sinus rhythm. She has a slow heart rate now. Current Visit: Yes Qualifiers: Atrial fibrillation type: paroxysmal Qualified Code(s): I48.0 - Paroxysmal atrial fibrillation Specialty Discharge - Follow Up or Referrals Follow up with: Truong Galan MD [Physician] - (Patient will need a follow-up appointment with Dr. Johnson Galan 2-3 weeks post discharge with BMP, magnesium and EKG.) Angely Kraft MD [Physician] - (Schedule Sleep study at [facility] after discharge )
[2016-08-11] MEDS: MULTIVITAMIN LIQUID (CENTRUM) 60 ML BOTTLE NG SCH (10:38)
[2016-08-11] MEDS: LINEZOLID INJ 600 MG in PREMIX 1 EACH IV SCH ×2 (10:45→20:35)
[2016-08-11] MEDS: ACETAMINOPHEN 325 MG TABLET PO PRN (12:32)
--- NOTE | 2016-08-11 16:00 | Hospitalist Progress Note ---
Assessment and Plan (1) Acute hypercapnic respiratory failure Status: Resolved Assessment and plan: Patient is on BiPAP at night and encouraged to use that. Her pH and PCO2 on labs yesterday look acceptable Current Visit: Yes (2) Altered mental status Status: Acute Assessment and plan: Daughter complaining of confusion and fever last night. I do not see any fever on her vital sign record I will incorporate the nurses but I will go ahead and get the x-ray and urinalysis. We will check the WBC count and see repeat serum chemistry in the morning. I will asked the staff to get the blood cultures if she has fever. I will not change any therapy right now Current Visit: Yes Qualifiers: Altered mental status type: somnolence Qualified Code(s): R40.0 - Somnolence (3) Atrial fibrillation Status: Acute Assessment and plan: Status post cardioversion on aspirin. Cardiology following Current Visit: Yes Qualifiers: Atrial fibrillation type: paroxysmal Qualified Code(s): I48.0 - Paroxysmal atrial fibrillation (4) Hypertension Status: Chronic Assessment and plan: Controlled Current Visit: Yes Hospitalist: Subjective Interval history: 75-year-old female with history of chronic hypoxemia on home O2 admitted on 2016 with the acute respiratory failure with CO2 retention. She required intubation and mechanical ventilation stayed in ICU she was later transferred to the floor. Now she is on BiPAP which she uses at night. She is being followed by the pulmonary and sleep medicine. She also found to have a atrial fibrillation while he had required cardioversion on 08/03/2016. She has been on aspirin and amiodarone anticoagulation was not considered by cardiology at present and the plan to have follow-up post discharge to address that. Patient herself reported doing fine daughter states she was confused last night and had fever. She is still n.p.o. awaiting swallowing evaluation Exam - Constitutional Vitals: Period Temp Pulse Resp BP Sys/Norman Pulse Ox Last 24 Hr 97.5 F-99.1 F 69-83 16-20 94-128/49-68 89-99 General appearance: no no acute distress - Respiratory Respiratory exam: Present: decreased breath sounds (Equal air entry bilaterally with decreased sounds at the bases on lung auscultation). Absent: rales, rhonchi - Cardiovascular Cardiovascular exam: Present: regular rate and rhythm. Absent: tachycardia - GI/Abdominal GI/Abdominal exam: Present: normal bowel sounds, soft. Absent: distended, tenderness - Neurological Exam Neurological exam: Present: alert Results - Labs CBC & BMP: 08/10/16 08:15 08/10/16 06:00 Lab Results: I have reviewed the past 24 hour labs Quality Measures - VTE Deep Vein Thrombosis/Pulmonary Embolism Present on Admission: No Specialty Discharge - Follow Up or Referrals Follow up with: Truong Galan MD [Physician] - (Patient will need a follow-up appointment with Dr. Johnson Galan 2-3 weeks post discharge with BMP, magnesium and EKG.) Angely Kraft MD [Physician] - (Schedule Sleep study at [facility] after discharge )
--- NOTE | 2016-08-11 17:01 | XRay Report ---
Exam: XR chest 1V Indication: Fever Comparison study: 08/07/2016 Findings: Endotracheal tube has been removed. Esophagogastric tube traverses the thorax but the distal extent is not well visualized. Right sided Mediport is in similar position. Similar patchy basilar interstitial airspace opacities and blunting of the costophrenic angle on the left likely represents basilar atelectasis and/or infectious/inflammatory infiltrates. Upper lungs are predominantly clear. There is no pneumothorax. Osseous structures appear stable from prior. Impression: Interval extubation with basilar opacities, slightly more prominent on the left when compared to prior may represent atelectasis and/or effusions with underlying infectious/inflammatory infiltrates are not excluded. Esophagogastric tube not well seen but appears to travel below the [id number]. PROCEDURE INTERPRETED AT [facility] DEPARTMENT OF RADIOLOGY Final Report Signed by: Reji Rodriguez
[2016-08-12] MEDS: ALBUTEROL/IPRATROPIUM 3 ML NEB RESP TX SCH ×6 (03:49→23:36)
[2016-08-12] MEDS: PANTOPRAZOLE 40 MG VIAL IV SCH (04:37)
[2016-08-12 06:24] LABS: Apearance,Urine Slightly Hazy (Clear); Bacteria,Urine Occasional /HPF (Few); Bilirubin,Urine Negative (Negative); Blood, Urine Negative (Negative); Calcium Oxalate Crystals,Urine Occasional /HPF (Few); Glucose,Urine (UA) 50 mg/dL (Negative); Ketones,Urine Negative (Negative); Mucus,Urine Occasional /LPF (Occasional); Nitrite,Urine Negative (Negative); Protein,Urine Negative; RBC,Urine 13 /HPF (0-4); Squamous Epithelial Cell,Urine Occasional /HPF (0-10); Urine Color Amber (Yellow); Urine Specific Gravity 1.021 (1.001-1.035); WBC,Urine 29 /HPF (0-6)
[2016-08-12] MEDS: INSULIN REGULAR 100 UNIT/ML SUBCUT SCH ×4 (06:34→23:43)
[2016-08-12] MEDS: INSULIN GLARGINE 100 UNIT/ML SUBCUT SCH ×2 (07:12→20:38)
[2016-08-12] MEDS: MEROPENEM 1,000 MG in SODIUM CHLORIDE 0.9% 100 ML IV SCH ×3 (08:19→23:37)
[2016-08-12] MEDS: MULTIVITAMIN LIQUID (CENTRUM) 60 ML BOTTLE NG SCH (08:22)
[2016-08-12] MEDS: VALSARTAN 80 MG TABLET PO SCH (08:23)
[2016-08-12] MEDS: predniSONE 20 MG TABLET PO SCH (08:23)
[2016-08-12] MEDS: NYSTATIN 500,000 UNIT/5 ML UDCUP SWISH/SWAL SCH ×4 (08:23→20:38)
[2016-08-12] MEDS: FUROSEMIDE 20 MG TABLET PO SCH (08:24)
[2016-08-12] MEDS: ASPIRIN 325 MG TABLET PO SCH (08:24)
[2016-08-12] MEDS: AMIODARONE 200 MG TABLET PO SCH (08:24)
[2016-08-12] MEDS: DIGOXIN 0.125 MG TABLET PO SCH (08:25)
[2016-08-12] MEDS: DESITIN 4OZ/NYSTATIN 15 GRAM MIXTURE PASTE TOP SCH ×2 (08:25→20:38)
[2016-08-12] MEDS: LINEZOLID INJ 600 MG in PREMIX 1 EACH IV SCH ×2 (08:52→20:37)
[2016-08-12 10:51] LABS: Basophils % 0.2 % (0.0-0.8); Eosinophils # 0.2 10*3/uL (0.0-0.87); Eosinophils % 2.2 % (0.00-10.9); Hematocrit 43.4 VOL% (35.7-47.0); Hemoglobin 13.7 GM/DL (12.0-16.0); Immature Granulocytes % 0.5 %; Immature Granulocytes Absolute 0.05 #; Lymphocytes # 0.7 10*3/uL (1.4-4.0); Lymphocytes % 6.3 % (21.3-54.2); Mean Corpuscular HGB Conc 31.6 GM/DL (32-36); Mean Corpuscular Hemoglobin 27 PG (27-34); Mean Corpuscular Volume 84.9 FL (87-102); Mean Platelet Volume 12.9 FL (9.6-12.0); Monocytes # 0.3 10*3/uL (0.11-0.8); Monocytes % 3.2 % (1.7-12.7); Neutrophils # 9.1 10*3/uL (1.4-7.4); Neutrophils % 87.6 % (38.7-73.9); Platelet Count 169 T/CUMM (130-400); Red Blood Count 5.11 MC/CUMM (3.8-5.5); White Blood Count 10.4 T/CUMM (4-12)
[2016-08-12 11:14] LABS: Calcium 8.1 MG/DL (8.5-10.1); Osmolality,Calculated 282.4 MOS/KG (273-304); Potassium 3.8 MMOL/L (3.5-5.1)
[2016-08-12 11:29] LABS: Hypochromasia 1+; Platelet Estimate Normal
--- NOTE | 2016-08-12 12:11 | Pulmonology Progress Note ---
Pulmonary - PN: Subj Interval history: This 75-year-old white female has COPD and mild congestive heart failure. She was ventilated and has been extubated. She had acute respiratory failure. She is weak and not talking much short of breath with minimal effort. Exam (Progress Note) - Constitutional Vitals: Period Temp Pulse Resp BP Sys/Norman Pulse Ox Last 24 Hr 97.7 F-98.4 F 70-102 18-36 101-134/54-68 91-99 Exam: Patient is alert sitting up in bed with an NG tube in place as well as oxygen. She has failed speech therapy swallow evaluations. Vital signs normal. Pupils react to light. Throat clear. Neck supple no bruits. Chest reveals prolonged expiratory phase and a few rhonchi. Heart normal rate rhythm no murmurs. Abdomen soft no masses. Extremities no clubbing cyanosis edema. Calves nontender. Results - Labs CBC & BMP: 08/12/16 10:30 08/12/16 10:30 Lab Results: I have reviewed the past 24 hour labs - Diagnostic Findings Procedure: Chest x-ray: image reviewed by me (Has some plantar like atelectasis in both lower lobes and may have infiltrate at the left base. Little change from previous.) Assessment and Plan (1) COPD (chronic obstructive pulmonary disease) Status: Acute Assessment and plan: Continuing with bronchodilators. Tapering steroids. Presently on 40 mg daily of prednisone. Current Visit: Yes (2) Acute hypercapnic respiratory failure Status: Resolved Assessment and plan: PCO2 down to normal post extubation Current Visit: Yes (3) CHF (congestive heart failure) Status: Suspected Assessment and plan: Symptomatically improved. Current Visit: Yes Qualifiers: Congestive heart failure type: diastolic Congestive heart failure chronicity: acute on chronic Qualified Code(s): I50.33 - Acute on chronic diastolic (congestive) heart failure Specialty Discharge - Follow Up or Referrals Follow up with: Truong Galan MD [Physician] - (Patient will need a follow-up appointment with Dr. Johnson Galan 2-3 weeks post discharge with BMP, magnesium and EKG.) Angely Kraft MD [Physician] - (Schedule Sleep study at [facility] after discharge )
--- NOTE | 2016-08-12 13:01 | XRay Report ---
Exam: XR chest 1V portable Indication: COPD, pleural effusions. Comparison study: 08/11/2016 at 4:10 PM Findings: Low lung volumes are noted with basilar opacities, slightly increased from prior likely representing atelectasis/pleural fluid and potentially developing infiltrates. Upper lungs remain clear. There is no pneumothorax. Right chest Mediport is in similar position. Esophagogastric tube is in similar position but the distal extent is not well visualized. Impression: Slight worsening of interstitial edema changes and basilar atelectasis/pleural effusions. Developing underlying infiltrates cannot be excluded. PROCEDURE INTERPRETED AT [facility] DEPARTMENT OF RADIOLOGY Final Report Signed by: Reji Rodriguez
--- NOTE | 2016-08-12 13:40 | Hospitalist Progress Note ---
Assessment and Plan (1) Acute hypercapnic respiratory failure Status: Resolved Assessment and plan: Continue to encourage use BiPAP at night. Current Visit: Yes (2) Altered mental status Status: Acute Assessment and plan: Mental status seems to be better today afebrile. It is possible patient get CO2 retention during sleep time we will continue to encourage use that bipap. No acute infection apparent at present Current Visit: Yes Qualifiers: Altered mental status type: somnolence Qualified Code(s): R40.0 - Somnolence (3) CHF (congestive heart failure) Status: Suspected Assessment and plan: It is apparent patient had mild CHF based on physical finding x-ray. Her echocardiogram recently showed preserved ejection fraction. I will give a dose of IV Lasix and see if that improves her breathing Current Visit: Yes Qualifiers: Congestive heart failure type: diastolic Congestive heart failure chronicity: acute on chronic Qualified Code(s): I50.33 - Acute on chronic diastolic (congestive) heart failure (4) Atrial fibrillation Status: Acute Assessment and plan: Status post cardioversion on aspirin. Cardiology following Current Visit: Yes Qualifiers: Atrial fibrillation type: paroxysmal Qualified Code(s): I48.0 - Paroxysmal atrial fibrillation (5) Hypertension Status: Chronic Assessment and plan: Controlled Current Visit: Yes Hospitalist: Subjective Interval history: 75-year-old female with history of chronic hypoxemia on home O2 admitted on 2016 with the acute respiratory failure with CO2 retention. She required intubation and mechanical ventilation stayed in ICU she was later transferred to the floor. Now she is on BiPAP which she uses at night. She is being followed by the pulmonary and sleep medicine. She also found to have a atrial fibrillation while he had required cardioversion on 08/03/2016. She has been on aspirin and amiodarone anticoagulation was not considered by cardiology at present and the plan to have follow-up post discharge to address that. Daughter reported the patient is not as confused as yesterday not able to tolerate CPAP to 12 still on NG tube feeding and oxygen via nasal cannula. She is afebrile awake and alert but has been weak although she want to come out of bed and sit and walk Exam - Constitutional Vitals: Period Temp Pulse Resp BP Sys/Norman Pulse Ox Last 24 Hr 97.7 F-98.4 F 70-102 18-36 101-134/54-68 91-99 General appearance: mild distress - Respiratory Respiratory exam: Present: rales (Equal air entry bilaterally with rales at the bases). Absent: rhonchi - Cardiovascular Cardiovascular exam: Present: regular rate and rhythm. Absent: tachycardia - GI/Abdominal GI/Abdominal exam: Present: normal bowel sounds, soft. Absent: distended, tenderness - Extremities Exam Extremities exam: Present: edema (Bilateral lower extremity edema present) - Neurological Exam Neurological exam: Present: alert Results - Labs CBC & BMP: 08/12/16 10:30 08/12/16 10:30 Quality Measures - VTE Deep Vein Thrombosis/Pulmonary Embolism Present on Admission: No Specialty Discharge - Follow Up or Referrals Follow up with: Truong Galan MD [Physician] - (Patient will need a follow-up appointment with Dr. Johnson Galan 2-3 weeks post discharge with BMP, magnesium and EKG.) Angely Kraft MD [Physician] - (Schedule Sleep study at [facility] after discharge )
[2016-08-12] MEDS ORDERED: FUROSEMIDE 40 MG/4 ML VIAL IV ONE (13:45)
[2016-08-13] MEDS: ACETAMINOPHEN 325 MG TABLET PO PRN ×3 (01:23→09:03)
[2016-08-13] MEDS: ALBUTEROL/IPRATROPIUM 3 ML NEB RESP TX SCH ×5 (02:55→19:55)
[2016-08-13] MEDS: PANTOPRAZOLE 40 MG VIAL IV SCH (04:56)
[2016-08-13] MEDS: INSULIN REGULAR 100 UNIT/ML SUBCUT SCH ×4 (05:48→23:26)
[2016-08-13] MEDS: FUROSEMIDE 20 MG TABLET PO SCH (09:03)
[2016-08-13] MEDS: AMIODARONE 200 MG TABLET PO SCH (09:03)
[2016-08-13] MEDS: ASPIRIN 325 MG TABLET PO SCH (09:03)
[2016-08-13] MEDS: DIGOXIN 0.125 MG TABLET PO SCH (09:03)
[2016-08-13] MEDS: predniSONE 20 MG TABLET PO SCH (09:03)
[2016-08-13] MEDS: NYSTATIN 500,000 UNIT/5 ML UDCUP SWISH/SWAL SCH ×4 (09:04→20:24)
[2016-08-13] MEDS: INSULIN GLARGINE 100 UNIT/ML SUBCUT SCH ×2 (09:05→20:18)
[2016-08-13] MEDS: MEROPENEM 1,000 MG in SODIUM CHLORIDE 0.9% 100 ML IV SCH ×3 (09:05→23:19)
[2016-08-13] MEDS: VALSARTAN 80 MG TABLET PO SCH (09:08)
[2016-08-13] MEDS: DESITIN 4OZ/NYSTATIN 15 GRAM MIXTURE PASTE TOP SCH ×2 (09:08→20:26)
[2016-08-13] MEDS: LINEZOLID INJ 600 MG in PREMIX 1 EACH IV SCH ×2 (10:32→20:20)
--- NOTE | 2016-08-13 10:57 | Pulmonology Progress Note ---
Pulmonary - PN: Subj Interval history: This 75-year-old white female has COPD and mild congestive heart failure. She was ventilated and has been extubated. She had acute respiratory failure. She is weak and not talking much short of breath with minimal effort. 08/13/2016 patient able to sit up but she is having a good bit of back pain. Will try on tramadol for that. Patient not tolerating facemask BiPAP at night. She gets claustrophobic. Exam (Progress Note) - Constitutional Vitals: Period Temp Pulse Resp BP Sys/Norman Pulse Ox Last 24 Hr 98.2 F-98.7 F 73-98 18-24 117-134/55-89 91-98 Exam: Patient is alert sitting up in bed with an NG tube in place as well as oxygen. She has failed speech therapy swallow evaluations. Vital signs normal. Pupils react to light. Throat clear. Neck supple no bruits. Chest reveals prolonged expiratory phase and a few rhonchi. Heart normal rate rhythm no murmurs. Abdomen soft no masses. Extremities no clubbing cyanosis edema. Calves nontender. Little change from yesterday. Results - Labs CBC & BMP: 08/12/16 10:30 08/12/16 10:30 Lab Results: I have reviewed the past 24 hour labs Assessment and Plan (1) COPD (chronic obstructive pulmonary disease) Status: Acute Assessment and plan: Continuing with bronchodilators. Tapering steroids. Presently on 40 mg daily of prednisone. 08/13/2016 COPD is severe but appears to be stable at present. Taper steroids a little further. Current Visit: Yes (2) Acute hypercapnic respiratory failure Status: Resolved Assessment and plan: PCO2 down to normal post extubation 08/13/2016 patient alert. Normal PCO2 now. Current Visit: Yes (3) CHF (congestive heart failure) Status: Suspected Assessment and plan: Symptomatically improved. 08/13/2016 again symptomatically improved. No rales. Current Visit: Yes Qualifiers: Congestive heart failure type: diastolic Congestive heart failure chronicity: acute on chronic Qualified Code(s): I50.33 - Acute on chronic diastolic (congestive) heart failure Specialty Discharge - Follow Up or Referrals Follow up with: Truong Galan MD [Physician] - (Patient will need a follow-up appointment with Dr. Johnson Galan 2-3 weeks post discharge with BMP, magnesium and EKG.) nAgely Kraft MD [Physician] - (Schedule Sleep study at [facility] after discharge )
[2016-08-13] MEDS: MULTIVITAMIN LIQUID (CENTRUM) 60 ML BOTTLE NG SCH (11:09)
--- NOTE | 2016-08-13 11:29 | Hospitalist Progress Note ---
Assessment and Plan (1) Acute hypercapnic respiratory failure Status: Resolved Assessment and plan: Continue to encourage use BiPAP at night. Patient has NG tube placed and unable to try a nasal mask Current Visit: Yes (2) Altered mental status Status: Acute Assessment and plan: Seem to be improved able to make some conversation and answer questions Current Visit: Yes Qualifiers: Altered mental status type: somnolence Qualified Code(s): R40.0 - Somnolence (3) CHF (congestive heart failure) Status: Suspected Assessment and plan: Edema improved patient seems to be compensated for CHF Current Visit: Yes Qualifiers: Congestive heart failure type: diastolic Congestive heart failure chronicity: acute on chronic Qualified Code(s): I50.33 - Acute on chronic diastolic (congestive) heart failure (4) Atrial fibrillation Status: Acute Assessment and plan: Status post cardioversion on aspirin. Regular rhythm. cardiology following Current Visit: Yes Qualifiers: Atrial fibrillation type: paroxysmal Qualified Code(s): I48.0 - Paroxysmal atrial fibrillation (5) Hypertension Status: Chronic Assessment and plan: Controlled Current Visit: Yes (6) Oral thrush Status: Acute Assessment and plan: Patient has been on amiodarone and on reluctant to start her on Diflucan I will increase the dose of nystatin Current Visit: Yes (7) Leukocytosis Status: Acute Assessment and plan: Resolved patient has been on linezolid and meropenem afebrile. She has been on 8-9 days of antibiotics may be needed to stop in next couple days Current Visit: Yes Qualifiers: Leukocytosis type: unspecified Qualified Code(s): D72.829 - Elevated white blood cell count, unspecified (8) Diabetes mellitus Status: Acute Assessment and plan: Only one episode of low blood sugar otherwise blood sugars been acceptable we will continue current insulin regimen Current Visit: Yes Hospitalist: Subjective Interval history: 75-year-old female with history of chronic hypoxemia on home O2 admitted on 2016 with the acute respiratory failure with CO2 retention. She required intubation and mechanical ventilation stayed in ICU she was later transferred to the floor. Now she is on BiPAP which she uses at night. She is being followed by the pulmonary and sleep medicine. She also found to have a atrial fibrillation while he had required cardioversion on 08/03/2016. She has been on aspirin and amiodarone anticoagulation was not considered by cardiology at present and the plan to have follow-up post discharge to address that. Still not able to tolerate CPAP mask and get claustrophobic. She was not able to sleep last night but less confused. He had a good urine output after Lasix was given remained afebrile. She has low back pain which is not acute symptom Dr. Keller provided Ultram this morning Exam - Constitutional Vitals: Period Temp Pulse Resp BP Sys/Norman Pulse Ox Last 24 Hr 98.1 F-98.7 F 73-98 18-24 117-134/54-89 91-98 General appearance: NO distress - Respiratory Respiratory exam: Present: rales (Equal air entry bilaterally with few rhonchi bilaterally and rales particularly at left bases). - Cardiovascular Cardiovascular exam: Present: regular rate and rhythm. Absent: tachycardia - GI/Abdominal GI/Abdominal exam: Present: normal bowel sounds, soft. Absent: distended, tenderness - Extremities Exam Extremities exam: Lower extremities edema has resolved - Neurological Exam Neurological exam: Present: alert Results - Labs CBC & BMP: 08/12/16 10:30 08/12/16 10:30 Lab Results: I have reviewed the past 24 hour labs Quality Measures - VTE Deep Vein Thrombosis/Pulmonary Embolism Present on Admission: No Specialty Discharge - Follow Up or Referrals Follow up with: Truong Galan MD [Physician] - (Patient will need a follow-up appointment with Dr. Johnson Galan 2-3 weeks post discharge with BMP, magnesium and EKG.) Angely Kraft MD [Physician] - (Schedule Sleep study at [facility] after discharge )
[2016-08-13] MEDS: traMADol 50 MG TABLET PO PRN ×2 (11:31→23:17)
[2016-08-14] MEDS: ALBUTEROL/IPRATROPIUM 3 ML NEB RESP TX SCH ×7 (00:05→23:00)
[2016-08-14] MEDS: ACETAMINOPHEN 325 MG TABLET PO PRN ×2 (01:28→09:04)
[2016-08-14] MEDS: PANTOPRAZOLE 40 MG VIAL IV SCH (05:01)
[2016-08-14] MEDS: INSULIN REGULAR 100 UNIT/ML SUBCUT SCH ×3 (05:04→21:42)
[2016-08-14] MEDS: INSULIN GLARGINE 100 UNIT/ML SUBCUT SCH ×2 (09:04→21:15)
[2016-08-14] MEDS: FUROSEMIDE 20 MG TABLET PO SCH (09:04)
[2016-08-14] MEDS: DIGOXIN 0.125 MG TABLET PO SCH (09:05)
[2016-08-14] MEDS: ASPIRIN 325 MG TABLET PO SCH (09:05)
[2016-08-14] MEDS: AMIODARONE 200 MG TABLET PO SCH (09:05)
[2016-08-14] MEDS: MULTIVITAMIN LIQUID (CENTRUM) 60 ML BOTTLE NG SCH (09:05)
[2016-08-14] MEDS: VALSARTAN 80 MG TABLET PO SCH (09:05)
[2016-08-14] MEDS: predniSONE 20 MG TABLET PO SCH (09:05)
[2016-08-14] MEDS: DESITIN 4OZ/NYSTATIN 15 GRAM MIXTURE PASTE TOP SCH ×2 (09:06→21:16)
[2016-08-14] MEDS: NYSTATIN 500,000 UNIT/5 ML UDCUP SWISH/SWAL SCH ×4 (09:06→21:15)
[2016-08-14] MEDS: MEROPENEM 1,000 MG in SODIUM CHLORIDE 0.9% 100 ML IV SCH ×3 (09:21→16:30)
--- NOTE | 2016-08-14 09:38 | Pulmonology Progress Note ---
Pulmonary - PN: Subj Interval history: Patient is a 75-year-old lady that presented with shortness of breath and had to be intubated. She was felt to possibly have mild heart failure. She did have significant CO2 retention. Her PO2 is still on the low side. Her family says her O2 runs low at home and she uses home oxygen. She apparently has significant COPD. She is a former smoker. Over the weekend she was tried off the ventilator but did not do very well. She had to be reintubated. She is reasonably stable at present on the ventilator now. Her oxygenation is a little better and she does appear to be stable. She was started on amiodarone for atrial fibrillation. She was cardioverted to sinus rhythm. For several days she did CPAP well. Her chest x-ray has improved. She was extubated and has done reasonably well off the ventilator. Over the weekend her breathing has been reasonably stable. She continues to be very weak and so far she has not passed her swallowing evaluation. She is still getting tube feedings. She is not able to do much activity. Her breathing seems to be reasonably stable however. She may go to [facility] today. Exam (Progress Note) - Constitutional Vitals: Period Temp Pulse Resp BP Sys/Norman Pulse Ox Last 24 Hr 96.3 F-98.6 F 70-96 16-22 111-124/54-68 91-99 Exam: General appearance: normal weight, no acute distress (She is comfortable and in no distress now. She is more alert and talking some.) - Head Head exam: Present: normal inspection, normocephalic - Eye Eye exam: Present: EOMI. Absent: scleral icterus Pupils: Present: AR - ENT ENT exam: Present: normal exam, she has an NG tube in place. She does have dry mucous membranes - Neck Neck exam: Present: normal inspection. Absent: lymphadenopathy, thyromegaly - Respiratory Respiratory exam: Present: She has good breath sounds bilaterally and her lungs sound better with less wheezing. She is not having any increased rales or rhonchi. - Cardiovascular Cardiovascular exam: Present: She has a regular sinus rhythm now. Her heart rate is in the 60s. - GI/Abdominal GI/Abdominal exam: Present: normal bowel sounds, soft. Absent: organomegaly, tenderness - Extremities Exam Extremities exam: Absent: calf tenderness, edema, she is weak but is moving her extremities. - Neurological Exam Neurological exam: Present: She responds a little better and is moving around a little more. - Skin Skin exam: Present: warm, dry Results - Labs CBC & BMP: 08/12/16 10:30 08/12/16 10:30 Assessment and Plan (1) Hypertension Status: Chronic Assessment and plan: Patient apparently has a history of hypertension but her echo looks okay without significant cardiac dysfunction. She does have some diastolic dysfunction. Her blood pressure has been stable. She does not have any signs of heart failure now. She does seem to be hemodynamically stable. Current Visit: Yes (2) Dementia Status: Chronic Assessment and plan: Apparently the patient is developing dementia. She does get agitated at times. She seems a little calmer now. Current Visit: Yes (3) Acute hypercapnic respiratory failure Status: Resolved Assessment and plan: Patient was extubated and seems to be breathing comfortably at present. She has a fair cough. She looks comfortable today. She is tolerating her respiratory therapy fairly well. Current Visit: Yes (4) CHF (congestive heart failure) Status: Suspected Assessment and plan: Her chest x-ray has improved and she has no signs of heart failure now. Current Visit: Yes Qualifiers: Congestive heart failure type: diastolic Congestive heart failure chronicity: acute on chronic Qualified Code(s): I50.33 - Acute on chronic diastolic (congestive) heart failure (5) Bilateral pulmonary infiltrates on chest x-ray Status: Acute Assessment and plan: Patient may have some pneumonia and she did have positive blood cultures. She still has nothing growing on washings. She is getting antibiotics okay. Clinically she is doing much better and her x-ray has improved nicely. Her breathing is much better. Clinically she is doing much better. Her respiratory status is stable and she needs to increase her physical therapy. She is extremely weak still Current Visit: Yes (6) Atrial fibrillation Status: Acute Assessment and plan: She has been placed on amiodarone therapy and seems to be stable. She was cardioverted yesterday and is back in a sinus rhythm. She has a slow heart rate now. Current Visit: Yes Qualifiers: Atrial fibrillation type: paroxysmal Qualified Code(s): I48.0 - Paroxysmal atrial fibrillation Specialty Discharge - Follow Up or Referrals Follow up with: Truong Galan MD [Physician] - (Patient will need a follow-up appointment with Dr. Johnson Galan 2-3 weeks post discharge with BMP, magnesium and EKG.) Angely Kraft MD [Physician] - (Schedule Sleep study at [facility] after discharge )
[2016-08-14] MEDS: LINEZOLID INJ 600 MG in PREMIX 1 EACH IV SCH ×2 (09:55→21:16)
--- NOTE | 2016-08-14 12:18 | Hospitalist Progress Note ---
Assessment and Plan (1) Hypertension Status: Chronic Current Visit: Yes (2) Atrial fibrillation Status: Acute Assessment and plan: On aspirin Current Visit: Yes Qualifiers: Atrial fibrillation type: paroxysmal Qualified Code(s): I48.0 - Paroxysmal atrial fibrillation (3) Acute hypercapnic respiratory failure Status: Resolved Assessment and plan: Pulmonary assisting. Encourage Bipap use nightly. Daughter reports that she will assist with this. Current Visit: Yes (4) CHF (congestive heart failure) Status: Suspected Assessment and plan: Improved. Current Visit: Yes Qualifiers: Congestive heart failure type: diastolic Congestive heart failure chronicity: acute on chronic Qualified Code(s): I50.33 - Acute on chronic diastolic (congestive) heart failure Hospitalist: Subjective Interval history: No acute events overnight. Daughter reports that patient did not wear CPAP overnight. She is oriented to person, place and time today. She remains very weak, PT/OT is working with her. Speech to evaluate again today. She is ready for transfer to [facility]. Hopefully can transfer tomorrow once a bed is available. Exam - Constitutional Vitals: Period Temp Pulse Resp BP Sys/Norman Pulse Ox Last 24 Hr 96.3 F-98.6 F 70-96 16-22 111-122/58-68 91-99 General appearance: over weight - Head Head exam: Present: normocephalic, atraumatic - Eye Eye exam: Present: EOMI Pupils: Present: AR - ENT ENT exam: Present: normal exam - Neck Neck exam: Present: normal inspection - Respiratory Respiratory exam: Present: clear to auscultation bilaterally. Absent: rhonchi, wheezes - Cardiovascular Cardiovascular exam: Present: regular rate and rhythm - GI/Abdominal GI/Abdominal exam: Present: normal bowel sounds, soft. Absent: tenderness, rebound - Extremities Exam Extremities exam: Present: normal inspection - Back Exam Back exam: Present: normal inspection - Neurological Exam Neurological exam: Present: alert, oriented X3 - Psychiatric Psychiatric exam: Present: normal affect, normal mood - Skin Skin exam: Present: warm, intact Results - Labs CBC & BMP: 08/12/16 10:30 08/12/16 10:30 Quality Measures - VTE Deep Vein Thrombosis/Pulmonary Embolism Present on Admission: No Specialty Discharge - Follow Up or Referrals Follow up with: Truong Galan MD [Physician] - (Patient will need a follow-up appointment with Dr. Johnson Galan 2-3 weeks post discharge with BMP, magnesium and EKG.) Angely Kraft MD [Physician] - (Schedule Sleep study at [facility] after discharge )
[2016-08-14] MEDS: traMADol 50 MG TABLET PO PRN (14:56)
[2016-08-15] MEDS: MEROPENEM 1,000 MG in SODIUM CHLORIDE 0.9% 100 ML IV SCH ×3 (00:21→15:55)
[2016-08-15] MEDS: ALBUTEROL/IPRATROPIUM 3 ML NEB RESP TX SCH ×7 (01:00→23:39)
[2016-08-15] MEDS: ALBUTEROL 2.5 MG/3 ML NEB RESP TX PRN ×2 (01:00→21:51)
[2016-08-15] MEDS ORDERED: LORazepam 2 MG/1 ML VIAL ONE (01:00)
[2016-08-15] MEDS ORDERED: LORazepam 2 MG/1 ML VIAL IV ONE (01:04)
[2016-08-15] MEDS ORDERED: methylPREDNISolone SOD SUC 125 MG/2 ML VIAL IV ONE (01:05)
[2016-08-15] MEDS: DEXTROSE 50% 25 GM/50 ML VIAL IV PRN (01:30)
--- NOTE | 2016-08-15 01:45 | Event Note ---
Rapid response call: I responded to rapid response: Fearful that the patient was she was in respiratory distress with his profound hypoxemia. Should audible rhonchi. Patient is known to have very bad COPD with CO2 retention. Reportedly she developed sudden onset of respiratory distress and unable to culture. There has been no real coughing per se. Denied any chest pain. Patient was very anxious at the time fighting everything he wanted to do. The daughter was in the room and she refused to leave the room until we transfer the patient to the unit. On examination patient was quite anxious fighting with but bilateral audible rhonchi. Occasional cough. Saturations were in the 80 at the time. Patient was put on BiPAP with slight improvement in saturation to the lower 90s. She was transferred to the unit. Ativan was given to sedate her some. She was less combative after that. Vitale catheter is placed. Chest x-ray has been ordered EKG has been ordered also ordered a d-dimer, CMP, ABG,and CBC also. 250 mg of Solu-Medrol was given as well as a respiratory treatment that improved his situation even more. She is on CPAP of 18 cm of water now oxygen at about 2-3 L. I will continue to monitor the patient in the unit and the hospital medicine to supervisor opening and picking in the later on this morning.
[2016-08-15 01:50] LABS: Basophils % 0.3 % (0.0-0.8); Eosinophils # 0.1 10*3/uL (0.0-0.87); Eosinophils % 1.8 % (0.00-10.9); Hematocrit 48.2 VOL% (35.7-47.0); Hemoglobin 14.9 GM/DL (12.0-16.0); Immature Granulocytes % 0.5 %; Immature Granulocytes Absolute 0.04 #; Lymphocytes # 1.7 10*3/uL (1.4-4.0); Lymphocytes % 22.1 % (21.3-54.2); Mean Corpuscular HGB Conc 30.9 GM/DL (32-36); Mean Corpuscular Hemoglobin 26 PG (27-34); Mean Corpuscular Volume 84.9 FL (87-102); Mean Platelet Volume 11.2 FL (9.6-12.0); Monocytes # 0.5 10*3/uL (0.11-0.8); Monocytes % 5.8 % (1.7-12.7); Neutrophils # 5.4 10*3/uL (1.4-7.4); Neutrophils % 69.5 % (38.7-73.9); Platelet Count 192 T/CUMM (130-400); Red Blood Count 5.68 MC/CUMM (3.8-5.5); White Blood Count 7.8 T/CUMM (4-12)
[2016-08-15 01:54] LABS: ABG Base Excess 11.8 MMOL/L (-2.5-2.5); ABG HCO3 35.5 MMOL/L (20-26); ABG Oxygen Saturation 91.4 % (95-100); ABG PH 7.465 (7.35-7.45); ABG PO2 61.9 MM HG (80-95); ABG TCO2 32.6 MMOL/L (23-27); Allen Test Positive; Pt O2 Delivery Device BIPAP
[2016-08-15 01:54] LABS: Apearance,Urine CLEAR (Clear); Bilirubin,Urine Negative (Negative); Blood, Urine Small mg/dL (Negative); Glucose,Urine (UA) 50 mg/dL (Negative); Ketones,Urine Negative (Negative); Nitrite,Urine Negative (Negative); Protein,Urine Negative; RBC,Urine 1 /HPF (0-4); Squamous Epithelial Cell,Urine Occasional /HPF (0-10); Urine Color Yellow (Yellow); Urine Specific Gravity 1.003 (1.001-1.035); Urine Urobilinogen < 2.0 EU/DL (0.2-1.0); WBC,Urine 13 /HPF (0-6)
[2016-08-15 02:13] LABS: Albumin 3.3 G/DL (3.4-5.0); Calcium 8.6 MG/DL (8.5-10.1); Osmolality,Calculated 267.1 MOS/KG (273-304); Potassium 3.9 MMOL/L (3.5-5.1); Total Protein 6.1 G/DL (6.4-8.3)
[2016-08-15] MEDS: PANTOPRAZOLE 40 MG VIAL IV SCH (05:24)
[2016-08-15] MEDS: LORazepam 2 MG/1 ML VIAL IV PRN ×2 (05:24→21:45)
--- NOTE | 2016-08-15 07:21 | XRay Report ---
History: Shortness of breath Date: 08/15/2016 Study: Chest x-ray AP portable Comparison exam: August 12, 2016 A right subclavian Mediport-type catheter is well-positioned. There is mild cardiomegaly without change. The mediastinal contours are unchanged. The pulmonary vasculature is not engorged. There is some atelectatic parenchymal consolidation in the lung bases as before, though this is perhaps mildly increased on the right. There is probable mild left pleural effusion as before. Osseous structures are unchanged. Impression: Continued bibasilar atelectasis/infiltrate, perhaps mildly increased on the right. Mild left pleural effusion as before. Interval nasogastric tube removal PROCEDURE INTERPRETED AT [facility] DEPARTMENT OF RADIOLOGY Final Report Signed by: Dr. Nery Diaz
--- NOTE | 2016-08-15 08:01 | Pulmonology Progress Note ---
Pulmonary - PN: Subj Interval history: Patient is a 75-year-old lady that presented with shortness of breath and had to be intubated. She was felt to possibly have mild heart failure. She did have significant CO2 retention. Her PO2 is still on the low side. Her family says her O2 runs low at home and she uses home oxygen. She apparently has significant COPD. She is a former smoker. Over the weekend she was tried off the ventilator but did not do very well. She had to be reintubated. She is reasonably stable at present on the ventilator now. Her oxygenation is a little better and she does appear to be stable. She was started on amiodarone for atrial fibrillation. She was cardioverted to sinus rhythm. For several days she did CPAP well. Her chest x-ray has improved. She was extubated and has done reasonably well off the ventilator. The patient has some dementia and gets confused easily. Apparently last night she was very restless and agitated and had to be moved back to the CCU. She did drop her O2 saturation little bit but she was agitated. Her chest x-ray shows minimal atelectasis in the bases. Her ABGs were not too bad. She is reasonably comfortable on BiPAP although she does get agitated. Exam (Progress Note) - Constitutional Vitals: Period Temp Pulse Resp BP Sys/Norman Pulse Ox Last 24 Hr 97.3 F-98.6 F 68-118 17-32 92-145/43-91 88-98 Exam: General appearance: normal weight, no acute distress (She is on BiPAP now and is quite agitated at times. She is requiring restraints.) - Head Head exam: Present: normal inspection, normocephalic - Eye Eye exam: Present: EOMI. Absent: scleral icterus Pupils: Present: AR - ENT ENT exam: Present: normal exam, she has an NG tube in place. She does have dry mucous membranes. She has a CPAP mask in place. - Neck Neck exam: Present: normal inspection. Absent: lymphadenopathy, thyromegaly - Respiratory Respiratory exam: Present: She has good breath sounds bilaterally and her lungs sound better with less wheezing. She has some minimal rhonchi present. - Cardiovascular Cardiovascular exam: Present: She has a regular sinus rhythm now. Her heart rate is in the 60s. - GI/Abdominal GI/Abdominal exam: Present: normal bowel sounds, soft. Absent: organomegaly, tenderness - Extremities Exam Extremities exam: Absent: calf tenderness, edema, she is weak but is moving her extremities. - Neurological Exam Neurological exam: Present: She responds a little better and is moving around a little more. - Skin Skin exam: Present: warm, dry Results - Labs CBC & BMP: 08/15/16 01:20 08/15/16 01:20 Labs: Her PO2 61 with a PCO2 of 53 and a pH of 7.46 - Diagnostic Findings Procedure: Chest x-ray: image reviewed by me, report reviewed by me (Chest x- ray shows mild bibasilar atelectasis.) Assessment and Plan (1) Hypertension Status: Chronic Assessment and plan: Patient apparently has a history of hypertension but her echo looks okay without significant cardiac dysfunction. She does have some diastolic dysfunction. Her blood pressure has been stable. She does not have any signs of heart failure now. She is still appears to be hemodynamically stable. Current Visit: Yes (2) Dementia Status: Chronic Assessment and plan: Apparently the patient is developing dementia. She does get agitated at times. He has required restraints. Current Visit: Yes (3) Acute hypercapnic respiratory failure Status: Resolved Assessment and plan: Patient was extubated and seems to be breathing comfortably at present. She does have chronic lung disease and is hard to keep clear. She continues to require vigorous respiratory therapy. Current Visit: Yes (4) CHF (congestive heart failure) Status: Suspected Assessment and plan: Her chest x-ray has improved and she has no signs of heart failure now. Current Visit: Yes Qualifiers: Congestive heart failure type: diastolic Congestive heart failure chronicity: acute on chronic Qualified Code(s): I50.33 - Acute on chronic diastolic (congestive) heart failure (5) Bilateral pulmonary infiltrates on chest x-ray Status: Acute Assessment and plan: Patient may have some pneumonia and she did have positive blood cultures. She still has nothing growing on washings. She is getting antibiotics okay. Her chest x-ray improved and she is not showing any signs of pneumonia now. Current Visit: Yes (6) Atrial fibrillation Status: Acute Assessment and plan: She has been placed on amiodarone therapy and seems to be stable. She was cardioverted yesterday and is back in a sinus rhythm. She still has a sinus rhythm now. Current Visit: Yes Qualifiers: Atrial fibrillation type: paroxysmal Qualified Code(s): I48.0 - Paroxysmal atrial fibrillation Specialty Discharge - Follow Up or Referrals Follow up with: Truong Galan MD [Physician] - (Patient will need a follow-up appointment with Dr. Johnson Galan 2-3 weeks post discharge with BMP, magnesium and EKG.) Angely Kraft MD [Physician] - (Schedule Sleep study at [facility] after discharge )
[2016-08-15] MEDS: INSULIN REGULAR 100 UNIT/ML SUBCUT SCH ×4 (08:05→20:53)
--- NOTE | 2016-08-15 09:47 | EKG Report ---
Stationary ECG Study [facility] Test Date: 08/15/2016 7:20:20 AM Pat Name: BRIT GRIJALVA Department: Room: 120 Gender: F Nutrition Assistant: Fili : 1940 Requested by: Juan Manuel Fuentes Order Number: [id number] Reading MD: DONITA SLATER Intervals Cooks Rate: 84 P: 59 WI: 173 QRS: 84 QRSD: 90 T: 41 QT: 352 QTc: 393 Interpretive Statements SINUS RHYTHM LOW QRS VOLTAGE IN CHEST LEADS NONSPECIFIC T WAVE ABNORMALITY Electronically Signed On 08-15-16 16:20:05 CDT by DONITA SLATER [email or web address]
[2016-08-15] MEDS: LINEZOLID INJ 600 MG in PREMIX 1 EACH IV SCH ×2 (10:23→20:52)
[2016-08-15] MEDS: AMIODARONE 200 MG TABLET PO SCH (12:08)
[2016-08-15] MEDS: DIGOXIN 0.125 MG TABLET PO SCH (12:08)
[2016-08-15] MEDS: FUROSEMIDE 20 MG TABLET PO SCH (12:08)
[2016-08-15] MEDS: VALSARTAN 80 MG TABLET PO SCH (12:08)
[2016-08-15] MEDS: predniSONE 20 MG TABLET PO SCH (12:08)
[2016-08-15] MEDS: ASPIRIN 325 MG TABLET PO SCH (12:08)
[2016-08-15] MEDS: INSULIN GLARGINE 100 UNIT/ML SUBCUT SCH ×2 (12:09→20:56)
[2016-08-15] MEDS: DESITIN 4OZ/NYSTATIN 15 GRAM MIXTURE PASTE TOP SCH ×2 (12:09→20:56)
[2016-08-15] MEDS: NYSTATIN 500,000 UNIT/5 ML UDCUP SWISH/SWAL SCH ×4 (12:09→20:53)
[2016-08-15] MEDS: MULTIVITAMIN LIQUID (CENTRUM) 60 ML BOTTLE NG SCH (12:53)
--- NOTE | 2016-08-15 16:18 | Hospitalist Progress Note ---
Assessment and Plan (1) Chronic respiratory failure Status: Acute Assessment and plan: Use CPAP while sleepy and avoid ativan if possible, though when she gets restless it may be necessary to give her something. Try Geodon as that may be less sedating/ cause less hypoxia. Continue treating pneumonia as we have been doing. on oral prednisone DM controlled. To [facility] tomorrow morning- bed now available. Current Visit: Yes (2) Dementia Status: Chronic Current Visit: Yes Hospitalist: Subjective Interval history: I saw Mrs Fontana early this morning and she was doing well. She was transferred to CCU after an [employer] for restlessness and shortness of breath. Once she was in ICU she received some ativan for her restlessness and then rested on CPAP overnight, with sats around 90. DR ogden saw her and felt she was doing as expected. She remained somewhat sleepy today but was able to take her pills. She has a bed at [facility] tomorrow. Exam - Constitutional Vitals: Period Temp Pulse Resp BP Sys/Norman Pulse Ox Last 24 Hr 97.1 F-98.4 F 71-118 15-32 92-145/40-91 88-98 General appearance: no acute distress, morbidly obese - Head Head exam: Present: normocephalic, atraumatic - Eye Eye exam: Present: EOMI. Absent: scleral icterus Pupils: Present: AR - Respiratory Respiratory exam: Present: clear to auscultation bilaterally - Cardiovascular Cardiovascular exam: Present: regular rate and rhythm - GI/Abdominal GI/Abdominal exam: Present: normal bowel sounds, soft. Absent: tenderness Results - Labs CBC & BMP: 08/15/16 01:20 08/15/16 01:20 Lab Results: I have reviewed the past 24 hour labs Quality Measures - VTE Deep Vein Thrombosis/Pulmonary Embolism Present on Admission: No Specialty Discharge - Follow Up or Referrals Follow up with: Truong Galan MD [Physician] - (Patient will need a follow-up appointment with Dr. Johnson Galan 2-3 weeks post discharge with BMP, magnesium and EKG.) Angely Kraft MD [Physician] - (Schedule Sleep study at [facility] after discharge )
[2016-08-16] MEDS: MEROPENEM 1,000 MG in SODIUM CHLORIDE 0.9% 100 ML IV SCH ×2 (00:19→08:01)
[2016-08-16] MEDS: ALBUTEROL/IPRATROPIUM 3 ML NEB RESP TX SCH ×4 (02:45→15:17)
[2016-08-16] MEDS: PANTOPRAZOLE 40 MG VIAL IV SCH (04:57)
[2016-08-16] MEDS: INSULIN REGULAR 100 UNIT/ML SUBCUT SCH ×2 (07:49→12:46)
--- NOTE | 2016-08-16 07:52 | Pulmonology Progress Note ---
Pulmonary - PN: Subj Interval history: Patient is a 75-year-old lady that presented with shortness of breath and had to be intubated. She was felt to possibly have mild heart failure. She did have significant CO2 retention. Her PO2 is still on the low side. Her family says her O2 runs low at home and she uses home oxygen. She apparently has significant COPD. She is a former smoker. Over the weekend she was tried off the ventilator but did not do very well. She had to be reintubated. She is reasonably stable at present on the ventilator now. Her oxygenation is a little better and she does appear to be stable. She was started on amiodarone for atrial fibrillation. She was cardioverted to sinus rhythm. For several days she did CPAP well. Her chest x-ray has improved. She was extubated and has done reasonably well off the ventilator. The patient was moved to the CCU because of increased confusion. She had a fairly good night last night and seems to be breathing better. She has not been in any distress now. Her vital signs are stable and her O2 saturation is okay. She does not seem to be too agitated at this point. She can move back to the regular room. Exam (Progress Note) - Constitutional Vitals: Period Temp Pulse Resp BP Sys/Norman Pulse Ox Last 24 Hr 97 F-99.0 F 66-97 11-27 88-145/34-83 89-99 Exam: General appearance: normal weight, no acute distress (She is comfortable on low- flow oxygen. She refused CPAP last night.) - Head Head exam: Present: normal inspection, normocephalic - Eye Eye exam: Present: EOMI. Absent: scleral icterus Pupils: Present: AR - ENT ENT exam: Present: normal exam, she has an NG tube in place. She does have dry mucous membranes. - Neck Neck exam: Present: normal inspection. Absent: lymphadenopathy, thyromegaly - Respiratory Respiratory exam: Present: She has somewhat distant breath sounds with poor air movement but she is not wheezing and no rales present. - Cardiovascular Cardiovascular exam: Present: She has a regular sinus rhythm now. Her heart rate is in the 60s. - GI/Abdominal GI/Abdominal exam: Present: normal bowel sounds, soft. Absent: organomegaly, tenderness - Extremities Exam Extremities exam: Absent: calf tenderness, edema, she is weak but is moving her extremities. - Neurological Exam Neurological exam: Present: She responds a little better and is moving around a little more. - Skin Skin exam: Present: warm, dry Results - Labs CBC & BMP: 08/15/16 01:20 08/15/16 01:20 Assessment and Plan (1) Hypertension Status: Chronic Assessment and plan: Patient apparently has a history of hypertension but her echo looks okay without significant cardiac dysfunction. Her blood pressure and heart rate are stable at present. Current Visit: Yes (2) Dementia Status: Chronic Assessment and plan: Apparently the patient is developing dementia. She does get agitated at times. She is resting comfortably at present. Current Visit: Yes (3) Acute hypercapnic respiratory failure Status: Resolved Assessment and plan: Patient was extubated and seems to be breathing comfortably at present. She does have chronic lung disease. Her lungs are fairly clear at present. She is breathing comfortably at present. Current Visit: Yes (4) CHF (congestive heart failure) Status: Suspected Assessment and plan: Her chest x-ray has improved and she has no signs of heart failure now. Current Visit: Yes Qualifiers: Congestive heart failure type: diastolic Congestive heart failure chronicity: acute on chronic Qualified Code(s): I50.33 - Acute on chronic diastolic (congestive) heart failure (5) Bilateral pulmonary infiltrates on chest x-ray Status: Acute Assessment and plan: Patient may have some pneumonia and she did have positive blood cultures. She still has nothing growing on washings. She is getting antibiotics okay. Her chest x-ray improved and she is not showing any signs of pneumonia now. Current Visit: Yes (6) Atrial fibrillation Status: Acute Assessment and plan: She has been placed on amiodarone therapy and seems to be stable. She was cardioverted yesterday and is back in a sinus rhythm. She still has a sinus rhythm now. Current Visit: Yes Qualifiers: Atrial fibrillation type: paroxysmal Qualified Code(s): I48.0 - Paroxysmal atrial fibrillation Specialty Discharge - Follow Up or Referrals Follow up with: Truong Galan MD [Physician] - (Patient will need a follow-up appointment with Dr. Johnson Galan 2-3 weeks post discharge with BMP, magnesium and EKG.) Angely Kraft MD [Physician] - (Schedule Sleep study at [facility] after discharge )
[2016-08-16] MEDS: DEXTROSE 50% 25 GM/50 ML VIAL IV PRN (07:57)
[2016-08-16] MEDS: LINEZOLID INJ 600 MG in PREMIX 1 EACH IV SCH (08:44)
--- NOTE | 2016-08-16 11:17 | Discharge Summary ---
Hospital Course - Hospital Course Hospital Course: Mrs Fontana has had a long hospital course to this point with initial presentation with acute respiratory failure from pulmonary edema. She was intubated on arrival and had a prolonged course on the vent including treatment for pneumonia and bacteremia. She has been extubated for about a week. She has COPD due to former smoking. She has been on antibiotics for a month. Her initial blood cultures grew Staph Epi MRE, repeat were negative then another set had a staph hominis contaminant. Her antibiotics will be stopped today. She had critical care myopathy. She had afib which was a new problem for her. She was cardioverted and has remained in NSR while on amio since. No anticoagulation formally at this time but may need to be readdressed as an outpatient. Her echo showed good LV function. She has dementia and some agitation and anxiety. She was transferred back to CCU a couple of nights ago because she had some agitation with decreased O2sats on the floor. She is at respiratory baseline now with clear CXR and exam and sats in low 90s on 2LNC. She will be transferred to [facility] today. I have reconciled her medicines and note should be made that when she is doing well, she may need to resume more of her true "home meds" soon. She has a Mediport. - Time spent with patient Time with patient DS: Greater than 30 minutes (42 minutes for care coordination , discharge planning, documentation, medicine reconciliation) Diagnosis - Discharge Diagnosis (1) Chronic respiratory failure Status: Chronic (2) Dementia Status: Chronic (3) History of breast cancer Status: Chronic (4) Bacteremia Status: Resolved (5) Atrial fibrillation Status: Resolved (6) Unspecified sleep apnea Status: Chronic (7) Pulmonary edema Status: Resolved Specialty Discharge - Follow Up or Referrals Follow up with: Truong Galan MD [Physician] - (Patient will need a follow-up appointment with Dr. Johnson Galan 2-3 weeks post discharge with BMP, magnesium and EKG.) Angely Kraft MD [Physician] - (Schedule Sleep study at [facility] after discharge ) Alexi Miner MD [Physician] - Discharge Plan - Discharge Data Disposition: Disch/Xfer to [facility] Condition at Discharge: Guarded Discharge Diet: advance to your usual diet Activity: as per physical therapy - Discharge Medications New Albuterol/Ipratropium Neb [Duoneb] 3 ml RESP TX RT Q4H Amiodarone Tab [Cordarone Tab] 200 mg PO DAILY tablet Aspirin Tab 325 mg PO DAILY tablet Dextrose 50% [D50] 25 gm IV PRN PRN #0 vial PRN Reason: Hypoglycemia with IV access Digoxin Tab [Lanoxin Tab] 0.125 mg PO DAILY tablet Furosemide Tab [Lasix Tab] 20 mg PO DAILY tablet Glucagon 1 mg IM PRN PRN #0 vial PRN Reason: Hypoglycemia w/o IV access Insulin Regular [HumuLIN R] See Protocol SUBCUT ACHS unit Multivitamin Liquid (Centrum) [Centrum Liquid] 15 ml NG DAILY bottle Ondansetron Inj [Zofran Inj] 4 mg IV Q4H PRN #0 vial PRN Reason: Nausea Valsartan [Diovan] 40 mg PO DAILY tablet predniSONE TAB [PredniSONE] 20 mg PO DAILY tablet traMADol TAB [Ultram] 50 mg PO Q12H PRN #0 tablet PRN Reason: Pain Acetaminophen Tab [Tylenol Tab] 650 mg PO Q4H PRN #0 tablet PRN Reason: fever, headache/body aches Albuterol Neb [Proventil Neb] 2.5 mg RESP TX RT Q1H PRN #0 PRN Reason: Shortness Of Breath/Wheezing Bisacodyl Supp [Dulcolax Supp] 10 mg RECTAL DAILY PRN #0 supp PRN Reason: Constipation Insulin Glargine [Lantus] 24 unit SUBCUT BID unit Pantoprazole Inj [Protonix Inj] 40 mg IV Q24H vial Continue Ergocalciferol (Vitamin D2) [Vitamin D2] 50,000 unit PO Q7D Memantine HCl [Namenda XR] 28 mg PO DAILY Solifenacin Succinate [Vesicare] 10 mg PO DAILY Discontinued Docusate Sodium Cap [Colace Cap] 100 mg PO BID Dexlansoprazole [Dexilant] 60 mg PO DAILY Multivit-Min/FA/Lycopen/Lutein [Centrum Silver Tablet] 1 tablet PO DAILY Clopidogrel [Plavix] 75 mg PO DAILY Lovastatin 40 mg PO DAILY W/SUPPER Furosemide Tab [Lasix Tab] 40 mg PO BID DIURETIC Digoxin Tab [Lanoxin Tab] 0.25 mg PO DAILY Letrozole 2.5 mg PO DAILY Spironolactone [Aldactone] 50 mg PO DAILY Magnesium Oxide [Magox 400] 2,000 mg PO BID Acetaminophen 1,000 mg PO Q6H PRN PRN Reason: Pain Linagliptin [Tradjenta] 5 mg PO DAILY metOLazone [Metolazone] 10 mg PO BID - Follow Up or Referral Follow Up: Truong Galan MD [Physician] - (Patient will need a follow-up appointment with Dr. Johnson Galan 2-3 weeks post discharge with BMP, magnesium and EKG.) Angely Kraft MD [Physician] - (Schedule Sleep study at [facility] after discharge ) - Forms/Instructions Exam - Constitutional Vitals: Period Temp Pulse Resp BP Sys/Norman Pulse Ox Last 24 Hr 97 F-99.0 F 66-97 11-27 88-130/34-83 89-99 General appearance: no acute distress (drowsy after ativan last night but wakes to voice and answers questions), over weight - Head Head exam: Present: normocephalic, atraumatic - Eye Eye exam: Present: EOMI. Absent: scleral icterus - Respiratory Respiratory exam: Present: clear to auscultation bilaterally - Cardiovascular Cardiovascular exam: Present: regular rate and rhythm - GI/Abdominal GI/Abdominal exam: Present: normal bowel sounds, soft. Absent: tenderness - Extremities Exam Extremities exam: Present: edema (trace LE edema) - Neurological Exam Neurological exam: Present: altered (drowsy after ativan), other (genralized debility moves all 4 ) - Skin Skin exam: Present: warm, dry Discharge Results Procedures and tests throughout hospitalization: Pending Orders 07/25/16 Fungal Culture w/ Prep Routine 07/25/16 07:36 AFB Culture/Smears Routine 08/06/16 16:04 Occult Blood, Stool Stat 08/15/16 Urine Culture Routine 08/17/16 04:00 Magnesium Routine Phosphorous Routine Prealbumin Routine Labs on day of discharge: Labs from last 24 hours 08/16/16 08/16/16 08/15/16 08:36 07:39 19:43 POC Glucose 126 H 57 L 121 H 08/15/16 08/15/16 08/15/16 16:11 11:11 07:23 POC Glucose 147 H 169 H 121 H Preliminary micro results at discharge 07/25/16 07:36 Mycobacterial Culture - Preliminary Bronchial Washings No AFB isolated at 3 weeks 07/25/16 Unknown Fungal Culture - Preliminary Bronchial Washings Juliane albicans DS: Provider Date of admission: 07/20/16 23:24 Primary care physician: . No PCP Attending physician on admission: Lilly Briones MD Consults: 07/21/16 00:20 Consult to Pharmacy [CONS] Routine Reason for Pharmacy Consult: Adjust Meds Renal Funct 07/21/16 04:14 Consult to Physician [CONS] Routine Comment: Consulting Provider: Alexi Miner When should Consulting Provider be notified: Now 07/21/16 10:38 Consult to Dietitian [CONS] Routine Reason for Dietitian: TF-Initiate/Manage 07/22/16 10:42 Consult to Pharmacy [CONS] Routine Reason for Pharmacy Consult: Dose/Manage Vancomycin 07/29/16 10:20 Consult to Occupational Therapy [CONS] Routine Reason for Occupational Therapy: Evaluate and Treat Consult to Physical Therapy [CONS] Routine Reason for Physical Therapy: Evaluate and Treat 08/02/16 07:35 Consult to Physician [CONS] Routine Comment: Consulting Provider: Consult to Specialist Group: Cardiology When should Consulting Provider be notified: Now Person Notified: [email or web address] Date Notified: 08/02/16 Time Notified: 07:36 08/02/16 16:06 Consult to Case Mgmt/Social Srvs [CONS] Routine Reason for Case Mgmt/Social Srvs: LTAC Consult 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
[2016-08-16] MEDS: INSULIN GLARGINE 100 UNIT/ML SUBCUT SCH (12:36)
[2016-08-16] MEDS: NYSTATIN 500,000 UNIT/5 ML UDCUP SWISH/SWAL SCH ×2 (12:47→12:54)
[2016-08-16] MEDS: predniSONE 20 MG TABLET PO SCH (12:55)
[2016-08-16] MEDS: DESITIN 4OZ/NYSTATIN 15 GRAM MIXTURE PASTE TOP SCH (12:55)
[2016-08-16] MEDS: DIGOXIN 0.125 MG TABLET PO SCH (12:56)
[2016-08-16] MEDS: FUROSEMIDE 20 MG TABLET PO SCH (12:56)
[2016-08-16] MEDS: VALSARTAN 80 MG TABLET PO SCH (12:57)
[2016-08-16] MEDS: AMIODARONE 200 MG TABLET PO SCH (12:57)
[2016-08-16] MEDS: ASPIRIN 325 MG TABLET PO SCH (12:57)
[2016-08-16] MEDS: MULTIVITAMIN LIQUID (CENTRUM) 60 ML BOTTLE NG SCH (12:58)
[2016-08-16 15:28] VITALS: BP 117/79
== END 2016-08-16 15:45 | DRG 207 ==
LOC: EDBD → EDUNIT# → N.ED 22:42 → SUATTDRO 23:24 → N.EDINP 23:24 → N.CC 23:51 → N.TELES 23:51 → N.5E 08-10 16:15 → N.CC 08-15 01:12
PROVIDERS: ADMIT Internal Medicine; ATTEND Internal Medicine